=== PATIENT | male | born 1940 | race Caucasian/White ===

== ENCOUNTER 2019-12-29 13:05 | Outpatient (REF) | payer MEDICARE, SELFPAY ==
[2019-12-29 14:02] LABS: MANUAL DIFF FLAG NO
[2019-12-29 14:09] LABS: Basophils Percent Auto 0.3 % (0-2); Eosinophils Absolute Auto 0.1 X10*3/uL (0.0-0.4); Eosinophils Percent Auto 1.2 % (0-4); Hemoglobin 14.5 g/dl (14.0-18.0); Imm Gran Abs Auto 0.02 X10*3/uL (0.00-0.03); Imm Gran Pct Auto 0.3 % (0.0-0.4); Lymphocytes Absolute Auto 1.7 X10*3/uL (1.2-4.9); Lymphocytes Percent Auto 29.5 % (20-40); Mean Corpuscular HGB Conc 34.5 g/dl (31.0-36.0); Mean Corpuscular Hemoglobin 32.7 pg (27.0-33.0); Mean Corpuscular Volume 94.6 fL (80-98); Mean Platelet Volume 9.5 fL (9.4-12.4); Monocytes Absolute Auto 0.4 X10*3/uL (0.1-1.2); Monocytes Percent Auto 7.2 % (2-11); Neutrophils Absolute Auto 3.6 X10*3/uL (2.0-8.3); Neutrophils Percent Auto 61.5 % (45-73); Platelet Count 202 X10*3/uL (160-400); Red Blood Count 4.44 X10*6/uL (4.60-5.80); Red Cell Distribution Width 11.8 % (11.0-16.0); White Blood Count 5.9 X10*3/uL (4.8-10.8)
[2019-12-29 14:52] LABS: Alanine Aminotransferase 14 U/L (0-40); Albumin Level 4.4 g/dL (3.5-5.0); Alkaline Phosphatase 115 U/L (39-117); Anion Gap 12 (12-20); Aspartate Amino Transferase 16 U/L (5-37); Bilirubin Total 0.6 mg/dL (0.0-1.0); Blood Urea Nitrogen 15 mg/dL (9-16); Calcium 9.3 mg/dL (8.4-10.2); Carbon Dioxide 27 mmol/L (22-29); Chloride 107 mmol/L (96-108); Cholesterol 149 mg/dL; Estimated Glomerular Filt Rate > 60; Glucose Fasting 108 mg/dL (60-99); HDL Cholesterol 41 mg/dL; LDL Cholesterol Calculated 80 mg/dl; Potassium 4.5 mmol/l (3.3-5.1); Sodium 141 mmol/L (135-145); Total Protein 6.6 g/dL (6.5-8.0); Triglycerides 142 mg/dL
[2019-12-29 15:12] LABS: Estimated Average Glucose 97 mg/dL
== END 2019-12-29 13:06 | disposition home or self-care (01) ==
LOC: HO.LABR 13:05
PROVIDERS: PCP Internal Medicine Medical Oncology; Visit Provider Internal Medicine Medical Oncology
DX: E11.40 Type 2 diabetes mellitus with diabetic neuropathy, unspecified (principal); E78.00 Pure hypercholesterolemia, unspecified
CPT/HCPCS: 36415; 80053; 80061; 83036; 85025

== ENCOUNTER 2020-05-03 10:02 | Outpatient (REF) | payer MEDICARE, SELFPAY ==
[2020-05-03 10:39] LABS: MANUAL DIFF FLAG NO
[2020-05-03 10:43] LABS: Basophils Percent Auto 0.2 % (0-2); Eosinophils Absolute Auto 0.1 X10*3/uL (0.0-0.4); Eosinophils Percent Auto 1.7 % (0-4); Hematocrit 40.7 % (42-52); Hemoglobin 13.8 g/dl (14.0-18.0); Imm Gran Abs Auto 0.02 X10*3/uL (0.00-0.03); Imm Gran Pct Auto 0.4 % (0.0-0.4); Lymphocytes Absolute Auto 1.5 X10*3/uL (1.2-4.9); Lymphocytes Percent Auto 31.8 % (20-40); Mean Corpuscular HGB Conc 33.9 g/dl (31.0-36.0); Mean Corpuscular Hemoglobin 31.7 pg (27.0-33.0); Mean Corpuscular Volume 93.6 fL (80-98); Mean Platelet Volume 9.4 fL (9.4-12.4); Monocytes Absolute Auto 0.4 X10*3/uL (0.1-1.2); Monocytes Percent Auto 7.7 % (2-11); Neutrophils Absolute Auto 2.8 X10*3/uL (2.0-8.3); Neutrophils Percent Auto 58.2 % (45-73); Platelet Count 187 X10*3/uL (160-400); Red Blood Count 4.35 X10*6/uL (4.60-5.80); Red Cell Distribution Width 12.5 % (11.0-16.0); White Blood Count 4.8 X10*3/uL (4.8-10.8)
[2020-05-03 11:04] LABS: Estimated Average Glucose 103 mg/dL; Hemoglobin A1C 121.0957 umol/L; Hemoglobin A1c % 5.2 %
[2020-05-03 11:29] LABS: Alanine Aminotransferase 14 U/L (0-40); Albumin Level 4.3 g/dL (3.5-5.0); Alkaline Phosphatase 100 U/L (39-117); Anion Gap 12 (12-20); Aspartate Amino Transferase 14 U/L (5-37); Bilirubin Total 0.5 mg/dL (0.0-1.0); Blood Urea Nitrogen 19 mg/dL (9-16); Calcium 9.1 mg/dL (8.4-10.2); Carbon Dioxide 27 mmol/L (22-29); Chloride 107 mmol/L (96-108); Cholesterol 135 mg/dL; Estimated Glomerular Filt Rate > 60; Glucose Fasting 104 mg/dL (60-99); HDL Cholesterol 37 mg/dL; LDL Cholesterol Calculated 71 mg/dl; Potassium 4.5 mmol/L (3.3-5.1); Sodium 141 mmol/L (135-145); Total Protein 6.5 g/dL (6.5-8.0); Triglycerides 135 mg/dL
[2020-05-03 12:01] LABS: Prostate Specific Antigen 0.97 ng/mL (<0.05-4.0)
== END 2020-05-03 10:03 | disposition home or self-care (01) ==
LOC: HO.LAB 10:02
PROVIDERS: PCP Internal Medicine Medical Oncology; Visit Provider Internal Medicine Medical Oncology
DX: E11.9 Type 2 diabetes mellitus without complications (principal); E78.00 Pure hypercholesterolemia, unspecified; Z12.5 Encounter for screening for malignant neoplasm of prostate
CPT/HCPCS: 36415; 80053; 80061; 83036; 84153; 85025

== ENCOUNTER 2020-08-30 12:35 | Outpatient (REF) | payer MEDICARE, SELFPAY ==
[2020-08-30 13:37] LABS: MANUAL DIFF FLAG NO
[2020-08-30 13:43] LABS: Basophils Percent Auto 0.5 % (0-2); Eosinophils Absolute Auto 0.1 X10*3/uL (0.0-0.4); Hematocrit 39.8 % (42-52); Hemoglobin 13.6 g/dl (14.0-18.0); Imm Gran Abs Auto 0.02 X10*3/uL (0.00-0.03); Imm Gran Pct Auto 0.3 % (0.0-0.4); Lymphocytes Absolute Auto 1.8 X10*3/uL (1.2-4.9); Lymphocytes Percent Auto 30.8 % (20-40); Mean Corpuscular HGB Conc 34.2 g/dl (31.0-36.0); Mean Corpuscular Hemoglobin 31.8 pg (27.0-33.0); Mean Platelet Volume 9.5 fL (9.4-12.4); Monocytes Absolute Auto 0.4 X10*3/uL (0.1-1.2); Monocytes Percent Auto 6.8 % (2-11); Neutrophils Absolute Auto 3.5 X10*3/uL (2.0-8.3); Neutrophils Percent Auto 60.6 % (45-73); Platelet Count 203 X10*3/uL (160-400); Red Blood Count 4.28 X10*6/uL (4.60-5.80); Red Cell Distribution Width 12.2 % (11.0-16.0); White Blood Count 5.8 X10*3/uL (4.8-10.8)
[2020-08-30 13:50] LABS: Estimated Average Glucose 108 mg/dL; Hemoglobin A1C 125.4158 umol/L; Hemoglobin A1c % 5.4 %
[2020-08-30 13:57] LABS: Alanine Aminotransferase 18 U/L (0-40); Albumin Level 4.4 g/dL (3.5-5.0); Alkaline Phosphatase 95 U/L (39-117); Anion Gap 10 (12-20); Aspartate Amino Transferase 16 U/L (5-37); Bilirubin Total 0.8 mg/dL (0.0-1.0); Blood Urea Nitrogen 21 mg/dL (9-16); Calcium 9.7 mg/dL (8.4-10.2); Carbon Dioxide 26 mmol/L (22-29); Chloride 109 mmol/L (96-108); Cholesterol 147 mg/dL; Estimated Glomerular Filt Rate > 60; Glucose Fasting 96 mg/dL (60-99); HDL Cholesterol 43 mg/dL; LDL Cholesterol Calculated 79 mg/dl; Potassium 4.7 mmol/L (3.3-5.1); Sodium 140 mmol/L (135-145); Total Protein 6.5 g/dL (6.5-8.0); Triglycerides 128 mg/dL
[2020-08-30 14:11] LABS: Creatinine Urine 99.09 mg/dL
== END 2020-08-30 12:36 | disposition home or self-care (01) ==
LOC: HO.LAB 12:35
PROVIDERS: PCP Internal Medicine Medical Oncology; Visit Provider Internal Medicine Medical Oncology
DX: E78.5 Hyperlipidemia, unspecified (principal); E66.3 Overweight; E11.9 Type 2 diabetes mellitus without complications
CPT/HCPCS: 36415; 80053; 80061; 82043; 83036; 85025

== ENCOUNTER → 2020-10-08 13:03 | Outpatient (BNVA) | payer MEDICARE, SELFPAY | PROVIDERS: PCP Internal Medicine Medical Oncology; Visit Provider Urology | CPT/HCPCS: Q3014 ==

== ENCOUNTER 2020-12-06 10:32 | Outpatient (REF) | payer MEDICARE, SELFPAY ==
[2020-12-06 11:51] LABS: MANUAL DIFF FLAG NO
[2020-12-06 12:02] LABS: Basophils Percent Auto 0.5 % (0-2); Eosinophils Absolute Auto 0.1 X10*3/uL (0.0-0.4); Eosinophils Percent Auto 1.4 % (0-4); Hematocrit 40.5 % (42-52); Hemoglobin 13.9 g/dl (14.0-18.0); Imm Gran Abs Auto 0.04 X10*3/uL (0.00-0.03); Imm Gran Pct Auto 0.6 % (0.0-0.4); Lymphocytes Percent Auto 30.2 % (20-40); Mean Corpuscular HGB Conc 34.3 g/dl (31.0-36.0); Mean Corpuscular Hemoglobin 31.7 pg (27.0-33.0); Mean Corpuscular Volume 92.3 fL (80-98); Mean Platelet Volume 9.7 fL (9.4-12.4); Monocytes Absolute Auto 0.6 X10*3/uL (0.1-1.2); Monocytes Percent Auto 8.5 % (2-11); Neutrophils Absolute Auto 3.8 X10*3/uL (2.0-8.3); Neutrophils Percent Auto 58.8 % (45-73); Platelet Count 191 X10*3/uL (160-400); Red Blood Count 4.39 X10*6/uL (4.60-5.80); Red Cell Distribution Width 12.1 % (11.0-16.0); White Blood Count 6.5 X10*3/uL (4.8-10.8)
[2020-12-06 12:23] LABS: Alanine Aminotransferase 11 U/L (0-40); Albumin Level 4.3 g/dL (3.5-5.0); Alkaline Phosphatase 132 U/L (39-117); Anion Gap 11 (12-20); Aspartate Amino Transferase 14 U/L (5-37); Bilirubin Total 0.5 mg/dL (0.0-1.0); Blood Urea Nitrogen 14 mg/dL (9-16); Calcium 9.2 mg/dL (8.4-10.2); Carbon Dioxide 25 mmol/L (22-29); Chloride 109 mmol/L (96-108); Cholesterol 146 mg/dL; Estimated Glomerular Filt Rate > 60; Glucose Fasting 101 mg/dL (60-99); HDL Cholesterol 41 mg/dL; LDL Cholesterol Calculated 77 mg/dl; Potassium 4.3 mmol/L (3.3-5.1); Sodium 141 mmol/L (135-145); Total Protein 6.3 g/dL (6.5-8.0); Triglycerides 144 mg/dL
[2020-12-06 12:29] LABS: Estimated Average Glucose 103 mg/dL; Hemoglobin A1c % 5.2 %
[2020-12-06 12:31] LABS: Prostate Specific Antigen 0.88 ng/mL (<0.05-4.0)
[2020-12-06 13:59] LABS: Creatinine Urine 100.49 mg/dL; Microalbum/Creatinine Ratio Ur 8.9 ug/mg cr
== END 2020-12-06 10:33 | disposition home or self-care (01) ==
LOC: HO.LAB 10:32
PROVIDERS: PCP Internal Medicine Medical Oncology; Visit Provider Internal Medicine Medical Oncology
DX: F32.9 Major depressive disorder, single episode, unspecified (principal); E11.9 Type 2 diabetes mellitus without complications; N40.0 Benign prostatic hyperplasia without lower urinary tract symptoms; E78.00 Pure hypercholesterolemia, unspecified
CPT/HCPCS: 36415; 80053; 80061; 82043; 83036; 84153; 85025

== ENCOUNTER 2021-04-04 10:35 | Outpatient (REF) | payer MEDICARE, SELFPAY ==
[2021-04-04 11:01] LABS: MANUAL DIFF FLAG NO
[2021-04-04 11:24] LABS: Basophils Percent Auto 0.4 % (0-2); Eosinophils Absolute Auto 0.1 X10*3/uL (0.0-0.4); Eosinophils Percent Auto 1.4 % (0-4); Hematocrit 42.8 % (42.0-52.0); Hemoglobin 14.5 g/dl (14.0-18.0); Imm Gran Abs Auto 0.04 X10*3/uL (0.00-0.03); Imm Gran Pct Auto 0.6 % (0.0-0.4); Lymphocytes Percent Auto 28.1 % (20-40); Mean Corpuscular HGB Conc 33.9 g/dl (31.0-36.0); Mean Corpuscular Hemoglobin 31.9 pg (27.0-33.0); Mean Corpuscular Volume 94.3 fL (80.0-98.0); Mean Platelet Volume 9.3 fL (9.4-12.4); Monocytes Absolute Auto 0.5 X10*3/uL (0.1-1.2); Neutrophils Absolute Auto 4.5 x10*3/uL (2.0-8.3); Neutrophils Percent Auto 62.5 % (45-73); Platelet Count 213 X10*3/uL (160-400); Red Blood Count 4.54 X10*6/uL (4.60-5.80); Red Cell Distribution Width 12.3 % (11.0-16.0); White Blood Count 7.3 X10*3/uL (4.8-10.8)
[2021-04-04 11:36] LABS: Estimated Average Glucose 105 mg/dL; Hemoglobin A1c % 5.3 %
[2021-04-04 12:00] LABS: Alanine Aminotransferase 32 U/L (0-40); Albumin Level 4.2 g/dL (3.5-5.0); Alkaline Phosphatase 148 U/L (39-117); Anion Gap 12 (12-20); Aspartate Amino Transferase 21 U/L (5-37); Bilirubin Total 0.5 mg/dL (0.0-1.0); Blood Urea Nitrogen 18 mg/dL (9-16); Calcium 9.6 mg/dL (8.4-10.2); Carbon Dioxide 27 mmol/L (22-29); Chloride 107 mmol/L (96-108); Cholesterol 148 mg/dL; Estimated Glomerular Filt Rate > 60; Glucose Fasting 121 mg/dL (60-99); HDL Cholesterol 37 mg/dL; LDL Cholesterol Calculated 89 mg/dl; Potassium 4.5 mmol/L (3.3-5.1); Sodium 141 mmol/L (135-145); Total Protein 6.8 g/dL (6.5-8.0); Triglycerides 111 mg/dL
== END 2021-04-04 10:36 | disposition home or self-care (01) ==
LOC: HO.LAB 10:35
PROVIDERS: Visit Provider Internal Medicine Medical Oncology
DX: E66.3 Overweight (principal); E11.9 Type 2 diabetes mellitus without complications
CPT/HCPCS: 36415; 80053; 80061; 83036; 85025

== ENCOUNTER 2021-08-01 09:42 | Outpatient (REF) | payer MEDICARE, SELFPAY ==
[2021-08-01 09:58] LABS: MANUAL DIFF FLAG NO
[2021-08-01 10:20] LABS: Basophils Percent Auto 0.4 % (0-2); Eosinophils Absolute Auto 0.1 X10*3/uL (0.0-0.4); Eosinophils Percent Auto 1.9 % (0-4); Hematocrit 40.8 % (42.0-52.0); Imm Gran Abs Auto 0.01 X10*3/uL (0.00-0.03); Imm Gran Pct Auto 0.2 % (0.0-0.4); Lymphocytes Absolute Auto 2.2 X10*3/uL (1.2-4.9); Lymphocytes Percent Auto 41.3 % (20-40); Mean Corpuscular HGB Conc 34.3 g/dl (31.0-36.0); Mean Corpuscular Hemoglobin 31.7 pg (27.0-33.0); Mean Corpuscular Volume 92.3 fL (80.0-98.0); Mean Platelet Volume 9.3 fL (9.4-12.4); Monocytes Absolute Auto 0.4 X10*3/uL (0.1-1.2); Neutrophils Absolute Auto 2.6 x10*3/uL (2.0-8.3); Neutrophils Percent Auto 48.2 % (45-73); Platelet Count 179 X10*3/uL (160-400); Red Blood Count 4.42 X10*6/uL (4.60-5.80); Red Cell Distribution Width 12.8 % (11.0-16.0); White Blood Count 5.3 X10*3/uL (4.8-10.8)
[2021-08-01 10:45] LABS: Estimated Average Glucose 108 mg/dL; Hemoglobin A1c % 5.4 %
[2021-08-01 10:49] LABS: Alanine Aminotransferase 14 U/L (0-40); Albumin Level 4.1 g/dL (3.5-5.0); Alkaline Phosphatase 123 U/L (39-117); Anion Gap 11 (12-20); Aspartate Amino Transferase 15 U/L (5-37); Bilirubin Total 0.3 mg/dL (0.0-1.0); Blood Urea Nitrogen 16 mg/dL (9-16); Calcium 9.3 mg/dL (8.4-10.2); Carbon Dioxide 27 mmol/L (22-29); Chloride 106 mmol/L (96-108); Cholesterol 148 mg/dL; Estimated Glomerular Filt Rate > 60; Glucose Fasting 106 mg/dL (60-99); HDL Cholesterol 39 mg/dL; LDL Cholesterol Calculated 80 mg/dl; Sodium 140 mmol/L (135-145); Total Protein 6.4 g/dL (6.5-8.0); Triglycerides 147 mg/dL
[2021-08-01 11:02] LABS: Prostate Specific Antigen 1.16 ng/mL (<0.05-4.0)
[2021-08-01 11:49] LABS: Creatinine Urine 97.91 mg/dL; Microalbum/Creatinine Ratio Ur 7.1 ug/mg cr
== END 2021-08-01 09:43 | disposition home or self-care (01) ==
LOC: HO.LAB 09:42
PROVIDERS: PCP Internal Medicine Medical Oncology; Visit Provider Internal Medicine Medical Oncology
DX: Z12.5 Encounter for screening for malignant neoplasm of prostate (principal); E11.9 Type 2 diabetes mellitus without complications; E78.01 Familial hypercholesterolemia; N40.0 Benign prostatic hyperplasia without lower urinary tract symptoms
CPT/HCPCS: 36415; 80053; 80061; 82043; 83036; 84153; 85025

== ENCOUNTER 2021-11-09 14:43 | Outpatient (REF) | payer MEDICARE, SELFPAY ==
[2021-11-09 15:52] LABS: Prostate Specific Antigen 1.15 ng/mL (<0.05-4.0)
== END 2021-11-09 14:44 | disposition home or self-care (01) ==
LOC: HO.LAB 14:43
PROVIDERS: PCP Internal Medicine Medical Oncology; Visit Provider Urology
DX: Z12.5 Encounter for screening for malignant neoplasm of prostate (principal); N13.8 Other obstructive and reflux uropathy; N40.1 Benign prostatic hyperplasia with lower urinary tract symptoms
CPT/HCPCS: 36415; 84153

== ENCOUNTER 2021-11-21 10:17 | Outpatient (REF) | payer MEDICARE, SELFPAY ==
[2021-11-21 10:36] LABS: MANUAL DIFF FLAG NO
[2021-11-21 10:44] LABS: Basophils Percent Auto 0.3 % (0-2); Eosinophils Absolute Auto 0.1 X10*3/uL (0.0-0.4); Eosinophils Percent Auto 1.3 % (0-4); Hemoglobin 14.5 g/dl (14.0-18.0); Imm Gran Abs Auto 0.01 X10*3/uL (0.00-0.03); Imm Gran Pct Auto 0.1 % (0.0-0.4); Lymphocytes Absolute Auto 1.8 X10*3/uL (1.2-4.9); Mean Corpuscular HGB Conc 33.7 g/dl (31.0-36.0); Mean Corpuscular Hemoglobin 31.5 pg (27.0-33.0); Mean Corpuscular Volume 93.3 fL (80.0-98.0); Mean Platelet Volume 9.2 fL (9.4-12.4); Monocytes Absolute Auto 0.5 X10*3/uL (0.1-1.2); Monocytes Percent Auto 7.6 % (2-11); Neutrophils Absolute Auto 4.3 x10*3/uL (2.0-8.3); Neutrophils Percent Auto 63.7 % (45-73); Platelet Count 171 X10*3/uL (160-400); Red Blood Count 4.61 X10*6/uL (4.60-5.80); Red Cell Distribution Width 12.1 % (11.0-16.0); White Blood Count 6.8 X10*3/uL (4.8-10.8)
[2021-11-21 11:36] LABS: Alanine Aminotransferase 17 U/L (0-40); Albumin Level 4.3 g/dL (3.5-5.0); Alkaline Phosphatase 122 U/L (39-117); Anion Gap 13 (12-20); Aspartate Amino Transferase 17 U/L (5-37); Bilirubin Total 0.5 mg/dL (0.0-1.0); Blood Urea Nitrogen 16 mg/dL (9-16); Calcium 9.3 mg/dL (8.4-10.2); Carbon Dioxide 26 mmol/L (22-29); Chloride 107 mmol/L (96-108); Cholesterol 163 mg/dL; Estimated Glomerular Filt Rate > 60; Glucose Fasting 121 mg/dL (60-99); HDL Cholesterol 41 mg/dL; LDL Cholesterol Calculated 91 mg/dl; Potassium 4.3 mmol/L (3.3-5.1); Sodium 142 mmol/L (135-145); Total Protein 6.6 g/dL (6.5-8.0); Triglycerides 158 mg/dL
[2021-11-21 11:38] LABS: Prostate Specific Antigen 0.94 ng/mL (<0.05-4.0)
[2021-11-21 11:41] LABS: Estimated Average Glucose 105 mg/dL; Hemoglobin A1c % 5.3 %
== END 2021-11-21 10:18 | disposition home or self-care (01) ==
LOC: HO.LAB 10:17
PROVIDERS: PCP Internal Medicine Medical Oncology; Visit Provider Internal Medicine Medical Oncology
DX: Z12.5 Encounter for screening for malignant neoplasm of prostate (principal); E66.3 Overweight; E11.9 Type 2 diabetes mellitus without complications; N40.0 Benign prostatic hyperplasia without lower urinary tract symptoms
CPT/HCPCS: 36415; 80053; 80061; 83036; 84153; 85025

== ENCOUNTER → 2021-11-25 13:08 | Outpatient (BNVA) | payer MEDICARE, SELFPAY | PROVIDERS: Visit Provider Urology | DX: N40.1 Benign prostatic hyperplasia with lower urinary tract symptoms (principal); N13.8 Other obstructive and reflux uropathy; Z12.5 Encounter for screening for malignant neoplasm of prostate | CPT/HCPCS: 51798; 99212 ==

== ENCOUNTER 2022-04-10 09:50 | Outpatient (REF) | payer MEDICARE, SELFPAY ==
[2022-04-10 10:05] LABS: MANUAL DIFF FLAG NO
[2022-04-10 10:44] LABS: Basophils Percent Auto 0.5 % (0-2); Eosinophils Absolute Auto 0.1 X10*3/uL (0.0-0.4); Eosinophils Percent Auto 1.9 % (0-4); Hematocrit 41.6 % (42.0-52.0); Hemoglobin 13.8 g/dl (14.0-18.0); Imm Gran Abs Auto 0.03 X10*3/uL (0.00-0.03); Imm Gran Pct Auto 0.5 % (0.0-0.4); Lymphocytes Absolute Auto 2.4 X10*3/uL (1.2-4.9); Lymphocytes Percent Auto 41.8 % (20-40); Mean Corpuscular HGB Conc 33.2 g/dl (31.0-36.0); Mean Corpuscular Hemoglobin 31.2 pg (27.0-33.0); Mean Corpuscular Volume 94.1 fL (80.0-98.0); Mean Platelet Volume 9.4 fL (9.4-12.4); Monocytes Absolute Auto 0.5 X10*3/uL (0.1-1.2); Monocytes Percent Auto 8.8 % (2-11); Neutrophils Absolute Auto 2.7 x10*3/uL (2.0-8.3); Neutrophils Percent Auto 46.5 % (45-73); Platelet Count 165 X10*3/uL (160-400); Red Blood Count 4.42 X10*6/uL (4.60-5.80); Red Cell Distribution Width 12.3 % (11.0-16.0); White Blood Count 5.8 X10*3/uL (4.8-10.8)
[2022-04-10 10:50] LABS: Estimated Average Glucose 108 mg/dL; Hemoglobin A1c % 5.4 %
[2022-04-10 11:16] LABS: Alanine Aminotransferase 14 U/L (0-40); Albumin Level 4.1 g/dL (3.5-5.0); Alkaline Phosphatase 125 U/L (39-117); Anion Gap 12 (12-20); Aspartate Amino Transferase 18 U/L (5-37); Bilirubin Total 0.4 mg/dL (0.0-1.0); Blood Urea Nitrogen 17 mg/dL (9-16); Calcium 8.7 mg/dL (8.4-10.2); Carbon Dioxide 26 mmol/L (22-29); Chloride 107 mmol/L (96-108); Cholesterol 151 mg/dL; Estimated Glomerular Filt Rate > 60; Glucose Fasting 108 mg/dL (60-99); HDL Cholesterol 43 mg/dL; LDL Cholesterol Calculated 80 mg/dl; Potassium 3.7 mmol/L (3.3-5.1); Sodium 141 mmol/L (135-145); Total Protein 6.3 g/dL (6.5-8.0); Triglycerides 144 mg/dL
[2022-04-10 11:33] LABS: Prostate Specific Antigen 1.29 ng/mL (<0.05-4.0)
[2022-04-10 11:50] LABS: Creatinine Urine 143.58 mg/dL; Microalbum/Creatinine Ratio Ur 4.1 ug/mg cr
== END 2022-04-10 09:51 | disposition home or self-care (01) ==
LOC: HO.LAB 09:50
PROVIDERS: PCP Internal Medicine Medical Oncology; Visit Provider Internal Medicine Medical Oncology
DX: Z12.5 Encounter for screening for malignant neoplasm of prostate (principal); N40.0 Benign prostatic hyperplasia without lower urinary tract symptoms; E11.9 Type 2 diabetes mellitus without complications; E66.3 Overweight
CPT/HCPCS: 36415; 80053; 80061; 82043; 83036; 84153; 85025

== ENCOUNTER 2022-07-31 10:25 | Outpatient (REF) | payer MEDICARE, SELFPAY ==
[2022-07-31 10:41] LABS: MANUAL DIFF FLAG NO
[2022-07-31 12:45] LABS: Basophils Percent Auto 0.3 % (0-2); Eosinophils Absolute Auto 0.1 X10*3/uL (0.0-0.4); Eosinophils Percent Auto 1.6 % (0-4); Hematocrit 42.3 % (42.0-52.0); Hemoglobin 14.2 g/dl (14.0-18.0); Imm Gran Abs Auto 0.03 X10*3/uL (0.00-0.03); Imm Gran Pct Auto 0.5 % (0.0-0.4); Lymphocytes Absolute Auto 2.3 X10*3/uL (1.2-4.9); Lymphocytes Percent Auto 39.1 % (20-40); Mean Corpuscular HGB Conc 33.6 g/dl (31.0-36.0); Mean Corpuscular Hemoglobin 31.5 pg (27.0-33.0); Mean Corpuscular Volume 93.8 fL (80.0-98.0); Mean Platelet Volume 9.4 fL (9.4-12.4); Monocytes Absolute Auto 0.4 X10*3/uL (0.1-1.2); Monocytes Percent Auto 7.2 % (2-11); Neutrophils Percent Auto 51.3 % (45-73); Platelet Count 197 X10*3/uL (160-400); Red Blood Count 4.51 X10*6/uL (4.60-5.80); Red Cell Distribution Width 12.4 % (11.0-16.0); White Blood Count 5.8 X10*3/uL (4.8-10.8)
[2022-07-31 13:12] LABS: Creatinine Urine 88.63 mg/dL; Microalbum/Creatinine Ratio Ur 7.8 ug/mg cr
[2022-07-31 13:18] LABS: Alanine Aminotransferase 19 U/L (0-40); Albumin Level 4.2 g/dL (3.5-5.0); Alkaline Phosphatase 132 U/L (39-117); Anion Gap 12 (12-20); Aspartate Amino Transferase 15 U/L (5-37); Bilirubin Total 0.5 mg/dL (0.0-1.0); Blood Urea Nitrogen 15 mg/dL (9-16); Calcium 9.4 mg/dL (8.4-10.2); Carbon Dioxide 24 mmol/L (22-29); Chloride 108 mmol/L (96-108); Cholesterol 152 mg/dL; Estimated Glomerular Filt Rate > 60; Glucose Random 106 mg/dL (60-115); HDL Cholesterol 37 mg/dL; LDL Cholesterol Calculated 76 mg/dl; Potassium 4.2 mmol/L (3.3-5.1); Sodium 140 mmol/L (135-145); Total Protein 6.3 g/dL (6.5-8.0); Triglycerides 199 mg/dL
[2022-07-31 13:34] LABS: Estimated Average Glucose 111 mg/dL; Hemoglobin A1c % 5.5 %
== END 2022-07-31 10:26 | disposition home or self-care (01) ==
LOC: HO.LAB 10:25
PROVIDERS: PCP Internal Medicine Medical Oncology; Visit Provider Internal Medicine Medical Oncology
DX: E11.9 Type 2 diabetes mellitus without complications (principal); E78.01 Familial hypercholesterolemia
CPT/HCPCS: 36415; 80053; 80061; 82043; 83036; 85025

== ENCOUNTER 2022-08-10 17:32 | Inpatient (IN) | payer MEDICARE, SELFPAY ==
--- NOTE | ~2022-08-10 | CT_ITS ---
EXAMINATION: CT brain and CT cervical spine without contrast. CLINICAL INDICATION: Status post fall TECHNIQUE: 5 mm thin axial and reformatted 2 mm thin sagittal coronal images of brain were obtained without contrast. Subsequently axial 3 mm thin and reformatted 2 mm thin sagittal coronal images of cervical spine were obtained. DLP [id number]. This CT examination was performed using dose optimization technique as appropriate, variously including the following: Automated exposure control Adjustment of MA and/or KV according to patient size(this includes techniques or standardized protocols for targeted exams where dose is matched to indication/reason for exam; extremities or head. Use of iterative reconstruction techniques. FINDINGS: Brain: There is no acute intra-axial, extra-axial bleed, masses or midline shift. There is no acute infarction in evolution. There is no edema. The mcbride to white matter differentiation is maintained normal. The lateral ventricles are symmetrical in size and configuration but enlarged. Bone windows reveal no calvarial abnormality. There is no scalp soft tissue abnormality. Bilateral paranasal sinuses and mastoid air cells are well-aerated. Cervical spine: On sagittal reconstructed images there is maintained cervical lordosis. There is loss of C3-C4 disc height. Rest of the disc heights are maintained normal. There is ventral spondylosis C4-C5, C5-C6 and C6-C7 disc levels. No aggressive lytic or sclerotic process seen. The craniovertebral junction and the C1-C2 alignment is normal. The prevertebral and paravertebral soft tissues are normal. There is minimal atelectatic changes or scarring in both lung apices. CT/CT head/brain wo IV con IMPRESSION: No acute intracranial process seen. No acute fracture or dislocation cervical spine. 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
--- NOTE | ~2022-08-10 | CT_ITS ---
EXAMINATION: CT brain and CT cervical spine without contrast. CLINICAL INDICATION: Status post fall TECHNIQUE: 5 mm thin axial and reformatted 2 mm thin sagittal coronal images of brain were obtained without contrast. Subsequently axial 3 mm thin and reformatted 2 mm thin sagittal coronal images of cervical spine were obtained. DLP 1240. This CT examination was performed using dose optimization technique as appropriate, variously including the following: Automated exposure control Adjustment of MA and/or KV according to patient size(this includes techniques or standardized protocols for targeted exams where dose is matched to indication/reason for exam; extremities or head. Use of iterative reconstruction techniques. FINDINGS: Brain: There is no acute intra-axial, extra-axial bleed, masses or midline shift. There is no acute infarction in evolution. There is no edema. The mcbirde to white matter differentiation is maintained normal. The lateral ventricles are symmetrical in size and configuration but enlarged. Bone windows reveal no calvarial abnormality. There is no scalp soft tissue abnormality. Bilateral paranasal sinuses and mastoid air cells are well-aerated. Cervical spine: On sagittal reconstructed images there is maintained cervical lordosis. There is loss of C3-C4 disc height. Rest of the disc heights are maintained normal. There is ventral spondylosis C4-C5, C5-C6 and C6-C7 disc levels. No aggressive lytic or sclerotic process seen. The craniovertebral junction and the C1-C2 alignment is normal. The prevertebral and paravertebral soft tissues are normal. There is minimal atelectatic changes or scarring in both lung apices. CT/CT cervical spine wo IV con IMPRESSION: No acute intracranial process seen. No acute fracture or dislocation cervical spine. 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
--- NOTE | ~2022-08-10 | XR_ITS ---
EXAMINATION: XR CHEST CLINICAL INFORMATION: Pain status post fall COMPARISON: None available. TECHNIQUE: Frontal view of the chest was obtained. FINDINGS: No significant abnormality is noted involving the heart, lungs, mediastinum, bony thorax or soft tissues. XR/XR chest 1V IMPRESSION: Unremarkable examination.
--- NOTE | ~2022-08-10 | XR_ITS ---
EXAMINATION: XR PELVIS CLINICAL INFORMATION: Fall. COMPARISON: CT abdomen/pelvis dated 11/13/2013. TECHNIQUE: AP view of the pelvis. FINDINGS: No acute fracture or dislocation. Mild bilateral hip joint space narrowing with small marginal osteophytes. No osseous erosion. No abnormal soft tissue calcification. XR/XR pelvis 1-2V IMPRESSION: 1. No acute fracture or dislocation. 2. Mild bilateral hip osteoarthritis.
--- NOTE | 2022-08-10 17:52 | ECG_ITS ---
Test Reason : FALL Blood Pressure : / mmHG Vent. Rate : 079 BPM Atrial Rate : 079 BPM P-R Int : 172 ms QRS Dur : 100 ms QT Int : 414 ms P-R-T Axes : 014 002 -14 degrees QTc Int : 474 ms Normal sinus rhythm Nonspecific ST abnormality Abnormal ECG When compared with ECG of 21-JUN-2011 19:41, No significant change was found Referred By: Generic ED Physician Electronically Signed By:Jose Zhu
[2022-08-10 17:53] VITALS: BP 132/62; BP 144/78; PULSE 80; PULSE 86; RESP 34; TEMP 37.4; O2SAT 96; O2SAT 99; BMI 27.5
--- NOTE | 2022-08-10 18:03 | ED_ITS ---
HPI - Fall General Chief Complaint: Fall Stated Complaint: slip and fall Time Seen by Provider: 08/10/22 18:01 Source: patient and family Mode of arrival: ambulatory Limitations: no limitations History of Present Illness HPI Narrative: Patient history of hypertension anxiety depression otherwise very healthy takes care of himself slightly unsteady on his feet apparently got up at 02:00 to go to bathroom and tripped on the rug next to his bed and could not get up after that. Patient's girlfriend came at 15:00 today as he did not answer the phone and found him on the floor. Patient complaining of bilateral hip pain no chest pain or palpitation no shortness of breath no dizziness no headache no nausea no vomiting. No fever or chills patient wasin usual health yesterday Related Data Home Medications Medication Instructions Recorded Confirmed blood sugar diagnostic #10 ea 10/08/20 08/10/22 clonazepam 2 mg tablet 4 mg PO BEDTIME PRN Anxiety 10/08/20 08/10/22 fluoxetine 20 mg capsule 20 mg PO DAILY 10/08/20 08/10/22 fluoxetine 40 mg capsule 40 mg PO DAILY 10/08/20 08/10/22 lancets #100 ea 10/08/20 08/10/22 lisinopril 5 mg tablet 5 mg PO DAILY 10/08/20 08/10/22 mirtazapine 45 mg tablet 45 mg PO BEDTIME 10/08/20 08/10/22 risperidone 0.5 mg tablet 1 mg PO BEDTIME 10/08/20 08/10/22 simvastatin 10 mg tablet 10 mg PO BEDTIME 10/08/20 08/10/22 valacyclovir 500 mg tablet 500 mg PO DAILY 10/08/20 08/10/22 ergocalciferol (vitamin D2) 1,250 1,250 mcg PO DURAN@1000 08/10/22 08/10/22 mcg (50,000 unit) capsule jtkzvimz-hsb-xngwi acid 300 1 tab PO DAILY 08/10/22 08/10/22 mcg-lycopene 600 mcg-lutein 300 mcg tablet (Centrum Silver Men) Allergies Allergy/AdvReac Type Severity Reaction Status Date / Time No Known Allergies Allergy Verified 11/25/21 08:21 Review of Systems Review of Systems: Yes all other systems are reviewed and are negative PMFSH Past Medical History Medical History Anxiety and depression Hyperlipidemia Hypertension Surgical History Hx of cholecystectomy Social History Social History Household Members: None [facility] Do you presently have visiting nurse or other home services: No Alcohol intake: never Patient Tobacco Use Status: Never used Tobacco Use of substances other than those prescribed or required for medical reasons: No Have you been hit, kicked, punched, or otherwise hurt by someone within the past year? If so, by whom?: No Do you feel safe in your current relationship?: Yes Is there a partner from a previous relationship who is making you feel unsafe now?: No Are you made to feel afraid or neglected: No Advance Directives: Yes Advance Directives Information Provided: No Advance Directives on File: No Advance Directives Date on File: 08/11/22 Do you have thoughts of harming others: None Do you have a plan to hurt others: No Plan Recently lost weight without trying: No Nutrition Risks: No Nutritional Risk Poor oral hygiene: No Physical Exam Vital Signs: Vital Signs: Last Vital Signs Temp 97.4 F 08/11/22 00:38 Pulse 75 08/11/22 00:38 Resp 18 08/11/22 00:38 BP 128/59 L 08/11/22 00:38 Pulse Ox 97 08/11/22 00:38 O2 Del Method Room Air 08/11/22 00:38 BMI result Body Mass Index 27.5 Appearance: Alert. Oriented X3. No acute distress. Eyes: PERRLA, No Nystagmus HEENT: Pharynx normal. Oral Mucosa dry Neck: Normal inspection. Neck supple. Cervical collar in place no midline tenderness no signs of head injury CVS: Normal heart rate and rhythm. Pulses normal. Respiratory: No respiratory distress. Equal air entry bilateral, no wheezing/rales/rhonchi Abdomen: Soft and nontender. Bowel sounds are present, no mass palpable, no CVA tenderness Skin: Skin warm and dry. Normal skin color. Normal skin turgor. Extremities: No lower extremity edema. No calf tenderness bruising over bilateral knee pelvis stable hips stable Neuro: Oriented X 3. No motor deficit. No sensory deficit.No cerebellar signs , cranial nerves II-XII intact Medications Administered Generic Name Dose Route Start Last Admin Trade Name Dieudonne PRN Reason Stop Dose Admin Enoxaparin Sodium 40 mg 08/10/22 23:00 08/10/22 23:00 Enoxaparin Sodium 40 Mg/0.4 Ml Syringe SUBCUT 40 mg Q24H LUCI Administration Lactated Ringer's 1,000 mls @ 100 mls/hr 08/10/22 22:30 08/10/22 23:07 Lr IVCONT 100 mls/hr .Q10H LUCI Administration Ceftriaxone Sodium 1 gm/ 50 mls @ 100 mls/hr 08/10/22 23:00 08/11/22 00:53 Sodium Chloride IV Infused Q24H LUCI Infusion Mirtazapine 45 mg 08/10/22 22:30 08/10/22 23:00 Mirtazapine 15 Mg Tablet PO 45 mg BEDTIME LUCI Administration Risperidone 1 mg 08/10/22 22:30 08/10/22 23:00 Risperidone 0.5 Mg Tablet PO 1 mg BEDTIME LUCI Administration Sodium Chloride 3 ml 08/11/22 00:00 08/10/22 23:14 0.9 % Sodium Chloride Flush 3 Ml Syringe IVFLUSH Not Given QSHIFT LUCI Discontinued Medications Generic Name Dose Route Start Last Admin Trade Name Dieudonne PRN Reason Stop Dose Admin Sodium Chloride 1,000 mls @ 999 mls/hr 08/10/22 18:09 08/10/22 19:24 Ns IV 08/10/22 19:09 Infused .Q1H1M ONE Infusion Sodium Chloride 1,000 mls @ 999 mls/hr 08/10/22 19:04 08/10/22 20:17 Ns IV 08/10/22 20:04 Infused .Q1H1M ONE Infusion Morphine Sulfate 4 mg 08/10/22 19:04 08/10/22 19:11 Morphine Sulfate 4 Mg/Ml Cartridge IVPUSH 08/10/22 19:05 4 mg ONCE ONE Administration Protocol Ondansetron HCl 4 mg 08/10/22 19:04 08/10/22 19:11 Ondansetron Hcl 4 Mg/2 Ml Vial IVPUSH 08/10/22 19:05 4 mg ONCE ONE Administration Medical Decision Making Medical Decision Making MDM Narrative: Patient status post mechanical fall on floor for more than 12 hours lab workup showed an elevated CPK in acute rhabdomyolysis elevated lactic acid level but not from infection is from dehydration also had slightly elevated LFTs secondary to rhabdomyolysis IV fluids were given in the ER patient improved will admit patient for rhabdomyolysis Consult Healthcare Provider Management of the patient was discussed with: Hospitalist Lab Data MDM Lab Attestation statement: I reviewed the patient's lab results. 08/10/22 18:05 08/10/22 18:05 Labs: Lab Results 08/10/22 08/10/22 08/10/22 Range/Units 18:05 18:05 18:05 WBC 14.3 H (4.8-10.8) X10*3/uL RBC 5.00 (4.60-5.80) X10*6/uL Hgb 15.8 (14.0-18.0) g/dl Hct 44.1 (42.0-52.0) % MCV 88.2 (80.0-98.0) fL MCH 31.6 (27.0-33.0) pg MCHC 35.8 (31.0-36.0) g/dl RDW 12.3 (11.0-16.0) % Plt Count 221 (160-400) X10*3/uL MPV 8.9 L (9.4-12.4) fL Immature Gran % (Auto) 0.4 (0.0-0.4) % Neut % (Auto) 87.5 H (45-73) % Lymph % (Auto) 5.7 L (20-40) % [place] % (Auto) 6.2 (2-11) % Eos % (Auto) 0.1 (0-4) % Baso % (Auto) 0.1 (0-2) % Lymph # (Auto) 0.8 L (1.2-4.9) X10*3/uL [place] # (Auto) 0.9 (0.1-1.2) X10*3/uL Eos # (Auto) 0.0 (0.0-0.4) X10*3/uL Baso # (Auto) 0.0 (0.0-0.2) X10*3/uL Abs Immat Gran (auto) 0.05 H (0.00-0.03) X10*3/uL Absolute Neuts (auto) 12.5 H (2.0-8.3) x10*3/uL Absolute Nucleated RBC 0.000 (0.0-0.012) X10*3/uL Nucleated RBC % (auto) 0.0 (0.0-0.2) /100WBC Sodium 141 (135-145) mmol/L Potassium 4.1 (3.3-5.1) mmol/L Chloride 108 (96-108) mmol/L Carbon Dioxide 19 L (22-29) mmol/L Anion Gap 18 (12-20) BUN 21 H (9-16) mg/dL Creatinine 1.12 (0.5-1.4) mg/dL Estim Creat Clear Calc 57.7 Estimated GFR > 60 Random Glucose 137 H (60-115) mg/dL Lactic Acid 2.9 H* (0.5-2.0) mmol/L Lactic Acid F/U @ 2Hr (0.5-2.0) mmol/L Calcium 9.7 (8.4-10.2) mg/dL Magnesium 2.0 (1.6-2.6) mg/dL Total Bilirubin 1.4 H (0.0-1.0) mg/dL Direct Bilirubin 0.3 (0.0-0.5) mg/dL AST 274 H (5-37) U/L ALT 66 H (0-40) U/L Alkaline Phosphatase 130 H (39-117) U/L Total Creatine Kinase 26622 H (38-174) U/L Troponin I High Sens (<3.5-35.0) ng/L Total Protein 6.8 (6.5-8.0) g/dL Albumin 4.4 (3.5-5.0) g/dL Urine Color Urine Appearance Urine pH (5.0-9.0) Ur Specific [place] (1.005-1.025) Urine Protein (Neg-Trace) mg/dL Urine Glucose (UA) (Negative) mg/dL Urine Ketones (Negative) mg/dL Urine Blood (Negative) Urine Nitrite (Negative) Ur Leukocyte Esterase (Negative) Urine RBC (0-2) /HPF Urine WBC (0-5) /HPF Ur Squamous Epith Cells (0-2) /HPF Urine Bacteria (None Seen) Hyaline Casts (0-2) /LPF 08/10/22 08/10/2223 Range/Units 18:05 19:19 20:40 WBC (4.8-10.8) X10*3/uL RBC (4.60-5.80) X10*6/uL Hgb (14.0-18.0) g/dl Hct (42.0-52.0) % MCV (80.0-98.0) fL MCH (27.0-33.0) pg MCHC (31.0-36.0) g/dl RDW (11.0-16.0) % Plt Count (160-400) X10*3/uL MPV (9.4-12.4) fL Immature Gran % (Auto) (0.0-0.4) % Neut % (Auto) (45-73) % Lymph % (Auto) (20-40) % [place] % (Auto) (2-11) % Eos % (Auto) (0-4) % Baso % (Auto) (0-2) % Lymph # (Auto) (1.2-4.9) X10*3/uL [place] # (Auto) (0.1-1.2) X10*3/uL Eos # (Auto) (0.0-0.4) X10*3/uL Baso # (Auto) (0.0-0.2) X10*3/uL Abs Immat Gran (auto) (0.00-0.03) X10*3/uL Absolute Neuts (auto) (2.0-8.3) x10*3/uL Absolute Nucleated RBC (0.0-0.012) X10*3/uL Nucleated RBC % (auto) (0.0-0.2) /100WBC Sodium (135-145) mmol/L Potassium (3.3-5.1) mmol/L Chloride (96-108) mmol/L Carbon Dioxide (22-29) mmol/L Anion Gap (12-20) BUN (9-16) mg/dL Creatinine (0.5-1.4) mg/dL Estim Creat Clear Calc Estimated GFR Random Glucose (60-115) mg/dL Lactic Acid (0.5-2.0) mmol/L Lactic Acid F/U @ 2Hr 2.1 H* (0.5-2.0) mmol/L Calcium (8.4-10.2) mg/dL Magnesium (1.6-2.6) mg/dL Total Bilirubin (0.0-1.0) mg/dL Direct Bilirubin (0.0-0.5) mg/dL AST (5-37) U/L ALT (0-40) U/L Alkaline Phosphatase (39-117) U/L Total Creatine Kinase (38-174) U/L Troponin I High Sens 35.4 H (<3.5-35.0) ng/L Total Protein (6.5-8.0) g/dL Albumin (3.5-5.0) g/dL Urine Color Yellow Urine Appearance Clear Urine pH 6.5 (5.0-9.0) Ur Specific [place] 1.020 (1.005-1.025) Urine Protein 30 (1+) H (Neg-Trace) mg/dL Urine Glucose (UA) Negative (Negative) mg/dL Urine Ketones 40 (Negative) mg/dL Urine Blood Large (3+) H (Negative) Urine Nitrite Negative (Negative) Ur Leukocyte Esterase Trace H (Negative) Urine RBC 6-10 H (0-2) /HPF Urine WBC 0-5 (0-5) /HPF Ur Squamous Epith Cells 0-2 (0-2) /HPF Urine Bacteria None Seen (None Seen) Hyaline Casts 0-2 (0-2) /LPF Discharge Plan Discharge Clinical Impression: Fall, Rhabdomyolysis Patient Disposition: Admitted As Inpatient Interventions: Admission Worksheet (ED) Last Done: 08/10/22 23:36 Discharge Date/Time: 08/11/22 00:08
[2022-08-10 18:10] LABS: MANUAL DIFF FLAG NO
[2022-08-10 18:11] LABS: Basophils Percent Auto 0.1 % (0-2); Eosinophils Percent Auto 0.1 % (0-4); Hematocrit 44.1 % (42.0-52.0); Hemoglobin 15.8 g/dl (14.0-18.0); Imm Gran Abs Auto 0.05 X10*3/uL (0.00-0.03); Imm Gran Pct Auto 0.4 % (0.0-0.4); Lymphocytes Absolute Auto 0.8 X10*3/uL (1.2-4.9); Lymphocytes Percent Auto 5.7 % (20-40); Mean Corpuscular HGB Conc 35.8 g/dl (31.0-36.0); Mean Corpuscular Hemoglobin 31.6 pg (27.0-33.0); Mean Corpuscular Volume 88.2 fL (80.0-98.0); Mean Platelet Volume 8.9 fL (9.4-12.4); Monocytes Absolute Auto 0.9 X10*3/uL (0.1-1.2); Monocytes Percent Auto 6.2 % (2-11); Neutrophils Absolute Auto 12.5 x10*3/uL (2.0-8.3); Neutrophils Percent Auto 87.5 % (45-73); Platelet Count 221 X10*3/uL (160-400); Red Cell Distribution Width 12.3 % (11.0-16.0); White Blood Count 14.3 X10*3/uL (4.8-10.8)
[2022-08-10] MEDS: 0.9 % Sodium Chloride 1,000 ML 999 ML IV ×2 (18:11→19:11)
--- NOTE | 2022-08-10 18:17 | PC.NURSE ---
Trip and fall getting out of bed approx 2am. Girlfriend found down this afternoon, pt denies any pain states he's just sore from trying to get up . Abrasions noted to bilateral knees, redness noted to upper abdomen. Pt states he was trying to get up and couldn't. No LOC, no blood thinners, pt alert and oriented x4. Incontinent of urine, clothing cut and pt agreed for them to be thrown away. IV established, lab work obtained. Fluids infusing at this time. Girlfriend at bedside.
[2022-08-10 18:26] LABS: Lactic Acid 2.9 mmol/L (0.5-2.0)
[2022-08-10 18:30] LABS: Anion Gap 18 (12-20); Blood Urea Nitrogen 21 mg/dL (9-16); Calcium 9.7 mg/dL (8.4-10.2); Carbon Dioxide 19 mmol/L (22-29); Chloride 108 mmol/L (96-108); Creatinine Clr Calc Pharmacy 57.7; Estimated Glomerular Filt Rate > 60; Glucose Random 137 mg/dL (60-115); Potassium 4.1 mmol/L (3.3-5.1); Sodium 141 mmol/L (135-145)
[2022-08-10 18:33] LABS: Troponin-I High Sensitivity 35.4 ng/L (<3.5-35.0)
[2022-08-10] MEDS: Morphine Sulfate 4 MG/ML CARTRIDGE IVPUSH (19:11)
[2022-08-10] MEDS: ondansetron HCL 4 MG/2 ML VIAL IVPUSH (19:11)
[2022-08-10 19:15] VITALS: BP 147/66; PULSE 83; RESP 22; O2SAT 100
--- NOTE | 2022-08-10 19:24 | PC.NURSE ---
I assumed care of the pt at 1900. Pt is resting quietly in bed with his partner at the bedside. Pt is A&Ox4, GCS 17. Pt is complaining of 8/10 pain in his hips bilaterally. MD aware, pt will get morphine and an xray of his pelvis. MD removed c-collar at bedside. Pt partner is concerned about discharging the pt because pt has been having trouble walking at home. MD stated pt will be admitted. Pt and partner are aware. Pt medicated per MAY and fluids were hung. Pt has a patent 20g IV in the right AC.
[2022-08-10 19:26] LABS: Appearance Urine Clear; Color Urine Yellow; Glucose Urine UA Negative (Negative); Leukocyte Esterase Urine Trace (Negative); Nitrite Urine Negative (Negative); PH 6.5 (5.0-9.0); UMIC TRIGGER UACC YES; Urine Blood Large (3+) (Negative); Urine Ketones 40 mg/dL (Negative); Urine Protein 30 (1+) mg/dL (Neg-Trace)
[2022-08-10 19:31] LABS: Bacteria Urine None Seen (None Seen); Hyaline Casts Urine 0-2 /LPF (0-2); Squamous Epithelial Cell Urine 0-2 /HPF (0-2); WBC Urine 0-5 /HPF (0-5)
[2022-08-10 20:08] LABS: Reflex Lactate? Lactic Acid Added
[2022-08-10 21:03] LABS: ~Lactic Acid-LAB USE ONLY 2.1 mmol/L (0.5-2.0)
[2022-08-10 21:55] LABS: Alanine Aminotransferase 66 U/L (0-40); Albumin Level 4.4 g/dL (3.5-5.0); Alkaline Phosphatase 130 U/L (39-117); Aspartate Amino Transferase 274 U/L (5-37); Bilirubin Direct 0.3 mg/dL (0.0-0.5); Bilirubin Total 1.4 mg/dL (0.0-1.0); Total Protein 6.8 g/dL (6.5-8.0)
[2022-08-10 22:23] VITALS: BP 129/52; PULSE 77; RESP 20; TEMP 36.8; O2SAT 98
--- NOTE | 2022-08-10 22:28 | P.HPHOSP_ITS ---
History of Present Illness Date of Service: 08/10/22 Chief Complaint: fall 82-year-old male with a history of hypertension, anxiety depression presents to the hospital after a fall. Patient reports that he woke up at 2 in the morning to use the bathroom, he slipped on his throw rug in the bathroom and had diffic ulty getting up. He was on the floor until 15:00 the next day when his girlfriend found him. Patient denies loss of consciousness, no head injury, no palpitations, chest pain, no shortness of breath, no dizziness, no headache. Patient denies any abdominal pain nausea or vomiting, no diarrhea constipation, no urinary symptoms and no lower extremity edema On arrival to the ED patient hemodynamically stable with a respiratory rate of 34 that improved after IV fluids Labs are significant for WBC count of 14.3, lactic acid of 2.9, improved after IV hydration, AST of 274, ALT of 66, CPK of 20,838, UA is positive for leukocyte Estrace, WBC, patient started on IV fluids and will be admitted for further management Review of Systems Review of Systems: Yes all other systems are reviewed and are negative [facility] Medical History Anxiety and depression Hyperlipidemia Hypertension Surgical History (Updated 08/11/22 @ 00:05 by Danette Linton MD) Hx of cholecystectomy Social History (Updated 08/11/22 @ 00:05 by Danette Linton MD) Alcohol intake: never Patient Tobacco Use Status: Never used Tobacco Meds Allergies Allergy/AdvReac Type Severity Reaction Status Date / Time No Known Allergies Allergy Verified 11/25/21 08:21 Active Medications: Current Medications Acetaminophen (Acetaminophen 325 Mg Tablet) 650 mg PO Q6H PRN PRN Reason: Pain, Mild (Pain Scale 1-3) Docusate Sodium (Docusate Sodium 100 Mg Capsule) 100 mg PO DAILY PRN PRN Reason: Constipation Enoxaparin Sodium (Enoxaparin Sodium 40 Mg/0.4 Ml Syringe) 40 mg SUBCUT Q24H LUCI Lactated Ringer's (Lr) 1,000 mls @ 100 mls/hr IVCONT .Q10H LUCI Ceftriaxone Sodium 1 gm/ (Sodium Chloride) 50 mls @ 100 mls/hr IV Q24H LUCI Ondansetron HCl (Ondansetron Hcl 4 Mg/2 Ml Vial) 4 mg IVPUSH Q8H PRN PRN Reason: Nausea and Vomiting Sodium Chloride (0.9 % Sodium Chloride Flush 3 Ml Syringe) 3 ml IVFLUSH [facility] Home Medications Medication Instructions Recorded Confirmed Last Taken Type blood sugar diagnostic #10 ea 10/08/20 08/10/22 Unknown History clonazepam 2 mg tablet 4 mg PO BEDTIME PRN Anxiety 10/08/20 08/10/22 Unknown History fluoxetine 20 mg capsule 20 mg PO DAILY 10/08/20 08/10/22 Unknown History fluoxetine 40 mg capsule 40 mg PO DAILY 10/08/20 08/10/22 Unknown History lancets #100 ea 10/08/20 08/10/22 Unknown History lisinopril 5 mg tablet 5 mg PO DAILY 10/08/20 08/10/22 Unknown History mirtazapine 45 mg tablet 45 mg PO BEDTIME 10/08/20 08/10/22 Unknown History risperidone 0.5 mg tablet 1 mg PO BEDTIME 10/08/20 08/10/22 Unknown History simvastatin 10 mg tablet 10 mg PO BEDTIME 10/08/20 08/10/22 Unknown History valacyclovir 500 mg tablet 500 mg PO DAILY 10/08/20 08/10/22 Unknown History ergocalciferol (vitamin D2) 1,250 1,250 mcg PO DURAN@1000 08/10/22 08/10/22 Unknown History mcg (50,000 unit) capsule hxzuroeg-ovu-zlgol acid 300 1 tab PO DAILY 08/10/22 08/10/22 Unknown History mcg-lycopene 600 mcg-lutein 300 mcg tablet (Centrum Silver Men) Physical Exam Vital Signs and Narrative: Vital Signs: Last Vital Signs Temp 98.3 F 08/10/22 22:23 Pulse 77 08/10/22 22:23 Resp 20 08/10/22 22:23 BP 129/52 L 08/10/22 22:23 Pulse Ox 98 08/10/22 22:23 O2 Del Method Room Air 08/10/22 22:23 BMI result Body Mass Index 27.5 Const: General: cooperative and no acute distress Orientation/consciousness: patient oriented x3 Eyes: General: appearance normal, both eyes and all related structures Pupils: Equal, round and reactive pupils present Resp: Effort & Inspection: normal respiratory effort Auscultation: clear to auscultation bilaterally Cardio: Rate: regular rate Rhythm: regular rhythm GI: Palpation (GI): Soft to palpation Auscultation: normal bowel sounds Skin: Other: appears dehydrated General skin exam: no rashes or lesions noted Neuro: General: patient oriented x3 Cranial nerves: Yes Equal, round and reactive pupils present Cognition (Neuro): normal cognition Extrem: General: Yes normal to inspection and Yes no pedal edema Results Labs 08/10/22 18:05 08/10/22 18:05 Labs: Laboratory Results - last 24 hr 08/10/22 08/10/22 08/10/22 18:05 18:05 18:05 MCV 88.2 MCH 31.6 MCHC 35.8 RDW 12.3 Plt Count 221 MPV 8.9 L Immature Gran % (Auto) 0.4 Neut % (Auto) 87.5 H Lymph % (Auto) 5.7 L [place] % (Auto) 6.2 Eos % (Auto) 0.1 Baso % (Auto) 0.1 Lymph # (Auto) 0.8 L [place] # (Auto) 0.9 Eos # (Auto) 0.0 Baso # (Auto) 0.0 Abs Immat Gran (auto) 0.05 H Absolute Neuts (auto) 12.5 H Absolute Nucleated RBC 0.000 Nucleated RBC % (auto) 0.0 Anion Gap 18 Estim Creat Clear Calc 57.7 Estimated GFR > 60 Random Glucose 137 H Lactic Acid 2.9 H* Lactic Acid F/U @ 2Hr Calcium 9.7 Magnesium 2.0 Total Bilirubin 1.4 H Direct Bilirubin 0.3 AST 274 H ALT 66 H Alkaline Phosphatase 130 H Total Creatine Kinase 85412 H Troponin I High Sens Total Protein 6.8 Albumin 4.4 Urine Color Urine Appearance Urine pH Ur Specific [place] Urine Protein Urine Glucose (UA) Urine Ketones Urine Blood Urine Nitrite Ur Leukocyte Esterase Urine RBC Urine WBC Ur Squamous Epith Cells Urine Bacteria Hyaline Casts 08/10/22 08/10/22 08/10/22 18:05 19:19 20:40 MCV MCH MCHC RDW Plt Count MPV Immature Gran % (Auto) Neut % (Auto) Lymph % (Auto) [place] % (Auto) Eos % (Auto) Baso % (Auto) Lymph # (Auto) [place] # (Auto) Eos # (Auto) Baso # (Auto) Abs Immat Gran (auto) Absolute Neuts (auto) Absolute Nucleated RBC Nucleated RBC % (auto) Anion Gap Estim Creat Clear Calc Estimated GFR Random Glucose Lactic Acid Lactic Acid F/U @ 2Hr 2.1 H* Calcium Magnesium Total Bilirubin Direct Bilirubin AST ALT Alkaline Phosphatase Total Creatine Kinase Troponin I High Sens 35.4 H Total Protein Albumin Urine Color Yellow Urine Appearance Clear Urine pH 6.5 Ur Specific [place] 1.020 Urine Protein 30 (1+) H Urine Glucose (UA) Negative Urine Ketones 40 Urine Blood Large (3+) H Urine Nitrite Negative Ur Leukocyte Esterase Trace H Urine RBC 6-10 H Urine WBC 0-5 Ur Squamous Epith Cells 0-2 Urine Bacteria None Seen Hyaline Casts 0-2 Imaging Radiologist's Impressions: Impressions Cervical Spine CT 08/10/22 18:54 IMPRESSION: No acute intracranial process seen. No acute fracture or dislocation cervical spine. 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 Head CT 08/10/22 18:54 IMPRESSION: No acute intracranial process seen. No acute fracture or dislocation cervical spine. 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 Pelvis X-Ray 08/10/22 19:25 IMPRESSION: 1. No acute fracture or dislocation. 2. Mild bilateral hip osteoarthritis. Chest X-Ray 08/10/22 19:27 IMPRESSION: Unremarkable examination. Assessment and Plan (1) Rhabdomyolysis: Status: Acute (2) Fall: Status: Acute (3) Transaminitis: Status: Acute Plan 82-year-old with past medical history of hypertension, hyperlipidemia, anxiety and depression presents to the hospital after a fall # acute rhabdomyolysis - no LORE - secondary to fall - will treat with IV fluids - follow CPK and BMP # elevated LFTs - secondary to rhabdo - follow lower function # fall - mechanical - imaging negative for any acute abnormality - PT OT consult # hypertension - stable - continue antihypertensive # hyperlipidemia - hold statin DVT prophylaxis: Eliquis given severe rhabdo requiring continuous IV fluid patient will require minimum 2 nights inpatient hospital stay for further management and monitoring Time Spent With Patient Time: Total time managing care of this patient today ____ minutes. Quality Stroke Does the patient have a stroke diagnosis?: No VTE Prior VTE?: No VTE Risk Level:: Medical - moderate - high VTE Device Contraindication: Treatment Not Indicated VTE Drug Contraindication: N/A - Med Ordered
--- NOTE | 2022-08-10 22:34 | PHA.MEDREC ---
MED REC COMPLETE, NO ISSUES Pharmacy Consult ? Medication Reconciliation Pharmacy has completed the medication reconciliation.
[2022-08-10 22:42] LABS: Reflex Lactate? 2 Y
[2022-08-10] MEDS: Enoxaparin Sodium 40 MG/0.4 ML SYRINGE SUBCUT (23:00)
[2022-08-10] MEDS: risperiDONE 0.5 MG TABLET 1 MG PO (23:00)
[2022-08-10] MEDS: Mirtazapine 15 MG TABLET 45 MG PO (23:00)
[2022-08-10] MEDS: cefTRIAXone sodium 1 GM in 0.9 % Sodium Chloride 50 ML IV (23:07)
[2022-08-10] MEDS: Lactated Ringers 1,000 ML 100 ML IVCONT (23:07)
[2022-08-10 23:18] LABS: ~Lactic Acid-LAB USE ONLY 1.9 mmol/L (0.5-2.0)
--- NOTE | 2022-08-10 23:18 | PC.NURSE ---
Attempted to call report a 21:18. US reported RN will call back.
[2022-08-11 00:38] VITALS: BP 128/59; PULSE 75; RESP 18; TEMP 36.3; O2SAT 97
[2022-08-11 00:51] LABS: Troponin-I High Sensitivity 27.9 ng/L (<3.5-35.0)
[2022-08-11 00:59] VITALS: BMI 27.3
[2022-08-11 03:35] VITALS: BP 133/61; PULSE 73; RESP 18; TEMP 36.9; O2SAT 96
[2022-08-11 06:47] LABS: MANUAL DIFF FLAG NO
[2022-08-11 06:54] LABS: Basophils Percent Auto 0.2 % (0-2); Eosinophils Percent Auto 0.1 % (0-4); Hematocrit 40.9 % (42.0-52.0); Hemoglobin 13.9 g/dl (14.0-18.0); Imm Gran Abs Auto 0.03 X10*3/uL (0.00-0.03); Imm Gran Pct Auto 0.3 % (0.0-0.4); Lymphocytes Absolute Auto 1.7 X10*3/uL (1.2-4.9); Mean Corpuscular Hemoglobin 31.7 pg (27.0-33.0); Mean Corpuscular Volume 93.4 fL (80.0-98.0); Mean Platelet Volume 9.4 fL (9.4-12.4); Monocytes Absolute Auto 1.1 X10*3/uL (0.1-1.2); Monocytes Percent Auto 11.9 % (2-11); Neutrophils Absolute Auto 6.6 x10*3/uL (2.0-8.3); Neutrophils Percent Auto 69.5 % (45-73); Platelet Count 157 X10*3/uL (160-400); Red Blood Count 4.38 X10*6/uL (4.60-5.80); Red Cell Distribution Width 12.8 % (11.0-16.0); White Blood Count 9.5 X10*3/uL (4.8-10.8)
[2022-08-11 07:19] LABS: Alanine Aminotransferase 74 U/L (0-40); Albumin Level 3.4 g/dL (3.5-5.0); Alkaline Phosphatase 101 U/L (39-117); Anion Gap 12 (12-20); Aspartate Amino Transferase 273 U/L (5-37); Bilirubin Direct 0.3 mg/dL (0.0-0.5); Blood Urea Nitrogen 19 mg/dL (9-16); Carbon Dioxide 22 mmol/L (22-29); Chloride 114 mmol/L (96-108); Estimated Glomerular Filt Rate > 60; Glucose Random 121 mg/dL (60-115); Potassium 4.2 mmol/L (3.3-5.1); Sodium 144 mmol/L (135-145); Total Protein 5.3 g/dL (6.5-8.0)
[2022-08-11 07:27] VITALS: BP 111/56; PULSE 78; RESP 16; TEMP 37; O2SAT 97
[2022-08-11 07:27] LABS: Calcium 8.6 mg/dL (8.4-10.2)
[2022-08-11] MEDS: valACYclovir HCL 500 MG TABLET PO (08:08)
[2022-08-11] MEDS: Acetaminophen 325 MG TABLET 650 MG PO (08:08)
[2022-08-11] MEDS: lisinopriL 5 MG TABLET PO (08:09)
[2022-08-11] MEDS: FLUoxetine HCl 20 MG CAPSULE 60 MG PO (08:09)
[2022-08-11] MEDS: traMADoL HCL 50 MG TABLET 25 MG PO (08:10)
[2022-08-11] MEDS: Lactated Ringers 1,000 ML 100 ML IVCONT ×2 (08:12→19:31)
[2022-08-11 08:47] VITALS: BP 111/56; PULSE 78; O2SAT 97
--- NOTE | 2022-08-11 10:35 | MHC.CM.PN ---
PATIENT LIVES ALONE. HE HAS A HCP AND A COPY IS REQUESTED. PATIENT IS AWARE THAT PHYSICAL THERAPY IS SUGGESTING SHORT TERM REHAB; HOWEVER, HE IS NOT READY TO MAKE A DECISION ABOUT THIS OR WHERE HE WANTS REFERRALS NO DME OR VNA IN THE HOME. INDEPENDENT WITH ADLS. CASE MANAGEMENT TO RETURN WHEN HE IS FEELING BETTER. IMM 08/11 IN CHART
--- NOTE | 2022-08-11 15:01 | HO.PM.IMPN ---
Subjective Subjective Date of Service: 08/11/22 Interval History: seen and examined this morning follow up for fall, amanuelo reports that he got up in the middle of night to go to the bathroom and slipped on the throw rug. He was unable to get up off the ground. He denies any dizziness prior to his fall and he denies loss of consciousness Review of Systems Review of Systems: Yes all other systems are reviewed and are negative Constitutional Constitutional: Denies chills, Reports fatigue and Denies fever(s) ENT Ears, Nose, Mouth, and Throat: Denies dizziness Cardiovascular Cardiovascular: Denies chest pain, Denies palpitations and Denies dyspnea Respiratory Respiratory: Denies cough and Denies dyspnea Gastrointestinal Gastrointestinal: Denies abdominal pain Neurologic Neurologic: Denies dizziness Endocrine Endocrine: Reports fatigue and Denies palpitations Physical Exam Vital Signs: Vital Signs: Last Vital Signs Temp 98.6 F 08/11/22 07:27 Pulse 78 08/11/22 08:47 Resp 16 08/11/22 07:27 BP 111/56 L 08/11/22 08:47 Pulse Ox 97 08/11/22 08:47 O2 Del Method Room Air 08/11/22 07:27 BMI result Body Mass Index 27.3 Const: General: cooperative, comfortable, no acute distress, alert and awake Nutritional Appearance: average body habitus Orientation/consciousness: patient oriented x3 Resp: Effort & Inspection: normal respiratory effort and able to speak in complete sentences Auscultation: clear to auscultation bilaterally Cardio: Rate: regular rate GI: Inspection: No distended Palpation (GI): Soft to palpation and nontender Neuro: General: patient oriented x3, moves all extremities and CN's II-XI intact bilaterally Extrem: General: Yes no pedal edema Objective Data Active Medications Acetaminophen (Acetaminophen 325 Mg Tablet) 650 mg PO Q6H PRN PRN Reason: Pain, Mild (Pain Scale 1-3) Last Admin: 08/11/22 08:08 Dose: 650 mg Documented By: SHIV Clonazepam (Clonazepam 1 Mg Tablet) 4 mg PO BEDTIME PRN PRN Reason: Anxiety Docusate Sodium (Docusate Sodium 100 Mg Capsule) 100 mg PO DAILY PRN PRN Reason: Constipation Enoxaparin Sodium (Enoxaparin Sodium 40 Mg/0.4 Ml Syringe) 40 mg SUBCUT Q24H [facility] Last Admin: 08/10/22 23:00 Dose: 40 mg Documented By: HANNAH Ergocalciferol (Ergocalciferol (Vitamin D2) 1,250 Mcg Capsule) 1,250 mcg PO Singh@0900 [facility] Fluoxetine HCl (Fluoxetine Hcl 20 Mg Capsule) 60 mg PO DAILY [facility] Last Admin: 08/11/22 08:09 Dose: 60 mg Documented By: SHIV Lactated Ringer's (Lr) 1,000 mls @ 100 mls/hr IVCONT .Q10H [facility] Last Admin: 08/11/22 08:12 Dose: 100 mls/hr Documented By: SHIV Ceftriaxone Sodium 1 gm/ (Sodium Chloride) 50 mls @ 100 mls/hr IV Q24H [facility] Last Infusion: 08/11/22 00:53 Dose: 0 mls/hr Documented By: BRANDO Lisinopril (Lisinopril 5 Mg Tablet) 5 mg PO DAILY [facility]; Protocol Last Admin: 08/11/22 08:09 Dose: 5 mg Documented By: SHIV Mirtazapine (Mirtazapine 15 Mg Tablet) 45 mg PO BEDTIME [facility] Last Admin: 08/10/22 23:00 Dose: 45 mg Documented By: HANNAH Ondansetron HCl (Ondansetron Hcl 4 Mg/2 Ml Vial) 4 mg IVPUSH Q8H PRN PRN Reason: Nausea and Vomiting Risperidone (Risperidone 0.5 Mg Tablet) 1 mg PO BEDTIME [facility] Last Admin: 08/10/22 23:00 Dose: 1 mg Documented By: HANNAH Sodium Chloride (0.9 % Sodium Chloride Flush 3 Ml Syringe) 3 ml IVFLUSH QSHIFT [facility] Last Admin: 08/11/22 08:11 Dose: Not Given Documented By: SHIV Non-Admin Reason: IV Running Tramadol HCl (Tramadol Hcl 50 Mg Tablet) 25 mg PO Q6H PRN PRN Reason: Pain, Moderate(Pain Scale 4-6) Last Admin: 08/11/22 08:10 Dose: 25 mg Documented By: SHIV Valacyclovir HCl (Valacyclovir Hcl 500 Mg Tablet) 500 mg PO DAILY [facility] Last Admin: 08/11/22 08:08 Dose: 500 mg Documented By: SHIV Labs 08/11/22 06:09 08/11/22 06:09 Labs: Laboratory Results - last 24 hr 08/10/22 08/10/22 08/10/22 18:05 18:05 18:05 MCV 88.2 MCH 31.6 MCHC 35.8 RDW 12.3 Plt Count 221 MPV 8.9 L Immature Gran % (Auto) 0.4 Neut % (Auto) 87.5 H Lymph % (Auto) 5.7 L [place] % (Auto) 6.2 Eos % (Auto) 0.1 Baso % (Auto) 0.1 Lymph # (Auto) 0.8 L [place] # (Auto) 0.9 Eos # (Auto) 0.0 Baso # (Auto) 0.0 Abs Immat Gran (auto) 0.05 H Absolute Neuts (auto) 12.5 H Absolute Nucleated RBC 0.000 Nucleated RBC % (auto) 0.0 Anion Gap 18 Estim Creat Clear Calc 57.7 Estimated GFR > 60 Random Glucose 137 H Lactic Acid 2.9 H* Lactic Acid F/U @ 2Hr Lactic Acid F/U @ 4Hr Calcium 9.7 Magnesium 2.0 Total Bilirubin 1.4 H Direct Bilirubin 0.3 AST 274 H ALT 66 H Alkaline Phosphatase 130 H Total Creatine Kinase 58259 H Troponin I High Sens Total Protein 6.8 Albumin 4.4 Urine Color Urine Appearance Urine pH Ur Specific [place] Urine Protein Urine Glucose (UA) Urine Ketones Urine Blood Urine Nitrite Ur Leukocyte Esterase Urine RBC Urine WBC Ur Squamous Epith Cells Urine Bacteria Hyaline Casts 08/10/22 08/10/22 08/10/22 18:05 19:19 20:40 MCV MCH MCHC RDW Plt Count MPV Immature Gran % (Auto) Neut % (Auto) Lymph % (Auto) [place] % (Auto) Eos % (Auto) Baso % (Auto) Lymph # (Auto) [place] # (Auto) Eos # (Auto) Baso # (Auto) Abs Immat Gran (auto) Absolute Neuts (auto) Absolute Nucleated RBC Nucleated RBC % (auto) Anion Gap Estim Creat Clear Calc Estimated GFR Random Glucose Lactic Acid Lactic Acid F/U @ 2Hr 2.1 H* Lactic Acid F/U @ 4Hr Calcium Magnesium Total Bilirubin Direct Bilirubin AST ALT Alkaline Phosphatase Total Creatine Kinase Troponin I High Sens 35.4 H Total Protein Albumin Urine Color Yellow Urine Appearance Clear Urine pH 6.5 Ur Specific [place] 1.020 Urine Protein 30 (1+) H Urine Glucose (UA) Negative Urine Ketones 40 Urine Blood Large (3+) H Urine Nitrite Negative Ur Leukocyte Esterase Trace H Urine RBC 6-10 H Urine WBC 0-5 Ur Squamous Epith Cells 0-2 Urine Bacteria None Seen Hyaline Casts 0-2 08/10/22 08/11/22 08/11/22 22:58 00:26 06:09 MCV 93.4 D MCH 31.7 MCHC 34.0 RDW 12.8 Plt Count 157 L D MPV 9.4 Immature Gran % (Auto) 0.3 Neut % (Auto) 69.5 Lymph % (Auto) 18.0 L [place] % (Auto) 11.9 H Eos % (Auto) 0.1 Baso % (Auto) 0.2 Lymph # (Auto) 1.7 [place] # (Auto) 1.1 Eos # (Auto) 0.0 Baso # (Auto) 0.0 Abs Immat Gran (auto) 0.03 Absolute Neuts (auto) 6.6 Absolute Nucleated RBC 0.000 Nucleated RBC % (auto) 0.0 Anion Gap Estim Creat Clear Calc Estimated GFR Random Glucose Lactic Acid Lactic Acid F/U @ 2Hr Lactic Acid F/U @ 4Hr 1.9 Calcium Magnesium Total Bilirubin Direct Bilirubin AST ALT Alkaline Phosphatase Total Creatine Kinase Troponin I High Sens 27.9 Total Protein Albumin Urine Color Urine Appearance Urine pH Ur Specific [place] Urine Protein Urine Glucose (UA) Urine Ketones Urine Blood Urine Nitrite Ur Leukocyte Esterase Urine RBC Urine WBC Ur Squamous Epith Cells Urine Bacteria Hyaline Casts 08/11/22 08/11/22 06:09 06:09 MCV MCH MCHC RDW Plt Count MPV Immature Gran % (Auto) Neut % (Auto) Lymph % (Auto) [place] % (Auto) Eos % (Auto) Baso % (Auto) Lymph # (Auto) [place] # (Auto) Eos # (Auto) Baso # (Auto) Abs Immat Gran (auto) Absolute Neuts (auto) Absolute Nucleated RBC Nucleated RBC % (auto) Anion Gap 12 Estim Creat Clear Calc 76.0 Estimated GFR > 60 Random Glucose 121 H Lactic Acid Lactic Acid F/U @ 2Hr Lactic Acid F/U @ 4Hr Calcium 8.6 D Magnesium Total Bilirubin 1.0 Direct Bilirubin 0.3 AST 273 H ALT 74 H Alkaline Phosphatase 101 Total Creatine Kinase 22112 H Troponin I High Sens Total Protein 5.3 L Albumin 3.4 L Urine Color Urine Appearance Urine pH Ur Specific [place] Urine Protein Urine Glucose (UA) Urine Ketones Urine Blood Urine Nitrite Ur Leukocyte Esterase Urine RBC Urine WBC Ur Squamous Epith Cells Urine Bacteria Hyaline Casts Assessment and Plan (1) Transaminitis: Status: Acute (2) Rhabdomyolysis: Status: Acute Plan 82-year-old with past medical history of hypertension, hyperlipidemia, anxiety and depression presents to the hospital after a fall # acute rhabdomyolysis secondary to fall - no LORE - will treat with IV fluids - follow CPK and BMP # elevated LFTs - secondary to rhabdo - follow lower function # fall mechanical imaging negative for any acute abnormality PT eval - rec STR # hypertension - stable - continue antihypertensive # hyperlipidemia - hold statin DVT prophylaxis: lovenox attending - dr. street requires ongoing inpatient hospitalization for IV fluids/ treatment of rhabdomyolysis, safe disposition Time Spent With Patient Time: Total time managing care of this patient today ____ minutes. Quality Stroke Does the patient have a stroke diagnosis?: No VTE Prior VTE?: No VTE Risk Level:: Medical - moderate - high VTE Device Contraindication: Treatment Not Indicated VTE Drug Contraindication: N/A - Med Ordered
[2022-08-11 16:00] VITALS: BP 109/53; PULSE 18; RESP 18; TEMP 37.3; O2SAT 96
[2022-08-11 19:45] VITALS: BP 111/53; PULSE 84; RESP 17; TEMP 36.9; O2SAT 96
[2022-08-11] MEDS: risperiDONE 0.5 MG TABLET 1 MG PO (21:11)
[2022-08-11] MEDS: Mirtazapine 15 MG TABLET 45 MG PO (21:12)
[2022-08-11] MEDS: Enoxaparin Sodium 40 MG/0.4 ML SYRINGE SUBCUT (21:12)
[2022-08-12 03:09] VITALS: BP 129/59; PULSE 79; RESP 16; TEMP 36.9; O2SAT 95
[2022-08-12] MEDS: Lactated Ringers 1,000 ML 100 ML IVCONT (03:52)
[2022-08-12 06:50] LABS: Hematocrit 39.1 % (42.0-52.0); Hemoglobin 13.4 g/dl (14.0-18.0); Mean Corpuscular HGB Conc 34.3 g/dl (31.0-36.0); Mean Corpuscular Hemoglobin 31.5 pg (27.0-33.0); Mean Corpuscular Volume 91.8 fL (80.0-98.0); Mean Platelet Volume 9.1 fL (9.4-12.4); Platelet Count 170 X10*3/uL (160-400); Red Blood Count 4.26 X10*6/uL (4.60-5.80); Red Cell Distribution Width 12.7 % (11.0-16.0)
[2022-08-12 07:09] LABS: Alanine Aminotransferase 69 U/L (0-40); Albumin Level 3.2 g/dL (3.5-5.0); Alkaline Phosphatase 99 U/L (39-117); Anion Gap 10 (12-20); Aspartate Amino Transferase 150 U/L (5-37); Bilirubin Direct 0.2 mg/dL (0.0-0.5); Bilirubin Total 0.7 mg/dL (0.0-1.0); Blood Urea Nitrogen 13 mg/dL (9-16); Calcium 8.3 mg/dL (8.4-10.2); Carbon Dioxide 24 mmol/L (22-29); Chloride 110 mmol/L (96-108); Creatinine Clr Calc Pharmacy 81.8; Estimated Glomerular Filt Rate > 60; Glucose Random 112 mg/dL (60-115); Potassium 4.1 mmol/L (3.3-5.1); Sodium 140 mmol/L (135-145)
[2022-08-12 07:35] VITALS: BP 135/64; PULSE 79; RESP 16; TEMP 36.8; O2SAT 91
[2022-08-12] MEDS: valACYclovir HCL 500 MG TABLET PO (08:23)
[2022-08-12] MEDS: FLUoxetine HCl 20 MG CAPSULE 60 MG PO (08:23)
[2022-08-12] MEDS: lisinopriL 5 MG TABLET PO (08:24)
[2022-08-12] MEDS: 0.9 % Sodium Chloride Flush 3 ML SYRINGE IVFLUSH ×3 (08:24→19:56)
--- NOTE | 2022-08-12 13:25 | HO.PM.IMPN ---
Subjective Subjective Date of Service: 08/12/22 Interval History: seen and examined this morning follow up for rhabdo, fall felling better today, less muscle pain still weak Review of Systems Review of Systems: Yes all other systems are reviewed and are negative Constitutional Constitutional: Denies chills and Denies fever(s) ENT Ears, Nose, Mouth, and Throat: Denies dizziness Cardiovascular Cardiovascular: Denies chest pain, Denies palpitations and Denies dyspnea Respiratory Respiratory: Denies cough and Denies dyspnea Gastrointestinal Gastrointestinal: Denies abdominal pain, Denies nausea and Denies vomiting Neurologic Neurologic: Denies dizziness Endocrine Endocrine: Denies palpitations Physical Exam Vital Signs: Vital Signs: Last Vital Signs Temp 98.3 F 08/12/22 07:35 Pulse 79 08/12/22 07:35 Resp 16 08/12/22 07:35 BP 135/64 08/12/22 07:35 Pulse Ox 91 L 08/12/22 07:35 O2 Del Method Room Air 08/12/22 07:35 BMI result Body Mass Index 27.3 Const: General: cooperative, comfortable, no acute distress, alert and awake Nutritional Appearance: average body habitus Orientation/consciousness: patient oriented x3 Resp: Effort & Inspection: normal respiratory effort and able to speak in complete sentences Auscultation: clear to auscultation bilaterally Cardio: Rate: regular rate GI: Inspection: No distended Palpation (GI): Soft to palpation and nontender Skin: Other: abrasions b/l knees L>R Neuro: General: patient oriented x3, moves all extremities and CN's II-XI intact bilaterally Extrem: General: Yes no pedal edema Objective Data Active Medications Acetaminophen (Acetaminophen 325 Mg Tablet) 650 mg PO Q6H PRN PRN Reason: Pain, Mild (Pain Scale 1-3) Last Admin: 08/11/22 08:08 Dose: 650 mg Documented By: SHIV Clonazepam (Clonazepam 1 Mg Tablet) 4 mg PO BEDTIME PRN PRN Reason: Anxiety Docusate Sodium (Docusate Sodium 100 Mg Capsule) 100 mg PO DAILY PRN PRN Reason: Constipation Enoxaparin Sodium (Enoxaparin Sodium 40 Mg/0.4 Ml Syringe) 40 mg SUBCUT Q24H [facility] Last Admin: 08/11/22 21:12 Dose: 40 mg Documented By: ERIN Ergocalciferol (Ergocalciferol (Vitamin D2) 1,250 Mcg Capsule) 1,250 mcg PO Singh@0900 [facility] Fluoxetine HCl (Fluoxetine Hcl 20 Mg Capsule) 60 mg PO DAILY [facility] Last Admin: 08/12/22 08:23 Dose: 60 mg Documented By: SHIV Lisinopril (Lisinopril 5 Mg Tablet) 5 mg PO DAILY [facility]; Protocol Last Admin: 08/12/22 08:24 Dose: 5 mg Documented By: SHIV Mirtazapine (Mirtazapine 15 Mg Tablet) 45 mg PO BEDTIME [facility] Last Admin: 08/11/22 21:12 Dose: 45 mg Documented By: ERIN Ondansetron HCl (Ondansetron Hcl 4 Mg/2 Ml Vial) 4 mg IVPUSH Q8H PRN PRN Reason: Nausea and Vomiting Risperidone (Risperidone 0.5 Mg Tablet) 1 mg PO BEDTIME [facility] Last Admin: 08/11/22 21:11 Dose: 1 mg Documented By: ERIN Sodium Chloride (0.9 % Sodium Chloride Flush 3 Ml Syringe) 3 ml IVFLUSH QSHIFT [facility] Last Admin: 08/12/22 08:24 Dose: 3 ml Documented By: SHIV Tramadol HCl (Tramadol Hcl 50 Mg Tablet) 25 mg PO Q6H PRN PRN Reason: Pain, Moderate(Pain Scale 4-6) Last Admin: 08/11/22 08:10 Dose: 25 mg Documented By: SHIV Valacyclovir HCl (Valacyclovir Hcl 500 Mg Tablet) 500 mg PO DAILY [facility] Last Admin: 08/12/22 08:23 Dose: 500 mg Documented By: SHIV Labs 08/12/22 05:49 08/12/22 05:49 Labs: Laboratory Results - last 24 hr 08/12/22 08/12/22 08/12/22 05:49 05:49 05:49 MCV 91.8 MCH 31.5 MCHC 34.3 RDW 12.7 Plt Count 170 MPV 9.1 L Absolute Nucleated RBC 0.000 Nucleated RBC % (auto) 0.0 Anion Gap 10 L Estim Creat Clear Calc 81.8 Estimated GFR > 60 Random Glucose 112 Calcium 8.3 L Total Bilirubin 0.7 Direct Bilirubin 0.2 AST 150 H ALT 69 H Alkaline Phosphatase 99 Total Creatine Kinase 4787 H Total Protein 5.0 L Albumin 3.2 L Microbiology Microbiology Results: Microbiology 08/11/22 Unknown Urine Culture - Final Urine clean catch - Clean Catch Midstream No growth. 08/10/22 22:58 Blood Culture - Preliminary Blood - Venous No growth after 24 hours. 08/10/22 22:58 Blood Culture - Preliminary Blood - Venous No growth after 24 hours. Assessment and Plan (1) Rhabdomyolysis: Status: Acute (2) Transaminitis: Status: Acute (3) Fall: Status: Acute Plan 82-year-old with past medical history of hypertension, hyperlipidemia, anxiety and depression presents to the hospital after a fall acute rhabdomyolysis secondary to fall cpk down from 20,838 to 4,787 with IVF no LORE elevated LFTs secondary to rhabdo LFTs trending down fall mechanical imaging negative for any acute abnormality PT eval - rec STR acute lactic acidosis no evidence of sepsis related to dehydration. improved with IVF hypertension continue lisinopril hyperlipidemia - hold statin Mood continue remeron, risperdal, prozac DVT prophylaxis: deena attending - dr. smith dispo - patient does not want to go to rehab. still unable to ambulate on own requires ongoing inpatient hospitalization for IV fluids/ treatment of rhabdomyolysis, safe disposition Time Spent With Patient Time: Total time managing care of this patient today ____ minutes. Quality Stroke Does the patient have a stroke diagnosis?: No VTE Prior VTE?: No VTE Risk Level:: Medical - moderate - high VTE Device Contraindication: Treatment Not Indicated VTE Drug Contraindication: N/A - Med Ordered
[2022-08-12] MEDS: Acetaminophen 325 MG TABLET 650 MG PO (14:03)
[2022-08-12 15:43] VITALS: BP 115/58; PULSE 84; RESP 18; TEMP 36.9; O2SAT 98
[2022-08-12] MEDS: traMADoL HCL 50 MG TABLET 25 MG PO (15:43)
--- NOTE | 2022-08-12 17:59 | PC.NURSE ---
Pt encouraged to move in chair from side to side to prevent pressure injury, pt refuses to get back to bed at this time but verbalizes understanding of pressure related injury and prevention strategies , pillow positioned under left side of buttocks.
[2022-08-12 19:38] VITALS: BP 121/60; PULSE 76; RESP 18; TEMP 36.9; O2SAT 97
[2022-08-12] MEDS: Mirtazapine 15 MG TABLET 45 MG PO (19:55)
[2022-08-12] MEDS: risperiDONE 0.5 MG TABLET 1 MG PO (19:55)
[2022-08-12] MEDS: clonazePAM 1 MG TABLET 4 MG PO (19:56)
[2022-08-12] MEDS: Enoxaparin Sodium 40 MG/0.4 ML SYRINGE SUBCUT (22:24)
[2022-08-13 04:00] VITALS: BP 149/60; PULSE 85; RESP 16; TEMP 37.3; O2SAT 92
[2022-08-13] MEDS: Ergocalciferol (Vitamin D2) 1,250 MCG CAPSULE 1250 MCG PO (07:19)
[2022-08-13] MEDS: FLUoxetine HCl 20 MG CAPSULE 60 MG PO (07:19)
[2022-08-13] MEDS: valACYclovir HCL 500 MG TABLET PO (07:19)
[2022-08-13] MEDS: lisinopriL 5 MG TABLET PO (07:19)
[2022-08-13] MEDS: 0.9 % Sodium Chloride Flush 3 ML SYRINGE IVFLUSH ×3 (07:20→19:52)
[2022-08-13 07:21] VITALS: BP 130/60; PULSE 66; RESP 18; TEMP 36.5; O2SAT 96
[2022-08-13 08:38] LABS: Alanine Aminotransferase 69 U/L (0-40); Albumin Level 3.4 g/dL (3.5-5.0); Alkaline Phosphatase 114 U/L (39-117); Aspartate Amino Transferase 93 U/L (5-37); Bilirubin Direct 0.2 mg/dL (0.0-0.5); Bilirubin Total 0.6 mg/dL (0.0-1.0); Total Protein 5.4 g/dL (6.5-8.0)
--- NOTE | 2022-08-13 11:21 | HO.PM.IMPN ---
Subjective Subjective Date of Service: 08/13/22 Interval History: seen and examined this morning follow up for fall/rhabdo no overnight events feeling well, no specific complaints Review of Systems Review of Systems: Yes all other systems are reviewed and are negative Constitutional Constitutional: Denies chills and Denies fever(s) ENT Ears, Nose, Mouth, and Throat: Denies dizziness Cardiovascular Cardiovascular: Denies chest pain, Denies palpitations and Denies dyspnea Respiratory Respiratory: Denies cough and Denies dyspnea Gastrointestinal Gastrointestinal: Denies abdominal pain, Denies nausea and Denies vomiting Neurologic Neurologic: Denies dizziness Endocrine Endocrine: Denies palpitations Physical Exam Vital Signs: Vital Signs: Last Vital Signs Temp 97.7 F 08/13/22 07:21 Pulse 66 08/13/22 07:21 Resp 18 08/13/22 07:21 BP 130/60 08/13/22 07:21 Pulse Ox 96 08/13/22 07:21 O2 Del Method Room Air 08/13/22 07:21 BMI result Body Mass Index 27.3 Const: General: cooperative, comfortable, no acute distress, alert and awake Nutritional Appearance: average body habitus Orientation/consciousness: patient oriented x3 Resp: Effort & Inspection: normal respiratory effort and able to speak in complete sentences Auscultation: clear to auscultation bilaterally Cardio: Rate: regular rate GI: Inspection: No distended Palpation (GI): Soft to palpation and nontender Skin: Other: abrasions b/l knees L>R Neuro: General: patient oriented x3, moves all extremities and CN's II-XI intact bilaterally Extrem: General: Yes no pedal edema Objective Data Active Medications Acetaminophen (Acetaminophen 325 Mg Tablet) 650 mg PO Q6H PRN PRN Reason: Pain, Mild (Pain Scale 1-3) Last Admin: 08/12/22 14:03 Dose: 650 mg Documented By: SHIV Clonazepam (Clonazepam 1 Mg Tablet) 4 mg PO BEDTIME PRN PRN Reason: Anxiety Last Admin: 08/12/22 19:56 Dose: 4 mg Documented By: MARCELOILJaron Docusate Sodium (Docusate Sodium 100 Mg Capsule) 100 mg PO DAILY PRN PRN Reason: Constipation Enoxaparin Sodium (Enoxaparin Sodium 40 Mg/0.4 Ml Syringe) 40 mg SUBCUT Q24H [facility] Last Admin: 08/12/22 22:24 Dose: 40 mg Documented By: ZULEMA Ergocalciferol (Ergocalciferol (Vitamin D2) 1,250 Mcg Capsule) 1,250 mcg PO Singh@0900 [facility] Last Admin: 08/13/22 07:19 Dose: 1,250 mcg Documented By: EDDIE Fluoxetine HCl (Fluoxetine Hcl 20 Mg Capsule) 60 mg PO DAILY [facility] Last Admin: 08/13/22 07:19 Dose: 60 mg Documented By: EDDIE Lisinopril (Lisinopril 5 Mg Tablet) 5 mg PO DAILY [facility]; Protocol Last Admin: 08/13/22 07:19 Dose: 5 mg Documented By: EDDIE Mirtazapine (Mirtazapine 15 Mg Tablet) 45 mg PO BEDTIME [facility] Last Admin: 08/12/22 19:55 Dose: 45 mg Documented By: ZULEMA Ondansetron HCl (Ondansetron Hcl 4 Mg/2 Ml Vial) 4 mg IVPUSH Q8H PRN PRN Reason: Nausea and Vomiting Risperidone (Risperidone 0.5 Mg Tablet) 1 mg PO BEDTIME [facility] Last Admin: 08/12/22 19:55 Dose: 1 mg Documented By: ZULEMA Sodium Chloride (0.9 % Sodium Chloride Flush 3 Ml Syringe) [facility] Last Admin: 08/13/22 07:20 Dose: 3 ml Documented By: EDDIE Tramadol HCl (Tramadol Hcl 50 Mg Tablet) 25 mg PO Q6H PRN PRN Reason: Pain, Moderate(Pain Scale 4-6) Last Admin: 08/12/22 15:43 Dose: 25 mg Documented By: EDDIE Valacyclovir HCl (Valacyclovir Hcl 500 Mg Tablet) 500 mg PO DAILY [facility] Last Admin: 08/13/22 07:19 Dose: 500 mg Documented By: EDDIE Labs 08/12/22 05:49 08/12/22 05:49 Labs: Laboratory Results - last 24 hr 08/13/22 08/13/22 08:06 08:06 Total Bilirubin 0.6 Direct Bilirubin 0.2 AST 93 H ALT 69 H Alkaline Phosphatase 114 Total Creatine Kinase 1912 H Total Protein 5.4 L Albumin 3.4 L Microbiology Microbiology Results: Microbiology 08/10/22 22:58 Blood Culture - Preliminary Blood - Venous No growth after 48 hours. 08/10/22 22:58 Blood Culture - Preliminary Blood - Venous No growth after 48 hours. 08/11/22 Unknown Urine Culture - Final Urine clean catch - Clean Catch Midstream No growth. Assessment and Plan (1) Rhabdomyolysis: Status: Acute (2) Transaminitis: Status: Acute Plan 82-year-old with past medical history of hypertension, hyperlipidemia, anxiety and depression presents to the hospital after a fall acute rhabdomyolysis secondary to fall cpk trending down after IVF no LORE elevated LFTs secondary to rhabdo LFTs trending down fall mechanical imaging negative for any acute abnormality PT eval - rec STR; re-eval sunday acute lactic acidosis no evidence of sepsis related to dehydration. improved with IVF hypertension continue lisinopril hyperlipidemia hold statin Mood continue remeron, risperdal, prozac DVT prophylaxis: deena attending - dr. carrion dispo - pt rec str. patient does not want to go to rehab requires ongoing inpatient hospitalization for safe disposition Time Spent With Patient Time: Total time managing care of this patient today ____ minutes. Quality Stroke Does the patient have a stroke diagnosis?: No VTE Prior VTE?: No VTE Risk Level:: Medical - moderate - high VTE Device Contraindication: Treatment Not Indicated VTE Drug Contraindication: N/A - Med Ordered
--- NOTE | 2022-08-13 12:46 | MHC.CM.PN ---
Addendum entered by Esperanza Walsh 08/13/22 12:50: [facility] OFFER[facility] A BED Original Note: PT CONTINUES TO STATE HE DOES NOT WANT TO GO TO STR HOWEVER IT IS UNLIKELY HE WILL BE ABLE TO MANAGE AT HOME WHERE HE LIVES ALONE REFERRALS MADE TO BOTH STR AND [facility]. PT WILL BE REASSESSED BY PT TOMORROW
[2022-08-13 15:27] VITALS: BP 131/62; PULSE 82; RESP 18; TEMP 36.7; O2SAT 100
[2022-08-13 19:42] VITALS: BP 158/65; PULSE 74; RESP 18; TEMP 36.3; O2SAT 98
[2022-08-13] MEDS: risperiDONE 0.5 MG TABLET 1 MG PO (19:51)
[2022-08-13] MEDS: Mirtazapine 15 MG TABLET 45 MG PO (19:51)
[2022-08-13] MEDS: traMADoL HCL 50 MG TABLET 25 MG PO (19:51)
[2022-08-13] MEDS: Acetaminophen 325 MG TABLET 650 MG PO (21:15)
[2022-08-13] MEDS: clonazePAM 1 MG TABLET 4 MG PO (21:16)
[2022-08-13] MEDS: Enoxaparin Sodium 40 MG/0.4 ML SYRINGE SUBCUT (22:55)
[2022-08-14 04:00] VITALS: BP 141/66; PULSE 71; RESP 17; TEMP 36.2; O2SAT 96
[2022-08-14 07:26] VITALS: BP 160/75; PULSE 70; RESP 16; TEMP 36.1; O2SAT 97
[2022-08-14] MEDS: valACYclovir HCL 500 MG TABLET PO (07:32)
[2022-08-14] MEDS: lisinopriL 5 MG TABLET PO (07:32)
[2022-08-14] MEDS: FLUoxetine HCl 20 MG CAPSULE 60 MG PO (07:33)
[2022-08-14] MEDS: 0.9 % Sodium Chloride Flush 3 ML SYRINGE IVFLUSH (07:34)
--- NOTE | 2022-08-14 11:19 | MHC.CM.PN ---
Addendum entered by Tatianna Lowe RN 08/14/22 15:20: 1630 dc to [facility], Eileen [phone] aware RN aware Original Note: PATIENT PREFERS [facility] FOR HIS STR NEEDS. FACILITY MADE AWARE IN [facility]. PLAN IS DC LATER TODAY
--- NOTE | 2022-08-14 11:45 | HO.PM.IMPN ---
Subjective Subjective Date of Service: 08/14/22 Interval History: seen and examined this morning follow up for fall/rhabdo no overnight events feeling well, no specific complaints Review of Systems Review of Systems: Yes all other systems are reviewed and are negative Constitutional Constitutional: Denies chills and Denies fever(s) ENT Ears, Nose, Mouth, and Throat: Denies dizziness Cardiovascular Cardiovascular: Denies chest pain, Denies palpitations and Denies dyspnea Respiratory Respiratory: Denies cough and Denies dyspnea Gastrointestinal Gastrointestinal: Denies abdominal pain, Denies nausea and Denies vomiting Neurologic Neurologic: Denies dizziness Endocrine Endocrine: Denies palpitations Physical Exam Vital Signs: Vital Signs: Last Vital Signs Temp 96.9 F 08/14/22 07:26 Pulse 70 08/14/22 07:26 Resp 16 08/14/22 07:26 BP 160/75 H 08/14/22 07:26 Pulse Ox 97 08/14/22 07:26 O2 Del Method Room Air 08/14/22 07:26 BMI result Body Mass Index 27.3 Appearing in no acute distress lung sounds are clear to auscultation heart regular rate rhythm, clear S1, S2 positive bowel sounds, abdomen is soft, nontender neuro patient is alert x3, no focal deficits Objective Data Active Medications Acetaminophen (Acetaminophen 325 Mg Tablet) 650 mg PO Q6H PRN PRN Reason: Pain, Mild (Pain Scale 1-3) Last Admin: 08/13/22 21:15 Dose: 650 mg Documented By: ZULEMA Clonazepam (Clonazepam 1 Mg Tablet) 4 mg PO BEDTIME PRN PRN Reason: Anxiety Last Admin: 08/13/22 21:16 Dose: 4 mg Documented By: ZULEMA Docusate Sodium (Docusate Sodium 100 Mg Capsule) 100 mg PO DAILY PRN PRN Reason: Constipation Enoxaparin Sodium (Enoxaparin Sodium 40 Mg/0.4 Ml Syringe) 40 mg SUBCUT Q24H [facility] Last Admin: 08/13/22 22:55 Dose: 40 mg Documented By: ZULEMA Ergocalciferol (Ergocalciferol (Vitamin D2) 1,250 Mcg Capsule) 1,250 mcg PO Singh@0900 [facility] Last Admin: 08/13/22 07:19 Dose: 1,250 mcg Documented By: EDDIE Fluoxetine HCl (Fluoxetine Hcl 20 Mg Capsule) 60 mg PO DAILY [facility] Last Admin: 08/14/22 07:33 Dose: 60 mg Documented By: EBONY Lisinopril (Lisinopril 5 Mg Tablet) 5 mg PO DAILY [facility]; Protocol Last Admin: 08/14/22 07:32 Dose: 5 mg Documented By: EBONY Mirtazapine (Mirtazapine 15 Mg Tablet) 45 mg PO BEDTIME [facility] Last Admin: 08/13/22 19:51 Dose: 45 mg Documented By: ZULEMA Ondansetron HCl (Ondansetron Hcl 4 Mg/2 Ml Vial) 4 mg IVPUSH Q8H PRN PRN Reason: Nausea and Vomiting Risperidone (Risperidone 0.5 Mg Tablet) 1 mg PO BEDTIME [facility] Last Admin: 08/13/22 19:51 Dose: 1 mg Documented By: ZULEMA Sodium Chloride (0.9 % Sodium Chloride Flush 3 Ml Syringe) 3 ml IVFLUSH QSHIFT [facility] Last Admin: 08/14/22 07:34 Dose: 3 ml Documented By: EBONY Tramadol HCl (Tramadol Hcl 50 Mg Tablet) 25 mg PO Q6H PRN PRN Reason: Pain, Moderate(Pain Scale 4-6) Last Admin: 08/13/22 19:51 Dose: 25 mg Documented By: ZULEMA Valacyclovir HCl (Valacyclovir Hcl 500 Mg Tablet) 500 mg PO DAILY [facility] Last Admin: 08/14/22 07:32 Dose: 500 mg Documented By: EBONY Labs 08/12/22 05:49 08/12/22 05:49 Assessment and Plan (1) Rhabdomyolysis: Status: Acute (2) Transaminitis: Status: Acute Plan 82-year-old with past medical history of hypertension, hyperlipidemia, anxiety and depression presents to the hospital after a fall Acute rhabdomyolysis secondary to fall cpk trending down after IVF no LORE elevated LFTs secondary to rhabdo LFTs trending down fall mechanical imaging negative for any acute abnormality PT eval - rec STR acute lactic acidosis no evidence of sepsis related to dehydration. improved with IVF hypertension continue lisinopril hyperlipidemia hold statin Mood continue remeron, risperdal, prozac DVT prophylaxis: deena attending - dr. Martin dispo - pt rec str. requires ongoing inpatient hospitalization for safe disposition Time Spent With Patient Time: Total time managing care of this patient today ____ minutes. Quality Stroke Does the patient have a stroke diagnosis?: No VTE Prior VTE?: No VTE Risk Level:: Medical - moderate - high VTE Device Contraindication: Treatment Not Indicated VTE Drug Contraindication: N/A - Med Ordered
--- NOTE | 2022-08-14 13:52 | PM.DS ---
DS: Providers Provider Date of Service: 08/14/22 Date of admission: 08/10/22 22:20 Primary care physician: Hector Padron MD DS: Diagnosis Discharge Diagnosis (1) Rhabdomyolysis: Status: Acute (2) Transaminitis: Status: Acute DS: Summary Hospital Course Hospital Course: HP as per admitting provider 82-year-old male with a history of hypertension, anxiety depression presents to the hospital after a fall.? Patient reports that he woke up at 2 in the morning to use the bathroom, he slipped on his throw rug in the bathroom and had difficulty getting up.? He was on the floor until 15:00 the next day when his girlfriend found him.? Patient denies loss of consciousness, no head injury, no palpitations, chest pain, no shortness of breath, no dizziness, no headache.? Patient denies any abdominal pain nausea or vomiting, no diarrhea constipation, no urinary symptoms and no lower extremity edema. On arrival to the ED patient hemodynamically stable with a respiratory rate of 34 that improved after IV fluids Labs are significant for WBC count of 14.3, lactic acid of 2.9, improved after IV hydration, AST of 274, ALT of 66, CPK of 20,838, UA is positive for leukocyte Estrace, WBC, patient started on IV fluids and will be admitted for further management . Acute rhabdomyolysis secondary to fall cpk trended down after IVF no LORE elevated LFTs secondary to rhabdo LFTs trended down fall mechanical imaging negative for any acute abnormality acute lactic acidosis no evidence of sepsis related to dehydration. improved with IVF hypertension continue lisinopril hyperlipidemia statin Mood continue remeron, risperdal, prozac Time Spent with Patient Time attestation: Total time managing care of this patient today ____ minutes. Discharge coordination time: Greater than 30 minutes Quality: Safe Use of Opioids Does Pt have an Active Cancer Diagnosis on the Problem List?: No Quality: Stroke Does the patient have a stroke diagnosis?: No Physical Exam Vital Signs: Vital Signs: Last Vital Signs Temp 96.9 F 08/14/22 07:26 Pulse 70 08/14/22 07:26 Resp 16 08/14/22 07:26 BP 160/75 H 08/14/22 07:26 Pulse Ox 97 08/14/22 07:26 O2 Del Method Room Air 08/14/22 07:26 BMI result Body Mass Index 27.3 Appearing in no acute distress head is normocephalic atraumatic eyes pupils are PERRLA sclera is anicteric mouth throat mucous membranes are intact and moist neck is supple no lymphadenopathy, no JVD noted lung sounds are clear to auscultation heart regular rate rhythm, clear S1, S2 positive bowel sounds, abdomen is soft, nontender neuro patient is alert x3, no focal deficits DS: Data Data Completed and Pending Labs on day of discharge: Preliminary micro results at discharge 08/10/22 22:58 Blood Culture - Preliminary Blood - Venous No growth after 48 hours. 08/10/22 22:58 Blood Culture - Preliminary Blood - Venous No growth after 48 hours. Discharge Plan Discharge Anticipated Discharge Date/Time: 08/14/22 13:46 Patient Disposition: Xfer Inpatient Rehab Fac Discharge Diagnosis: Fall Rhabdomyolysis Referrals: [facility] [place] [Outside] - 1 Week Hector Padron MD [Primary Care Provider] - 1 Week Discharge Medications: Continued ergocalciferol (vitamin D2) 1,250 mcg (50,000 unit) capsule 1,250 mcg PO DURAN@1000 Centrum Silver Men 300-600-300 mcg Tablet 1 tab PO DAILY fluoxetine 20 mg capsule 20 mg PO DAILY clonazepam 2 mg tablet 4 mg PO BEDTIME PRN (Reason: Anxiety) (DME) blood sugar diagnostic Strip See Rx Instructions Not Applicable DAILY Qty: 10 Rx Instructions: As directed fluoxetine 40 mg capsule 40 mg PO DAILY lisinopril 5 mg tablet 5 mg PO DAILY valacyclovir 500 mg tablet 500 mg PO DAILY simvastatin 10 mg tablet 10 mg PO BEDTIME (DME) lancets Misc See Rx Instructions Not Applicable DAILY Qty: 100 Rx Instructions: As directed mirtazapine 45 mg tablet 45 mg PO BEDTIME risperidone 0.5 mg tablet 1 mg PO BEDTIME Discharge Orders: Discharge Order (Routine); Ordered 08/14/22 Ordered By: Keyonna Iqbal Diet: Advance to usual diet Activity on Discharge: As tolerated Stand Alone Forms: Patient Portal Discharge page Care Plan Goals: Complete resolution of symptoms Health Concerns: Fall Rhabdomyolysis Plan of Treatment: Follow-up with primary care provider as needed Take all medications as prescribed Assessment: See discharge summary
[2022-08-14 15:51] VITALS: BP 129/60; PULSE 83; RESP 18; TEMP 36.3; O2SAT 96
== END 2022-08-14 17:52 | DRG 558 ==
LOC: HO.ED 19:35 → HO.EDOVER 22:30 → HO.S3 23:04
PROVIDERS: Physician Assistant Medical; Admitting Provider Internal Medicine; Emergency Provider Internal Medicine; PCP Internal Medicine Medical Oncology; Visit Provider Nurse Practitioner Acute Care
DX: M62.82 Rhabdomyolysis (principal); E87.21 Acute metabolic acidosis; E86.0 Dehydration; E78.5 Hyperlipidemia, unspecified; I10 Essential (primary) hypertension; F41.9 Anxiety disorder, unspecified; F32.A Depression, unspecified; Z79.899 Other long term (current) drug therapy
CPT/HCPCS: 36415; 70450; 71045; 72125; 72170; 80048; 80076; 81001; 82550; 83605; 83735; 84484; 85025; 85027; 87040; 87086; 93005; 97162; 99285; J0696; J1650; J2270; J2405

== ENCOUNTER 2022-11-29 08:07 | Outpatient (REF) | payer MEDICARE, SELFPAY ==
[2022-11-29 08:25] LABS: MANUAL DIFF FLAG NO
[2022-11-29 08:57] LABS: Basophils Percent Auto 0.3 % (0-2); Eosinophils Absolute Auto 0.1 X10*3/uL (0.0-0.4); Eosinophils Percent Auto 1.7 % (0-4); Hematocrit 40.5 % (42.0-52.0); Imm Gran Abs Auto 0.02 X10*3/uL (0.00-0.03); Imm Gran Pct Auto 0.3 % (0.0-0.4); Lymphocytes Absolute Auto 2.8 X10*3/uL (1.2-4.9); Lymphocytes Percent Auto 43.6 % (20-40); Mean Corpuscular HGB Conc 34.6 g/dl (31.0-36.0); Mean Corpuscular Volume 92.5 fL (80.0-98.0); Monocytes Absolute Auto 0.6 X10*3/uL (0.1-1.2); Monocytes Percent Auto 8.8 % (2-11); Neutrophils Absolute Auto 2.9 x10*3/uL (2.0-8.3); Neutrophils Percent Auto 45.3 % (45-73); Platelet Count 175 X10*3/uL (160-400); Red Blood Count 4.38 X10*6/uL (4.60-5.80); Red Cell Distribution Width 12.6 % (11.0-16.0); White Blood Count 6.4 X10*3/uL (4.8-10.8)
[2022-11-29 09:05] LABS: Estimated Average Glucose 100 mg/dL; Hemoglobin A1c % 5.1 % (<6.0)
[2022-11-29 09:42] LABS: Alanine Aminotransferase 14 U/L (0-40); Albumin Level 4.1 g/dL (3.5-5.0); Alkaline Phosphatase 120 U/L (39-117); Anion Gap 11 (12-20); Aspartate Amino Transferase 16 U/L (5-37); Bilirubin Total 0.5 mg/dL (0.0-1.0); Blood Urea Nitrogen 16 mg/dL (9-16); Calcium 9.3 mg/dL (8.4-10.2); Carbon Dioxide 27 mmol/L (22-29); Chloride 107 mmol/L (96-108); Cholesterol 154 mg/dL (<200); Estimated Glomerular Filt Rate > 60; Glucose Fasting 100 mg/dL (60-99); HDL Cholesterol 42 mg/dL (>40); LDL Cholesterol Calculated 87 mg/dL (<100); Sodium 141 mmol/L (135-145); Total Protein 6.6 g/dL (6.5-8.0); Triglycerides 127 mg/dL (<150)
[2022-11-29 10:05] LABS: Vitamin D 25-OH Total 60.1 ng/mL (>30)
[2022-11-29 11:13] LABS: Creatinine Urine 70.88 mg/dL; Microalbumin Urine < 5.0 mg/L
== END 2022-11-29 08:08 | disposition home or self-care (01) ==
LOC: HO.LAB 08:07
PROVIDERS: PCP Internal Medicine Medical Oncology; Visit Provider Internal Medicine Medical Oncology
DX: Z00.00 Encounter for general adult medical examination without abnormal findings (principal); E66.3 Overweight; E11.9 Type 2 diabetes mellitus without complications; N40.0 Benign prostatic hyperplasia without lower urinary tract symptoms; E78.01 Familial hypercholesterolemia; E55.9 Vitamin D deficiency, unspecified
CPT/HCPCS: 36415; 80053; 80061; 82043; 82306; 82570; 83036; 85025

== ENCOUNTER 2022-12-05 14:44 | Outpatient (AMB) | payer MEDICARE, SELFPAY ==
--- NOTE | 2022-12-05 14:50 | A.OFFVIS_ITS ---
Intake Intake Visit Reasons: 1 year follow up Intake Note: Patient is present for PVR Urology Med: None Antibiotic Allergy:None Blood Thinner: None Pharmacy: [facility] PVR: 130 Allergies No Known Allergies Allergy (Verified 12/05/22 14:51) HPI HPI Comments History of Present Illness Details Antoni is a pleasant male. He is a patient of Dr. Padron. He is seen for the following urologic issues - lower urinary tract symptoms PVR 130 cc Feels he is emptying completely 12 month follow-up PSA Lower urinary tract symptoms Stable with current medications Prior PSA velocity movements PSA history baseline 0.85 - 05/16 0.97, 11/14 0.9, 04/17 1.3 Continue to follow review in 1 year [facility] Medical History Anxiety and depression Hyperlipidemia Hypertension Surgical History Hx of cholecystectomy Social History Household Members: None Housing: Condominium Do you presently have visiting nurse or other home services: No Alcohol intake: never Patient Tobacco Use Status: Never used Tobacco Advance Directives Date on File: 08/11/22 service: No Current occupational status: retired Review of Systems Const Denies chills and Denies fever(s) Card Reports no additional complaints and Denies syncope Resp Denies cough GI Denies abdominal pain and Denies heartburn Reports as per HPI and Denies change in libido Neuro Denies syncope Psych Denies change in libido Endo Denies change in libido Physical Exam Const General: cooperative, healthy appearing, comfortable and no acute distress Orientation/consciousness: patient oriented x3 HEENT Face and sinus: Yes normal facial exam Mouth: moist mucous membranes Neck Neck: Yes normal visual inspection, Yes full ROM and Yes trachea midline Chest Chest palpation & inspection: normal inspection of the chest Resp Effort & Inspection: normal respiratory effort, able to speak in complete sentences and no respiratory distress GI Inspection: Yes normal to inspection Back/Spine/Pelvis Cervical Spine: normal cervical lordosis Thoracic/Lumbar Spine: thoracic and lumbar spine normal to inspection Skin General skin exam: no rashes or lesions noted Neuro General: patient oriented x3, gait normal, tone normal and moves all extremities Extrem General: Yes normal to inspection and Yes capillary refill normal Office Procedures Post Void Residual Post Residual Void Post Void Residual (PVR): 130 [id number] Void Residual by ultrasound Results AMB Urinalysis, Automated UA Leukoctes 0 Janes/uL Last Edit by Fabby Phillips, [facility] on 12/05/22 14:59 UA Nitrite Negative Last Edit by Fabby Phillips, [facility] on 12/05/22 14:59 UA Urobilinogen 0.2 mg/dL Last Edit by Fabby Phillips, [facility] on 12/05/22 14:5 9 UA Protein 0 mg/dL Last Edit by Fabby Phillips, A on 12/05/22 14:59 UA pH 6.0 Last Edit by Fabby Phillips, [facility] on 12/05/22 14:59 UA Blood 0 Paul/uL Last Edit by Fabby Phillips, [facility] on 12/05/22 14:59 UA Specific Howell 1.020 Last Edit by Fabby Phillips, [facility] on 12/05/22 14: 59 UA Ketone Negative Last Edit by Fabby Phillips, [facility] on 12/05/22 14:59 UA Bilirubin 0 mg/dL Last Edit by Fabby Phillips, [facility] on 12/05/22 14:59 UA Glucose 0 mg/dL Last Edit by Fabby Pihllips, [facility] on 12/05/22 14:59 Assessment & Plan Assessment & Plan (1) BPH w urinary obs/LUTS: Code(s): N40.1 - Benign prostatic hyperplasia with lower urinary tract symptoms; N13.8 - Other obstructive and reflux uropathy Plan 12 month follow-up PSA Orders: Orders AMB Post Void Residual by ultrasound Today N13.8 - Other obstructive and reflux uropathy, N40.1 - Benign prostatic hyperplasia with lower urinary tract symptoms Prostate Specific Antigen 364 Days N13.8 - Other obstructive and reflux uropathy, N40.1 - Benign prostatic hyperplasia with lower urinary tract symptoms AMB Urinalysis Automated Today Z13.9 - Encounter for screening, unspecified Patient Instructions: Imaging studies, laboratory and physical exam results were discussed and reviewed in detail. No major barriers to patient understanding were identified. An opportunity to ask questions regarding the treatment plan was provided. All q uestions were answered. The patient expressed understanding and agreement with the above treatment plan. The patient is aware they should contact our office by phone for worsening of their current condition or the appearance of new urologic symptoms. Compliance is encouraged with any medications and followup testing that is ordered. It is a privilege to participate in the urologic care of your patient. If you have any questions or concerns regarding treatment for the above conditions, or other urologic issues, please do not hesitate to contact me. The office telephone contact is [phone]. This note is constructed using voice recognition software. While every effort has been made to ensure accuracy manager assurance errors may have been included. Yours sincerely, Dr Kody Garcia MD, [facility] - Urology Providers of Expert, Compassionate Care for the Genitourinary System Coding Level of Care Code Est Pt Level 4 (47908) Diagnoses BPH w urinary obs/LUTS N40.1; N13.8 CPT Codes Post Residual Void - PVR CPT Code: 86475-Vbnv Void Residual by ultrasound ([id number])
== END 2022-12-05 15:06 | disposition home or self-care (01) ==
PROVIDERS: PCP Internal Medicine Medical Oncology; Visit Provider Urology
DX: N40.1 Benign prostatic hyperplasia with lower urinary tract symptoms (principal); N13.8 Other obstructive and reflux uropathy; Z13.9 Encounter for screening, unspecified
CPT/HCPCS: 99214

== ENCOUNTER → 2022-12-05 14:44 | Outpatient (BNVA) | payer MEDICARE, SELFPAY | PROVIDERS: Visit Provider Urology | DX: N40.1 Benign prostatic hyperplasia with lower urinary tract symptoms (principal); N13.8 Other obstructive and reflux uropathy | CPT/HCPCS: 51798; 81003; 99212 ==

== ENCOUNTER 2023-04-03 09:09 | Outpatient (REF) | payer MEDICARE, SELFPAY ==
[2023-04-03 09:29] LABS: MANUAL DIFF FLAG NO
[2023-04-03 10:56] LABS: Basophils Percent Auto 0.4 % (0-2); Eosinophils Absolute Auto 0.1 X10*3/uL (0.0-0.4); Eosinophils Percent Auto 1.7 % (0-4); Hematocrit 41.6 % (42.0-52.0); Hemoglobin 14.1 g/dl (14.0-18.0); Imm Gran Abs Auto 0.02 X10*3/uL (0.00-0.03); Imm Gran Pct Auto 0.4 % (0.0-0.4); Lymphocytes Absolute Auto 2.1 X10*3/uL (1.2-4.9); Lymphocytes Percent Auto 39.4 % (20-40); Mean Corpuscular HGB Conc 33.9 g/dl (31.0-36.0); Mean Corpuscular Hemoglobin 31.8 pg (27.0-33.0); Mean Corpuscular Volume 93.7 fL (80.0-98.0); Monocytes Absolute Auto 0.4 X10*3/uL (0.1-1.2); Monocytes Percent Auto 8.1 % (2-11); Neutrophils Absolute Auto 2.6 x10*3/uL (2.0-8.3); Platelet Count 180 X10*3/uL (160-400); Red Blood Count 4.44 X10*6/uL (4.60-5.80); Red Cell Distribution Width 12.1 % (11.0-16.0); White Blood Count 5.3 X10*3/uL (4.8-10.8)
[2023-04-03 11:27] LABS: Estimated Average Glucose 105 mg/dL; Hemoglobin A1c % 5.3 % (<6.0)
[2023-04-03 11:45] LABS: Alanine Aminotransferase 14 U/L (0-40); Albumin Level 4.2 g/dL (3.5-5.0); Alkaline Phosphatase 99 U/L (39-117); Anion Gap 12 (12-20); Aspartate Amino Transferase 17 U/L (5-37); Bilirubin Total 0.5 mg/dL (0.0-1.0); Blood Urea Nitrogen 17 mg/dL (9-16); Calcium 9.6 mg/dL (8.4-10.2); Carbon Dioxide 26 mmol/L (22-29); Chloride 107 mmol/L (96-108); Cholesterol 154 mg/dL (<200); Estimated Glomerular Filt Rate > 60; Glucose Fasting 111 mg/dL (60-99); HDL Cholesterol 42 mg/dL (>40); LDL Cholesterol Calculated 84 mg/dL (<100); Sodium 141 mmol/L (135-145); Total Protein 6.8 g/dL (6.5-8.0); Triglycerides 141 mg/dL (<150)
[2023-04-03 12:55] LABS: Prostate Specific Antigen 1.39 ng/mL (<0.05-4.0)
[2023-04-03 14:17] LABS: Creatinine Urine 126.42 mg/dL; Microalbum/Creatinine Ratio Ur 4.7 ug/mg cr (<30)
== END 2023-04-03 09:10 | disposition home or self-care (01) ==
LOC: HO.LAB 09:09
PROVIDERS: PCP Internal Medicine Medical Oncology; Visit Provider Internal Medicine Medical Oncology
DX: E11.9 Type 2 diabetes mellitus without complications (principal); F32.9 Major depressive disorder, single episode, unspecified; E66.3 Overweight; N40.0 Benign prostatic hyperplasia without lower urinary tract symptoms; Z12.5 Encounter for screening for malignant neoplasm of prostate
CPT/HCPCS: 36415; 80053; 80061; 82043; 82570; 83036; 84153; 85025

== ENCOUNTER 2023-07-30 08:20 | Outpatient (REF) | payer MEDICARE, SELFPAY ==
[2023-07-30 08:34] LABS: MANUAL DIFF FLAG NO
[2023-07-30 09:04] LABS: Basophils Percent Auto 0.4 % (0-2); Eosinophils Absolute Auto 0.2 X10*3/uL (0.0-0.4); Eosinophils Percent Auto 2.3 % (0-4); Hematocrit 39.9 % (42.0-52.0); Hemoglobin 13.7 g/dl (14.0-18.0); Imm Gran Abs Auto 0.04 X10*3/uL (0.00-0.03); Imm Gran Pct Auto 0.6 % (0.0-0.4); Lymphocytes Absolute Auto 3.2 X10*3/uL (1.2-4.9); Lymphocytes Percent Auto 45.3 % (20-40); Mean Corpuscular HGB Conc 34.3 g/dl (31.0-36.0); Mean Corpuscular Hemoglobin 32.2 pg (27.0-33.0); Mean Corpuscular Volume 93.7 fL (80.0-98.0); Mean Platelet Volume 8.9 fL (9.4-12.4); Monocytes Absolute Auto 0.6 X10*3/uL (0.1-1.2); Monocytes Percent Auto 8.3 % (2-11); Neutrophils Percent Auto 43.1 % (45-73); Platelet Count 173 X10*3/uL (160-400); Red Blood Count 4.26 X10*6/uL (4.60-5.80); Red Cell Distribution Width 12.4 % (11.0-16.0)
[2023-07-30 09:22] LABS: Estimated Average Glucose 108 mg/dL; Hemoglobin A1c % 5.4 % (<6.0)
[2023-07-30 09:55] LABS: Alanine Aminotransferase 15 U/L (0-40); Alkaline Phosphatase 110 U/L (39-117); Anion Gap 13 (12-20); Aspartate Amino Transferase 18 U/L (5-37); Bilirubin Total 0.3 mg/dL (0.0-1.0); Blood Urea Nitrogen 22 mg/dL (9-16); Calcium 9.9 mg/dL (8.4-10.2); Carbon Dioxide 26 mmol/L (22-29); Chloride 108 mmol/L (96-108); Cholesterol 145 mg/dL (<200); Estimated Glomerular Filt Rate > 60; Glucose Random 102 mg/dL (60-115); HDL Cholesterol 38 mg/dL (>40); LDL Cholesterol Calculated 73 mg/dL (<100); Sodium 143 mmol/L (135-145); Total Protein 6.4 g/dL (6.5-8.0); Triglycerides 174 mg/dL (<150)
[2023-07-30 10:11] LABS: Vitamin D 25-OH Total 52.3 ng/mL (>30)
== END 2023-07-30 08:21 | disposition home or self-care (01) ==
LOC: HO.LAB 08:20
PROVIDERS: PCP Internal Medicine Medical Oncology; Visit Provider Internal Medicine Medical Oncology
DX: F32.9 Major depressive disorder, single episode, unspecified (principal); E66.3 Overweight; K21.9 Gastro-esophageal reflux disease without esophagitis; E56.9 Vitamin deficiency, unspecified
CPT/HCPCS: 36415; 80053; 80061; 82306; 83036; 85025

== ENCOUNTER 2023-12-04 13:51 | Outpatient (AMB) | payer MEDICARE, SELFPAY ==
--- NOTE | 2023-12-04 14:00 | MHC.OFFVIS ---
Intake Visit Reasons: 1Y Follow Up-PSA/PVR(SET) Intake Note: Patient is Present for PVR/PSA Urology Med:None Antibiotic Allergy:None Blood Thinner:None Last PVR: 0 Todays PVR: 0 PSA-03/2023- 1.39 Recent A1C: 5.4 (07/2023) Tobacco Shaker Required: No Accompanied by: Self / Same As Patient Allergies No Known Allergies Allergy (Verified 12/04/23 14:06) HPI Comments Details: Antoni is a pleasant male. He is a patient of Dr. Padron. He is seen for the following urologic issues - lower urinary tract symptoms PVR 0 Feels he is emptying completely P.r.n. follow-up Lower urinary tract symptoms Stable with current medications Prior PSA velocity movements PSA history baseline 0.85 - 05/16 0.97, 11/14 0.9, 04/17 1.3, 04/18 1.4 May follow-up with PCP [facility] Medical History Anxiety and depression Hyperlipidemia Hypertension Surgical History Hx of cholecystectomy Social History Household Members: None Housing: Condominium Do you presently have visiting nurse or other home services: No Alcohol intake: never Patient Tobacco Use Status: Never used Tobacco Advance Directives Date on File: 08/11/22 service: No Current occupational status: retired Review of Systems Const Denies chills and Denies fever(s) Card Reports no additional complaints and Denies syncope Resp Denies cough GI Denies abdominal pain and Denies heartburn Reports as per HPI and Denies change in libido Neuro Denies syncope Psych Denies change in libido Endo Denies change in libido Physical Exam Const General: cooperative, healthy appearing, comfortable and no acute distress Orientation/consciousness: patient oriented x3 HEENT Face and sinus: Yes normal facial exam Mouth: moist mucous membranes Neck Neck: Yes normal visual inspection, Yes full ROM and Yes trachea midline Chest Chest palpation & inspection: normal inspection of the chest Resp Effort & Inspection: normal respiratory effort, able to speak in complete sentences and no respiratory distress GI Inspection: Yes normal to inspection Back/Spine/Pelvis Cervical Spine: normal cervical lordosis Thoracic/Lumbar Spine: thoracic and lumbar spine normal to inspection Skin General skin exam: no rashes or lesions noted Neuro General: patient oriented x3, gait normal, tone normal and moves all extremities Extrem General: Yes normal to inspection and Yes capillary refill normal Office Procedures Post Void Residual Post Residual Void Post Void Residual (PVR): 0 [id number]-[id number] Void Residual by ultrasound Assessment & Plan Assessment & Plan (1) BPH w urinary obs/LUTS: Code(s): N40.1 - Benign prostatic hyperplasia with lower urinary tract symptoms; N13.8 - Other obstructive and reflux uropathy Category: Medical Plan Follow-up p.r.n. with primary care Orders: Orders AMB Post Void Residual by ultrasound Today N13.8 - Other obstructive and reflux uropathy, N40.1 - Benign prostatic hyperplasia with lower urinary tract symptoms Patient Instructions: Imaging studies, laboratory and physical exam results were discussed and reviewed in detail. No major barriers to patient understanding were identified. An opportunity to ask questions regarding the treatment plan was provided. All questions were answered. The patient expressed understanding and agreement with the above treatment plan. The patient is aware they should contact our office by phone for worsening of their current condition or the appearance of new urologic symptoms. Compliance is encouraged with any medications and followup testing that is ordered. It is a privilege to participate in the urologic care of your patient. If you have any questions or concerns regarding treatment for the above conditions, or other urologic issues, please do not hesitate to contact me. The office telephone contact is [phone]. This note is constructed using voice recognition software. While every effort has been made to ensure accuracy plastic tile layer errors may have been included. Yours sincerely, Dr Kody aGrcia MD, [facility] - Urology Providers of Expert, Compassionate Care for the Genitourinary System Coding Level of Care Code Est Pt Level 4 (89702) Diagnoses BPH w urinary obs/LUTS N40.1; N13.8 CPT Codes Post Residual Void - PVR CPT Code: 80601-[place] Void Residual by ultrasound ([id number])
== END 2023-12-04 14:24 | disposition home or self-care (01) ==
PROVIDERS: PCP Internal Medicine Medical Oncology; Visit Provider Urology
DX: N40.1 Benign prostatic hyperplasia with lower urinary tract symptoms (principal); N13.8 Other obstructive and reflux uropathy
CPT/HCPCS: 99214

== ENCOUNTER → 2023-12-04 13:51 | Outpatient (BNVA) | payer MEDICARE, SELFPAY | PROVIDERS: PCP Internal Medicine Medical Oncology; Visit Provider Urology | DX: N40.1 Benign prostatic hyperplasia with lower urinary tract symptoms (principal); N13.8 Other obstructive and reflux uropathy | CPT/HCPCS: 51798; 99212 ==

== ENCOUNTER 2023-12-10 09:23 | Outpatient (REF) | payer MEDICARE, SELFPAY ==
[2023-12-10 09:47] LABS: MANUAL DIFF FLAG NO
[2023-12-10 11:06] LABS: Basophils Percent Auto 0.5 % (0-2); Eosinophils Absolute Auto 0.1 X10*3/uL (0.0-0.4); Eosinophils Percent Auto 1.6 % (0-4); Hematocrit 42.2 % (42.0-52.0); Hemoglobin 14.4 g/dl (14.0-18.0); Imm Gran Abs Auto 0.02 X10*3/uL (0.00-0.03); Imm Gran Pct Auto 0.3 % (0.0-0.4); Lymphocytes Absolute Auto 2.3 X10*3/uL (1.2-4.9); Lymphocytes Percent Auto 35.9 % (20-40); Mean Corpuscular HGB Conc 34.1 g/dl (31.0-36.0); Mean Corpuscular Hemoglobin 31.9 pg (27.0-33.0); Mean Corpuscular Volume 93.6 fL (80.0-98.0); Mean Platelet Volume 9.2 fL (9.4-12.4); Monocytes Absolute Auto 0.5 X10*3/uL (0.1-1.2); Monocytes Percent Auto 7.7 % (2-11); Neutrophils Absolute Auto 3.4 x10*3/uL (2.0-8.3); Platelet Count 183 X10*3/uL (160-400); Red Blood Count 4.51 X10*6/uL (4.60-5.80); Red Cell Distribution Width 12.7 % (11.0-16.0); White Blood Count 6.3 X10*3/uL (4.8-10.8)
[2023-12-10 11:22] LABS: Estimated Average Glucose 111 mg/dL; Hemoglobin A1c % 5.5 % (<6.0)
[2023-12-10 11:50] LABS: Microalbum/Creatinine Ratio Ur 6.4 ug/mg cr (<30)
[2023-12-10 12:16] LABS: Alanine Aminotransferase 17 U/L (0-40); Albumin Level 4.3 g/dL (3.5-5.0); Aspartate Amino Transferase 17 U/L (5-37); Bilirubin Total 0.5 mg/dL (0.0-1.0); Blood Urea Nitrogen 16 mg/dL (9-16); Estimated Glomerular Filt Rate > 60; HDL Cholesterol 43 mg/dL (>40)
[2023-12-10 20:11] LABS: Alkaline Phosphatase 113 U/L (39-117); Anion Gap 16 (12-20); Calcium 9.5 mg/dL (8.4-10.2); Carbon Dioxide 25 mmol/L (22-29); Chloride 105 mmol/L (96-108); Cholesterol 149 mg/dL (<200); Glucose Fasting 107 mg/dL (60-99); LDL Cholesterol Calculated 78 mg/dL (<100); Potassium 4.2 mmol/L (3.3-5.1); Sodium 142 mmol/L (135-145); Triglycerides 142 mg/dL (<150)
== END 2023-12-10 09:24 | disposition home or self-care (01) ==
LOC: HO.LAB 09:23
PROVIDERS: PCP Internal Medicine Medical Oncology; Visit Provider Internal Medicine Medical Oncology
DX: F32.9 Major depressive disorder, single episode, unspecified (principal); E66.3 Overweight; E11.9 Type 2 diabetes mellitus without complications; N40.0 Benign prostatic hyperplasia without lower urinary tract symptoms; E78.01 Familial hypercholesterolemia; Z12.5 Encounter for screening for malignant neoplasm of prostate
CPT/HCPCS: 36415; 80053; 80061; 82043; 82570; 83036; 84153; 85025

== ENCOUNTER 2024-03-12 08:16 | Outpatient (RCR) | payer MEDICARE, SELFPAY | END 2024-04-17 14:46 | disposition home or self-care (01) | LOC: HO.WCC 08:16 | PROVIDERS: PCP Internal Medicine Medical Oncology; Visit Provider Surgery | DX: Z09 Encounter for follow-up examination after completed treatment for conditions other than malignant neoplasm (principal); E11.9 Type 2 diabetes mellitus without complications; I10 Essential (primary) hypertension; Z79.84 Long term (current) use of oral hypoglycemic drugs; Z86.711 Personal history of pulmonary embolism; Z87.2 Personal history of diseases of the skin and subcutaneous tissue | CPT/HCPCS: 99212 ==

== ENCOUNTER 2024-04-14 09:25 | Outpatient (REF) | payer MEDICARE, SELFPAY ==
[2024-04-14 09:39] LABS: MANUAL DIFF FLAG NO
[2024-04-14 10:05] LABS: Basophils Percent Auto 0.4 % (0-2); Eosinophils Absolute Auto 0.1 X10*3/uL (0.0-0.4); Eosinophils Percent Auto 1.3 % (0-4); Hematocrit 37.3 % (42.0-52.0); Hemoglobin 12.6 g/dl (14.0-18.0); Imm Gran Abs Auto 0.03 X10*3/uL (0.00-0.03); Imm Gran Pct Auto 0.5 % (0.0-0.4); Lymphocytes Percent Auto 35.3 % (20-40); Mean Corpuscular HGB Conc 33.8 g/dl (31.0-36.0); Mean Corpuscular Hemoglobin 32.1 pg (27.0-33.0); Mean Corpuscular Volume 94.9 fL (80.0-98.0); Mean Platelet Volume 8.9 fL (9.4-12.4); Monocytes Absolute Auto 0.6 X10*3/uL (0.1-1.2); Monocytes Percent Auto 9.9 % (2-11); Neutrophils Absolute Auto 2.9 x10*3/uL (2.0-8.3); Neutrophils Percent Auto 52.6 % (45-73); Platelet Count 201 X10*3/uL (160-400); Red Blood Count 3.93 X10*6/uL (4.60-5.80); White Blood Count 5.6 X10*3/uL (4.8-10.8)
[2024-04-14 10:11] LABS: Estimated Average Glucose 108 mg/dL; Hemoglobin A1C 117.3228 umol/L; Hemoglobin A1c % 5.4 % (<6.0); Total Hemoglobin (HGBA1C) 3329.4065 umol/L
[2024-04-14 10:41] LABS: Alanine Aminotransferase 18 U/L (0-40); Albumin Level 3.9 g/dL (3.5-5.0); Alkaline Phosphatase 127 U/L (39-117); Anion Gap 8 (12-20); Aspartate Amino Transferase 19 U/L (5-37); Bilirubin Total 0.5 mg/dL (0.0-1.0); Blood Urea Nitrogen 15 mg/dL (9-16); Calcium 8.6 mg/dL (8.4-10.2); Carbon Dioxide 24 mmol/L (22-29); Chloride 110 mmol/L (96-108); Cholesterol 130 mg/dL (<200); Estimated Glomerular Filt Rate > 60; Glucose Fasting 113 mg/dL (60-99); HDL Cholesterol 44 mg/dL (>40); LDL Cholesterol Calculated 68 mg/dL (<100); Potassium 3.9 mmol/L (3.3-5.1); Sodium 138 mmol/L (135-145); Total Protein 6.6 g/dL (6.5-8.0); Triglycerides 92 mg/dL (<150)
[2024-04-14 10:55] LABS: Prostate Specific Antigen 2.12 ng/mL (<0.05-4.0)
[2024-04-14 12:06] LABS: Creatinine Urine 167.26 mg/dL; Microalbum/Creatinine Ratio Ur 5.9 ug/mg cr (<30)
== END 2024-04-14 09:26 | disposition home or self-care (01) ==
LOC: HO.LAB 09:25
PROVIDERS: PCP Internal Medicine Medical Oncology; Visit Provider Internal Medicine Medical Oncology
DX: Z00.00 Encounter for general adult medical examination without abnormal findings (principal); E11.9 Type 2 diabetes mellitus without complications; N40.0 Benign prostatic hyperplasia without lower urinary tract symptoms; Z12.5 Encounter for screening for malignant neoplasm of prostate
CPT/HCPCS: 36415; 80053; 80061; 82043; 82570; 83036; 84153; 85025

== ENCOUNTER 2024-08-06 10:02 | Outpatient (AMB) | payer MEDICARE, SELFPAY ==
--- NOTE | 2024-08-06 10:29 | MHC.OFFVIS ---
Intake Visit Reasons: urinary incontinence Intake Note: Patient is present for URINARY INCONTINENCE Urology Medication:NONE Antibiotic Allergy:NONE Blood Thinner:NONE PVR:25mL Ladderman Required: No Allergies No Known Allergies Allergy (Verified 08/06/24 10:30) HPI Comments Details: Atnoni is a pleasant male. He is a patient of Dr. Padron. He is seen for the following urologic issues - lower urinary tract symptoms Six-month follow-up Prior p.r.n. UA today normal PVR 25 cc Bladder instability Multiple accidents during the day Minimal nocturia or accidents at night Unsensed incontinence Over 75 so anticholinergics not recommended first-line - Trial Myrbetriq Lower urinary tract symptoms Stable with current medications Prior PSA velocity movements PSA history baseline 0.85 - 05/16 0.97, 11/14 0.9, 04/17 1.3, 04/18 1.4 May follow-up with PCP [facility] Medical History Anxiety and depression Hyperlipidemia Hypertension Surgical History Hx of cholecystectomy Social History Household Members: None Housing: Condominium Do you presently have visiting nurse or other home services: No Alcohol intake: never Patient Tobacco Use Status: Never used Tobacco Advance Directives Date on File: 08/11/22 service: No Current occupational status: retired Review of Systems Const Denies chills and Denies fever(s) Card Reports no additional complaints and Denies syncope Resp Denies cough GI Denies abdominal pain and Denies heartburn Reports as per HPI and Denies change in libido Neuro Denies syncope Psych Denies change in libido Endo Denies change in libido Physical Exam Const General: cooperative, healthy appearing, comfortable and no acute distress Orientation/consciousness: patient oriented x3 HEENT Face and sinus: Yes normal facial exam Mouth: moist mucous membranes Neck Neck: Yes normal visual inspection, Yes full ROM and Yes trachea midline Chest Chest palpation & inspection: normal inspection of the chest Resp Effort & Inspection: normal respiratory effort, able to speak in complete sentences and no respiratory distress GI Inspection: Yes normal to inspection Back/Spine/Pelvis Cervical Spine: normal cervical lordosis Thoracic/Lumbar Spine: thoracic and lumbar spine normal to inspection Skin General skin exam: no rashes or lesions noted Neuro General: patient oriented x3, gait normal, tone normal and moves all extremities Extrem General: Yes normal to inspection and Yes capillary refill normal Office Procedures Post Void Residual Post Residual Void Post Void Residual (PVR): 44916-Gaxh Void Residual by ultrasound Results AMB Urinalysis, Automated UA Leukoctes 15 Janes/uL Last Edit by Aretha Green CMA on 08/06/24 11:19 UA Nitrite Negative Last Edit by Aretha Green CMA on 08/06/24 11:19 UA Urobilinogen 0.2 mg/dL Last Edit by Aretha Green CMA on 08/06/24 11:19 UA Protein 0 mg/dL Last Edit by Aretha Green CMA on 08/06/24 11:19 UA pH 6.0 Last Edit by Aretha Green CMA on 08/06/24 11:19 UA Blood 0 Paul/uL Last Edit by Aretha Green CMA on 08/06/24 11:19 UA Specific Cerro 1.015 Last Edit by Aretha Green CMA on 08/06/24 11:19 UA Ketone Negative Last Edit by Aretha Green CMA on 08/06/24 11:19 UA Bilirubin 0 mg/dL Last Edit by Aretha Green CMA on 08/06/24 11:19 UA Glucose 0 mg/dL Last Edit by Aretha Green CMA on 08/06/24 11:19 Results Reviewed Results Reviewed: Laboratory Last Values Urine pH (Auto) 6.0 08/06/24 11:18 Specific [place] (Auto) 1.015 08/06/24 11:18 Urine Protein (Auto) 0 mg/dL 08/06/24 11:18 Glucose (UA)(Auto) 0 mg/dL 08/06/24 11:18 Urine Ketones (Auto) Negative 08/06/24 11:18 Urine Blood (Auto) 0 Paul/uL 08/06/24 11:18 Urine Nitrite (Auto) Negative 08/06/24 11:18 Urine Bilirubin (Auto) 0 mg/dL 08/06/24 11:18 Urine Urobilinogen (Auto) 0.2 mg/dL 08/06/24 11:18 Leukocyte Esterase (Auto) 15 Janes/uL 08/06/24 11:18 Assessment & Plan Assessment & Plan (1) Bladder instability: Code(s): N32.89 - Other specified disorders of bladder Category: Medical (2) BPH w urinary obs/LUTS: Code(s): N40.1 - Benign prostatic hyperplasia with lower urinary tract symptoms; N13.8 - Other obstructive and reflux uropathy Category: Medical Plan Trial Myrbetriq Three-month follow-up Orders: Orders AMB Urinalysis Automated Today N13.8 - Other obstructive and reflux uropathy, N40.1 - Benign prostatic hyperplasia with lower urinary tract symptoms AMB Post Void Residual by ultrasound Today N13.8 - Other obstructive and reflux uropathy, N40.1 - Benign prostatic hyperplasia with lower urinary tract symptoms Medications: New mirabegron ER (Myrbetriq) 25 mg PO DAILY 30 tabs 2RF 30 days N32.89 - Other specified disorders of bladder Patient Instructions: This note is constructed using voice recognition software. While every effort has been made to ensure accuracy ambulatory service representative errors may have been included. Imaging studies, laboratory and physical exam results were discussed and reviewed in detail. No major barriers to patient understanding were identified. An opportunity to ask questions regarding the treatment plan was provided. All questions were answered. The patient expressed understanding and agreement with the above treatment plan. The patient is aware they should contact our office by phone for worsening of their current condition or the appearance of new urologic symptoms. Compliance is encouraged with any medications and followup testing that is ordered. It is a privilege to participate in the urologic care of your patient. If you have any questions or concerns regarding treatment for the above conditions, or other urologic issues, please do not hesitate to contact me. The office telephone contact is [phone]. Sincerely, Dr Kody Garcia MD, [facility] - Urology Compassionate Specialist Care for the Genitourinary System Coding Level of Care Code Est Pt Level 4 (54232) Diagnoses Bladder instability N3. BPH w urinary obs/LUTS N40.1; N13.8 CPT Codes Post Residual Void - PVR CPT Code: 05345-Ylyh Void Residual by ultrasound ([id number])
--- OUTSIDE RECORDS SUMMARY | 2024-08-06 10:56 | XMS_ITS ---
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 1pair shoes/3sets inserts . . for 1 year Unknown FLUoxetine HCl 60 MG as directed Orally Once a day Active Ondansetron 4 MG as directed Orally Unknown risperiDONE 0.5 MG 1 tablet Orally Once a day for 30 day(s) Active Vitamin D2 Active Keflex 500 MG 1 capsule Orally alejandra ry 12 hrs for 5 days 10/20/2022 Not-Taking Jublia 10 % as directed External ly Daily for 30 days 10/20/2022 Not-Taking Promethazine HCl 25 MG 1 tablet at bedti me Orally Once a day for 30 day(s) Unknown Dicyclomine HCl 10 MG 1 capsule Orally F our times a day for 30 day(s) Unknown Metformin & Diet Manage Prod 500 MG as directed Orally Unknown Lisinopril 5 MG 0.5 tablet Orally On ce a day for 30 day(s) Active Simvastatin 10 MG 1 tablet every eveni ng Orally Once a day for 30 day(s) Active valACYclovir HCl 500 MG 1 tablet Orally every 12 hrs for 10 day(s) Active clonazePAM 2 MG 1 tablet at bedtime Orally Once a day Active Mirtazapine 45 MG 1 tablet before bedt tomas every evening Orally Once a day for 30 day(s) Active Social History Tobacco Use: Social History Observation Description Date Details (start date - stop date) Never Smoker NA - NA Tobacco Use/Smoking Question Answer Notes Are you a: nonsmoker Additional Findings: Tobacco Non-User Current no n-smoker Alcohol Screen Question Answer Notes Did you have a drink containing alcohol in the p ast year? No Points 0 Interpretation Negative Tobacco use other than smoking: Question Answer Notes Are you an other tobacco user? 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 ; Tinea unguium B35.1 ; Metatarsalgia, left foot M77.42 and Metatarsalgia, right foot M77.41 Assessments Encounter Date Diagnosis (ICD Code) Assessment Notes Treatment Notes Treatment Clinical Notes Section Notes 02/01/2024 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) 02/01/2024 Tinea unguium (ICD-10 - B35.1) 02/01/2024 Metatarsalgia, left foot (ICD-10 - M77.42) 02/01/2024 Metatarsalgia, right foot (ICD-10 - M77.41) Plan Of Treatment Next Appt Details Follow Up: 3 Months, Reason: Provider Name:Suzette saini, 10/10/2024 12:00:00 PM, [address] [place] [address], [phone], Procedure Notes * Category Sub-Category Detail Notes Debride Nail 6-10 Nail debridement Nail debridem ent performed extensively to reduce/remove overall nail length and girth, subungual debris, and necrotic tissue, by manual and electrical means with use of a nail nipper and/or dremel, to more viable healthy nail plate or bed tissue 6-10. Silver nitrate used for any petechial bleeding as necessary. Patient chooses, no pharmaceutical tx ([id number]) Keratoma Treatment Parring or Cutting o f Benign Hyperkeratotic Lesion(s) 48708 ( More than 4 Lesions ) - The Benign hyperkeratotic lesions, as described above were pared, and/or cut utilizing a sterile 15 blade, tissue nippers, and/or dremel Progress Notes * Antoni KENT MDOB:1940 (83 yo M)Acc No.[id number]:02/01/2024 Progress Note Patient:?Antoni KENT Provider:?Suzette Schmitz DPM :1940???Age:83 Y???Sex:Male Bhavesh e:02/01/2024 Address:[address] [place] [address] [place], [id number] Pcp:Hector Padron MD Subjective: * Chief Complaints: * ???At Risk Footcare * HPI: ???At Risk footcare:?Pt States Last PCP Visit:?Date?01/25/2024 ???Foot Pain:?Nature:?aching.?Location:?Ball of foot , B/L.? * ROS:?General/Constitutional:?Nausea?denies.?Vomiting?denies.?Hunger Thirst?denies.?Loss appetite?denies.?Chills?denies.?Fatigue?denies.?Fever?denies.?Night Sweats?denies.?Unexplained weight loss?denies.?Unexplained weight gain?denies.?HEENTM:?Dentures?denies.?Dizziness?denies.?Glasses/contacts?admits.?Retinopathy?den ies.?Blurred/double vision?denies.?TMJ?denies.?Discharge/drainage?denies.?Implants?denies.?Sore throat?denies.?Dental implants?denies.?Hard of hearing ?denies.?Difficulty chewing/swallowing/speaking?denies.?Nose bleeds?denies.?Sore mouth?denies.?Respiratory:?On O xygen?denies.?Pneumonia/pleurisy?denies.?Bronchitis?denies.?Emphysema?denies.?Co ughing?denies.?Cough blood?denies.?Shortness of breath?denies.?Wheezing?denies.?Cardiovascular:?Pacemaker?denies.?MVP?denies.?WPW?denies.?CHF?denies.?Heart attack?denies.?Septal defect?denies.?Rapid beat?denies.?Chest pain ?denies.?Atrial Fib.?denies.?Murmur/Palpitations?denies.?Gastrointestinal:?Hemorrhoids?denies.?Stomach/Abdominal pain?denies.?Dark blood stool?denies.?Irritable bowel ?denies.?Constipation?denies.?Diarrhea?denies.?Hematology:?Swelling?denies.?Clots?denies.?Varicose Veins?denies.?Bruising?denies.?Bleeding problem?denies.?Genitourinary:?Blood urine?denies.?Frequent/Painfu/urination/bladder control?denies.?Kidney stones?denies.?Infection (UTI)?denies.?Nephropathy?denies.?sex trans dis (STD)?denies.?Prostate?denies.?Musculoskeletal:?Hammertoes?denies.?Bunions?denies.?Back Pain?denies.?Muscle Cramps/ Resting?denies.?Muscle cramps / walking?denies.?Generalized aches and pains?denies.?Weakness?denies.?Integ.:?Motley?denies.?Scars?denies.?Corns/calluses?denies.?Ingrown nails?denies.?Painful nails?denies.?Open Sores?denies.?Rashes?denies.?Neurologic:?Difficulty sleeping?denies.?Brain disorder?denies.?Numbness?denies.?Balance t rouble?denies.?Confusion?denies.?Fainting/blackouts?denies.?Tingling?denies.?Ramon mors?denies.? * Medical History:? * Surgical History:?gall bladd er 07/08/2000appendectomy 5th lumbar 08/10/2000 * Hospitalization/Major Diagno stic Procedure:?Denies Past Hospitalization * Family History:?Mother: dece ased, colon cancer, diagnosed with Family history of arthritis, Other malignant neoplasm of unspecified site.?Father: .? Pt denies family history. * Social History:?Tobacco Use:?Tobacco Use/Smoking?Are you a:?nonsmoker ?Additional Findings: Tobacco Non-User?Current non-smoker ?Tobacco use other than smoking?Are you an other tobacco user??No ???Drugs/Alcohol:?Drugs?Have you used drugs other than those for medical reasons in the past 12 months??No ?Alcohol Screen?Did you have a drink containing alcohol in the past year??No ?Points?0 ?Interpretation?Negative ???Miscellaneous:?Caffeine: no. ?Children: yes, 1. ?Exercise: no. ?Marital status: . ?Occupation: Retired. * Medications:?TakingVitamin D 2 risperiDONE 0.5 MG Tablet 1 tablet Orally Once a day FLUoxetine HCl 60 MG Tablet as directed Orally Once a day Mirtazapine 45 MG Tablet 1 tablet before bedtime every evening Orally Once a day clonazePAM 2 MG Tablet 1 tablet at bedtime Orally Once a day valACYclovir HCl 500 MG Tablet 1 tablet Orally every 12 hrs Simvastatin 10 MG Tablet 1 tablet every evening Orally Once a day Lisinopril 5 MG Tablet 0.5 tablet Orally Once a day Taking Vitamin D2 Taking risperiDONE 0.5 MG Tablet 1 tablet Orally Once a day Taking FLUoxetine HCl 60 MG Tablet as directed Orally Once a day Taking Mirtazapine 45 MG Tablet 1 tablet before bedtime every evening Orally Once a day Taking clonazePAM 2 MG Tablet 1 tablet at bedtime Orally Once a day Taking valACYclovir HCl 500 MG Tablet 1 tablet Orally every 12 hrs Taking Simvastatin 10 MG Tablet 1 tablet every evening Orally Once a day Taking Lisinopril 5 MG Tablet 0.5 tablet Orally Once a day Not-Taking/PRNJublia 10 % Solution as directed Externally Daily Keflex 500 MG Capsule 1 capsule Orally every 12 hrs Not- Taking/PRN Jublia 10 % Solution as directed Externally Daily Not-Taking/PRN Keflex 500 MG Capsule 1 capsule Orally every 12 hrs UnknownMetformin & Diet Manage Prod 500 MG Miscellaneous as directed Orally Dicyclomine HCl 10 MG Capsule 1 capsule Orally Four times a day Promethazine HCl 25 MG Tablet 1 tablet at bedtime Orally Once a day Ondansetron 4 MG Tablet Dispersible as directed Orally Extra-Depth Diabetic Shoes with 3 Pair Custom heat-molded multi-density innersoles . . 1pair shoes/3sets inserts . . Medication List reviewed and reconciled with the patientUnknown Metformin & Diet Manage Prod 500 MG Miscellaneous as directed Orally Unknown Dicyclomine HCl 10 MG Capsule 1 capsule Orally Four times a day Unknown Promethazine HCl 25 MG Tablet 1 tablet at bedtime Orally Once a day Unknown Ondansetron 4 MG Tablet Dispersible as directed Orally Unknown Extra-Depth Diabetic Shoes with 3 Pair Custom heat- molded multi-density innersoles . . 1pair shoes/3sets inserts . . Medication List reviewed and reconciled with the patient * Allergies:?N.K.D.A.yes[Aller gies Verified] Objective: * Vitals:?Ht: 6 ft, Wt: 209, B CT: 28.34, Shoe size: 12, BS: 110, Wt-k.8 kg. * ???Past Orders: ???Lab:HEMOGLOBIN A1C (GLYCO HEMOGLOBIN) (Order Date - 07/25/2023) (Collection Date & Time - 07/25/2023 12:08 PM) ? Value Reference Range ?HEMOGLOBIN A1C (HH) 5.4 * Examination: ???Ophthalmology Referral: ?DIABETES EYE EXAM?Procedure Performed:?Yes ?Date of Exam Performed?01/25/2024 ?Findings of Diabetic Eye Exam:?no retinopathy?Neurological: ?SENSORY:? Neurological exam demonstrates, reduced light touch sensation, reduced sharp/dull pin prick discrimination , B/L, 5.07 monofilament test performed at plantar aspects of 5 varied sites per foot shows sensation, reduced , B/L.?Nails: ?NAILS are:?Elongated, overgrown, dystrophic, lytic, greater than 3mm thick, discolored and friable with crumbly malodorous subungual debris 1-5 B/L.?Dermatologic: ?SKIN FINDINGS:? Skin exam reveals Keratotic lesion(s) located at TA T5.?Orthopedic: ?MUSCLE STRENGTH:?5/5 all groups in a symmetrical fashion, B/L.?MPJ PATHOLOGY:?Atrophied anterior fat pad B/L.?General Examination: ?FOOT EXAM:?Lower Extremity Neurological Exam performed:?Yes ?Visual exam of foot performed:?Yes ?Date?02/01/2024 ?Footwear Evaluation?Footwear Evaluation performed:?Yes??? Assessment: * Assessment: 1.?Tinea unguium - B35.1???2 .?Type 2 diabetes mellitus with polyneuropathy - E11.42 (Primary)???3.?Metatarsalgia, left foot - M77.42???4.?Metatarsalgia, right foot - M77.41??? Plan: * Treatment: * Procedures:?Debride Nail 6-10:?Nail debridement?Nail debridement performed extensively to reduce/remove overall nail length and girth, subungual debris, and necrotic tissue, by manual and electrical means with use of a nail nipper and/or dremel, to more viable healthy nail plate or bed tissue 6-10. Silver nitrate used for any petechial bleeding as necessary. Patient chooses, no pharmaceutical tx (22494).?Keratoma Treatment:?Parring or Cutting of Benign Hyperkeratotic Lesion(s)?40784 ( More than 4 Lesions ) - The Benign hyperkeratotic lesions, as described above were pared, and/or cut utilizing a sterile 15 blade, tissue nippers, and/or dremel.? * Procedure Codes:?28636 DEBRI DE NAIL, 6 OR MORE, Modifiers: XS 58376 TRIM SKIN LESIONS, OVER 4, Modifiers: XS * Preventive Medicine:? ??Counseling:?Discussion:?-12: Office or other outpatient visit for the evaluation and management of an established patient, which required a medically appropriate history and/or examination and STRAIGHTFORWARD level of MEDICAL DECISION MAKING, 1 SELF-LIMITED OR MINOR PROBLEM, MINIMAL- NO AMOUNT/COMPLEXITY OF DATA TO BE REVIEWED/ANALYZED, AND MINIMAL RISK OF COMPLICATION/MORBIDITY. The visit on the day of the encounter encompassed interpreting the data and educating the patient as to the nature of their condition, treatment options available according to their individual PMH, meds, allergies, and overall health/living conditions, as well as any potential risks or complications that may occur from a failure to adhere to, and participate in, the recommended course of therapy. The discussion included a complete verbal, and/or written explanation of the examination results, any x-rays taken, the proposed diagnosis, and outline of the treatment plan. A schedule for future care needs was also explained. The patient verbalized an understanding of the instructions at this time and agreed to be an active participant in their treatment. If the patient should think of any questions or concerns after the visit, I have encouraged the patient to call the office.?Metatarsalgea:?I explained to the patient the possible etiologies of their Metatarsalgea Foot pain, including foot type/shoegear/activity level/exercise routine and the risks/benefits of all the different treatment options for pain including: No treatment at all, Rest, Ice, NSAIDs(only if well tolerated after meals), New/supportive Shoegear, Strappings and Tapings, Foot/Ankle AFO Bracing, Stretching exercises, Deep Tissue Massage, Arch support/shoe inserts, Custom orthoses, Topical analgesics including Aspercream/Voltaren gel, Physical Therapy, Cortisone injection therapy, EPAT/ESWT. Advantages and disadvantages of each option were discussed and the patients questions re: shoegear, custom vs prefabricated inserts, activity level, PO vs Topical medications (and their respective potential complications/drug interactions/side effects), and consistency in home treatment regimens for optimal success were answered to their verbally confirmed satisfaction.? ??Screening/Special Tests:?Fall Risk?Assessment:?Performed ?Screening:?No falls in the past year ?FALLS: Screening for Future Fall Risk?Have you had two or more falls in the past year??No ?Have you had any falls with injury in the past year??No * Follow Up:?3 Months * Images: * Sign off status: Completed true * Provider:?Suzette Schmitz DPM Date:?10/2023 Generated for Daylin helm/Meghana/Kentonitting on:?08/06/2024 10:56 AM EDT History and Physical Notes * HPI (History of Present Illness) Category Sub-Category Detail Notes Category Not es At Risk footcare Pt States Last PCP Visit: Date: 4 Foot Pain Nature: aching Location: Ball of foot , B/L Examination Category Sub-Category Detail Notes Category Not es Neurological SENSORY: Neurological exa m demonstrates, reduced light touch sensation, reduced sharp/dull pin prick discrimination , B/L, 5.07 monofilament test performed at plantar aspects of 5 varied sites per foot shows sensation, reduced , B/L Dermatologic SKIN FINDINGS: Skin exam reveal s Keratotic lesion(s) located at TA T5 Orthopedic MPJ PATHOLOGY: Atrophied anterior fat pad B/L MUSCLE STRENGTH: 5/5 all groups in a symmetrical fashion, B/L General Examination FOOT EXAM: Lower Extrem ity Neurological Exam performed:: Yes Visual exam of foot performed:: Yes Date: 02/01/2024 Footwear Evaluation Footwear Evaluation performe d:: Yes Ophthalmology Referral DIABETES EYE EXAM Procedure Perform ed:: Yes ?Date of Exam Performed: 01/25/2024 Findings of Diabetic Eye Exam:: no retin opathy Nails NAILS are: Elongated, overg rown, dystrophic, lytic, greater than 3mm thick, discolored and friable with crumbly malodorous subungual debris 1-5 B/L
--- OUTSIDE RECORDS SUMMARY | 2024-08-06 10:56 | XMS_ITS ---
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 Name Role Phone Hector Padron MD Primary Care Provider Unavailab Suzette Calvillo Unavailable [phone] Allergies No Known Allergies REASON FOR VISIT At Risk Footcare, Painful Toe(s) Medications Medication SIG (Take, Route, Frequency, Duration) Notes Start Date End Date Status risperiDONE 0.5 MG 1 tablet Orally Once a day for 30 day(s) Unknown Mirtazapine 45 MG 1 tablet before bedt tomas every evening Orally Once a day for 30 day(s) Unknown FLUoxetine HCl 60 MG as directed Orally Once a day Unknown valACYclovir HCl 500 MG 1 tablet Orally every 12 hrs for 10 day(s) Unknown clonazePAM 2 MG 1 tablet at bedtime Orally Once a day Unknown Vitamin D2 Active Ondansetron 4 MG as directed Orally Unknown Jublia 10 % as directed External ly Daily for 30 days 10/20/2022 Not-Taking Promethazine HCl 25 MG 1 tablet at bedti me Orally Once a day for 30 day(s) Unknown Extra-Depth Diabetic Shoes with 3 Pair Custom heat-molded multi-density innersoles . 1pair shoes/3sets inserts . . for 1 year Unknown Dicyclomine HCl 10 MG 1 capsule Orally F our times a day for 30 day(s) Unknown Lisinopril 5 MG 0.5 tablet Orally On ce a day for 30 day(s) Unknown Simvastatin 10 MG 1 tablet every eveni ng Orally Once a day for 30 day(s) Unknown Metformin & Diet Manage Prod 500 MG as directed Orally Unknown Keflex 500 MG 1 capsule Orally alejandra ry 12 hrs for 5 days 10/20/2022 Unknown Social History Tobacco Use: Social History Observation Description Date Details (start date - stop date) Never Smoker NA - NA Tobacco Use/Smoking Question Answer Notes Are you a: nonsmoker Additional Findings: Tobacco Non-User Current no n-smoker Tobacco use other than smoking: Question Answer Notes Are you an other tobacco user? 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 ; Contusion of right lesser toe(s) with damage to nail, initial encounter S90.221A ; Tinea unguium B35.1 ; Neuropathic ulcer of right foot with fat layer exposed L97.512 and Contusion of left lesser toe(s) without damage to nail, initial encounter S90.122A Assessments Encounter Date Diagnosis (ICD Code) Assessment Notes Treatment Notes Treatment Clinical Notes Section Notes 05/02/2024 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) 05/02/2024 Contusion of right lesser toe(s) with damage to nail, initial encounter (ICD-10 - S90.221A) 05/02/2024 Tinea unguium (ICD-10 - B35.1) 05/02/2024 Neuropathic ulcer of right foot with fat layer exposed (ICD-10 - L97.512) 05/02/2024 Contusion of left lesser toe(s) without damage to nail, initial encounter (ICD-10 - S90.122A) Plan Of Treatment Next Appt Details Follow Up: 3 Months, Reason: Provider Name:Suzette saini, 10/10/2024 12:00:00 PM, [address] [place], [address], Procedure Notes * Category Sub-Category Detail Notes Debride Nail 6-10 Nail debridement Due to the cl inical pathology outlined in the exam findings, performance of this nail treatment is medically necessary as its management by an unskilled/untrained nonprofessional would put this patients foot and overall health at risk. Therefore, debridement to affected nail(s), as described in exam ( TA, T1, T2, T3, T4, T5, T6, T7, T9, ), was performed exclusively by the physician of record to reduce/remove overall nail length, girth, thickness, subungual debris, and necrotic tissue, by manual and/or electrical means through the use of a nail nipper and/or dremel-type paint grinder stone mill, to a more viable healthy nail plate or bed tissue 6-10 nails in total. Silver nitrate was used for any petechial bleeding as necessary. Definitive antifungal treatment options, both pharmaceutical and surgical, have been reviewed and discussed with the patient. The patient solely prefers the use of intermittent/as needed professional debridement services for their nail condition and understands the need for additional periodic treatments to maintain effectiveness in symptomatic relief - 63313 Keratoma Treatment Parring or Cutting o f Benign Hyperkeratotic Lesion(s) (-57) More than 4 Lesions - Due to the at risk nature of the patients medical condition as documented in the exam findings, performance of this keratoderma treatment is medically necessary as its management by an unskilled/untrained nonprofessional would put this patients foot and overall health at risk. Therefore, the benign hyperkeratotic lesions, ( 5 ) in total, locations as stated and described in the exam ( TA, T1 T5 sub met 1 B/L), were pared, and/or cut utilizing a sterile 15 blade, tissue nippers, and/or power dremel instrumentation by the physician of record - 16710 Progress Notes * Antoni KENT MDOB:1940 (84 yo M)Acc No.[id number]:05/02/2024 Progress Note Patient:?Antoni KENT Provider:?Suzette Schmitz DPM :1940???Age:84 Y???Sex:Male Bhavesh e:05/02/2024 Address:[address] [id number] Pcp:Hector Padron MD Subjective: * Chief Complaints: * ???At Risk FootcarePainful T oe(s) * HPI: ???At Risk footcare:?Pt States Last PCP Visit:?Date?03/26/2024 ???Toe pain:?Nature:?open wound on nail bed.?Location:?Right foot, 4th toe.?Duration:?since DOI ( 04/29/24).?Onset/Cause:?states traumatic ( caught toenail on socks).?Course:?worse.?Aggravated by:?any pressure, standing/walking, shoes.?Treatments:?rest/alter normal daily activity, ice.? * ROS:?General/Constitutional:?Nausea?denies.?Vomiting?denies.?Hunger Thirst?denies.?Loss appetite?denies.?Chills?denies.?Fatigue?denies.?Fever?denies.?Night Sweats?denies.?Unexplained weight loss?denies.?Unexplained weight gain?denies.?HEENTM:?Dentures?denies.?Dizziness?denies.?Glasses/contacts?admits.?Retinopathy?de nies.?Blurred/double vision?denies.?TMJ?denies.?Discharge/drainage?denies.?Implants?denies.?Sore throat?denies.?Dental implants?denies.?Hard of hearing ?denies.?Difficulty chewing/swallowing/speaking?denies.?Nose bleeds?denies.?Sore mouth?denies.?Respiratory:?On Oxygen?denies.?Pneumonia/pleurisy?denies.?Bronchitis?denies.?Emphysema?denies.?C oughing?denies.?Cough blood?denies.?Shortness of breath?denies.?Wheezing?denies.?Cardiovascular:?Pacemaker?denies.?MVP?denies.?WPW?denies.?CHF?denies.?Heart attack?denies.?Septal defect?denies.?Rapid beat?denies.?Chest pain ?denies.?Atrial Fib.?denies.?Murmur/Palpitations?denies.?Gastrointestinal:?Hemorrhoids?denies.?Stomach/Abdominal pain?denies.?Dark blood stool?denies.?Irritable bowel ?denies.?Constipation?denies.?Diarrhea?denies.?Hematology:?Swelling?denies.?Clots?denies.?Varicose Veins?denies.?Bruising?denies.?Bleeding problem?denies.?Genitourinary:?Blood urine?denies.?Frequent/Painfu/urination/bladder control?denies.?Kidney stones?denies.?Infection (UTI)?denies.?Nephropathy?denies.?sex trans dis (STD)?denies.?Prostate?denies.?Musculoskeletal:?Hammertoes?denies.?Bunions?denies.?Back Pain?denies.?Muscle Cramps/ Resting?denies.?Muscle cramps / walking?denies.?Generalized aches and pains?denies.?Weakness?denies.?Integ.:?[place]?denies.?Scars?denies.?Corns/calluses?denies.?Ingrown nails?denies.?Painful nails?denies.?Open Sores?denies.?Rashes?denies.?Neurologic:?Difficulty sleeping?denies.?Brain disorder?denies.?Numbness?denies.?Balance trouble?denies.?Confusion?denies.?Fainting/blackouts?denies.?Tingling?denies.?Tr emors?denies.? * Medical History:? * Surgical History:?gall bladd er 07/08/2000appendectomy 5th lumbar 08/10/2000 * Hospitalization/Major Diagno stic Procedure:?Denies Past Hospitalization * Family History:?Mother: dece ased, colon cancer, diagnosed with Other malignant neoplasm of unspecified site, Family history of arthritis.?Father: .? Pt denies family history. * Social History:?Tobacco Use:?Tobacco Use/Smoking?Are you a:?nonsmoker ?Additional Findings: Tobacco Non-User?Current non-smoker ?Tobacco use other than smoking?Are you an other tobacco user??No ???Miscellaneous:?Caffeine: no. ?Children: yes, 1. ?Exercise: no. ?Marital status: . ?Occupation: Retired, [employer] * Medications:?TakingVitamin D 2 Taking Vitamin D2 Not-Taking/PRNJublia 10 % Solution as directed Externally Daily Not-Taking/PRN Jublia 10 % Solution as directed Externally Daily UnknownrisperiDONE 0.5 MG Tablet 1 tablet Orally Once [...] Tablet 0.5 tablet Orally Once a day Keflex 500 MG Capsule 1 capsule Orally every 12 hrs Metformin & Diet Manage Prod 500 MG [...] List reviewed and reconciled with the patientUnknown risperiDONE 0.5 MG Tablet 1 tablet Orally Once a day Unknown FLUoxetine HCl 60 MG Tablet as directed Orally Once a day Unknown Mirtazapine 45 MG Tablet 1 tablet before bedtime every evening Orally Once a day Unknown clonazePAM 2 MG Tablet 1 tablet at bedtime Orally Once a day Unknown valACYclovir HCl 500 MG Tablet 1 tablet Orally every 12 hrs Unknown Simvastatin 10 MG Tablet 1 tablet every evening Orally Once a day Unknown Lisinopril 5 MG Tablet 0.5 tablet Orally Once a day Unknown Keflex 500 MG Capsule 1 capsule Orally every 12 hrs Unknown Metformin & Diet Manage Prod 500 [...] Verified] Objective: * Vitals:?Ht: 6 ft, Wt: 206, B CO: 27.94, Shoe size: 12, BP: 140/82 mm Hg, BS: 105, Wt-k.44 kg. * ???Past Orders: ???Lab:HEMOGLOBIN A1C (GLYCO HEMOGLOBIN) (Order Date - 03/26/2024) (Collection Date & Time - 03/26/2024 12:13 PM) ? Value Reference Range ?HEMOGLOBIN A1C % (HH) 5.4 * Examination: ???Ophthalmology Referral: ?DIABETES EYE EXAM?Procedure Performed:?No ?Eye Exam not performed:?No reason specified?Neurological: ?SENSORY:?(DM/Neuro) Neurological exam demonstrates reduced sharp/dull pin prick discrimination reduced light touch sensation reduced vibration sensation reduced proprioception sensation in a stocking fashion 5.07 monofilament test performed at plantar aspects of 5 varied sites per foot shows sensation plantar aspects absent at Forefoot B/L.?Nails: ?NAILS are:?Elongated, overgrown, dystrophic, lytic, greater than 3mm thick, discolored and friable with crumbly malodorous subungual debris , TA, T1, T2, T3, T4, T5, T6, T7, T9, Absent nail plate T8.?Dermatologic: ?SKIN FINDINGS:? Skin exam reveals Keratotic lesion(s) located at TA, T1? T5 sub met 1 B/L, ; dried eschar to dorsal T1 and proximal nail fold T1.?ULCER:?LOCATION, dorsal T8 SIZE, 10mm X 10mm X 3mm, BASE, fibro-granular, RIM, hyperkeratotic, UNDERMINING, mild, TRACKING, Sub Q with Fat layer exposed, DRAINAGE, serosanguineous, moderate, NECROTIC TISSUE, loosely-adherent, yellow slough, MALODOR, absent, CALOR, absent, ERYTHEMA, absent.?Orthopedic: ?MUSCLE STRENGTH:?5/5 all groups in a symmetrical fashion, B/L.?FOOTWEAR:?good condition.?General Examination: ?GENERAL APPEARANCE:?Reveals a pleasant, alert, well nourished, well- developed, well hydrated individual, who demonstrates proper attention to hygiene/body habitus, and is in no acute distress, Pt serves as own historian for office visit today.?ORIENTED:?person, place, and time.?FOOT EXAM:?Lower Extremity Neurological Exam performed:?Yes ?Visual exam of foot performed:?Yes ?Date?05/02/2024 ?Footwear Evaluation?Footwear Evaluation performed:?Yes?X-Rays - IMAGING REPORT: ?Clinical Indication(s):? Evaluate for Fracture.?Views:?3 views of Foot, AP, LO, MO, RIGHT??Taken by trained?Podiatric Construction Rigger (?__ ).?Findings:? normal bone?density consistent for patients age and sex, increase in soft tissue contour and density at the symptomatic site.?Fracture:?Negative fractures identified.? 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 Plan: * Treatment: * Procedures:?Debride Nail 6-10:?Nail debridement?Due to the clinical pathology outlined in the exam findings, performance of this nail treatment is medically necessary as its management by an unskilled/untrained nonprofessional would put this patients foot and overall health at risk. Therefore, debridement to affected nail(s), as described in exam ( TA, T1, T2, T3, T4, T5, T6, T7,? T9, ), was performed exclusively by the physician of record to reduce/remove overall nail length, girth, thickness, subungual debris, and necrotic tissue, by manual and/or electrical means through the use of a nail nipper and/or dremel-type paint grinder stone mill, to a more viable healthy nail plate or bed tissue 6- 10 nails in total. Silver nitrate was used for any petechial bleeding as necessary. Definitive antifungal treatment options, both pharmaceutical and surgical, have been reviewed and discussed with the patient. The patient solely prefers the use of intermittent/as needed professional debridement services for their nail condition and understands the need for additional periodic treatments to maintain effectiveness in symptomatic relief - 67137.?Keratoma Treatment:?Parring or Cutting of Benign Hyperkeratotic Lesion(s)?(-57) More than 4 Lesions - Due to the at risk nature of the patients medical condition as documented in the exam findings, performance of this keratoderma treatment is medically necessary as its management by an unskilled/untrained nonprofessional would put this patients foot and overall health at risk. Therefore, the benign hyperkeratotic lesions, ( 5 ) in total, locations as stated and described in the exam (??TA, T1??T5 sub met 1 B/L), were pared, and/or cut utilizing a sterile 15 blade, tissue nippers, and/or power dremel instrumentation by the physician of record - [id number]??.? * Procedure Codes:?70447 DEBRI DE NAIL, 6 OR MORE, Modifiers: XS 25816 TRIM SKIN LESIONS, OVER 4, Modifiers: XS * Preventive Medicine:? ??Counseling:?Discussion:?-13: Office or other outpatient visit for the evaluation and management of an established patient, which required a medically appropriate history and/or examination and LOW level of DECISION MAKING for: 1 STABLE ACUTE UNCOMPLICATED PROBLEM, 2 OR MORE MINOR PROBLEMS, OR 1 STABLE CHRONIC PROBLEM, THAT POSE(S) A LOW RISK FOR MORBIDITY/MORTALITY. The visit on the day of the [...] have encouraged the patient to call the office.?Digital Treatment:?I explained to the patient the risks/benefits of all the different treatment options for their pain including: No treatment at all, Rest, Ice, New/supportive/wider/deeper Shoegear, Digital Padding/Strapping/Taping/Bracing/Gel protective sleeves, Foot/Ankle AFO Bracing, Stretching exercises, Deep Tissue Massage, Arch support/shoe inserts with splay metatarsal padding, and Custom orthoses. I insisted that any digital devices be removed daily and not worn overnight for safety. The patient is to carefully examine the toes daily for any skin irritation while using any splinting or padding device. The advantages and disadvantages of each option were discussed and the patients questions re: shoegear, padding, custom vs prefabricated inserts, activity level, and consistency in home treatment regimens for optimal success were answered to their verbally confirmed satisfaction.?P.R.I.C.E.:?The patient was counseled on the use of P.R.I.C.E. and NSAIDS (if well tolerated) to aid in the recovery from their painful condition, Recommended Topical analgesics including Aspercream/Biofreeze/Voltaren gel as directed.?Ulcer:?A detailed plan of care was reviewed with the patient. We emphasized the fact that the patient takes on an active participating role in the treatment process and emphasized to them that they are an included, valued, and important member of the wound healing team in order to reach an expedient successful outcome. The patient agreed to follow their medically recommended diet while increasing their protein intake if safely able to do so, maintain proper bodily hydaration, abide by weight-bearing restrictions at all times, quit all current smoking habits if any, and diligently follow any/all dressing change instructions. It was clearly made known to the patient that if they fail to do their part, they will likely extend their course of treatment as well as possibly increase their risk of adverse events including amputation. The patient was instructed on importance of proper wound care consisting of pressure reduction, and proper maintainance of a moist wound environment. The patient is to cleanse the wound with warm soapy water/peroxide/saline, or betadine BID based on product availability. The patient is to apply ( Neosporin, Polysporin, or Triple, ) Antibiotic to the wound and cover with a DSD as directed. The patient was instructed to change dressings according to orders, or PRN saturation, leaks. The patient was instructed to monitor and report any signs or symptoms of infection or any untoward reactions. Precautions Taken: Offloading/Pressure reduction via rest/ limited activity to essential to daily life only, cane/ crutches/ walker/ knee scooter/ wheel chair, shoe modification, accommodative padding, sharp debridement, and take/apply medication as directed. THE GOALS of wound debridement to remove devitilized tissue, decrease risk for infection, promote wound healing and prevent further complication were discussed/reviewed. Debridement frequency as indicated.? ??Screening/Special Tests:?Fall Risk?Assessment:?Performed ?Screening:?No falls in the past year ?FALLS: Screening for Future Fall Risk?Have you had two or more falls in the past year??No ?Have you had any falls with injury in the past year??No * Follow Up:?3 Months * Images: * Sign off status: Completed true * Provider:?Suzette Schmitz DPM Date:?09/2024 Generated for Printi volodymyr/Faxing/eTransmitting on:?08/06/2024 10:56 AM EDT History and Physical Notes * HPI (History of Present Illness) Category Sub-Category Detail Notes Category Not es Toe pain Nature: open wound on nail bed Location: Right foot, 4th toe Duration: since DOI ( 04/29/24) Onset/Cause: states traumatic ( c aught toenail on socks) Course: worse Aggravated by: any pressure, standi ng/walking, shoes Treatments: rest/alter normal da susana activity, ice At Risk footcare Pt States Last PCP Visit: Date: 5 Examination Category Sub-Category Detail Notes Category Not es Neurological SENSORY: (DM/Neuro) Neuro logical exam demonstrates reduced sharp/dull pin prick discrimination reduced light touch sensation reduced vibration sensation reduced proprioception sensation in a stocking fashion 5.07 monofilament test performed at plantar aspects of 5 varied sites per foot shows sensation plantar aspects absent at Forefoot B/L Dermatologic SKIN FINDINGS: Skin exam reveal s Keratotic lesion(s) located at TA, T1 T5 sub met 1 B/L, ; dried eschar to dorsal T1 and proximal nail fold T1 ULCER: LOCATION, dorsal T8 SIZE, 10mm X 10mm X 3mm, BASE, fibro-granular, RIM, hyperkeratotic, UNDERMINING, mild, TRACKING, Sub Q with Fat layer exposed, DRAINAGE, serosanguineous, moderate, NECROTIC TISSUE, loosely-adherent, yellow slough, MALODOR, absent, CALOR, absent, ERYTHEMA, absent Orthopedic FOOTWEAR EVALUATION: good condition MUSCLE STRENGTH: 5/5 all groups in a symmetrical fashion, B/L General Examination GENERAL APPEARANCE: Reveals a pleasant, alert, well nourished, well-developed, well hydrated individual, who demonstrates proper attention to hygiene/body habitus, and is in no acute distress, Pt serves as own historian for office visit today FOOT EXAM: Lower Extremity Neurological Exa m performed:: Yes Visual exam of foot performed:: Yes Date: 05/02/2024 ORIENTED: person, place, and t tomas Footwear Evaluation Footwear Evaluation performe d:: Yes Ophthalmology Referral DIABETES EYE EXAM Procedure Perform ed:: No Eye Exam not performed:: No reason speci fied Nails NAILS are: Elongated, overg rown, dystrophic, lytic, greater than 3mm thick, discolored and friable with crumbly malodorous subungual debris , TA, T1, T2, T3, T4, T5, T6, T7, T9, Absent nail plate T8 X-Rays - IMAGING REPORT Findings: normal b one density consistent for patients age and sex, increase in soft tissue contour and density at the symptomatic site Fracture: Negative fractures i dentified Views: 3 views of Foot, AP, LO, MO, RIGHT Taken by trained Podiatric Construction Rigger ( __ ) Clinical Indication(s): Evaluate for Fra cture
--- OUTSIDE RECORDS SUMMARY | 2024-08-06 10:56 | XMS_ITS | Patient Health Record ---
[facility] Address [address] [place] [address] Care Team Providers Care Deputy Sheriff Bailiff Name Role Phone Hector Padron MD Primary Care Provider Suzette Newton Unavailable [phone] Allergies No Known Allergies Results Component Value Reference Range Notes HEMOGLOBIN A1C (GLYCOHEMOGLO BIN) Reviewed date:05/02/2024 12:13:58 PM Interpretation: Performing Lab: Notes/Report: HEMOGLOBIN A1C % (HH) 5.4 Reason For Referral No Information Medications Medication SIG (Take, Route, Frequency, Duration) Notes Start Date End Date Status Vitamin D2 Active Mirtazapine 45 MG 1 tablet before bedt tomas every evening Orally Once a day for 30 day(s) Unknown FLUoxetine HCl 60 MG as directed Orally Once a day Unknown Extra-Depth Diabetic Shoes with 3 Pair Custom heat-molded multi-density innersoles . 1pair shoes/3sets inserts . . for 1 year Unknown valACYclovir HCl 500 MG 1 tablet Orally every 12 hrs for 10 day(s) Unknown clonazePAM 2 MG 1 tablet at bedtime Orally Once a day Unknown Lisinopril 5 MG 0.5 tablet Orally On ce a day for 30 day(s) Unknown Simvastatin 10 MG 1 tablet every eveni ng Orally Once a day for 30 day(s) Unknown Metformin & Diet Manage Prod 500 MG as directed Orally Unknown Keflex 500 MG 1 capsule Orally alejandra ry 12 hrs for 5 days 10/20/2022 Unknown Dicyclomine HCl 10 MG 1 capsule Orally F our times a day for 30 day(s) Unknown risperiDONE 0.5 MG 1 tablet Orally Once a day for 30 day(s) Unknown Ondansetron 4 MG as directed Orally Unknown Jublia 10 % as directed External ly Daily for 30 days 10/20/2022 Not-Taking Promethazine HCl 25 MG 1 tablet at bedti me Orally Once a day for 30 day(s) Unknown Immunizations Vaccine Route Administration Date Status Comme nts Influenza Unknown 11/24/2021 Administered Influenza Unknown 12/25/2022 Administered Social History Tobacco Use: Social History Observation [...] Problem Status W/U Status Risk Notes Problem Disorder of joint of ankle and/or foot (834877740) Arthritis - Degenerative (719.97) Active confirmed Problem Neuralgia - Neuritis (729.2) Active confirmed Problem Bursitis (85714516) Bursitis (727.3) Active con firmed Problem Metatarsalgia (77897798) Metatarsalgia (726.70) Active confirmed Problem Pain in limb (42126877) Pain in Limb (729.5) Active confirmed Problem Neurologic disorder associated with type II diabetes mellitus (582415365) Diabetic - NIDDM/Neuropathy (250.60) Active confirmed Problem 47342657 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 Problem 34254411355453099 Neuropathic ul cer of right foot with fat layer exposed (L97.512) Active confirmed Vital Signs Blood pressure diastolic 82 mm Hg 05/02/2024 Height 6 ft in 05/02/2024 Blood pressure systolic 140 mm Hg 05/02/2024 Weight 206 lbs 05/02/2024 BMI 27.94 kg/m2 05/02/2024 Encounters Encounter [facility] Date [facility] [address] 11/02/2023 Suzette Schmitz Type 2 diabetes mellitus with polyneuropathy E11.42 and Tinea unguium B35.1 [facility] [address] 02/01/2024 Suzette Schmitz Type 2 diabetes mellitus with polyneuropathy E11.42 ; Tinea unguium B35.1 ; Metatarsalgia, left foot M77.42 and Metatarsalgia, right foot M77.41 [facility] [address] [address] 05/02/2024 Suzette Schmitz Type 2 diabetes mellitus [...] Treatment Notes Treatment Clinical Notes Section Notes 11/02/2023 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) 02/01/2024 Tinea unguium (ICD-10 - B35.1) 02/01/2024 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) 05/02/2024 Contusion of right lesser toe(s) with damage to nail, initial encounter (ICD-10 - S90.221A) 05/02/2024 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) 05/02/2024 Tinea unguium (ICD-10 - B35.1) 02/01/2024 Metatarsalgia, left foot (ICD-10 - M77.42) 11/02/2023 Tinea unguium (ICD-10 - B35.1) 02/01/2024 Metatarsalgia, right foot (ICD-10 - M77.41) 05/02/2024 Neuropathic ulcer of right foot with fat layer exposed (ICD-10 - L97.512) 05/02/2024 Contusion of left lesser toe(s) without damage to nail, initial encounter (ICD-10 - S90.122A) Plan Of Treatment Pending Test Test Name Order Date X ray : Foot, left 2V 08/03/2011 X ray : Foot, right 2V 08/03/2011 [id number] SKIN LESIONS, 2 TO 4 08/03/19 12 Next Appt Details Provider Name:Suzette Lisa saini, 10/10/2024 12:00:00 PM, [address] [facility] [place], [place], [address], Insurance Providers Payer Name Payer Address Payer Phone Subscriber Number Group Number Insured Name Patient Relationship to Insured Coverage Start Date Coverage End Date Medicare National [employer] [address] [place] [address] [id number] Antoni Kent Self - patient is the insured [employer] [facility] [address] [place] [address] [id number] Antoni Kent Self - patient is the insured Medical (General) History Medical History History ICD Code anxiety back, hip, knee pain depression type I diabetes neuropathy reflux stomach ulcer chicken pox High blood pressure Surgical History Surgery Date(Month/Year) gall bladder 07/08/2000 appendectomy 5th lumbar 08/10/2000
--- OUTSIDE RECORDS SUMMARY | 2024-08-06 10:56 | XMS_ITS ---
Author Organization Hector Padron III, MD Address [address] [place] [address] [address]a [place] [address] Care Team Providers Care Division Road Supervisor Name Role Phone Hector Padron Primary Care Provider [phone] Allergies Allergen (clinical drug ingredient) Drug/Non Drug [...] diabetes Active Vitamin D (Ergocalciferol) 1.25 MG (92468 UT) TAKE 1 CAPSULE BY MOUTH ONE [...] Problem Status W/U Status Risk Notes Problem 04546726 Age-related cataract of both eyes, unspecified age-related [...] Date Provider Diagnosis Hector Padron III, MD [address] [place] [address] [place] [address] 07/08/2024 Hector Padron Depression F32.9 ; T [...] 2 diabetes Vitamin D (Ergocalciferol) 1.25 MG (47862 UT) TAKE 1 CAPSULE BY MOUTH ONE TIME PER WEEK Next Appt Details Follow Up: As Scheduled, Rhea son: OV Provider Name:Hector Jimenezrne, 08/20/2024 02:30:00 PM, [address] [place] [address] [address], [place], [address], Provider Name:Hector Nereida, 12/17/2024 02:00:00 PM, [address] [place] [address] [address], [place], [address], Progress Notes * Antoni KENT MDOB:1940 (84 yo M)Acc No.[id number]:07/08/2024 Patient:?LATRICIAFAHEEMBLAYNEAntoni Provider:?Hector Padron MD :1940???Age:84 Y???Sex:Male Bhavesh e:07/08/2024 Address:[address] [place] [address] [facility] [id number] Subjective: * Chief Complaints: * ???Pre-Op Clearance Cataract Surgery on 07/15/[address] BrownepliannaionDiabetesGERDHistory of pulmonary embolismBenign prostatic hypertrophyHyperlipidemia * HPI: ???COVID-19 Screening:?He returns to the office today for a medical clearance for cataract surgery..? ? A?new complaint is that he feels short of breathOn examination his lungs sounded normal without wheezing or rales or rhonchi. His oxygen saturation is 99%. He has had no fever.? He was able to lie flat without difficulty.? Testing will be done.? This may well be the onset of allergy season.? Also he complains of recent urinary incontinence.? He says he feels an urgent need to urinate and leaks urine before he can get to the bathroom.? He says this occurs every couple of hours.? He is scheduled for cataract surgery next Sunday.? I did not find a contraindication to surgery today.? He was given medical clearance.? Is going to see urology.? The respiratory status will be monitored caarefully. ?Questions?Have you had any new onset fever, chills, cough, congestion, sore throat, shortness of breath, muscle aches??No * ROS:?General/Constitutional:?pain?only normal aches and pains.?Chills?denies.?Fatigue?admits.?Fever?denies.?ENT:?Decreased hearing?denies.?Respiratory:?Cough?denies.?Cardiovascular:?Chest pain with exertion?denies.?Dyspnea on exertion?denies.?Shortness of breath?that is mild.?Gastrointestinal:?Constipation?occasional.?Decreased appetite?denies.?Diarrhea?denies.?Heartburn?denies.?Nausea?denies.?Rectal bleeding?denies.?Vomiting?denies.?Hematology:?bruising?denies.?petechiae?denies.?Swollen glands?none have been noted.?Genitourinary:?Frequent urination?denies.?Musculoskeletal:?Muscle aches?denies.?Painful joints?denies.?Sciatica?denies.?Weakness?denies.?Skin:?Itching?denies.?Rash?denies.?Skin lesion(s)?denies.?Neurologic:?Difficulty speaking?denies.?Dizziness?denies.?Headache?denies.?Low back pain?denies.?Psychiatric:?Depressed mood?denies.? * Medical History:? * Surgical History:?cholecyste ctomy No history * Hospitalization/Major Diagno stic Procedure:?[facility], rhabdomyolysis, fell at home 08/10/2022No history * Family History:?Father: dece ased, homicide.?Mother: , intestinal cancer, diagnosed with Cancer.?1 son(s) - healthy. .? An aunt had breast cancer and another had GI cancer. His son is healthy. He is not aware of any family history of mental illness or substance use disorder. * Social History:?Tobacco Use:?Tobacco Use/Smoking?Patient is a?nonsmoker ?Additional Findings: Tobacco Non-User?Aggressive non-smoker ???He was born in [place], [place] He has a son. He is retired from [employer]. He has a son, Lawrence Hardingjr. [facility] [place]. [facility]. * Medications:?TakingAccu-Chek FastClix Lancets - Miscellaneous USE TO TEST [...] EVERY DAY Vitamin D (Ergocalciferol) 1.25 MG (80917 UT) Capsule TAKE 1 CAPSULE BY MOUTH [...] DAY Taking Vitamin D (Ergocalciferol) 1.25 MG (22440 UT) Capsule TAKE 1 CAPSULE BY MOUTH ONE TIME PER WEEK Medication List reviewed and reconciled with the patient * Allergies:?No Known Drug All ergyno[Allergies Verified] Objective: * Vitals:?Ht: 72, Wt:206, BMI: 27.94, BP:112/52, HR:78, Temp:98.4, Oxygen sat %:99, Wt-k.44. * ???Past Orders: Lab:Hemoglobin A1c * Collection Date 04/14/2024 [...] (Ref Range: 4.8-10.8 X10*3/uL) Red Blood Count 3.93?L (Ref Range: 4.60-5.80 X10*6/uL) 4.51?L (Ref Range: 4.60-5.80 X10*6/uL) 4.26?L (Ref Range: 4.60-5.80 X10*6/uL) Hemoglobin 12.6?L (Ref Range: 14.0-18.0 g/dl) 14.4 (Ref Range: 14.0-18.0 g/dl) 13.7?L (Ref Range: 14.0-18.0 g/dl) Hematocrit 37.3?L (Ref Range: 42.0-52.0 %) 42.2 (Ref Range: 42.0-52.0 %) 39.9?L (Ref Range: 42.0-52.0 %) Mean Corpuscular Volume [...] (Ref Range: 160-400 X10*3/uL) Mean Platelet Volume 8.9?L (Ref Range: 9.4-12.4 fL) 9.2?L (Ref Range: 9.4-12.4 fL) 8.9?L (Ref Range: 9.4-12.4 fL) Neutrophils Percent Auto 52.6 (Ref Range: 45-73 %) 54.0 (Ref Range: 45-73 %) 43.1?L (Ref Range: 45-73 %) Imm Gran Pct Auto 0.5?H (Ref Range: 0.0-0.4 %) 0.3 (Ref Range: 0.0-0.4 %) 0.6?H (Ref Range: 0.0-0.4 %) Lymphocytes Percent Auto 35.3 (Ref Range: 20-40 %) 35.9 (Ref Range: 20-40 %) 45.3?H (Ref Range: 20-40 %) Monocytes Percent Auto [...] 0.00-0.03 X10*3/uL) 0.02 (Ref Range: 0.00-0.03 X10*3/uL) 0.04?H (Ref Range: 0.00-0.03 X10*3/uL) Lymphocytes Absolute Auto [...] 0.000 (Ref Range: 0.0-0.012 X10*3/uL) * Lab:Deirdre martinez Fast * Collection Date 04/14/2024 12/10/2023 04/03/2023 [...] 4.2 (Ref Range: 3.5-5.0 g/dL) Alkaline Phosphatase 127?H (Ref Range: 39-117 U/L) 113 (Ref Range: 39-117 U/L) 99 (Ref Range: 39-117 U/L) Potassium 3.9 (Ref Range: 3.3-5.1 mmol/L) 4.2 (Ref Range: 3.3-5.1 mmol/L) 4.0 (Ref Range: 3.3-5.1 mmol/L) Chloride 110?H (Ref Range: 96-108 mmol/L) 105 (Ref Range: 96-108 mmol/L) 107 (Ref Range: 96-108 mmol/L) Carbon Dioxide 24 (Ref Range: 22-29 mmol/L) 25 (Ref Range: 22-29 mmol/L) 26 (Ref Range: 22-29 mmol/L) Anion Gap 8?L (Ref Range: 12-20) 16 (Ref Range: 12-20) 12 (Ref Range: 12-20) Blood Urea Nitrogen 15 (Ref Range: 9-16 mg/dL) 16 (Ref Range: 9-16 mg/dL) 17?H (Ref Range: 9-16 mg/dL) Creatinine 0.85 (Ref Range: 0.5-1.4 mg/dL) 1.07 (Ref Range: 0.5-1.4 mg/dL) 1.02 (Ref Range: 0.5-1.4 mg/dL) Estimated Glomerular Filt Rate > 60 > 60 > 60 Glucose Fasting 113?H (Ref Range: 60-99 mg/dL) 107?H (Ref Range: 60-99 mg/dL) 111?H (Ref Range: 60-99 mg/dL) Calcium 8.6 (Ref Range: 8.4-10.2 mg/dL) 9.5 (Ref Range: 8.4-10.2 mg/dL) 9.6 (Ref Range: 8.4-10.2 mg/dL) * Lab:Lipid Panel * Collection Date 04/14/2024 12/10/2023 07/30/2023 Collection Time 09:38 AM 09:45 AM 08:34 AM Order Date 04/14/2024 12/10/2023 07/30/2023 Triglycerides 92 (Ref Range: <150 mg/dL) 142 (Ref Range: <150 mg/dL) 174?H (Ref Range: <150 mg/dL) Cholesterol 130 (Ref Range: <200 mg/dL) 149 (Ref Range: <200 mg/dL) 145 (Ref Range: <200 mg/dL) LDL Cholesterol Calculated 68 (Ref Range: <100 mg/dL) 78 (Ref Range: <100 mg/dL) 73 (Ref Range: <100 mg/dL) HDL Cholesterol 44 (Ref Range: >40 mg/dL) 43 (Ref Range: >40 mg/dL) 38?L (Ref Range: >40 mg/dL) * Lab:Prostate Specific [...] (Ref Range: <30 ug/mg cr) * Examination: ???General Examination: ?GENERAL APPEARANCE:?pleasant, well nourished, well developed, in no acute distress, calm and relaxed, overweight, man.?HEAD:?atraumatic, normocephalic.?EYES:?eomi, perrla, anicteric, conjugate.?EARS:?normal.?NOSE:?septum intact.?ORAL CAVITY:?normal, unremarkable.?NECK/THYROID:?no jugular venous distention, no carotid bruit, thyroid normal.?LYMPH NODES:?no enlarged lymph nodes,spleen normal.?SKIN:?no suspicious lesions, anicteric.?HEART:?no clicks, gallops, murmurs, or rubs, regular rhythm, S1, S2 normal, no s3, or vascular bruits.?LUNGS:?clear to auscultation, no wheezes, rales, rhonchi, good air movement, No difficulty breathing lying flat on his back during the examination, mucous membranes are pink, oxygen saturation 99% on room air, Respiratory rate 16 breaths per.?BREASTS:??no masses palpable bilaterally.?ABDOMEN:?bowel sounds normal, no ascites, no organomegaly, no mass, overweight.?RECTAL EXAM:?not examined.?MUSCULOSKELETAL:?extremities unremarkable, no clubbing, cyanosis or edema.?PERIPHERAL PULSES:?normal.?NEUROLOGIC:?alert and oriented, cranial nerves 2-12 grossly intact, deep tendon reflexes 2+ symmetrical, motor strength normal upper and lower extremities, sensory exam intact.?PSYCH:?alert, oriented, mood depressed, Anxiety not noted, seems calm and relaxed.? Assessment: * Assessment: 1.?Type 2 diabetes mellitus without complications - E11.9 (Primary)???Notes :His hemoglobin A1c is 5.4. No change in his regimen was necessary today.He is doing well. The recent available. Blood work shows good control of the diabetes.???2.?Depression - F32.9???Notes :He has mild chronic depression.? He is compliant with his psychiatric medications and up-to-date with his psychiatrist.? This problem is stable.???3.?Overweight - E66.3???Notes :He has lost 4 pounds and weighs 206. His body mass index is 28. His nutrition is stable.???4.?GERD (gastroesophageal reflux disease) - K21.9???Notes :His heartburn is well controlled with medications. He is sleeping through the night. No change in his regimen was needed.???5.?Chronic insomnia - F51.04???Notes :He is still sleeping poorly but appears to be well rested.???6.?BPH (benign prostatic hyperplasia) - N40.0???Notes :He rises from sleep once or twice a night to urinate. We discussed lifestyle modification as a way to reduce nocturia.???7.?Hyperlipidemia type II - E78.0???Notes :His fasting lipid profile shows his lipids to be in the normal range. No change in his regimen was necessary today.???8.?SOB (shortness of breath) - R06.02???Notes :The examination of his lungs is normal.? His respiratory rate is 16.? His oxygen saturation is 99% and his pulse is normal.? He was comfortable lying on his back during the examination.? He is going to notify me at once if this symptom worsens.? He seems stable at this time.? It is noted that he has a history of pulmonary embolism.? It was no sign of peripheral DVT today.???9.?Age-related cataract of both eyes, unspecified age-related cataract type - H25.9???Notes :He is scheduled for cataract surgery next week.? There is no contraindication.? The dyspnea seems minor today.? Is going to call me after the weekend to report on his breathing.? He is given medical clearance for cataract surgery.??? Plan: * Treatment: * Procedure Codes:?19760 MEASU RE BLOOD OXYGEN LEVEL * Preventive Medicine:? ??Counseling:?Care goal follow-up plan:?Counseling for abnormal BMI given?Yes ?Above Normal BMI Follow-up?Dietary management education, guidance, and counseling, Dietary needs education, Exercise promotion: strength training ??DM Care Plan:?Patient Lifestyle Goals?Patient wants to be able to manage diabetes without too much effort.?Treatment Goals?Blood Sugars less than < 115, HbA1C < 7.0.?Barriers?no barriers.?Self-Managment Goals?Work on weight loss, with a goal of losing 1 lb per week.? * Follow Up:?As Scheduled ([facility] son: OV) * Images: * Sign off status: Completed true * Provider:?Hector Padron MD Date:?06/24 Generated for Aprili volodymyr/Meghana/eTransmitting on:?08/06/2024 10:55 AM EDT History and Physical Notes * [...]
--- OUTSIDE RECORDS SUMMARY | 2024-08-06 10:56 | XMS_ITS ---
Author Organization Hector Padron III, MD Address [address] [place] [address] DR SAM Shreya DINESH [place]BL[place] [id number] Care Team Providers Care Carpet Binder Name Role Phone [facility] [...] day Active Vitamin D (Ergocalciferol) 1.25 MG (32557 UT) TAKE 1 CAPSULE BY MOUTH ONE [...] Date Provider Diagnosis Hector Padron III, MD [address] [place] [address] DR BINGH[place], DINESH [id number] 04/21/2024 Hector Padron Depression F32.9 ; T [...] a day Vitamin D (Ergocalciferol) 1.25 MG (86257 UT) TAKE 1 CAPSULE BY MOUTH ONE [...] 4 Months, Reason: ov Provider Name:Hector Padron, 08/20/2024 02:30:00 PM, [address] [place] [address] FLACO RANGEL, DINESH [place], [phone], Provider Name:Hector Padron, 12/17/2024 02:00:00 PM, [address] [place] [address] [place], [phone], Progress Notes * Antoni KENT:1940 (83 yo M)Acc No.[id number]:04/21/2024 Progress Notes Patient:?Antoni KENT Provider:?Hector Padron MD :1940???Age:83 Y???Sex:Male Bhavesh e:04/21/2024 Address:[address] [place] [address], [address], [place], [id number] Subjective: * Chief Complaints: * ???DiabetesDepressionGERDHis tory of pulmonary embolismBenign prostatic hypertrophyHyperlipidemia * HPI: ???COVID-19 Screening:?Questions?Have you had any new onset fever, chills, cough, congestion, sore throat, shortness of breath, muscle aches??No ???:? The patient, Giovani, is an 83-year-old male [...] months. Blood Sugar Level is 113. * ROS:?General/Constitutional:?Denies?pain,?only normal aches and pains.?Chills?denies.?Fatigue?admits.?Fever?denies.?ENT:?Decreased hearing?mild.?Respiratory:?Cough?denies.?Cardiovascular:?Chest pain with exertion?denies.?Dyspnea on exertion?denies.?Shortness of breath?denies.?Gastrointestinal:?Constipation?occasional.?Decreased appetite?denies.?Diarrhea?denies.?Heartburn?denies.?Nausea?denies.?Rectal bleeding?denies.?Vomiting?denies.?Hematology:?bruising?denies.?petechiae?denies.?Swollen glands?none have been noted.?Genitourinary:?Frequent urination?once a night.?Musculoskeletal:?Muscle aches?denies.?Painful joints?denies.?Sciatica?denies.?Weakness?denies.?Skin:?Itching?denies.?Rash?denies.?Skin lesion(s)?denies.?Neurologic:?Difficulty speaking?denies.?Dizziness?denies.?Headache?denies.?Low back pain?denies.?Psychiatric:?Depressed mood?which is moderate.? * Medical History:? * Surgical History:?cholecyste ctomy No history * Hospitalization/Major Diagno stic Procedure:?[facility], rhabdomyolysis, fell at home 08/10/2022No [...] Tobacco Non-User?Aggressive non-smoker ???He was born in [place], [place] He has a son. He is retired from [employer]. He has a son, Lawrence Hardingjr. [facility] in [place]. [facility]. * Medications:?TakingAccu-Chek FastClix Lancets - Miscellaneous USE TO TEST BLOOD SUGAR ONCE DAILY , Notes to Pharmacist: E11.9 Type 2 diabetesMirtazapine 45 MG Tablet TAKE 1 TABLET BY MOUTH EVERYDAY AT BEDTIME Accu-Chek Laura Plus - Strip as directed In Vitro test blood sugars once a day , Notes to Pharmacist: E11.9 DiabetesVitamin D (Ergocalciferol) 1.25 MG (24888 UT) Capsule TAKE 1 CAPSULE BY MOUTH [...] E11.9 DiabetesTaking Vitamin D (Ergocalciferol) 1.25 MG (83755 UT) Capsule TAKE 1 CAPSULE BY MOUTH [...] Objective: * Vitals:?Ht: 72, Wt:206, BMI: 27.94, BP:119/50, HR:71, Temp:98.3, Wt-k.44. * ???Past Orders: Lab:Hemoglobin A1c * [...] normal, no s3, or vascular bruits.?LUNGS:?clear to auscultation .?BREASTS:??no masses palpable bilaterally.?ABDOMEN:?bowel sounds normal, no ascites, no organomegaly, no mass, overweight.?RECTAL EXAM:?not examined.?MUSCULOSKELETAL:?extremities unremarkable, no clubbing, cyanosis or edema.?PERIPHERAL PULSES:?normal.?NEUROLOGIC:?alert and oriented, cranial nerves 2-12 grossly intact, deep tendon reflexes 2+ symmetrical, motor strength normal upper and lower extremities, sensory exam intact.?PSYCH:?alert, oriented, mood depressed.? Assessment: * Assessment: 1.?Type 2 diabetes mellitus without complications - E11.9 (Primary)???Notes :His hemoglobin A1c is 5.4. No change in his regimen was necessary today.He is doing well. The recent available. Blood work shows good control of the diabetes.???2.?Depression - F32.9???Notes :He says he is compliant with his medications. His depression appears worse. I will see if I can have the psychiatrist reevaluate him. He is going to telephone me every day until I see him again.???3.?Overweight - E66.3???Notes :He has lost 4 pounds [...] No change in his regimen was necessary today.???8.?Diabetic neuropathy - E11.40???Notes :Symptoms from this are very mild. He did not complain about them. He controlled his diabetes is excellent at this point.???9.?History of pulmonary embolism - Z86.711???Notes :There is no sign of venous thromboembolism on examination today.??? Plan: * Treatment: 2.?Depression? Continue Accu-Chek FastClix Lancets Miscellaneous, -, USE TO TEST BLOOD SUGAR ONCE DAILY, Notes to Pharmacist: E11.9 Type 2 diabetes;?Continue Mirtazapine Tablet, 45 MG, TAKE 1 TABLET BY MOUTH EVERYDAY AT BEDTIME;?Continue Accu-Chek Laura Plus Strip, -, as directed, In Vitro, test blood sugars once a day, Notes to Pharmacist: E11.9 Diabetes;?Continue Vitamin D (Ergocalciferol) Capsule, 1.25 MG (09079 UT), TAKE 1 CAPSULE BY MOUTH ONE TIME PER WEEK;?Continue FLUoxetine HCl Capsule, 40 MG, 1 capsule, Orally, Once a day;?Continue clonazePAM Tablet, 2 MG, 1 tablet, Orally, Tree times a day;?Continue risperiDONE Tablet Dispersible, 0.5 MG, 1 tablet on the tongue and allow to dissolve, Orally, Twice a day;?Continue Simvastatin Tablet, 10 MG, 1 tablet in the evening, Orally, Once a day;?Continue valACYclovir HCl Tablet, 500 MG, 1 tablet, Orally, Once a day;?Continue Lisinopril Tablet, 5 MG, TAKE 1 TABLET BY MOUTH EVERY DAY.?LAB: PROFILE, FASTING (COMPREHENSIVE METABOLIC) ?LAB: PSA, TOTAL ?LAB: CBC WITH AUTO DIFF ?LAB: Lipid Panel ?LAB: Microalbumin, Random ?LAB: Hemoglobin A1c 3.?Overweight?LAB: PROFILE, FASTING (COMPREHENSIVE METABOLIC) ?LAB: PSA, TOTAL ?LAB: CBC WITH AUTO DIFF ?LAB: Lipid Panel ?LAB: Microalbumin, Random ?LAB: Hemoglobin A1c 4.?BPH (benign prostatic hyp erplasia)?LAB: PROFILE, FASTING (COMPREHENSIVE METABOLIC) ?LAB: PSA, TOTAL ?LAB: CBC WITH AUTO DIFF ?LAB: Lipid Panel ?LAB: Microalbumin, Random ?LAB: Hemoglobin A1c * Procedure Codes:? * Preventive Medicine:? ??Counseling:?Care goal follow-up plan:?Counseling for abnormal BMI given?Yes ?Above Normal BMI Follow-up?Dietary management education, guidance, and counseling, Dietary needs education ??DM Care Plan:?Patient Lifestyle Goals?Patient wants to be able to manage diabetes without too much effort.?Treatment Goals?Blood Sugars less than < 115, HbA1C < 7.0.?Barriers?no barriers.?Self-Managment Goals?Work on weight loss, with a goal of losing 1 lb per week.? * Follow Up:?4 Months (Reason: ov) * Images: * Sign off status: Completed true * Provider:?Hector Padron MD Date:?03/27 Generated for Daylin helm/Meghana/Kentonitting on:?08/06/2024 10:56 AM [...]
--- OUTSIDE RECORDS SUMMARY | 2024-08-06 10:57 | XMS_ITS | Patient Health Record ---
Author Organization Hector Padron III, MD Address [address] [place] [address] [address] [address] Care Team Providers Care Refinisher Name Role Phone Hector Padron Primary Care Provider [phone] Allergies Allergen (clinical drug ingredient) Drug/Non Drug [...] 0.2 - 1.3 BLD Negative Negative - Complete Blood Count Auto Di ff Reviewed date:12/12/2023 07:00:26 AM Interpretation: Performing Lab:[facility], [address] [place] [address] Notes/Report: White Blood Count 6.3 4.8-10.8 X10*3/uL Red Blood Count 4.51 4.60-5.80 X10*6/uL Hemoglobin 14.4 14.0-18.0 g/dl Hematocrit 42.2 42.0-52.0 % Mean Corpuscular Volume 93.6 80.0-98.0 fL Mean Corpuscular Hemoglobin 31.9 27.0-33.0 pg Mean Corpuscular HGB Conc 34.1 31.0-36.0 g/dl Red Cell Distribution Width 12.7 11.0-16.0 % Platelet Count 183 160-400 X10*3/uL Mean Platelet Volume 9.2 9.4-12.4 fL Neutrophils Percent Auto 54.0 45-73 % Imm Gran Pct Auto 0.3 0.0-0.4 % Lymphocytes Percent Auto 35.9 20-40 % Monocytes Percent Auto 7.7 2-11 % Eosinophils Percent Auto 1.6 0-4 % Basophils Percent Auto 0.5 0-2 % NRBC Pct Auto 0.0 0.0-0.2 /100WBC Neutrophils Absolute Auto 3.4 2.0-8.3 x10*3/u L Imm Gran Abs Auto 0.02 0.00-0.03 X10*3/uL Lymphocytes Absolute Auto 2.3 1.2-4.9 X10*3/u L Monocytes Absolute Auto 0.5 0.1-1.2 X10*3/uL Eosinophils Absolute Auto 0.1 0.0-0.4 X10*3/u L Basophils Absolute Auto 0.0 0.0-0.2 X10*3/uL NRBC Abs Auto 0.000 0.0-0.012 X10*3/uL Comprehensive [place]. Panel Fa st Reviewed date:12/12/2023 07:00:26 AM Interpretation: Performing Lab:[facility], [address] [place] [id number] Notes/Report: Sodium 142 135-145 mmol/L Potassium 4.2 3.3-5.1 mmol/L Chloride 105 96-108 mmol/L Carbon Dioxide 25 22-29 mmol/L Anion Gap 16 12-20 Blood Urea Nitrogen 16 9-16 mg/dL Creatinine 1.07 0.5-1.4 mg/dL Estimated Glomerular Filt Rate > 60 NOTE: For -Japanese individuals, multiply the result by 1.210. Chronic Kidney Disease: Estimated GFR < 60 mL/min/1.73m2 Severe Kidney Disease: Estimated GFR < 15 mL/min/1.73m2 Glucose Fasting 107 60-99 mg/dL A fasting glucose from 100-125 mg/dl is considered impaired (pre-diabetes). Calcium 9.5 8.4-10.2 mg/dL Bilirubin Total 0.5 0.0-1.0 mg/dL Aspartate Amino Transferase 17 5-37 U/L Alanine Aminotransferase 17 0-40 U/L Total Protein 7.0 6.5-8.0 g/dL Albumin Level 4.3 3.5-5.0 g/dL Alkaline Phosphatase 113 39-117 U/L Lipid Panel Reviewed date:12/12/2023 07:00:26 AM Interpretation: Performing Lab:[address] [phone] Notes/Report: Triglycerides 142 <150 mg/dL Desirable Triglyceride: less than 150 mg/dL Borderline High Triglyceride 150-199 mg/dL High Triglyceride: 200-499 mg/dL Very High Triglyceride: greater than or equal to 5OO mg/dL Cholesterol 149 <200 mg/dL Desirable Cholesterol: less than 200 mg/dL Borderline High Cholesterol: 200-239 mg/dL High Cholesterol: greater than 239 mg/dL LDL Cholesterol Calculated 78 <100 mg/dL Desirable LDL: less than 100 mg/dL Near Optimal/Above Optimal LDL: 110-129 mg/dL Borderline High LDL: 130-159 mg/dL High LDL: 160-189 mg/dL Very High LDL: greater than or equal to 190 mg/dL HDL Cholesterol 43 >40 mg/dL Desirable HDL: greater than 40 mg/dL Note: This HDL assay may give artificially low results in patients with liver disease. Prostate Specific Antigen Reviewed date:12/12/2023 07:00:26 AM Interpretation: Performing Lab:[address] [phone] Notes/Report: Prostate Specific Antigen 1.70 <0.05-4.0 ng/mL PSA methodology: Patterson Alinity i Chemiluminescent Microparticle Immunoassay (CMIA) Microalbumin, Random Reviewed date:12/12/2023 07:00:26 AM Interpretation: Performing Lab:[address] [phone] Notes/Report: Creatinine Urine 78.10 Microalbumin Urine 5.0 Microalbum/Creatinine Ratio Ur 6.4 <30 ug/mg cr Albumin/Creatinine Ratio Reference Ranges: Normal: < 30 ug/mg creatinine Microalbuminuria: 30 - 300 ug/mg creatinine Clinical Albuminuria: > 300 ug/mg creatinine Hemoglobin A1c Reviewed date:12/12/2023 07:00:26 AM Interpretation: Performing Lab:[facility], [address] [place] [phone] Notes/Report: Hemoglobin A1c % 5.5 <6.0 % Hemoglobin A1C Reference Range Adults: 4.8 - 6.0 % Non diabetic: < 6.0 % Goal: < 7.0 % Additional Action Suggested: > 8.0 % Note: Hemoglobin A1c results are invalid for patients with abnormal amounts of HbF. Blood transfusions may impact the HbA1c concentration in the patient sample. Estimated Average Glucose 111 eAG = Estimated average glucose which is %A1C expressed as average glucose, using the formula of the L3S-Gusykcv Average Glucose study (ADAG), Diabetes Care, Vol.31,#8, Oct. 2007 Complete Blood Count Auto Di ff Reviewed date:04/21/2024 04:23:26 AM Interpretation: Performing Lab:[facility], [address] [place] [phone] Notes/Report: White Blood Count 5.6 4.8-10.8 X10*3/uL Red Blood Count 3.93 4.60-5.80 X10*6/uL Hemoglobin 12.6 14.0-18.0 g/dl Hematocrit 37.3 42.0-52.0 % Mean Corpuscular Volume 94.9 80.0-98.0 fL Mean Corpuscular Hemoglobin 32.1 27.0-33.0 pg Mean Corpuscular HGB Conc 33.8 31.0-36.0 g/dl Red Cell Distribution Width 12.0 11.0-16.0 % Platelet Count 201 160-400 X10*3/uL Mean Platelet Volume 8.9 9.4-12.4 fL Neutrophils Percent Auto 52.6 45-73 % Imm Gran Pct Auto 0.5 0.0-0.4 % Lymphocytes Percent Auto 35.3 20-40 % Monocytes Percent Auto 9.9 2-11 % Eosinophils Percent Auto 1.3 0-4 % Basophils Percent Auto 0.4 0-2 % NRBC Pct Auto 0.0 0.0-0.2 /100WBC Neutrophils Absolute Auto 2.9 2.0-8.3 x10*3/u L Imm Gran Abs Auto 0.03 0.00-0.03 X10*3/uL Lymphocytes Absolute Auto 2.0 1.2-4.9 X10*3/u L Monocytes Absolute Auto 0.6 0.1-1.2 X10*3/uL Eosinophils Absolute Auto 0.1 0.0-0.4 X10*3/u L Basophils Absolute Auto 0.0 0.0-0.2 X10*3/uL NRBC Abs Auto 0.000 0.0-0.012 X10*3/uL Comprehensive [place]. Panel Fa st Reviewed date:04/21/2024 04:23:26 AM Interpretation: Performing Lab:[facility], [address] [place] [phone] Notes/Report: Sodium 138 135-145 mmol/L Potassium 3.9 3.3-5.1 mmol/L Chloride 110 96-108 mmol/L Carbon Dioxide 24 22-29 mmol/L Anion Gap 8 12-20 Blood Urea Nitrogen 15 9-16 mg/dL Creatinine 0.85 0.5-1.4 mg/dL Estimated Glomerular Filt Rate > 60 Chronic Kidney Disease: Estimated GFR < 60 mL/min/1.73m2 Severe Kidney Disease: Estimated GFR < 15 mL/min/1.73m2 Glucose Fasting 113 60-99 mg/dL A fasting glucose from 100-125 mg/dl is considered impaired (pre-diabetes). Calcium 8.6 8.4-10.2 mg/dL Bilirubin Total 0.5 0.0-1.0 mg/dL Aspartate Amino Transferase 19 5-37 U/L Alanine Aminotransferase 18 0-40 U/L Total Protein 6.6 6.5-8.0 g/dL Albumin Level 3.9 3.5-5.0 g/dL Alkaline Phosphatase 127 39-117 U/L Lipid Panel Reviewed date:04/21/2024 04:23:26 AM Interpretation: Performing Lab:[facility], [address] [place] [phone] Notes/Report: Triglycerides 92 <150 mg/dL Desirable Triglyceride: less than 150 mg/dL Borderline High Triglyceride 150-199 mg/dL High Triglyceride: 200-499 mg/dL Very High Triglyceride: greater than or equal to 5OO mg/dL Cholesterol 130 <200 mg/dL Desirable Cholesterol: less than 200 mg/dL Borderline High Cholesterol: 200-239 mg/dL High Cholesterol: greater than 239 mg/dL LDL Cholesterol Calculated 68 <100 mg/dL Desirable LDL: less than 100 mg/dL Near Optimal/Above Optimal LDL: 110-129 mg/dL Borderline High LDL: 130-159 mg/dL High LDL: 160-189 mg/dL Very High LDL: greater than or equal to 190 mg/dL HDL Cholesterol 44 >40 mg/dL Desirable HDL: greater than 40 mg/dL Note: This HDL assay may give artificially low results in patients with liver disease. Prostate Specific Antigen Reviewed date:04/21/2024 04:23:26 AM Interpretation: Performing Lab:[facility], [address] [place] [phone] Notes/Report: Prostate Specific Antigen 2.12 <0.05-4.0 ng/mL PSA methodology: Patterson Alinity i Chemiluminescent Microparticle Immunoassay (CMIA) Microalbumin, Random Reviewed date:04/21/2024 04:23:26 AM Interpretation: Performing Lab:[facility], [address] [place] [phone] Notes/Report: Creatinine Urine 167.26 Microalbumin Urine 10.0 Microalbum/Creatinine Ratio Ur 5.9 <30 ug/mg cr Albumin/Creatinine Ratio Reference Ranges: Normal: < 30 ug/mg creatinine Microalbuminuria: 30 - 300 ug/mg creatinine Clinical Albuminuria: > 300 ug/mg creatinine Hemoglobin A1c Reviewed date:04/21/2024 04:23:26 AM Interpretation: Performing Lab:[facility], [address] [place] [phone] Notes/Report: Hemoglobin A1c % 5.4 <6.0 % Hemoglobin A1C Reference Range Adults: 4.8 - 6.0 % Non diabetic: < 6.0 % Goal: < 7.0 % Additional Action Suggested: > 8.0 % Note: Hemoglobin A1c results are invalid for patients with abnormal amounts of HbF. Blood transfusions may impact the HbA1c concentration in the patient sample. Estimated Average Glucose 108 eAG = Estimated average glucose which is %A1C expressed as average glucose, using the formula of the A0T-Agwldtx Average Glucose study (ADAG), Diabetes Care, Vol.31,#8, 2007 Diabetic Eye Exam Reviewed date:06/12/2024 09:19:55 AM Interpretation:undefined Performing Lab: Notes/Report: undefined Reason For Referral Reason Two 2cm decubitus [...] First Name Hector Referring Provider Last Name Padron Referring Provider Speciality Internal edicine Referred Provider [facility], care center Referred Provider Specialty Unknown General Notes Jocelyn Valle [facility] 02/26 03:57:46 PM >Ref/progress note faxed to wound care center at , Jocelyn Valle [facility] 03/03/2024 11:34:17 AM > Called patient he stated the wound center called him but he refused to make appt. I spoke to patient and he stated if I made appt he would go to this appt . for wound center to call me back so I can set up this appt, Jocelyn Valle [facility] 03/03/2024 02:02:58 PM > called wound care center spoke to Nini asked them to set patient up appt he was given 03/12/2024 at 8:30am Nini stated she will call patient with this appt information Referral Priority Routine Referral Appointment Date 03/12/2024 Reason two 2 cm decubitus u lcers on buttock Diagnosis 1 Pressure injury of s kin of buttock, unspecified injury stage, unspecified laterality (L89.309) Referral Organization Hector Padron III, MD Referring Provider First Name Hector Referring Provider Last Name Padron Referring Provider Speciality Internal edicine Referred Provider ALLEGRA Fraga Referred Provider Specialty Carlos valle General Notes Jocelyn Valle [facility] 02/26 04:16:49 PM > ref/demographic and progress note faxed to [facility], Jocelyn Valle [facility] 03/03/2024 10:43:12 AM I called patient to see if he has been seen by the [facility] patient stated they called to set up appt and he refused to let them come out to see him . I discussed this with the patient and convinced him to let the nurse come out to check him . When I called the [facility] I was told a new referral has to be sent to them for them to try again this original referral has been closed . Referral Priority Urgent Reason Two 2 cm decubitus u lcers on buttock Diagnosis 1 Pressure injury of s kin of buttock, unspecified injury stage, unspecified laterality (L89.309) Referral Organization Hector Padron III, MD Referring Provider First Name Hector Referring Provider Last Name Nereida Referring Provider Speciality Internal M edicine Referred Provider ALLEGRA Fraga Referred Provider Specialty Unknown General Notes SJocelyn HEMATOLOGY TECHNOLOGIST 03/03 10:47:30 AM >The original referral that was sent last week has been closed because patient denied visit but now after speaking to Dr Padron patient stated he will say yes to the [facility] coming out to check him . New referral/demo/progress note faxed to [facility] today Referral Priority Routine Medications Medication SIG (Take, Route, Frequency, Duration) [...] diabetes Active Vitamin D (Ergocalciferol) 1.25 MG (19233 UT) TAKE 1 CAPSULE BY MOUTH ONE TIME PER WEEK Active Simvastatin 10 MG 1 tablet in the evening Orally Once a day Active risperiDONE 0.5 MG 1 tablet on the tongue and allow to dissolve Orally Twice a day Active clonazePAM 2 MG 1 tablet Orally Tree times a day Active FLUoxetine HCl 40 MG 1 capsule Orally Once a day Active Immunizations Vaccine Route Administration Date Status Comme nts Influenza Unknown 12/14/2012 Administered Influenza Unknown 12/31/2013 Administered Pneumococcal Unknown 12/31/2013 Administered Influenza Unknown 12/13/2014 Administered Influenza Unknown 11/22/2015 Administered COVID- 19 Vaccine Unknown 05/11/2020 Administered COVID PFIZER Unknown 07/07/2021 Administered FLuzone HD PF Unknown 12/26/2021 Administered PCV20 Unknown 01/29/2023 Administered Rabies, intramuscular Unknown 04/01/2017 Administered RSV Adjuvant Unknown 01/15/2023 Administered COVID PFIZER Unknown 12/18/2020 Administered Influenza High Dose Quadrivalent Unknown 11/02/2016 Adm inistered Rabies, intramuscular Unknown 04/15/2017 Administered COVID PFIZER Unknown 04/29/2020 Administered FLuzone HD PF Unknown 12/29/2022 Administered Rabies, intramuscular Unknown 04/08/2017 Administered COVID Pfizer Bivalent Unknown 01/09/2022 Administered COVID-19 Moderna SPIKEVAX Unknown 10/19/2023 Administer ed COVID PFIZER Unknown 05/20/2020 Administered Td (adult) Unknown 04/01/2017 Administered Influenza High Dose Quadrivalent Unknown 11/20/2017 Adm inistered COVID-19 Moderna SPIKEVAX Unknown 12/29/2022 Administer ed Fluzone High-Dose (HD-IIV3) Unknown 11/02/2016 Administ ered COVID-19 Moderna SPIKEVAX Unknown 10/19/2023 Administer ed Fluzone High-Dose (HD-IIV3) Unknown 11/22/2015 Administ ered Fluzone High-Dose (HD-IIV3) Unknown 11/20/2017 Administ ered COVID-19 Moderna SPIKEVAX Unknown 12/29/2022 Administer ed Fluzone High-Dose (HD-IIV3) Unknown 01/28/2024 Administ ered COVID-19 Moderna SPIKEVAX Unknown 04/29/2024 Administer ed Tdap Unknown 06/16/2024 Administered SHINGRIX Unknown 06/16/2024 Administered Social History Tobacco Use: Social History [...] ast year? No Points 0 Interpretation Negative Problems Problem Type SNOMED Code ICD Code Onset Dates Problem Status W/U Status Risk Notes Problem 658272322 Overweight (E66.3) Active confirmed He has lost 4 pounds and weighs 206. His body mass index is 28. His nutrition is stable. Problem 86019190 Depression (F32.9) Active confirmed He has mild chronic depression. He is compliant with his psychiatric medications and up-to-date with his psychiatrist. This problem is stable. Problem 164387810 GERD (gastroesophage al reflux disease) (K21.9) Active confirmed His heartburn i s well controlled with medications. He is sleeping through the night. No change in his regimen was needed. Problem 98882456 Type 2 diabetes mellitus without complications (E11.9) Active confirmed His hemoglobin A1c is 5.4. No change in his regimen was necessary today.He is doing well. The recent available. Blood work shows good control of the diabetes. Problem 55438378 Irritable bowel syndrome (K58.9) Active confirmed Visit irritable bowel syndrome is minor and well controlled. Problem 177265018 BPH (benign prostatic hyperplasia) (N40.0) Active confirmed He rises from sleep once or twice a night to urinate. We discussed lifestyle modification as a way to reduce nocturia. Problem 817082606 Hyperlipidemia type II (E78.0) Active confirmed His fasting lipid profile shows his lipids to be in the normal range. No change in his regimen was necessary today. Problem 133977889 Cholelithiasis (K80.20) Active confirmed Problem 468963990 Chronic insomnia (F51.04) Active confirmed He is still sleeping poorly but appears to be well rested. Problem [id number] History of herpes zoster (Z86.19) Active confirmed Problem 642509392 History of pulmonary embolism (Z86.711) Active confirmed There is no sig n of venous thromboembolism on examination today. Problem 51821168 Age-related cataract of both eyes, unspecified age-related cataract type (H25.9) Active confirmed He is scheduled for cataract surgery next week. There is no contraindication . The dyspnea seems minor today. Is going to call me after the weekend to report on his breathing. He is given medical clearance for cataract surgery. Vital Signs Heart Rate 78 /min 07/08/2024 Temperature 98.4 degrees Fahrenheit 07/08/2024 Oximetry 99 % 07/08/2024 Blood pressure diastolic 52 mm Hg 07/08/2024 Height 72 in 07/08/2024 Blood pressure systolic 112 mm Hg 07/08/2024 Weight 206 lbs 07/08/2024 BMI 27.94 kg/m2 07/08/2024 Encounters Encounter Location Date Provider Diagnosis Hector Padron III, MD [address] [place] [address] [place] [id number] 08/08/2023 Hector Padron Depression F32.9 ; Overweight E66.3 ; Type 2 diabetes mellitus without complications E11.9 ; BPH (benign prostatic hyperplasia) N40.0 and Hyperlipidemia type II E78.01 Hector Padron III, MD [address] [place] [address] [place] [address] 12/17/2023 Hector Padron Depression F32.9 ; T ype 2 diabetes mellitus without complications E11.9 ; BPH (benign prostatic hyperplasia) N40.0 ; History of pulmonary embolism Z86.711 ; Overweight E66.3 ; GERD (gastroesophageal reflux disease) K21.9 and Hyperlipidemia type II E78.01 Hector Padron III, MD [address] [place] [address] [place] [address] 02/27/2024 Hector Padron Depression F32.9 ; T ype 2 diabetes mellitus without complications E11.9 ; Overweight E66.3 ; BPH (benign prostatic hyperplasia) N40.0 ; History of pulmonary embolism Z86.711 ; Hyperlipidemia type II E78.0 ; GERD (gastroesophageal reflux disease) K21.9 ; Diabetic neuropathy E11.40 and Pressure injury of buttock, stage 3, 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 Hector Padron III, MD [address] [place] [address] [place] [address] 04/21/2024 Hector Padron Depression F32.9 ; T ype 2 diabetes mellitus without complications E11.9 ; Overweight E66.3 ; GERD (gastroesophageal reflux disease) K21.9 ; Chronic insomnia F51.04 ; BPH (benign prostatic hyperplasia) N40.0 ; Hyperlipidemia type II E78.0 ; Diabetic neuropathy E11.40 and History of pulmonary embolism Z86.711 Hector Padron III, MD [address] [place] [address] [place] [address] 07/08/2024 Hector Padron Depression F32.9 ; T [...] Treat ment Notes Treatment Clinical Notes 08/08/2023 Overweight (ICD-10 - E66.3) He remains overweight. We discussed his diabetic weight reduction diet at length. We reviewed his diet and nutrition. We made a plan to lose weight at a rate of one half a pound per week 08/08/2023 Depression (ICD-10 - F32.9) His depression is stable and he is compliant with all of his medications. He will see the psychiatrist next month. 12/17/2023 Depression (ICD-10 - F32.9) His depression is stable and he is compliant with all of his medications. He will see the psychiatrist next month. 12/17/2023 Type 2 diabetes mellitus without complications (ICD-10 - E11.9) His hemoglobin A1c is 5.4. No change in his regimen was necessary today.He is doing well 02/27/2024 Depression (ICD-10 - F32.9) He says [...] shows good control of the diabetes. 04/21/2024 Depression (ICD-10 - F32.9) He says [...] shows good control of the diabetes. 07/08/2024 Depression (ICD-10 - F32.9) He has mild chronic depression. He is compliant with his psychiatric medications and up-to-date with his psychiatrist. This problem is stable. 07/08/2024 Type 2 diabetes mellitus without complications (ICD-10 - E11.9) His hemoglobin A1c is 5.4. No change in his regimen was necessary today.He is doing well. The recent available. Blood work shows good control of the diabetes. 08/08/2023 Type 2 diabetes mellitus without complications (ICD-10 - E11.9) His hemoglobin A1c is 5.4. No change in his regimen was necessary today. 12/17/2023 BPH (benign prostatic hyperplasia) (ICD-10 - N40.0) He rises from sleep once or twice a night to urinate. We discussed lifestyle modification as a way to reduce nocturia. 02/27/2024 Overweight (ICD-10 - E66.3) He has gained 4 pounds and weighs 210. His body mass index is 28. His nutrition is stable. 04/21/2024 Overweight (ICD-10 - E66.3) He has lost 4 pounds and weighs 206. His body mass index is 28. His nutrition is stable. 07/08/2024 Overweight (ICD-10 - E66.3) He has lost 4 pounds and weighs 206. His body mass index is 28. His nutrition is stable. 08/08/2023 BPH (benign prostatic hyperplasia) (ICD-10 - N40.0) He rises from sleep once or twice a night to urinate. We discussed lifestyle modification as a way to reduce nocturia. 12/17/2023 History of pulmonary embolism (ICD-10 - Z86.711) There is no sign of venous thromboembolism on examination today. 02/27/2024 BPH (benign prostatic hyperplasia) (ICD-10 - N40.0) He rises from sleep once or twice a night to urinate. We discussed lifestyle modification as a way to reduce nocturia. 04/21/2024 GERD (gastroesophageal reflux disease) (ICD-10 - K21.9) His heartburn is well controlled with medications. He is sleeping through the night. No change in his regimen was needed. 07/08/2024 GERD (gastroesophageal reflux disease) (ICD-10 - K21.9) His heartburn is well controlled with medications. He is sleeping through the night. No change in his regimen was needed. 08/08/2023 Hyperlipidemia type II (ICD-10 - E78.01) His triglycerides are slightly elevated but his cholesterol values are within their target ranges. I recommended weight loss and a healthy diet. 12/17/2023 Overweight (ICD-10 - E66.3) He remains overweight. We discussed his diabetic weight reduction diet at length. We reviewed his diet and nutrition. We made a plan to lose weight at a rate of one half a pound per week 02/27/2024 History of pulmonary embolism (ICD-10 - Z86.711) There is no sign of venous thromboembolism on examination today. 04/21/2024 Chronic insomnia (ICD-10 - F51.04) He is still sleeping poorly but appears to be well rested. 07/08/2024 Chronic insomnia (ICD-10 - F51.04) He is still sleeping poorly but appears to be well rested. 12/17/2023 GERD (gastroesophageal reflux disease) (ICD-10 - K21.9) His heartburn is well controlled with medications. He is sleeping through the night. No change in his regimen was needed. 02/27/2024 Hyperlipidemia type II (ICD-10 - E78.0) His fasting lipid profile shows his lipids to be in the normal range. No change in his regimen was necessary today. 04/21/2024 BPH (benign prostatic hyperplasia) (ICD-10 - N40.0) He rises from sleep once or twice a night to urinate. We discussed lifestyle modification as a way to reduce nocturia. 07/08/2024 BPH (benign prostatic hyperplasia) (ICD-10 - N40.0) He rises from sleep once or twice a night to urinate. We discussed lifestyle modification as a way to reduce nocturia. 12/17/2023 Hyperlipidemia type II (ICD-10 - E78.01) His triglycerides are slightly elevated but his cholesterol values are within their target ranges. I recommended weight loss and a healthy diet. 02/27/2024 GERD (gastroesophageal reflux disease) (ICD-10 - K21.9) His heartburn is well controlled with medications. He is sleeping through the night. No change in his regimen was needed. 04/21/2024 Hyperlipidemia type II (ICD-10 - E78.0) His fasting lipid profile shows his lipids to be in the normal range. No change in his regimen was necessary today. 07/08/2024 Hyperlipidemia type II (ICD-10 - E78.0) His fasting lipid profile shows his lipids to be in the normal range. No change in his regimen was necessary today. 02/27/2024 Diabetic neuropathy (ICD-10 - E11.40) Symptoms from this are very mild. He did not complain about them. He controlled his diabetes is excellent at this point. 04/21/2024 Diabetic neuropathy (ICD-10 - E11.40) Symptoms from this are very mild. He did not complain about them. He controlled his diabetes is excellent at this point. 07/08/2024 SOB (shortness of breath) (ICD-10 - [...] was no sign of peripheral DVT today. 02/27/2024 Pressure injury of buttock, stage 3, [...] If necessary. Elder services will be involved. 04/21/2024 History of pulmonary embolism (ICD-10 - Z86.711) There is no sign of venous thromboembolism on examination today. 07/08/2024 Age-related cataract of both eyes, unspecified age-related cataract type (ICD-10 - H25.9) He is scheduled for cataract surgery next week. There is no contraindication. The dyspnea seems minor today. Is going to call me after the weekend to report on his breathing. He is given medical clearance for cataract surgery. Plan Of Treatment Pending Test Test Name Order Date PROFILE, FASTING (COMPREHENSIVE METABOLI C) 04/28/2019 PROFILE, FASTING (COMPREHENSIVE METABOLI C) 04/21/2024 PROFILE, FASTING (COMPREHENSIVE METABOLI C) 04/19/2018 PROFILE, FASTING (COMPREHENSIVE METABOLI C) 12/18/2017 PROFILE, FASTING (COMPREHENSIVE METABOLI C) 12/25/2018 PROFILE, FASTING (COMPREHENSIVE METABOLI C) 08/20/2018 PROFILE, FASTING (COMPREHENSIVE METABOLI C) 04/13/2021 PROFILE, FASTING (COMPREHENSIVE METABOLI C) 09/19/2017 PROFILE, FASTING (COMPREHENSIVE METABOLI C) 12/12/2021 PROFILE, FASTING (COMPREHENSIVE METABOLI C) 09/08/2020 PROFILE, FASTING (COMPREHENSIVE METABOLI C) 05/23/2017 PROFILE, FASTING (COMPREHENSIVE METABOLI C) 08/08/2021 PROFILE, FASTING (COMPREHENSIVE METABOLI C) 05/11/2020 PROFILE, FASTING (COMPREHENSIVE METABOLI C) 04/17/2022 PROFILE, FASTING (COMPREHENSIVE METABOLI C) 01/06/2020 PROFILE, FASTING (COMPREHENSIVE METABOLI C) 12/13/2020 PROFILE, FASTING (COMPREHENSIVE METABOLI C) 09/08/2022 PROFILE, FASTING (COMPREHENSIVE METABOLI C) 12/08/2022 PROFILE, FASTING (COMPREHENSIVE METABOLI C) 08/27/2019 PROFILE, FASTING (COMPREHENSIVE METABOLI C) 08/08/2023 PROFILE, FASTING (COMPREHENSIVE METABOLI C) 12/17/2023 PROFILE, RANDOM (COMPREHENSIVE METABOLIC ) 04/11/2023 HEMOGLOBIN A1C (GLYCOHEMOGLOBIN) 020 HEMOGLOBIN A1C (GLYCOHEMOGLOBIN) 020 HEMOGLOBIN A1C (GLYCOHEMOGLOBIN) 019 HEMOGLOBIN A1C (GLYCOHEMOGLOBIN) 018 HEMOGLOBIN A1C (GLYCOHEMOGLOBIN) 019 HEMOGLOBIN A1C (GLYCOHEMOGLOBIN) 019 HEMOGLOBIN A1C (GLYCOHEMOGLOBIN) 022 HEMOGLOBIN A1C (GLYCOHEMOGLOBIN) 018 HEMOGLOBIN A1C (GLYCOHEMOGLOBIN) 021 HEMOGLOBIN A1C (GLYCOHEMOGLOBIN) 018 HEMOGLOBIN A1C (GLYCOHEMOGLOBIN) 022 HEMOGLOBIN A1C (GLYCOHEMOGLOBIN) 021 HEMOGLOBIN A1C (GLYCOHEMOGLOBIN) 020 HEMOGLOBIN A1C (GLYCOHEMOGLOBIN) 021 HEMOGLOBIN A1C (GLYCOHEMOGLOBIN) 023 HEMOGLOBIN A1C (GLYCOHEMOGLOBIN) 023 LIPID PANEL 09/08/2022 LIPID PANEL 04/11/2023 LIPID PANEL 12/08/2022 LIPID PANEL 08/27/2019 LIPID PANEL 04/28/2019 LIPID PANEL 04/19/2018 LIPID PANEL 12/18/2017 LIPID PANEL 12/25/2018 LIPID PANEL 08/20/2018 LIPID PANEL 04/13/2021 LIPID PANEL 09/19/2017 LIPID PANEL 09/08/2020 LIPID PANEL 05/23/2017 LIPID PANEL 05/11/2020 LIPID PANEL 01/06/2020 LIPID PANEL 12/13/2020 PSA, TOTAL 09/08/2020 PSA, TOTAL 05/23/2017 PSA, TOTAL 08/08/2023 PSA, TOTAL 12/17/2023 PSA, TOTAL 01/06/2020 PSA, TOTAL 04/21/2024 PSA, TOTAL 12/08/2022 PSA, TOTAL 12/12/2021 PSA, TOTAL 04/19/2018 PSA, TOTAL 08/20/2018 PSA, TOTAL 08/08/2021 PSA, TOTAL 04/13/2021 MICROALBUMIN, RANDOM 05/11/2020 MICROALBUMIN, RANDOM 04/13/2021 MICROALBUMIN, RANDOM 09/08/2020 MICROALBUMIN, RANDOM 09/08/2022 MICROALBUMIN, RANDOM 12/08/2022 MICROALBUMIN, RANDOM 12/18/2017 MICROALBUMIN, RANDOM 12/25/2018 MICROALBUMIN, RANDOM 04/19/2018 CBC w DIFF 08/08/2021 CBC w DIFF 04/19/2018 CBC w DIFF 12/13/2020 CBC w DIFF 05/23/2017 CBC w DIFF 05/11/2020 CBC w DIFF 04/13/2021 CBC w DIFF 04/11/2023 CBC w DIFF 01/06/2020 CBC w DIFF 08/27/2019 CBC w DIFF 09/08/2020 CBC w DIFF 09/08/2022 CBC w DIFF 04/28/2019 CBC w DIFF 12/08/2022 CBC w DIFF 04/17/2022 CBC w DIFF 12/12/2021 CBC w DIFF 12/18/2017 CBC w DIFF 12/25/2018 CBC w DIFF 09/19/2017 CBC w DIFF 08/20/2018 VITAMIN D 25-OH TOTAL 09/08/2022 CBC WITH AUTO DIFF 08/08/2023 CBC WITH AUTO DIFF 12/17/2023 CBC WITH AUTO DIFF 04/21/2024 Lipid Panel 08/08/2021 Lipid Panel 08/08/2023 Lipid Panel 12/17/2023 Lipid Panel 04/21/2024 Lipid Panel 04/17/2022 Lipid Panel 12/12/2021 Vitamin D 25-OH Total 04/11/2023 Microalbumin, Random 12/12/2021 Microalbumin, Random 04/17/2022 Microalbumin, Random 08/08/2023 Microalbumin, Random 12/17/2023 Microalbumin, Random 04/21/2024 Hemoglobin A1c 04/21/2024 Hemoglobin A1c 12/12/2021 Hemoglobin A1c 04/17/2022 Hemoglobin A1c 04/11/2023 Hemoglobin A1c 08/08/2023 Hemoglobin A1c 12/17/2023 Next Appt Details Provider Name:Hector Padron, 08/20/2024 02:30:00 PM, [address] [place] [address] [address], [place], [address], Provider Name:Hector Padron, 12/17/2024 02:00:00 PM, [address] [place] [address] [address], [place], [address], Insurance Providers Payer Name Payer Address Payer Phone Subscriber Number Group Number Insured Name Patient Relationship to Insured Coverage Start Date Coverage End Date MEDICARE NGS [address] [place] [address] [id number] Antoni Kent Self - patient is the insured [facility] [address] [place], [place] [phone] [id number] Antoni Kent Self - patient is the insured Medical (General) History Medical History History ICD Code depression insomnia cholelithiasis hemorrhoids GERD acne BPH irritable bowel syndrome shingles left shouder chronic diarrhea diabetes mellitus hyperlipidemia pulmonary embolism neuropathy Surgical History Surgery Date(Month/Year) No history cholecystectomy Hospitalization History Reason Date(Month/Year) No history [facility], rhabdomyolysis, fell at home 08/10/2022
--- OUTSIDE RECORDS SUMMARY | 2024-08-06 10:57 | XMS_ITS ---
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 1pair shoes/3sets inserts . . for 1 year Unknown Metformin & Diet Manage Prod 500 MG as directed Orally Unknown Dicyclomine HCl 10 MG 1 capsule Orally F our times a day for 30 day(s) Unknown valACYclovir HCl 500 MG 1 tablet Orally every 12 hrs for 10 day(s) Active Jublia 10 % as directed External ly Daily for 30 days 10/20/2022 Not-Taking Keflex 500 MG 1 capsule Orally alejandra ry 12 hrs for 5 days 10/20/2022 Not-Taking Simvastatin 10 MG 1 tablet every eveni ng Orally Once a day for 30 day(s) Active Lisinopril 5 MG 0.5 tablet Orally On ce a day for 30 day(s) Active risperiDONE 0.5 MG 1 tablet Orally Once a day for 30 day(s) Active FLUoxetine HCl 60 MG as directed Orally Once a day Active Mirtazapine 45 MG 1 tablet before bedt tomas every evening Orally Once a day for 30 day(s) Active clonazePAM 2 MG 1 tablet at bedtime Orally Once a day Active Vitamin D2 Active Social History Tobacco Use: Social History Observation Description Date Details (start date - stop date) Never Smoker NA - NA Tobacco Use/Smoking Question Answer Notes Are you a: nonsmoker Additional Findings: Tobacco Non-User Current no n-smoker Tobacco use other than smoking: Question Answer Notes Are you an other tobacco user? 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 Patient chooses, no pharmaceutical tx (36796) Keratoma Treatment Parring or Cutting o f Benign Hyperkeratotic Lesion(s) 46771 ( More than 4 Lesions ) - The Benign hyperkeratotic lesions, as described above were pared, and/or cut utilizing a sterile 15 blade, tissue nippers, and/or dremel Progress Notes * Antoni EKNT MDOB:1940 (83 yo M)Acc No.[id number]:11/02/2023 Progress Note Patient:?Antoni Kent Provider:?Suzette Schmitz DPM :1940???Age:83 Y???Sex:Male Bhavesh e:11/02/2023 Address:[address] [place] [address] [place] [phone] Pcp:Hector Padron MD Subjective: * Chief Complaints: * ???At Risk Footcare * HPI: ???At Risk footcare:?Pt States Last PCP Visit:?Date?07/25/2023 * ROS:?General/Constitutional:?Nausea?denies, denies.?Vomiting?denies, denies.?Hunger Thirst?denies, denies.?Loss appetite?denies, denies.?Chills?denies, denies.?Fatigue?denies, denies.?Fever?denies, denies.?Night Sweats denies, denies.?Unexplained weight loss?denies, denies.?Unexplained weight gain?denies, denies.?HEENTM:?Dentures?denies, denies.?Dizziness?denies, denies.?Glasses/contacts?admits, admits.?Retinopathy?denies, denies.?Blurred/double vision?denies, denies.?TMJ?denies, denies.?Discharge/drainage?denies, denies.?Implants?denies, denies.?Sore throat?denies, denies.?Dental implants?denies, denies.?Hard of hearing ?denies, denies.?Difficulty chewing/swallowing/speaking?denies, denies.?Nose bleeds?denies, denies.?Sore mouth?denies, denies.?Respiratory:?On Oxygen?denies, denies.?Pneumonia/pleurisy?denies, denies.?Bronchitis?denies, denies.?Emphysema?denies, denies.?Coughing?denies, denies.?Cough blood?denies, denies.?Shortness of breath?denies, denies.?Wheezing?denies, denies.?Cardiovascular:?Pacemaker?denies, denies.?MVP?denies, denies.?WPW?denies, denies.?CHF?denies, denies.?Heart attack?denies, denies.?Septal defect?denies, denies.?Rapid beat?denies, denies.?Chest pain ?denies, denies.?Atrial Fib.?denies, denies.?Murmur/Palpitations?denies, denies.?Gastrointestinal:?Hemorrhoids?denies, denies.?Stomach/Abdominal pain?denies, denies.?Dark blood stool?denies, denies.?Irritable bowel ?denies, denies.?Constipation?denies, denies.?Diarrhea?denies, denies.?Hematology:?Swelling?denies, denies.?Clots?denies, denies.?Varicose Veins?denies, denies.?Bruising?denies, denies.?Bleeding problem?denies, denies.?Genitourinary:?Blood urine?denies, denies.?Frequent/Painfu/urination/bladder control?denies, denies.?Kidney stones?denies, denies.?Infection (UTI)?denies, denies.?Nephropathy?denies, denies.?sex trans dis (STD)?denies, denies.?Prostate?denies, denies.?Musculoskeletal:?Hammertoes?denies, denies.?Bunions?denies, denies.?Back Pain?denies, denies.?Muscle Cramps/ Resting?denies, denies.?Muscle cramps / walking?denies, denies.?Generalized aches and pains?denies, denies.?Weakness?denies, denies.?Integ.:?Motley?denies, denies.?Scars?denies, denies.?Corns/calluses?denies, denies.?Ingrown nails?denies, denies.?Painful nails?denies, denies.?Open Sores?denies, denies.?Rashes?denies, denies.?Neurologic:?Difficulty sleeping?denies, denies.?Brain disorder?denies, denies.?Numbness?denies, denies.?Balance trouble?denies, denies.?Confusion?denies, denies.?Fainting/blackouts?denies, denies.?Tingling?denies, denies.?Tremors?denies, denies.? * Medical History:? * Surgical History:?gall bladd [...] than smoking?Are you an other tobacco user??No ???Miscellaneous:?no Caffeine, decaff. ?Children: yes, 1. ?no Exercise. ?Marital status: . ?Occupation: Retired. * Medications:?TakingVitamin D 2 risperiDONE 0.5 MG Tablet 1 tablet Orally Once a dayFLUoxetine HCl 60 MG Tablet as directed Orally Once a dayMirtazapine 45 MG Tablet 1 tablet before bedtime every evening Orally Once a dayclonazePAM 2 MG Tablet 1 tablet at bedtime Orally Once a dayvalACYclovir HCl 500 MG Tablet 1 tablet Orally every 12 hrsSimvastatin 10 MG Tablet 1 tablet every evening Orally Once a dayLisinopril 5 MG Tablet 0.5 tablet Orally Once a dayTaking Vitamin D2 Taking risperiDONE 0.5 MG Tablet 1 tablet Orally Once a dayTaking FLUoxetine HCl 60 MG Tablet as directed Orally Once a dayTaking Mirtazapine 45 MG Tablet 1 tablet before bedtime every evening Orally Once a dayTaking clonazePAM 2 MG Tablet 1 tablet at bedtime Orally Once a dayTaking valACYclovir HCl 500 MG Tablet 1 tablet Orally every 12 hrsTaking Simvastatin 10 MG Tablet 1 tablet every evening Orally Once a dayTaking Lisinopril 5 MG Tablet 0.5 tablet Orally Once a dayNot-Taking/PRNJublia 10 % Solution as directed Externally DailyKeflex 500 MG Capsule 1 capsule Orally every 12 hrsNot-Taking/PRN Jublia 10 % Solution as directed Externally DailyNot- Taking/PRN Keflex 500 MG Capsule 1 capsule Orally every 12 hrsUnknownMetformin & Diet Manage Prod 500 MG Miscellaneous as directed Orally Dicyclomine HCl 10 MG Capsule 1 capsule Orally Four times a dayPromethazine HCl 25 MG Tablet 1 tablet at bedtime Orally Once a dayOndansetron 4 MG Tablet Dispersible as directed Orally Extra-Depth Diabetic Shoes with 3 Pair Custom heat-molded multi-density innersoles . . 1pair shoes/3sets inserts . .Medication List reviewed and reconciled with the patientUnknown Metformin & Diet Manage Prod 500 MG Miscellaneous as directed Orally Unknown Dicyclomine HCl 10 MG Capsule 1 capsule Orally Four times a dayUnknown Promethazine HCl 25 MG Tablet 1 tablet at bedtime Orally Once a dayUnknown Ondansetron 4 MG Tablet Dispersible as directed Orally Unknown Extra-Depth Diabetic Shoes with 3 Pair Custom heat- molded multi-density innersoles . . 1pair shoes/3sets inserts . .Medication List reviewed and reconciled with the patient * Allergies:?N.K.D.A.yes[Aller gies Verified] Objective: * Vitals:?Ht: 6 ft, Wt: 209, B DE: 28.34, Shoe size: 12, BS: 105, Wt-k.8 kg. * ???Past Orders: ???Lab:HEMOGLOBIN A1C (GLYCO HEMOGLOBIN) (Order Date - 07/25/2023) (Collection Date - 07/25/2023) ? Value Reference Range ?HEMOGLOBIN A1C (HH) 5.4 * Examination: ???Ophthalmology Referral: ?DIABETES EYE EXAM?Diabetic Retinopathy Screening:?Yes ?Findings of Diabetic Eye Exam:?no retinopathy?Neurological: ?SENSORY:? [...] exam reveals Keratotic lesion(s) located at TA T5 SUB MTH (s) 1 5 B/L.? 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 Plan: * Treatment: * Procedures:?Debride Nail 6-10:?Nail debridement?Nail debridement performed extensively to reduce/remove overall nail length and girth, subungual debris, and necrotic tissue, by manual and electrical means with use of a nail nipper and/or dremel, to more viable healthy nail plate or bed tissue 6-10. Silver nitrate used for any petechial bleeding as necessary. Patient chooses, no pharmaceutical tx (16291).?Keratoma Treatment:?Parring or Cutting of Benign Hyperkeratotic Lesion(s)?27857 ( More than 4 Lesions ) - The Benign hyperkeratotic lesions, as described above were pared, and/or cut utilizing a sterile 15 blade, tissue nippers, and/or dremel.? * Procedure Codes:?64645 DEBRI DE NAIL, 6 OR MORE, Modifiers: XS 59053 TRIM SKIN LESIONS, OVER 4, Modifiers: XS * Follow Up:?3 Months * Images: * Sign off status: Completed true * Provider:Ninfa Schmitz, DPM Date:?11/2023 Generated for Aprili volodymyr/Meghana/eTransmitting on:?08/06/2024 10:57 AM EDT History and Physical Notes * HPI (History of Present Illness) Category Sub-Category Detail Notes Category Not es At Risk footcare Pt States Last PCP Visit: Date: 4 Examination Category Sub-Category Detail Notes Category Not es Neurological SENSORY: Neurological exa m demonstrates, reduced light touch sensation, reduced sharp/dull pin prick discrimination , B/L, 5.07 monofilament test performed at plantar aspects of 5 varied sites per foot shows sensation, reduced , B/L Dermatologic SKIN FINDINGS: Skin exam reveal s Keratotic lesion(s) located at TA T5 SUB MTH (s) 1 5 B/L Ophthalmology Referral DIABETES EYE EXAM Diabeti c Retinopathy Screening:: Yes Findings of Diabetic Eye Exam:: no retin opathy Nails NAILS are: Elongated, overg rown, dystrophic, lytic, greater than 3mm thick, discolored and friable with crumbly malodorous subungual debris 1-5 B/L
--- OUTSIDE RECORDS SUMMARY | 2024-08-06 10:57 | XMS_ITS ---
Author Organization Hector Padron III, MD Address [address] [place] [address] DR SAM Shreya [place] [address] Care Team Providers Care Site Supervisor Name Role Phone Hector Padron Primary [...] Diabetes Active Vitamin D (Ergocalciferol) 1.25 MG (50567 UT) TAKE 1 CAPSULE BY MOUTH ONE [...] Date Provider Diagnosis Hector Padron III, MD [address] [place] [address] [place] [address] 02/27/2024 Hector Padron Depression F32.9 ; T [...] E11.9 Diabetes Vitamin D (Ergocalciferol) 1.25 MG (30883 UT) TAKE 1 CAPSULE BY MOUTH ONE TIME PER WEEK FLUoxetine HCl 40 MG 1 capsule Orally Once a day Accu-Chek FastClix Lancets - USE TO TEST BLOOD SUGAR ONCE DAILY E11.9 Type 2 diabetes Referrals Referral Date Details 02/27/2024 02/27/2024, Two 2cm decubitus ulcers on buttock diabetic with decubitus ulcers on buttock left is thru all layers of skin, [facility] Next Appt Details Follow Up: as scheduled Haris eckert, Reason: OV Provider Name:Hector Padron, 08/20/2024 02:30:00 PM, [address] [place] [address] [address], [place], [address], Provider Name:Hector Padron, 12/17/2024 02:00:00 PM, [address] [place] [address] [address], [place], [address], Progress Notes * Antoni KENT MDOB:1940 (83 yo M)Acc No.[id number]:02/27/2024 Progress Notes Patient:?AYESHA Antoni Salmeron Provider:?Hector Padron MD :1940???Age:83 Y???Sex:Male Bhavesh e:02/27/2024 Address:[address] [place] [address], [address] [id number] Subjective: * Chief Complaints: * ???Resuming generally weak a ndBilateral decubiti wound both buttocksDiabetes mellitusBenign prostatic hypertrophy * HPI: ???COVID-19 Screening:?Questions?Have you experienced fever, chills, cough, sore throat, shortness of breath, difficulty breathing, muscle aches, loss of taste or smell??No ?Have you been exposed to the virus within the last 10 days??No ?Have you travelled internationally in the last 10 days??No ?Have you been exposed to COVID-19 in the past??No ???:?The patient, an 83-year-old male, presented with two [...] he had diffuse muscular weakness which was new.? He walks with difficulty and uses a walker which is new.? On examination of his buttocks he had a full-thickness 2 cm decubitus on the left side which was noninfected in the right side.? A larger area of excoriated skin with impending breakdown in a 1-1/2 cm area close to the gluteal fold.? This was surrounded by erythema.? Her wounds were clean and bandaged.? He was referred to the wound clinic for definitive treatment.? I have asked for the visiting nurses to go to the home to do a safety check and evaluate his continence in his ability to care for himself at home.? He reports that he? hasn't gotten rid of an old reclining chair that he has had for many years and purchased a new 1.? He says the new chair is causing the decubiti. * ROS:?General/Constitutional:?pain?The bilateral decubiti on the buttocks are painful.?Chills?denies.?Fatigue?admits.?Fever?denies.?ENT:?Decreased hearing?denies.?Respiratory:?Cough?denies.?Cardiovascular:?Chest pain with exertion?denies.?Dyspnea on exertion?denies.?Shortness of breath?with exertion.?Gastrointestinal:?Constipation?occasional.?Decreased appetite?denies.?Diarrhea?denies.?Admits?Heartburn,?denies.?Nausea?denies.?Recta l bleeding?denies.?Vomiting?denies.?Hematology:?bruising?denies.?petechiae?denies.?Swollen glands?none have been noted.?Genitourinary:?Frequent urination?twice a night.?Musculoskeletal:?Muscle aches?denies.?Painful joints?denies.?Sciatica?denies.?Weakness?that is generalized.?Skin:?Itching?denies.?Rash?denies.?Skin lesion(s)?denies.?Neurologic:?Difficulty speaking?denies.?Dizziness?denies.?Headache?denies.?Low back pain?denies.?Psychiatric:?Depressed mood?which is moderate.? * Medical History:? * Surgical History:?cholecyste ctomy No history * Hospitalization/Major Diagno stic Procedure:?[facility], rhabdomyolysis, fell at home 08/10/2022No history * Medications:?TakingAccu-Chek FastClix Lancets - Miscellaneous USE TO TEST BLOOD SUGAR ONCE DAILY , Notes to Pharmacist: E11.9 Type 2 diabetesMirtazapine 45 MG Tablet TAKE 1 TABLET BY MOUTH EVERYDAY AT BEDTIME Accu-Chek Laura Plus - Strip as directed In Vitro test blood sugars once a day , Notes to Pharmacist: E11.9 DiabetesVitamin D (Ergocalciferol) 1.25 MG (86410 UT) Capsule TAKE 1 CAPSULE BY MOUTH [...] E11.9 DiabetesTaking Vitamin D (Ergocalciferol) 1.25 MG (86618 UT) Capsule TAKE 1 CAPSULE BY MOUTH [...] TABLET BY MOUTH EVERY DAY Objective: * Vitals:?Ht: 72, Wt:210, BMI: 28.48, BP:125/56, HR:76, Temp:97.1, Wt-k.25. * ???Past Orders: Lab:URINE DIP STICK * Collection Date [...] Negative -) Menstrating NR N/A * Lab:[facility]prehensive [place]. Pane l Fast * Collection Date 12/10/2023 [...] 39-117 U/L) 99 (Ref Range: 39-117 U/L) 120?H (Ref Range: 39-117 U/L) Potassium 4.2 (Ref Range: 3.3-5.1 mmol/L) 4.0 (Ref Range: 3.3-5.1 mmol/L) 4.0 (Ref Range: 3.3-5.1 mmol/L) Chloride 105 (Ref Range: 96-108 mmol/L) 107 (Ref Range: 96-108 mmol/L) 107 (Ref Range: 96-108 mmol/L) Carbon Dioxide 25 (Ref Range: 22-29 mmol/L) 26 (Ref Range: 22-29 mmol/L) 27 (Ref Range: 22-29 mmol/L) Anion Gap 16 (Ref Range: 12-20) 12 (Ref Range: 12-20) 11?L (Ref Range: 12-20) Blood Urea Nitrogen 16 (Ref Range: 9-16 mg/dL) 17?H (Ref Range: 9-16 mg/dL) 16 (Ref Range: 9-16 mg/dL) Creatinine 1.07 (Ref Range: 0.5-1.4 mg/dL) 1.02 (Ref Range: 0.5-1.4 mg/dL) 0.93 (Ref Range: 0.5-1.4 mg/dL) Estimated Glomerular Filt Rate > 60 > 60 > 60 Glucose Fasting 107?H (Ref Range: 60-99 mg/dL) 111?H (Ref Range: 60-99 mg/dL) 100?H (Ref Range: 60-99 mg/dL) Calcium 9.5 (Ref Range: 8.4-10.2 mg/dL) 9.6 (Ref Range: 8.4-10.2 mg/dL) 9.3 (Ref Range: 8.4-10.2 mg/dL) * Lab:Lipid Panel * Collection Date 12/10/2023 07/30/2023 04/03/2023 Collection Time 09:45 AM 08:34 AM 09:28 AM Order Date 12/10/2023 07/30/2023 04/03/2023 Triglycerides 142 (Ref Range: <150 mg/dL) 174?H (Ref Range: <150 mg/dL) 141 (Ref Range: <150 mg/dL) Cholesterol 149 (Ref Range: <200 mg/dL) 145 (Ref Range: <200 mg/dL) 154 (Ref Range: <200 mg/dL) LDL Cholesterol Calculated 78 (Ref Range: <100 mg/dL) 73 (Ref Range: <100 mg/dL) 84 (Ref Range: <100 mg/dL) HDL Cholesterol 43 (Ref Range: >40 mg/dL) 38?L (Ref Range: >40 mg/dL) 42 (Ref Range: [...] (Ref Range: 4.8-10.8 X10*3/uL) Red Blood Count 4.51?L (Ref Range: 4.60-5.80 X10*6/uL) 4.26?L (Ref Range: 4.60-5.80 X10*6/uL) 4.44?L (Ref Range: 4.60-5.80 X10*6/uL) Hemoglobin 14.4 (Ref Range: 14.0-18.0 g/dl) 13.7?L (Ref Range: 14.0-18.0 g/dl) 14.1 (Ref Range: 14.0-18.0 g/dl) Hematocrit 42.2 (Ref Range: 42.0-52.0 %) 39.9?L (Ref Range: 42.0-52.0 %) 41.6?L (Ref Range: 42.0-52.0 %) Mean Corpuscular Volume [...] (Ref Range: 160-400 X10*3/uL) Mean Platelet Volume 9.2?L (Ref Range: 9.4-12.4 fL) 8.9?L (Ref Range: 9.4-12.4 fL) 9.0?L (Ref Range: 9.4-12.4 fL) Neutrophils Percent Auto 54.0 (Ref Range: 45-73 %) 43.1?L (Ref Range: 45-73 %) 50.0 (Ref Range: 45-73 %) Imm Gran Pct Auto 0.3 (Ref Range: 0.0-0.4 %) 0.6?H (Ref Range: 0.0-0.4 %) 0.4 (Ref Range: 0.0-0.4 %) Lymphocytes Percent Auto 35.9 (Ref Range: 20-40 %) 45.3?H (Ref Range: 20-40 %) 39.4 (Ref Range: [...] Abs Auto 0.02 (Ref Range: 0.00-0.03 X10*3/uL) 0.04?H (Ref Range: 0.00-0.03 X10*3/uL) 0.02 (Ref Range: [...] 0.000 (Ref Range: 0.0-0.012 X10*3/uL) * Examination: ???General Examination: ?GENERAL APPEARANCE:?pleasant, well nourished, well developed, in no acute distress, calm and relaxed, overweight, man.?HEAD:?atraumatic, normocephalic.?EYES:?eomi, perrla, anicteric, conjugate.?EARS:?normal.?NOSE:?septum intact.?ORAL CAVITY:?normal, unremarkable.?NECK/THYROID:?no jugular venous distention, no carotid bruit, thyroid normal.?LYMPH NODES:?no enlarged lymph nodes,spleen normal.?SKIN:?On the left mid-buttock near the gluteal fold Is a 2 cm open area without infection.? On the right buttock just opposite near the gluteal fold is a 4 cm area of excoriated skin with multiple areas of impending breakdown one of which is a centimeter in diameter with open areas and bleeding.? ?That area is erythematous..?HEART:?no clicks, gallops, murmurs, or rubs, regular rhythm, [...] extremities, sensory exam intact.?PSYCH:?alert, oriented, mood depressed, speech diminished output, volume.? : ???Heart and Lungs:Regular rhythm and no heart murmurs, Breathing: Nice and clear, Skin: Looks OK, Sores: One is slightly open, the other is beginning to open. ??? Assessment: * Assessment: 1.?Depression - F32.9 (Prima ry)???Notes :He says he is compliant with his medications.? His depression appears worse.? I will see if I can have the psychiatrist reevaluate him.? He is going to telephone me every day until I see him again.???2.?Type 2 diabetes mellitus without complications - E11.9???Notes :His hemoglobin A1c is 5.5. No change in his regimen was necessary today.He is doing well. The recent available.? Blood work shows good control of the diabetes.???3.?Overweight - E66.3???Notes :He has gained 4 pounds and weighs 210.? His body mass? index is 28.? His nutrition is stable.???4.?BPH (benign prostatic hyperplasia) - N40.0???Notes :He rises from sleep once or twice a night to urinate. We discussed lifestyle modification as a way to reduce nocturia.???5.?History of pulmonary embolism - Z86.711???Notes :There is no sign of venous thromboembolism on examination today.???6.?Hyperlipidemia type II - E78.0???Notes :His fasting lipid profile shows his lipids to be in the normal range. No change in his regimen was necessary today.???7.?GERD (gastroesophageal reflux disease) - K21.9???Notes :His heartburn is well controlled with medications. He is sleeping through the night. No change in his regimen was needed.???8.?Diabetic neuropathy - E11.40???Notes :Symptoms from this are very mild. He did not complain about them. He controlled his diabetes is excellent at this point.???9.?Pressure injury of buttock, stage 3, unspecified laterality - L89.303???Notes :He has bilateral kissing decubitus ulcers along the intergluteal fold apparently from prolonged sitting.? He looks much weaker than usual, although he has gained weight and his vital signs are stable.? I have referred him for the wound clinic and asked visiting nurses to assess the home situation.? If necessary.? Elder services will be involved.??? Plan: * Treatment: 2.?Type 2 diabetes mellitus without complications? Referral To:[facility]??Unknown ?Reason:Two 2cm decubitus ulcers on buttock diabetic with decubitus ulcers on buttock left is thru all layers of skin 3.?Others? Referral To:[facility]??Unknown ?Reason:Two 2cm decubitus ulcers on buttock diabetic with decubitus ulcers on buttock left is thru all layers of skin * Procedure Codes:? * Preventive Medicine:? ??DM Care Plan:?Patient Lifestyle Goals?Patient wants to be able to manage diabetes without too much effort.?Treatment Goals?HbA1C < 7.0, Blood Sugars less than < 115.?Barriers?no barriers.?Self-Managment Goals?Work on weight loss, with a goal of losing 1 lb per week.? * Follow Up:?as scheduled Haris eckert (Reason: OV) * Images: * Sign off status: Completed true * Provider:?Hector Padron MD Date:?06/2023 Generated for Printi ng/Faxing/eTransmitting on:?08/06/2024 10:56 AM EDT History and Physical Notes * HPI (History of Present Illness) Category Sub-Category Detail Notes COVID-19 Screening Questions Have you had any new onset fever, chills, cough, congestion, sore throat, shortness of breath, muscle aches?: No Have you been exposed to the virus withi n the last 10 days?: No Have you travelled internationally in [facility] last 10 days?: No Have you been [...] Referred Provider Not temitope 02/27/2024 Hector Padron [facility], care center Two 2cm decubitus ulcers on buttock diabetic with decubitus ulcers on buttock left is thru all layers of skin
== END 2024-08-06 11:38 | disposition home or self-care (01) ==
PROVIDERS: PCP Internal Medicine Medical Oncology; Visit Provider Urology
DX: N32.89 Other specified disorders of bladder (principal); N40.1 Benign prostatic hyperplasia with lower urinary tract symptoms; N13.8 Other obstructive and reflux uropathy
CPT/HCPCS: 99214

== ENCOUNTER → 2024-08-06 10:02 | Outpatient (BNVA) | payer MEDICARE, SELFPAY | PROVIDERS: PCP Internal Medicine Medical Oncology; Visit Provider Urology | DX: N40.1 Benign prostatic hyperplasia with lower urinary tract symptoms (principal); N32.89 Other specified disorders of bladder; N13.8 Other obstructive and reflux uropathy | CPT/HCPCS: 51798; 81003; 99212 ==

== ENCOUNTER 2024-08-12 07:05 | Outpatient (REF) | payer MEDICARE, SELFPAY ==
--- OUTSIDE RECORDS SUMMARY | 2024-08-12 07:10 | XMS_ITS ---
Author Organization Hector Padron III, MD Address [address] [place] [address] DR SAM Shreya [place] [address] Care Team Providers Care Wafer Cleaner Name Role Phone Hector Padron Primary Care Provider [phone] Allergies Allergen (clinical drug ingredient) Drug/Non Drug [...] diabetes Active Vitamin D (Ergocalciferol) 1.25 MG (80221 UT) TAKE 1 CAPSULE BY MOUTH ONE [...] Problem Status W/U Status Risk Notes Problem [id number] Age-related cataract of both eyes, unspecified age-related [...] Date Provider Diagnosis Hector Padron III, MD [address] [place] [address] [place] [address] 07/08/2024 Hector Padron Depression F32.9 ; T [...] 2 diabetes Vitamin D (Ergocalciferol) 1.25 MG (89109 UT) TAKE 1 CAPSULE BY MOUTH ONE TIME PER WEEK Next Appt Details Follow Up: As Scheduled, Rhea son: OV Provider Name:Hector Jimenezrne, 08/20/2024 02:30:00 PM, [address] [place] [address] [address], [place], [address], Provider Name:Hector Nereida, 12/17/2024 02:00:00 PM, [address] [place] [address] [address], [place], [address], Progress Notes * Antoni KENT MDOB:1940 (84 yo M)Acc No.[id number]:07/08/2024 Patient:?LATRICIAFAHEEMBLAYNEAntoni Provider:?Hector Padron MD :1940???Age:84 Y???Sex:Male Bhavesh e:07/08/2024 Address:[address] [place] [address] [facility] [facility] [id number] Subjective: * Chief Complaints: * ???Pre-Op Clearance [...] ctomy No history * Hospitalization/Major Diagno stic Procedure:?[facility], rhabdomyolysis, fell at home 08/10/2022No history [...] Tobacco Non-User?Aggressive non-smoker ???He was born in [place], [place] He has a son. He is retired from [employer]. He has a son, Lawrence Hardingjr. [facility] [place]. [facility]. * Medications:?TakingAccu-Chek FastClix Lancets - Miscellaneous [...] EVERY DAY Vitamin D (Ergocalciferol) 1.25 MG (88905 UT) Capsule TAKE 1 CAPSULE BY MOUTH [...] DAY Taking Vitamin D (Ergocalciferol) 1.25 MG (42222 UT) Capsule TAKE 1 CAPSULE BY MOUTH [...] cataract surgery.??? Plan: * Treatment: * Procedure Codes:?40996 MEASU RE BLOOD OXYGEN LEVEL * Preventive [...] lb per week.? * Follow Up:?As Scheduled (Darrow son: OV) * Images: * Sign off status: Completed true * Provider:?Hector Padron MD Date:?06/24 Generated for Aprili volodymyr/Meghana/eTransmitting on:?08/12/2024 07:09 AM EDT History and Physical Notes * [...]
--- OUTSIDE RECORDS SUMMARY | 2024-08-12 07:10 | XMS_ITS ---
Author Organization [facility] Address [address] [place] [address] Care Team Providers Care Electric Power Superintendent Name Role Phone Hector Padron MD Primary Care Provider Unavailab Suzette Calvillo Unavailable [phone] Allergies No Known Allergies REASON FOR VISIT [...] Problem Status W/U Status Risk Notes Problem [id number] Neuropathic ulcer of right foot with fat layer exposed (L97.512) Active confirmed Vital Signs Height 6 ft in 05/02/2024 Weight 206 lbs 05/02/2024 BMI 27.94 kg/m2 05/02/2024 Blood pressure systolic 140 mm Hg 05/02/19 25 Blood pressure diastolic 82 mm Hg 025 Encounters Encounter Location Date Provider Diagnosis [facility] [place] [address] [place] [address] 05/02/2024 Suzette Schmitz Type 2 diabetes mellitus [...] Provider Name:Suzette saini, 10/10/2024 12:00:00 PM, [address] [place], [address], Procedure Notes * Category Sub-Category Detail Notes [...] use of a nail nipper and/or dremel-type hull grinder, to a more viable healthy nail plate [...] to maintain effectiveness in symptomatic relief - 75911 Keratoma Treatment Parring or Cutting o f [...] instrumentation by the physician of record - 56763 Progress Notes * Antoni KENT MDOB:1940 (84 yo M)Acc No.[id number]:05/02/2024 Progress Note Patient:?Antoni KENT Provider:?Suzette Schmitz DPM [...] * Vitals:?Ht: 6 ft, Wt: 206, B MA: 27.94, Shoe size: 12, BP: 140/82 mm [...] Foot, AP, LO, MO, RIGHT??Taken by trained?Podiatric Commercial Real Estate Associate (?__ ).?Findings:? normal bone?density consistent for patients [...] use of a nail nipper and/or dremel-type hull grinder, to a more viable healthy nail plate [...] to maintain effectiveness in symptomatic relief - 65279.?Keratoma Treatment:?Parring or Cutting of Benign Hyperkeratotic Lesion(s)?(-57) [...] instrumentation by the physician of record - 18023??.? * Procedure Codes:?80550 DEBRI DE NAIL, 6 OR MORE, Modifiers: XS 61614 TRIM SKIN LESIONS, OVER 4, Modifiers: XS [...] Provider:?Suzette Schmitz DPM Date:?09/2024 Generated for Printi ng/Faxing/eTransmitting on:?08/12/2024 07:10 AM EDT History and Physical Notes * [...] LO, MO, RIGHT Taken by trained Podiatric Commercial Real Estate Associate ( __ ) Clinical Indication(s): Evaluate for Fra cture
--- OUTSIDE RECORDS SUMMARY | 2024-08-12 07:10 | XMS_ITS | Patient Health Record ---
[facility] Address [address] [place] [address] Care Team Providers Care Top Executive Name Role Phone Hector Padron MD Primary Care Provider Suzette Newton Unavailable [phone] Allergies No Known Allergies Results Component Value [...] Disorder of joint of ankle and/or foot (939231258) Arthritis - Degenerative (719.97) Active confirmed Problem Neuralgia - Neuritis (729.2) Active confirmed Problem Bursitis (12357039) Bursitis (727.3) Active con firmed Problem Metatarsalgia (45932453) Metatarsalgia (726.70) Active confirmed Problem Pain in limb (37158908) Pain in Limb (729.5) Active confirmed Problem Neurologic disorder associated with type II diabetes mellitus (973349949) Diabetic - NIDDM/Neuropathy (250.60) Active confirmed Problem 28463176 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 Problem 83933930781072798 Neuropathic ul cer of right foot with fat layer exposed (L97.512) Active confirmed Vital Signs Blood pressure diastolic 82 mm Hg 05/02/2024 Height 6 ft in 05/02/2024 Blood pressure systolic 140 mm Hg 05/02/2024 Weight 206 lbs 05/02/2024 BMI 27.94 kg/m2 05/02/2024 Encounters Encounter Location Date [facility] [address] 11/02/2023 Suzette Schmitz Type 2 diabetes mellitus with polyneuropathy E11.42 and Tinea unguium B35.1 [facility] [address] 02/01/2024 Suzette Schmitz Type 2 diabetes mellitus with polyneuropathy E11.42 ; Tinea unguium B35.1 ; Metatarsalgia, left foot M77.42 and Metatarsalgia, right foot M77.41 [facility] [address] [address] 05/02/2024 Suzette Schmitz Type 2 diabetes mellitus [...] X ray : Foot, right 2V 08/03/2011 [id number] SKIN LESIONS, 2 TO 4 08/03/19 12 Next Appt Details Provider Name:Suzette Lisa saini, 10/10/2024 12:00:00 PM, [address] [facility], [place], [address], Insurance Providers Payer Name Payer Address Payer Phone Subscriber Number Group Number Insured Name Patient Relationship to Insured Coverage Start Date Coverage End Date Medicare National [employer] [address] [place] [address] [id number] Antoni Kent Self - patient is the insured MedGrupanya Blue [facility] [address] [place] [address] [phone] [id number] Antoni Kent Self - patient is the insured Medical (General) History Medical History History ICD Code anxiety back, hip, knee pain depression type I diabetes neuropathy reflux stomach ulcer chicken pox High blood pressure Surgical History Surgery Date(Month/Year) gall bladder 07/08/2000 appendectomy 5th lumbar 08/10/2000
--- OUTSIDE RECORDS SUMMARY | 2024-08-12 07:10 | XMS_ITS ---
Author Organization Hector Padron III, MD Address [address] [place] [address] [address] SAM [address]reya [place] [address] Care Team Providers Care Billing And Accounting Staff Assistant Name Role Phone Hector Padron Primary Care Provider [phone] Allergies Allergen (clinical drug ingredient) Drug/Non Drug [...] day Active Vitamin D (Ergocalciferol) 1.25 MG (21661 UT) TAKE 1 CAPSULE BY MOUTH ONE [...] Date Provider Diagnosis Hector Padron III, MD [address] [place] [address] [address] [place], [place] [address] 04/21/2024 Hector Padron Depression F32.9 ; T [...] a day Vitamin D (Ergocalciferol) 1.25 MG (87397 UT) TAKE 1 CAPSULE BY MOUTH ONE [...] ov Provider Name:Hector Padron, 08/20/2024 02:30:00 PM, [address] [place] [address] [address], [place], [address], Provider Name:Hector Padron, 12/17/2024 02:00:00 PM, [address] [place] [address] [place], [address], Progress Notes * Antoni KENT:1940 (83 yo M)Acc No.[id number]:04/21/2024 Progress Notes Patient:?Antoni KENT Provider:?Hector Padron MD :1940???Age:83 Y???Sex:Male Bhavesh e:04/21/2024 Address:[address] [place] [address], [address], [place], [id number] Subjective: * Chief Complaints: * ???DiabetesDepressionGERDHis tory [...] ctomy No history * Hospitalization/Major Diagno stic Procedure:?[facility], rhabdomyolysis, fell at home 08/10/2022No history * [...] Tobacco Non-User?Aggressive non-smoker ???He was born in [place] He has a son. He is retired from [employer]. He has a son, Lawrence Hardingjr. [facility] in [place]. [facility]. * Medications:?TakingAccu-Chek FastClix Lancets - Miscellaneous USE TO TEST BLOOD SUGAR ONCE DAILY , Notes to Pharmacist: E11.9 Type 2 diabetesMirtazapine 45 MG Tablet TAKE 1 TABLET BY MOUTH EVERYDAY AT BEDTIME Accu-Chek Laura Plus - Strip as directed In Vitro test blood sugars once a day , Notes to Pharmacist: E11.9 DiabetesVitamin D (Ergocalciferol) 1.25 MG (12084 UT) Capsule TAKE 1 CAPSULE BY MOUTH [...] E11.9 DiabetesTaking Vitamin D (Ergocalciferol) 1.25 MG (54714 UT) Capsule TAKE 1 CAPSULE BY MOUTH [...] Diabetes;?Continue Vitamin D (Ergocalciferol) Capsule, 1.25 MG (59836 UT), TAKE 1 CAPSULE BY MOUTH ONE [...] Padron MD Date:?03/27 Generated for Daylin helm/Meghana/Kentonitting on:?08/12/2024 07:10 AM EDT History and Physical [...]
--- OUTSIDE RECORDS SUMMARY | 2024-08-12 07:11 | XMS_ITS | Patient Health Record ---
Author Organization Hector Padron III, MD Address [address] [place] [address] [address] [place] [address] Care Team Providers Care Bearing Ring Assembler Name Role Phone Hector Padron Primary Care [...] ff Reviewed date:12/12/2023 07:00:26 AM Interpretation: Performing Lab:[facility], [address] [place] [address] Notes/Report: White Blood Count 6.3 4.8-10.8 X10*3/uL [...] NRBC Abs Auto 0.000 0.0-0.012 X10*3/uL Comprehensive [place]. Panel Fa st Reviewed date:12/12/2023 07:00:26 AM Interpretation: Performing Lab:[facility], [address] [place] [address] Notes/Report: Sodium 142 135-145 mmol/L Potassium 4.2 3.3-5.1 mmol/L Chloride 105 96-108 mmol/L Carbon Dioxide 25 22-29 mmol/L Anion Gap 16 12-20 Blood Urea Nitrogen 16 9-16 mg/dL Creatinine 1.07 0.5-1.4 mg/dL Estimated Glomerular Filt Rate > 60 NOTE: For -British individuals, multiply the result by 1.210. Chronic [...] Panel Reviewed date:12/12/2023 07:00:26 AM Interpretation: Performing Lab:[address] [address] Notes/Report: Triglycerides 142 <150 mg/dL Desirable Triglyceride: [...] Antigen Reviewed date:12/12/2023 07:00:26 AM Interpretation: Performing Lab:[address] [address] Notes/Report: Prostate Specific Antigen 1.70 <0.05-4.0 ng/mL PSA methodology: Patterson Alinity i Chemiluminescent Microparticle Immunoassay (CMIA) Microalbumin, Random Reviewed date:12/12/2023 07:00:26 AM Interpretation: Performing Lab:[address] [address] Notes/Report: Creatinine Urine 78.10 Microalbumin Urine 5.0 Microalbum/Creatinine Ratio Ur 6.4 <30 ug/mg cr Albumin/Creatinine Ratio Reference Ranges: Normal: < 30 ug/mg creatinine Microalbuminuria: 30 - 300 ug/mg creatinine Clinical Albuminuria: > 300 ug/mg creatinine Hemoglobin A1c Reviewed date:12/12/2023 07:00:26 AM Interpretation: Performing Lab:[facility], [address] [place] [address] Notes/Report: Hemoglobin A1c % 5.5 <6.0 % [...] average glucose, using the formula of the O8X-Npbcpta Average Glucose study (ADAG), Diabetes Care, Vol.31,#8, Oct. 2007 Complete Blood Count Auto Di ff Reviewed date:04/21/2024 04:23:26 AM Interpretation: Performing Lab:[facility], [address] [place] [address] Notes/Report: White Blood Count 5.6 4.8-10.8 X10*3/uL [...] NRBC Abs Auto 0.000 0.0-0.012 X10*3/uL Comprehensive [place]. Panel Fa st Reviewed date:04/21/2024 04:23:26 AM Interpretation: Performing Lab:[facility], [address] [place] [address] Notes/Report: Sodium 138 135-145 mmol/L Potassium 3.9 [...] Panel Reviewed date:04/21/2024 04:23:26 AM Interpretation: Performing Lab:[facility], [address] [place] [address] Notes/Report: Triglycerides 92 <150 mg/dL Desirable Triglyceride: [...] Antigen Reviewed date:04/21/2024 04:23:26 AM Interpretation: Performing Lab:[facility], [address] [place] [phone] Notes/Report: Prostate Specific Antigen 2.12 <0.05-4.0 ng/mL PSA methodology: Patterson Alinity i Chemiluminescent Microparticle Immunoassay (CMIA) Microalbumin, Random Reviewed date:04/21/2024 04:23:26 AM Interpretation: Performing Lab:[facility], [address] [place] [address] Notes/Report: Creatinine Urine 167.26 Microalbumin Urine 10.0 Microalbum/Creatinine Ratio Ur 5.9 <30 ug/mg cr Albumin/Creatinine Ratio Reference Ranges: Normal: < 30 ug/mg creatinine Microalbuminuria: 30 - 300 ug/mg creatinine Clinical Albuminuria: > 300 ug/mg creatinine Hemoglobin A1c Reviewed date:04/21/2024 04:23:26 AM Interpretation: Performing Lab:[facility], [address] [place] [phone] Notes/Report: Hemoglobin A1c % 5.4 <6.0 % [...] average glucose, using the formula of the I0L-Eilqdhw Average Glucose study (ADAG), Diabetes Care, Vol.31,#8, [...] Provider Specialty Unknown General Notes Jocelyn Valle [facility] 02/26 03:57:46 PM >Ref/progress note faxed to wound care center at , Jocelyn Valle [facility] 03/03/2024 11:34:17 AM > Called patient he stated the wound center called him but he refused to make appt. I spoke to patient and he stated if I made appt he would go to this appt . for wound center to call me back so I can set up this appt, Jocelyn Valle [facility] 03/03/2024 02:02:58 PM > called wound care [...] Specialty Carlos valle General Notes Jocelyn Valle [facility] 02/26 04:16:49 PM > ref/demographic and progress note faxed to Deana DINH, Jocelyn Valle [facility] 03/03/2024 10:43:12 AM I called patient to [...] Referred Provider Specialty Unknown General Notes SJocelyn [facility] 03/03 10:47:30 AM >The original referral that [...] diabetes Active Vitamin D (Ergocalciferol) 1.25 MG (45532 UT) TAKE 1 CAPSULE BY MOUTH ONE [...] Problem Status W/U Status Risk Notes Problem 546769940 Overweight (E66.3) Active confirmed He has lost 4 pounds and weighs 206. His body mass index is 28. His nutrition is stable. Problem 75982751 Depression (F32.9) Active confirmed He has mild chronic depression. He is compliant with his psychiatric medications and up-to-date with his psychiatrist. This problem is stable. Problem 184647340 GERD (gastroesophage al reflux disease) (K21.9) Active confirmed His heartburn i s well controlled with medications. He is sleeping through the night. No change in his regimen was needed. Problem 44713899 Type 2 diabetes mellitus without complications (E11.9) Active confirmed His hemoglobin A1c is 5.4. No change in his regimen was necessary today.He is doing well. The recent available. Blood work shows good control of the diabetes. Problem 67741635 Irritable bowel syndrome (K58.9) Active confirmed Visit irritable bowel syndrome is minor and well controlled. Problem 770081664 BPH (benign prostatic hyperplasia) (N40.0) Active confirmed He rises from sleep once or twice a night to urinate. We discussed lifestyle modification as a way to reduce nocturia. Problem 785559224 Hyperlipidemia type II (E78.0) Active confirmed His fasting lipid profile shows his lipids to be in the normal range. No change in his regimen was necessary today. Problem 847193750 Cholelithiasis (K80.20) Active confirmed Problem 411759711 Chronic insomnia (F51.04) Active confirmed He is still sleeping poorly but appears to be well rested. Problem 447562537429139 History of herpes zoster (Z86.19) Active confirmed Problem 804125358 History of pulmonary embolism (Z86.711) Active confirmed There is no sig n of venous thromboembolism on examination today. Problem 98641162 Age-related cataract of both eyes, unspecified age-related [...] Date Provider Diagnosis Hector Padron III, MD [address] [place] [address] [place] [address] 12/17/2023 Hector Padron Depression F32.9 ; T ype 2 diabetes mellitus without complications E11.9 ; BPH (benign prostatic hyperplasia) N40.0 ; History of pulmonary embolism Z86.711 ; Overweight E66.3 ; GERD (gastroesophageal reflux disease) K21.9 and Hyperlipidemia type II E78.01 Hector Padron III, MD [address] [place] [address] [place] [address] 02/27/2024 Hector Padron Depression F32.9 ; T ype 2 diabetes mellitus without complications E11.9 ; Overweight E66.3 ; BPH (benign prostatic hyperplasia) N40.0 ; History of pulmonary embolism Z86.711 ; Hyperlipidemia type II E78.0 ; GERD (gastroesophageal reflux disease) K21.9 ; Diabetic neuropathy E11.40 and Pressure injury of buttock, stage 3, 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 12/17/2023 BPH (benign prostatic hyperplasia) (ICD-10 - [...] index is 28. His nutrition is stable. 12/17/2023 History of pulmonary embolism (ICD-10 - [...] change in his regimen was needed. 12/17/2023 Overweight (ICD-10 - E66.3) He remains [...] Order Date PROFILE, FASTING (COMPREHENSIVE METABOLI C) 08/27/2019 PROFILE, FASTING (COMPREHENSIVE METABOLI C) 12/17/2023 PROFILE, FASTING (COMPREHENSIVE METABOLI C) 04/21/2024 PROFILE, FASTING (COMPREHENSIVE METABOLI C) 04/28/2019 PROFILE, FASTING (COMPREHENSIVE METABOLI C) 04/19/2018 PROFILE, [...] C) 04/17/2022 PROFILE, FASTING (COMPREHENSIVE METABOLI C) 09/08/2022 PROFILE, FASTING (COMPREHENSIVE METABOLI C) 01/06/2020 PROFILE, FASTING (COMPREHENSIVE METABOLI C) 12/13/2020 PROFILE, FASTING (COMPREHENSIVE METABOLI C) 12/08/2022 PROFILE, FASTING (COMPREHENSIVE METABOLI C) 08/08/2023 PROFILE, RANDOM (COMPREHENSIVE METABOLIC ) 04/11/2023 HEMOGLOBIN A1C (GLYCOHEMOGLOBIN) 020 HEMOGLOBIN A1C (GLYCOHEMOGLOBIN) 021 HEMOGLOBIN A1C (GLYCOHEMOGLOBIN) 023 HEMOGLOBIN A1C (GLYCOHEMOGLOBIN) 020 HEMOGLOBIN A1C (GLYCOHEMOGLOBIN) 020 HEMOGLOBIN A1C (GLYCOHEMOGLOBIN) 019 HEMOGLOBIN A1C (GLYCOHEMOGLOBIN) 018 HEMOGLOBIN A1C (GLYCOHEMOGLOBIN) 019 HEMOGLOBIN A1C (GLYCOHEMOGLOBIN) 019 HEMOGLOBIN A1C (GLYCOHEMOGLOBIN) 022 HEMOGLOBIN A1C (GLYCOHEMOGLOBIN) 018 HEMOGLOBIN A1C (GLYCOHEMOGLOBIN) 021 HEMOGLOBIN A1C (GLYCOHEMOGLOBIN) 018 HEMOGLOBIN A1C (GLYCOHEMOGLOBIN) 022 HEMOGLOBIN A1C (GLYCOHEMOGLOBIN) 021 HEMOGLOBIN A1C (GLYCOHEMOGLOBIN) 023 LIPID PANEL 09/19/2017 LIPID PANEL 09/08/2020 LIPID PANEL 05/23/2017 LIPID PANEL 05/11/2020 LIPID PANEL 09/08/2022 LIPID PANEL 04/11/2023 LIPID PANEL 01/06/2020 LIPID PANEL 12/13/2020 LIPID PANEL 12/08/2022 LIPID PANEL 08/27/2019 LIPID PANEL 04/28/2019 LIPID PANEL 04/19/2018 LIPID PANEL 12/18/2017 LIPID PANEL 12/25/2018 LIPID PANEL 08/20/2018 LIPID PANEL 04/13/2021 PSA, TOTAL 08/20/2018 PSA, TOTAL 08/08/2021 PSA, TOTAL 08/08/2023 PSA, TOTAL 04/13/2021 PSA, TOTAL 12/17/2023 PSA, TOTAL 09/08/2020 PSA, TOTAL 05/23/2017 PSA, TOTAL 01/06/2020 PSA, TOTAL 04/21/2024 PSA, TOTAL 12/08/2022 PSA, TOTAL 12/12/2021 PSA, TOTAL 04/19/2018 MICROALBUMIN, RANDOM 04/19/2018 MICROALBUMIN, RANDOM 05/11/2020 MICROALBUMIN, RANDOM 04/13/2021 MICROALBUMIN, RANDOM 09/08/2022 MICROALBUMIN, RANDOM 09/08/2020 MICROALBUMIN, RANDOM 12/08/2022 MICROALBUMIN, RANDOM 12/18/2017 MICROALBUMIN, RANDOM 12/25/2018 CBC w DIFF 12/12/2021 CBC w DIFF 12/18/2017 CBC w DIFF 12/25/2018 CBC w DIFF 09/19/2017 CBC w DIFF 08/20/2018 CBC w DIFF 08/08/2021 CBC w DIFF 04/19/2018 CBC w DIFF 04/11/2023 CBC w DIFF 12/13/2020 CBC w DIFF 05/23/2017 CBC w DIFF 09/08/2022 CBC w DIFF 05/11/2020 CBC w DIFF 04/13/2021 CBC w DIFF 01/06/2020 CBC w DIFF 08/27/2019 CBC w DIFF 09/08/2020 CBC w DIFF 12/08/2022 CBC w DIFF 04/28/2019 CBC w DIFF 04/17/2022 VITAMIN D 25-OH TOTAL 09/08/2022 CBC WITH AUTO DIFF 08/08/2023 CBC WITH AUTO DIFF 12/17/2023 CBC WITH AUTO DIFF 04/21/2024 Lipid Panel 04/17/2022 Lipid Panel 12/12/2021 Lipid Panel 08/08/2021 Lipid Panel 08/08/2023 Lipid Panel 12/17/2023 Lipid Panel 04/21/2024 Vitamin D 25-OH Total 04/11/2023 Microalbumin, Random 12/12/2021 Microalbumin, Random 04/17/2022 Microalbumin, Random 08/08/2023 Microalbumin, Random 12/17/2023 Microalbumin, Random 04/21/2024 Hemoglobin A1c 12/17/2023 Hemoglobin A1c 04/21/2024 Hemoglobin A1c 12/12/2021 Hemoglobin A1c 04/17/2022 Hemoglobin A1c 04/11/2023 Hemoglobin A1c 08/08/2023 Next Appt Details Provider Name:Hector Padron, 08/20/2024 02:30:00 PM, [address] [place] [address] [address], [place], [address], Provider Name:Hector Padron, 12/17/2024 02:00:00 PM, [address] [place] [address] [address], [place], [address], Insurance Providers Payer Name Payer Address Payer Phone Subscriber Number Group Number Insured Name Patient Relationship to Insured Coverage Start Date Coverage End Date MEDICARE NGS [address] [place] [address] [id number] Antoni Kent Self - patient is the insured [employer]UE [employer] [facility] [address] [place], [place] [id number] Antoni Kent Self - patient is the insured Medical (General) History Medical History History ICD Code depression insomnia cholelithiasis hemorrhoids GERD acne BPH irritable bowel syndrome shingles left shouder chronic diarrhea diabetes mellitus hyperlipidemia pulmonary embolism neuropathy Surgical History Surgery Date(Month/Year) No history cholecystectomy Hospitalization History Reason Date(Month/Year) No history [facility], rhabdomyolysis, fell at home 08/10/2022
--- OUTSIDE RECORDS SUMMARY | 2024-08-12 07:11 | XMS_ITS ---
Author Organization Hecotr Padron III, MD Address [address] [place] [address] DR SAM Shreya [place] [address] Care Team Providers Care Drama Director Name Role Phone Hector Padron Primary Care [...] Diabetes Active Vitamin D (Ergocalciferol) 1.25 MG (26483 UT) TAKE 1 CAPSULE BY MOUTH ONE [...] Date Provider Diagnosis Hector Padron III, MD [address] [place] [address] [place] [address] 02/27/2024 Hector Padron Depression F32.9 ; T [...] E11.9 Diabetes Vitamin D (Ergocalciferol) 1.25 MG (17717 UT) TAKE 1 CAPSULE BY MOUTH ONE TIME PER WEEK FLUoxetine HCl 40 MG 1 capsule Orally Once a day Accu-Chek FastClix Lancets - USE TO TEST BLOOD SUGAR ONCE DAILY E11.9 Type 2 diabetes Referrals Referral Date Details 02/27/2024 02/27/2024, Two 2cm decubitus ulcers on buttock diabetic with decubitus ulcers on buttock left is thru all layers of skin, care [facility] [place] [facility] Next Appt Details Follow Up: as scheduled Haris eckert, Reason: OV Provider Name:Hector Padron, 08/20/2024 02:30:00 PM, [address] [place] [address] [address], [place], [address], Provider Name:Hector Padron, 12/17/2024 02:00:00 PM, [address] [place] [address] [address], [place], [address], Progress Notes * Antoni KENT MDOB:1940 (83 yo M)Acc No.[id number]:02/27/2024 Progress Notes Patient:?AYESHA Antoni Salmeron Provider:?Hector Padron MD :1940???Age:83 Y???Sex:Male Bhavesh e:02/27/2024 Address:[address] [place] [address], [address] [id number] Subjective: * Chief [...] ctomy No history * Hospitalization/Major Diagno stic Procedure:?[facility], rhabdomyolysis, fell at home [...] Pharmacist: E11.9 DiabetesVitamin D (Ergocalciferol) 1.25 MG (74777 UT) Capsule TAKE 1 CAPSULE BY MOUTH [...] E11.9 DiabetesTaking Vitamin D (Ergocalciferol) 1.25 MG (29391 UT) Capsule TAKE 1 CAPSULE BY MOUTH [...] Negative -) Menstrating NR N/A * Lab:[facility] [place] Pane l Fast * Collection Date 12/10/2023 [...] diabetes mellitus without complications? Referral To:care center [place] [facility]??Unknown ?Reason:Two 2cm decubitus ulcers on buttock diabetic with decubitus ulcers on buttock left is thru all layers of skin 3.?Others? Referral To:[facility] [place] [facility]??Unknown ?Reason:Two 2cm decubitus ulcers on buttock [...] Padron MD Date:?06/2023 Generated for Printi ng/Faxing/eTransmitting on:?08/12/2024 07:10 AM EDT History and Physical Notes * HPI (History of Present Illness) Category Sub-Category Detail Notes COVID-19 Screening Questions Have you had any new onset fever, chills, cough, congestion, sore throat, shortness of breath, muscle aches?: No Have you been exposed to the virus withi n the last 10 days?: No Have you travelled internationally in [facility] last 10 days?: No Have you [...] Referred Provider Not temitope 02/27/2024 Hector Padron [facility], care center Two 2cm decubitus ulcers on buttock diabetic with decubitus ulcers on buttock left is thru all layers of skin
--- OUTSIDE RECORDS SUMMARY | 2024-08-12 07:11 | XMS_ITS ---
Author Organization [facility] Address [address] [place] [address] Care Team Providers Care Caster Operator Name Role Phone Nereida CORNELIUS, Hector Primary Care Provider Unavailab Suzette Calvillo [phone] Hewitt Encounters Encounter Location Date Provider Diagnosis [facility] [address] [place] [address] 08/08/2024 Suzette Schmitz Plan Of Treatment Next Appt Details Provider Name:Suzette saini, 10/10/2024 12:00:00 PM, [address] [place], [address], Progress Notes * Antoni KENT MDOB:1940 (84 yo M)Acc No.[id number]:08/08/2024 Progress Note Patient:?Antoni KENT Provider:?Suzette Schmitz DPM :1940???Age:84 Y???Sex:Male Bhavesh e:08/08/2024 Address: [address] [id number] Pcp:Hector Padron MD Subjective: * Chief Complaints: * ???1. Dr Hewitt. * Medical History:? Objective: * Vitals:? Assessment: Plan: * Treatment: * Images: * The named appointment provid er may or may not be the originator of this progress note, and it is not deemed complete until electronically signed by the appointment provider. Sign off status: Pending * Provider:?Suzette Schmitz DPM Date:? Generated for Daylin helm/Meghana/Vanessa on:?08/12/2024 07:11 AM EDT
--- OUTSIDE RECORDS SUMMARY | 2024-08-12 07:11 | XMS_ITS ---
Author Organization [facility] Address [address] [place] [address] Care Team Providers Care Crane Mechanic Name Role Phone Hector Padron MD Primary Care Provider Unavailab Suzette Calvillo Unavailable [phone] Allergies No Known Allergies REASON FOR VISIT [...] 02/01/2024 Encounters Encounter Location Date Provider Diagnosis [facility] [address] [address] 02/01/2024 Suzette Schmitz Type 2 diabetes mellitus [...] Reason: Provider Name:Suzette saini, 10/10/2024 12:00:00 PM, [address] [place] [address], [phone], Procedure Notes * Category Sub-Category Detail Notes [...] as necessary. Patient chooses, no pharmaceutical tx (07064) Keratoma Treatment Parring or Cutting o f Benign Hyperkeratotic Lesion(s) 15445 ( More than 4 Lesions ) - The Benign hyperkeratotic lesions, as described above were pared, and/or cut utilizing a sterile 15 blade, tissue nippers, and/or dremel Progress Notes * Antoni KENT MDOB:1940 (83 yo M)Acc No.[id number]:02/01/2024 Progress Note Patient:?Antoni KENT Provider:?Suzette Schmitz DPM :1940???Age:83 Y???Sex:Male Bhavesh e:02/01/2024 Address:[address] [place] [address] [place], [id number] Pcp:Hector Padron MD Subjective: * Chief Complaints: [...] * Vitals:?Ht: 6 ft, Wt: 209, B IA: 28.34, Shoe size: 12, BS: 110, Wt-k.8 [...] as necessary. Patient chooses, no pharmaceutical tx (76575).?Keratoma Treatment:?Parring or Cutting of Benign Hyperkeratotic Lesion(s)?99784 ( More than 4 Lesions ) - The Benign hyperkeratotic lesions, as described above were pared, and/or cut utilizing a sterile 15 blade, tissue nippers, and/or dremel.? * Procedure Codes:?63002 DEBRI DE NAIL, 6 OR MORE, Modifiers: XS 75084 TRIM SKIN LESIONS, OVER 4, Modifiers: XS [...] Schmitz DPM Date:?10/2023 Generated for Daylin helm/Meghana/Kentonitting on:?08/12/2024 07:10 AM [...]
[2024-08-12 07:47] LABS: Basophils Percent Auto 0.3 % (0-2); Eosinophils Absolute Auto 0.1 X10*3/uL (0.0-0.4); Eosinophils Percent Auto 1.4 % (0-4); Hematocrit 38.7 % (42.0-52.0); Hemoglobin 13.5 g/dl (14.0-18.0); Imm Gran Abs Auto 0.03 X10*3/uL (0.00-0.03); Imm Gran Pct Auto 0.5 % (0.0-0.4); Lymphocytes Absolute Auto 2.9 X10*3/uL (1.2-4.9); Lymphocytes Percent Auto 46.5 % (20-40); MANUAL DIFF FLAG NO; Mean Corpuscular HGB Conc 34.9 g/dl (31.0-36.0); Mean Corpuscular Hemoglobin 31.8 pg (27.0-33.0); Mean Corpuscular Volume 91.3 fL (80.0-98.0); Mean Platelet Volume 9.1 fL (9.4-12.4); Monocytes Absolute Auto 0.6 X10*3/uL (0.1-1.2); Monocytes Percent Auto 9.7 % (2-11); Neutrophils Absolute Auto 2.6 x10*3/uL (2.0-8.3); Neutrophils Percent Auto 41.6 % (45-73); Platelet Count 163 X10*3/uL (160-400); Red Blood Count 4.24 X10*6/uL (4.60-5.80); Red Cell Distribution Width 12.8 % (11.0-16.0); White Blood Count 6.3 X10*3/uL (4.8-10.8)
[2024-08-12 08:20] LABS: Alanine Aminotransferase 18 U/L (0-40); Albumin Level 4.2 g/dL (3.5-5.0); Alkaline Phosphatase 127 U/L (39-117); Anion Gap 12 (12-20); Aspartate Amino Transferase 21 U/L (5-37); Bilirubin Total 0.4 mg/dL (0.0-1.0); Blood Urea Nitrogen 17 mg/dL (9-16); Calcium 9.1 mg/dL (8.4-10.2); Carbon Dioxide 24 mmol/L (22-29); Chloride 110 mmol/L (96-108); Cholesterol 124 mg/dL (<200); Estimated Glomerular Filt Rate > 60; Glucose Fasting 86 mg/dL (60-99); HDL Cholesterol 43 mg/dL (>40); LDL Cholesterol Calculated 64 mg/dL (<100); Potassium 3.9 mmol/L (3.3-5.1); Sodium 142 mmol/L (135-145); Total Protein 6.5 g/dL (6.5-8.0); Triglycerides 85 mg/dL (<150)
[2024-08-12 08:27] LABS: Creatinine Urine 76.27 mg/dL; Microalbumin Urine < 5.0 mg/L
[2024-08-12 08:40] LABS: Prostate Specific Antigen 1.75 ng/mL (<0.05-4.0)
[2024-08-12 09:36] LABS: Estimated Average Glucose 114 mg/dL; Hemoglobin A1C 133.0918 umol/L; Hemoglobin A1c % 5.6 % (<6.0); Total Hemoglobin (HGBA1C) 3547.9256 umol/L
== END 2024-08-12 07:06 | disposition home or self-care (01) ==
LOC: HO.LAB 07:05
PROVIDERS: PCP Internal Medicine Medical Oncology; Visit Provider Internal Medicine Medical Oncology
DX: F32.9 Major depressive disorder, single episode, unspecified (principal); E66.9 Obesity, unspecified; N40.0 Benign prostatic hyperplasia without lower urinary tract symptoms; E11.9 Type 2 diabetes mellitus without complications; Z12.5 Encounter for screening for malignant neoplasm of prostate
CPT/HCPCS: 36415; 80053; 80061; 82043; 82570; 83036; 84153; 85025

== ENCOUNTER 2024-10-08 18:23 | Emergency (ER) | payer MEDICARE, SELFPAY ==
--- NOTE | 2024-10-08 | ECG_ITS ---
Test Reason : FALL Blood Pressure : */* mmHG Vent. Rate : 77 BPM Atrial Rate : 77 BPM P-R Int : 176 ms QRS Dur : 96 ms QT Int : 428 ms P-R-T Axes : 79 185 192 degrees QTcB Int : 484 ms Normal sinus rhythm Right superior axis deviation ST & T wave abnormality, consider inferior ischemia Abnormal ECG When compared with ECG of 10-Aug-2022 17:56, QRS axis Shifted left T wave inversion now evident in Lateral leads - could be lead reversal Referred By: Generic ED Physician Electronically Signed By: JW RODRÍGUEZ
--- NOTE | ~2024-10-08 | CT_ITS ---
CLINICAL HISTORY: fall CT cervical spine without contrast. COMPARISON: CT cervical spine dated 08/10/22 at 18:31 EDT FINDINGS: Normal vertebral body alignment. Vertebral body heights are maintained. Skull base and intracranial structures appear normal. Calcified plaque present at the carotid bulbs bilaterally. C2-C3: Uncovertebral joint hypertrophy. No significant neural foraminal narrowing. C3-C4: Anterior marginal osteophytes. Loss of disc space height. Uncovertebral joint hypertrophy. Urwivmrp-vt-qhizmb bilateral neural foraminal narrowing. C4-C5: Anterior marginal osteophytes. C5-C6: Anterior marginal osteophytes. Uncovertebral joint hypertrophy. Mild right neural foraminal narrowing. C6-C7: Anterior marginal osteophytes. IMPRESSION: 1. No evidence of acute injury to the cervical spine. This document has been electronically signed by: Sandor Street MD on 10/08/2024 20:56:12
--- NOTE | ~2024-10-08 | XR_ITS ---
CLINICAL HISTORY: fall 1 view chest x-ray. Comparison: CR/SR - XR CHEST 2 VIEWS - 08/10/22 19:25 EDT Findings: No consolidation, pneumothorax, or effusion. Heart size normal. No acute fracture visualized. Impression: 1. No acute cardiopulmonary process. No focal pulmonary consolidation. This document has been electronically signed by: Viet Sales MD on 10/09/2024 02:53:44
--- NOTE | ~2024-10-08 | CT_ITS ---
CLINICAL HISTORY: fall CT head without contrast. COMPARISON: CT head dated 08/10/22 at 18:31 EDT FINDINGS: The visualized paranasal sinuses are clear. The mastoid air cells are clear. No calvarial fracture. Atherosclerotic intracranial vasculature. No evidence for mass or mass effect. No intracranial hemorrhage or abnormal extra-axial fluid collection. The ventricles are proportional with the degree of moderate global cerebral volume loss without evidence of hydrocephalus. Basilar cisterns are patent. Posterior fossa appears unremarkable. IMPRESSION: 1. No acute intracranial findings. This document has been electronically signed by: Sandor Street MD on 10/08/2024 20:55:57
[2024-10-08 18:41] VITALS: BP 126/49; BP 136/60; PULSE 77; PULSE 90; RESP 16; TEMP 36.7; O2SAT 98; O2SAT 99; BMI 27.7
[2024-10-08 18:58] VITALS: BP 126/49; PULSE 77; RESP 16; TEMP 36.7; O2SAT 99
--- NOTE | 2024-10-08 19:05 | PC.NURSE ---
this rn assumed care of pt, pt resting in stretcher, c collar in place, no complaints at this time vss awaiting labs and scans
[2024-10-08 19:12] VITALS: BP 133/48; PULSE 78; RESP 18; TEMP 36.4; O2SAT 99
[2024-10-08 19:17] LABS: MANUAL DIFF FLAG NO
[2024-10-08 19:20] LABS: Hematocrit 36.8 % (42.0-52.0); Hemoglobin 13.5 g/dl (14.0-18.0); Imm Gran Abs Auto 0.06 X10*3/uL (0.00-0.03); Imm Gran Pct Auto 0.5 % (0.0-0.4); Lymphocytes Absolute Auto 0.9 X10*3/uL (1.2-4.9); Mean Corpuscular HGB Conc 36.7 g/dl (31.0-36.0); Mean Corpuscular Hemoglobin 32.3 pg (27.0-33.0); Mean Corpuscular Volume 88.0 fL (80.0-98.0); NRBC Abs Auto 0.000 X10*3/uL (0.0-0.012); NRBC Pct Auto 0.0 /100WBC (0.0-0.2); Platelet Count 177 X10*3/uL (160-400); Red Blood Count 4.18 X10*6/uL (4.60-5.80); White Blood Count 12.3 X10*3/uL (4.8-10.8)
[2024-10-08 19:33] LABS: Alanine Aminotransferase 15 U/L (0-40); Albumin Level 4.3 g/dL (3.5-5.0); Alkaline Phosphatase 108 U/L (39-117); Anion Gap 15 (12-20); Aspartate Amino Transferase 31 U/L (5-37); Blood Urea Nitrogen 20 mg/dL (9-16); Calcium 9.4 mg/dL (8.4-10.2); Carbon Dioxide 20 mmol/L (22-29); Chloride 111 mmol/L (96-108); Creatinine Clr Calc Pharmacy 52.5; Estimated Glomerular Filt Rate 59; Potassium 3.9 mmol/L (3.3-5.1); Sodium 142 mmol/L (135-145); Total Protein 6.3 g/dL (6.5-8.0)
[2024-10-08 19:39] LABS: Troponin-I High Sensitivity 6.7 ng/L (<3.5-35.0)
[2024-10-08 20:44] LABS: Appearance Urine Clear; Glucose Urine UA Negative (Negative); PH >= 9.0 (5.0-9.0); Specific Gravity - Urine 1.010 (1.005-1.025); UMIC TRIGGER UACC YES
--- NOTE | 2024-10-08 21:15 | PC.NURSE ---
at bedside removing c collar off pt, pt assisted in incontinence bed change
--- OUTSIDE RECORDS SUMMARY | 2024-10-08 21:17 | XMS_ITS | Patient Health Record ---
[facility] Organization [facility] Address [address] [place] [address] Care Team Providers Care Cop Winder Name Role Phone Hector Padron MD Primary Care Provider Suzette Newton Unavailable [phone] Allergies No Known Allergies Results Component Value Reference Range Notes HEMOGLOBIN A1C (GLYCOHEMOGLO BIN) Reviewed date:05/02/2024 12:13:58 PM Interpretation: Performing Lab: Notes/Report: HEMOGLOBIN A1C % (HH) 5.4 Reason For Referral No Information Medications Medication SIG (Take, Route, Frequency, Duration) Notes Start Date End Date Status Vitamin D2 Active Mirtazapine 45 MG 1 tablet before bedt tomas every evening Orally Once a day; Duration: 30 day(s) Unknown FLUoxetine HCl 60 MG as directed Orally Once a day Unknown Extra-Depth Diabetic Shoes with 3 Pair Custom heat-molded multi-density innersoles . 1pair shoes/3sets inserts . .; Duration: 1 year Unknown valACYclovir HCl 500 MG 1 tablet Orally every 12 hrs; Duration: 10 day(s) Unknown clonazePAM 2 MG 1 tablet at bedtime Orally Once a day Unknown Lisinopril 5 MG 0.5 tablet Orally On ce a day; Duration: 30 day(s) Unknown Simvastatin 10 MG 1 tablet every eveni ng Orally Once a day; Duration: 30 day(s) Unknown Metformin & Diet Manage Prod 500 MG as directed Orally Unknown Keflex 500 MG 1 capsule Orally alejandra ry 12 hrs; Duration: 5 days 10/20/2022 Unknown Dicyclomine HCl 10 MG 1 capsule Orally F our times a day; Duration: 30 day(s) Unknown risperiDONE 0.5 MG 1 tablet Orally Once a day; Duration: 30 day(s) Unknown Ondansetron 4 MG as directed Orally Unknown Jublia 10 % as directed External ly Daily; Duration: 30 days 10/20/2022 Not-Taking Promethazine HCl 25 MG 1 tablet at bedti me Orally Once a day; Duration: 30 day(s) Unknown Immunizations Vaccine Route Administration [...] Disorder of joint of ankle and/or foot (817235130) Arthritis - Degenerative (719.97) Active confirmed Problem Neuralgia - Neuritis (729.2) Active confirmed Problem Bursitis (40382658) Bursitis (727.3) Active confirmed Problem Metatarsalgia (32881731) Metatarsalgia (726.70) Active confirmed Problem Pain in limb (94245338) Pain in Limb (729.5) Active confirmed Problem Neurologic disorder associated with type II diabetes mellitus (456629426) Diabetic - NIDDM/Neuropathy (250.60) Active confirmed Problem 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) 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 Problem 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) Active confirmed Vital Signs Blood pressure diastolic 82 mm Hg 05/02/2024 Height 6 ft in 05/02/2024 Blood pressure systolic 140 mm Hg 05/02/2024 Weight 206 lbs 05/02/2024 BMI 27.94 kg/m2 05/02/2024 Encounters Encounter Location Date Provider Diagnosis [facility] [place] [address] [place] [address] 11/02/2023 Suzette Schmitz Type 2 diabetes mellitus with polyneuropathy E11.42 and Tinea unguium B35.[address] [facility] [address] 02/01/2024 Suzette Schmitz Type 2 diabetes mellitus with polyneuropathy E11.42 ; Tinea unguium B35.1 ; Metatarsalgia, left foot M77.42 and Metatarsalgia, right foot M77.[address] [address] 05/02/2024 Suzette Schmitz Type 2 diabetes mellitus [...] X ray : Foot, right 2V 08/03/2011 [id number] SKIN LESIONS, 2 TO 4 08/03/19 12 Next Appt Details Provider Name:Suzette Lisa saini, 10/10/2024 12:00:00 PM, [address] [place], [address], Insurance Providers Payer Name Payer Address Payer Phone Subscriber Number Group Number Insured Name Patient Relationship to Insured Coverage Start Date Coverage End Date Medicare National Govt Sv[employer] [address] [facility] [address] [id number] Antoni Kent Self - patient is the insured [employer] [address] [place] [address] [id number] Antoni Kent Self - patient is the insured Medical (General) History Medical History History ICD Code anxiety back, hip, knee pain depression type I diabetes neuropathy reflux stomach ulcer chicken pox High blood pressure Surgical History Surgery Date(Month/Year) gall bladder 07/08/2000 appendectomy 5th lumbar 08/10/2000
--- OUTSIDE RECORDS SUMMARY | 2024-10-08 21:17 | XMS_ITS | Patient Health Record ---
Author Organization [facility] Address [address] [place] [address] Care Team Providers Care Supervisor Tellers Name Role Phone Hector Padron MD Primary Care Provider Unavailab Hector Wisdom Unavailable [phone] Reason For Referral No Information Medications Medication SIG (Take, Route, Fr equency, Duration) Notes Start Date End Date Status Vitamin D2 1.25 1 tablet Orally Once a week Active risperiDONE 0.5 MG 1 tablet Orally Once a day Active valACYclovir HCl 500 MG 2 tablets Orally QD Active FLUoxetine HCl 60 MG 1 tablet Orally Once a day Active clonazePAM 1mg 1 tablet Orally once a day Active Mirtazapine 45 MG 1 tablet at bedtime Orally Once a day Active Simvastatin 10mg 1 tablet in the even ing Orally Once a day Active Lisinopril 5 MG 1 tablet Orally Once a day Active Immunizations Vaccine Route Administration Date Status Comme nts Flu vaccine no Preserv 3 and > Unknown 12/28/2015 Admin istered Problems Problem Type SNOMED Code ICD Code Onset Dates Problem Status W/U Status Risk Notes Problem 906118526 Encounter for screening for malignant neoplasm of colon (Z12.11) Active confirmed Problem 265628016 History of adenomatous polyp of colon (Z86.010) Active confirmed Problem Screening for malignant neoplasm of rectum (101248790) Encounter for screening for malignant neoplasm of rectum (Z12.12) Active confirmed Problem 068829158 Family history o f colon cancer (Z80.0) Active confirmed Problem 27581863 Irritable bowel syndrome with both constipation and diarrhea (K58.2) Active confirmed Plan Of Treatment Future Test Test Name Order Date COLONOSCOPY 02/10/2011 COLONOSCOPY 06/28/2016 Insurance Providers Payer Name Payer Address Payer Phone Subscriber Number Group Number Insured Name Patient Relationship to Insured Coverage Start Date Coverage End Date MEDICARE OF [place] [address] [place] [address] [id number] NAIMAANANTH CISNEROSEL Self - patient is the insured [employer] CLAIMS [address] [place] [address] [phone] [id number] ERI HODGE Self - patient is the insured Medical (General) History Medical History History ICD Code Colonoscopy 03/29/2011--small tubular josette nomas removed EGD 01/20/2010--biopsies wer e negative for celiac disease and H. pylori--no esophagitis nor Mckeon's esophagus IBS GERD--EGD as above PUD He has been treated for Helicobacter in the past Depression/anxiety--he sees Dr. Micah samuel at [facility] [place] Pulmonary embolus and pneumonia in 2010 Denies [place], stroke, asthma, nor kidney di sease NIDDM Surgical History Surgery Date(Month/Year) back surgery cholecystectomy
[2024-10-08 22:00] VITALS: BP 137/52; PULSE 71; RESP 26; TEMP 36.3; O2SAT 100
[2024-10-08 22:13] LABS: Glucose, Whole Blood 123 mg/dL (60-115)
--- NOTE | 2024-10-08 23:12 | PC.NURSE ---
pt rectal temp 100 degrees, provider Maddie Vinson aware.
--- NOTE | 2024-10-08 23:18 | MHC.EDTECH ---
patient incontinent of a stool and urine full bed change
[2024-10-08 23:40] VITALS: TEMP 37.8
[2024-10-09] VITALS (8 sets, daily range): BP systolic 114–140; BP diastolic 48–57; PULSE 67–78; RESP 16–24; TEMP 36.1–38.1; O2SAT 95–100
--- NOTE | 2024-10-09 01:31 | PC.NURSE ---
aware of pt temp of 100.6. no new orders at this time
--- NOTE | 2024-10-09 02:23 | ED.FALL ---
HPI - Fall General Chief Complaint: Fall Stated Complaint: fall, headstrike 3hours on floor, any Time Seen by Provider: 10/09/24 02:08 Source: patient Mode of arrival: ambulatory Limitations: no limitations History of Present Illness ED Provider: Dr. Maddie Vinson HPI Narrative: Patient comes to the emergency room complaining a fall. Patient states that earlier today he was at home sitting in the kitchen table, patient states that he has to the up and collapsed to the floor. Patient did not pass out, patient states that his legs were too weak. Patient states that he tried getting up but he was too weak. Patient has a life Alert but states that earlier today when he was taking a shower, he took it off and left than in the bathroom. Later in the day, he was found on the floor by a friend. Patient denies hitting his head or losing consciousness. Patient states that he landed on his buttocks. Patient denies any lower back pain. Patient denies any recent URI or UTI symptoms. Related Data Home Medications ?Medication ?Instructions ?Recorded ?Confirmed blood sugar diagnostic #10 ea 10/08/20 08/10/22 clonazepam 2 mg tablet 4 mg PO BEDTIME PRN Anxiety 10/08/20 10/09/24 fluoxetine 20 mg capsule 20 mg PO DAILY 10/08/20 10/09/24 fluoxetine 40 mg capsule 40 mg PO DAILY 10/08/20 10/09/24 lancets #100 ea 10/08/20 08/10/22 lisinopril 5 mg tablet 5 mg PO DAILY 10/08/20 10/09/24 mirtazapine 45 mg tablet 45 mg PO BEDTIME 10/08/20 10/09/24 risperidone 0.5 mg tablet 1 mg PO BEDTIME 10/08/20 10/09/24 simvastatin 10 mg tablet 10 mg PO BEDTIME 10/08/20 10/09/24 valacyclovir 500 mg tablet 500 mg PO DAILY 10/08/20 10/09/24 ergocalciferol (vitamin D2) 1,250 1,250 mcg PO DURAN@1000 08/10/22 10/09/24 mcg (50,000 unit) capsule [id number] 300 mcg-K 60 1 tab PO DAILY 08/10/22 10/09/24 mcg-lycop 600 mcg-lutein 300 mcg tablet (Centrum Silver Men) Previous Rx's ?Medication ?Instructions ?Recorded mirabegron 25 mg tablet,extended 25 mg PO DAILY 30 days #30 tabs 08/06/24 release 24 hr (Myrbetriq) Allergies Allergy/AdvReac Type Severity Reaction Status Date / Time No Known Allergies Allergy Verified 10/08/24 18:44 Review of Systems Review of Systems: Constitutional : No Weight loss, No Fever, No Chills, No Night Sweats, No Fatigue, No Malaise, complaining of generalized weakness ENT/Mouth : No Hearing loss, No Ear Pain, No Nasal Congestion, No Sinus Pain, No Hoarseness, No sore throat, No Rhinorrhea, No Swallowing Difficulty Eyes: No Eye Pain, No Swelling, No Redness, No Foreign Body, No Discharge, No Vision Changes Cardiovascular : No Chest Pain, No SOB, No Dyspnea on Exertion, No Orthopnea, No Edema, No Palpitations Respiratory : No Cough, No Sputum, No Wheezing, No Smoke Exposure, No Dyspnea Gastrointestinal : No Nausea, No Vomiting, No Diarrhea, No Constipation, No abdominal Pain, No Hematochezia, No Melena Genitourinary : no irregular bleeding, No Dysuria, No Urinary Frequency, No Hematuria, No Urinary Incontinence, No Urgency, No Flank Pain, No Urinary Flow Changes, No Hesitancy Musculoskeletal : No joint pain, No Myalgias, No Joint Swelling Skin : No Skin Lesions, No rash Neuro : No Weakness, No Numbness, No Paresthesias, No Loss of Consciousness, No Dizziness, No Headache Psych : No Anxiety/Panic, No Depression, No SI/HI/AH/VH, No Social Issues, Heme/Lymph: No Bruising, No Bleeding,No Lymphadenopathy Endocrine : No Polyuria, No Polydipsia, No Temperature Intolerance [facility] Past Medical History Medical History Anxiety and depression Hyperlipidemia Hypertension Surgical History Hx of cholecystectomy Social History Social History Household Members: None Housing: Condominium Do you presently have visiting nurse or other home services: No Alcohol intake: never Patient Tobacco Use Status: Never used Tobacco Smoked in Last 30 Days: No Use of substances other than those prescribed or required for medical reasons: No Advance Directives: Yes Advance Directives on File: Yes Advance Directives Date on File: 08/11/22 Do you have a plan to hurt others: No Plan service: No Current occupational status: retired Physical Exam Vital Signs: Vital Signs: Last Vital Signs Temp 97.1 F 10/10/24 14:00 Pulse 71 10/10/24 14:00 Resp 18 10/10/24 14:00 BP 137/58 L 10/10/24 14:00 Pulse Ox 99 10/10/24 14:00 O2 Del Method Room Air 10/10/24 14:00 BMI result Body Mass Index 27.7 Const: Other: Appearance: Alert. Oriented X3. No acute distress. Eyes: Pupils equal, round and reactive to light. ENT: Pharynx normal. Neck: Normal inspection. Neck supple. No lymph nodes noted. No crepitus CVS: Normal heart rate and rhythm. Pulses normal. Normal S1 and S2 Respiratory: No respiratory distress. Breath sounds normal. No Wheezing. No rales Abdomen: Soft and nontender. No rigidity. No distention. Skin: Skin warm and dry. Normal skin color. Normal skin turgor. Extremities: No lower extremity edema. No Lacerations. No Rash. Patient has a really hard time trying to get up, even sitting up his difficult for him Neuro: Oriented X 3. No motor deficit. No sensory deficit. Moving all extremities. No slurred speech. CN 2 through 12 grossly intact Psych: calm, cooperative, normal affect Course Course Course Narrative: Patient lives with his significant other. Patient states that he has a very hard time getting up and walking. Labs and imaging pending. 10/09/2024 Kelley Padilla PA-C ---> Patient remains in observation. Patient's total CK elevated at 911. 2 liters of fluid ordered, will repeat. Case management continues to follow. Reevaluation(s) Reevaluation #1: 7:56 PM 10/09/2024 (Prerna MARIN): RN approach this provider regarding patient's appropriateness for placement in overflow holding, per chart review the patient was placed in case management observation status for fall and weakness, was found to have an elevated CK at 900 upon arrival, today at noon the CK was repeated and was 1396, the patient received 2 L of fluid with plan to repeat CK [facility], at 1445 CK had downtrended to 1241. This provider took over care of the patient at approximately 18:00 hours, prior to clearing for overflow holding a repeat chemistry was obtained which shows no evidence of renal impairment. Given the patient's downtrending CK and no evidence of worsening renal function there is no indication for additional intervention and the patient is medically cleared cleared for transfer to the overflow holding area. Reevaluation #2: Time: 08:27 Date: 10/10/24 Provider: Pretty Sandoval CNP Patient in physician observation for case management needs. No acute events reported overnight.? CPK yesterday was downtrending without evidence of LORE, was medically cleared as mentioned above, out of caution will repeat BMP and CPK this morning. VS stable. Will continue to monitor. -- no LORE, CBC a continuously downtrending. Physical therapy has not been involved in care, patient does not feel as though he requires any services at this time would like to be discharged home which I feel is reasonable. In physician observation time 16:32 on 10/10/2024 Medications Administered Generic Name Dose Route Start Last Admin Trade Name Freq PRN Reason Stop Dose Admin Atorvastatin Calcium 10 mg 10/09/24 03:48 10/09/24 21:12 Atorvastatin Calcium 10 Mg Tablet PO 10 mg BEDTIME LUCI Administration Clonazepam 4 mg 10/09/24 03:38 10/09/24 04:03 Clonazepam 1 Mg Tablet PO 4 mg BEDTIME PRN Administration Anxiety Fluoxetine HCl 60 mg 10/09/24 09:00 10/10/24 09:24 Fluoxetine Hcl 20 Mg Capsule PO 60 mg DAILY LUCI Administration Lisinopril 5 mg 10/09/24 09:00 10/10/24 09:25 Lisinopril 5 Mg Tablet PO 5 mg DAILY LUCI Administration Protocol Mirabegron 25 mg 10/09/24 09:00 10/10/24 09:23 Mirabegron 25 Mg Tab.Er.24h PO 25 mg DAILY LUCI Administration Mirtazapine 45 mg 10/09/24 03:45 10/09/24 21:12 Mirtazapine 15 Mg Tablet PO 45 mg BEDTIME LUCI Administration Risperidone 1 mg 10/09/24 03:45 10/09/24 21:12 Risperidone 1 Mg Tablet PO 1 mg BEDTIME LUCI Administration Valacyclovir HCl 500 mg 10/09/24 09:00 10/10/24 09:25 Valacyclovir Hcl 500 Mg Tablet PO 500 mg DAILY LUCI Administration Discontinued Medications Generic Name Dose Route Start Last Admin Trade Name Dieudonne PRN Reason Stop Dose Admin Acetaminophen 975 mg 10/09/24 04:47 10/09/24 04:55 Acetaminophen 325 Mg Tablet PO 10/09/24 04:48 975 mg ONCE ONE Administration Sodium Chloride 1,000 mls @ 999 mls/hr 10/09/24 08:45 10/09/24 12:08 Ns IV 10/09/24 10:45 Infused .Q1H1M LUCI Infusion Medical Decision Making Medical Decision Making [facility] Narrative: My interpretation of labs: Patient's hematology shows a white blood cell count of 12.3, likely reactive leukocytosis, chemistry within normal limits, LFTs normal, CPK elevated 911 without any renal dysfunction. Urinalysis negative CT scan of the head and neck did not show any acute abnormality. From earlier today the patient had a fever of 100.6. Unclear source. Patient denies URI or UTI symptoms. We will obtain a chest x-ray to rule out pneumonia and serology test to rule out COVID/influenza/RSV Patient was complaining of thirst. I gave the patient a cup of water, it is noted that patient has significant intention tremor. Patient had a very hard time trying to drink water, he needed assistance guiding his hand on the cup towards his mouth. Chest x-ray pending Differential Diagnosis Differential Diagnoses: The differential diagnosis associated with the presentation includes (UTI, deconditioning) Admission/Observation Consideration of admission/observation: Escalation of care including admission/observation considered (Patient is under physician observation waiting to be seen by the care team) Lab Data [facility] Lab Attestation statement: I reviewed the patient's lab results. 10/08/24 19:11 10/10/24 11:59 Labs: Lab Results 10/08/24 10/08/24 10/08/24 Range/Units 19:11 20:30 22:10 WBC 12.3 H (4.8-10.8) X10*3/uL RBC 4.18 L (4.60-5.80) X10*6/uL Hgb 13.5 L (14.0-18.0) g/dl Hct 36.8 L (42.0-52.0) % MCV 88.0 (80.0-98.0) fL MCH 32.3 (27.0-33.0) pg MCHC 36.7 H (31.0-36.0) g/dl RDW 12.3 (11.0-16.0) % Plt Count 177 (160-400) X10*3/uL MPV 8.7 L (9.4-12.4) fL Immature Gran % (Auto) 0.5 H (0.0-0.4) % Neut % (Auto) 84.2 H (45-73) % Lymph % (Auto) 7.6 L (20-40) % [place] % (Auto) 7.5 (2-11) % Eos % (Auto) 0.0 (0-4) % Baso % (Auto) 0.2 (0-2) % Lymph # (Auto) 0.9 L (1.2-4.9) X10*3/uL [place] # (Auto) 0.9 (0.1-1.2) X10*3/uL Eos # (Auto) 0.0 (0.0-0.4) X10*3/uL Baso # (Auto) 0.0 (0.0-0.2) X10*3/uL Abs Immat Gran (auto) 0.06 H (0.00-0.03) X10*3/uL Absolute Neuts (auto) 10.3 H (2.0-8.3) x10*3/uL Absolute Nucleated RBC 0.000 (0.0-0.012) X10*3/uL Nucleated RBC % (auto) 0.0 (0.0-0.2) /100WBC Sodium 142 (135-145) mmol/L Potassium 3.9 (3.3-5.1) mmol/L Chloride 111 H (96-108) mmol/L Carbon Dioxide 20 L (22-29) mmol/L Anion Gap 15 (12-20) BUN 20 H (9-16) mg/dL Creatinine 1.19 (0.5-1.4) mg/dL Estim Creat Clear Calc 52.5 Estimated GFR 59 POC Glucose 123 H (60-115) mg/dL Random Glucose 112 (60-115) mg/dL Calcium 9.4 (8.4-10.2) mg/dL Total Bilirubin 0.9 (0.0-1.0) mg/dL AST 31 (5-37) U/L ALT 15 (0-40) U/L Alkaline Phosphatase 108 (39-117) U/L Total Creatine Kinase 911 H (38-174) U/L Troponin I High Sens 6.7 D (<3.5-35.0) ng/L Total Protein 6.3 L (6.5-8.0) g/dL Albumin 4.3 (3.5-5.0) g/dL Urine Color Yellow Urine Appearance Clear Urine pH >= 9.0 (5.0-9.0) Ur Specific [place] 1.010 (1.005-1.025) Urine Protein Negative (Neg-Trace) mg/dL Urine Glucose (UA) Negative (Negative) mg/dL Urine Ketones 40 (Negative) mg/dL Urine Blood Large (3+) H (Negative) Urine Nitrite Negative (Negative) Ur Leukocyte Esterase Negative (Negative) Urine RBC >20 H (0-2) /HPF Urine WBC 0-5 (0-5) /HPF Ur Squamous Epith Cells 0-2 (0-2) /HPF Urine Bacteria None Seen (None Seen) Hyaline Casts 0-2 (0-2) /LPF Influenza Type A (PCR) (Negative) Influenza Type B (PCR) (Negative) RSV RNA Qual (PCR) (Negative) SARS-CoV-2 RNA (RT-PCR) (Negative) 10/09/24 10/09/24 10/09/24 Range/Units 02:20 08:20 12:05 WBC (4.8-10.8) X10*3/uL RBC (4.60-5.80) X10*6/uL Hgb (14.0-18.0) g/dl Hct (42.0-52.0) % MCV (80.0-98.0) fL MCH (27.0-33.0) pg MCHC (31.0-36.0) g/dl RDW (11.0-16.0) % Plt Count (160-400) X10*3/uL MPV (9.4-12.4) fL Immature Gran % (Auto) (0.0-0.4) % Neut % (Auto) (45-73) % Lymph % (Auto) (20-40) % [place] % (Auto) (2-11) % Eos % (Auto) (0-4) % Baso % (Auto) (0-2) % Lymph # (Auto) (1.2-4.9) X10*3/uL [place] # (Auto) (0.1-1.2) X10*3/uL Eos # (Auto) (0.0-0.4) X10*3/uL Baso # (Auto) (0.0-0.2) X10*3/uL Abs Immat Gran (auto) (0.00-0.03) X10*3/uL Absolute Neuts (auto) (2.0-8.3) x10*3/uL Absolute Nucleated RBC (0.0-0.012) X10*3/uL Nucleated RBC % (auto) (0.0-0.2) /100WBC Sodium (135-145) mmol/L Potassium (3.3-5.1) mmol/L Chloride (96-108) mmol/L Carbon Dioxide (22-29) mmol/L Anion Gap (12-20) BUN (9-16) mg/dL Creatinine (0.5-1.4) mg/dL Estim Creat Clear Calc Estimated GFR POC Glucose 100 (60-115) mg/dL Random Glucose (60-115) mg/dL Calcium (8.4-10.2) mg/dL Total Bilirubin (0.0-1.0) mg/dL AST (5-37) U/L ALT (0-40) U/L Alkaline Phosphatase (39-117) U/L Total Creatine Kinase 1396 H (38-174) U/L Troponin I High Sens (<3.5-35.0) ng/L Total Protein (6.5-8.0) g/dL Albumin (3.5-5.0) g/dL Urine Color Urine Appearance Urine pH (5.0-9.0) Ur Specific [place] (1.005-1.025) Urine Protein (Neg-Trace) mg/dL Urine Glucose (UA) (Negative) mg/dL Urine Ketones (Negative) mg/dL Urine Blood (Negative) Urine Nitrite (Negative) Ur Leukocyte Esterase (Negative) Urine RBC (0-2) /HPF Urine WBC (0-5) /HPF Ur Squamous Epith Cells (0-2) /HPF Urine Bacteria (None Seen) Hyaline Casts (0-2) /LPF Influenza Type A (PCR) NEGATIVE (Negative) Influenza Type B (PCR) NEGATIVE (Negative) RSV RNA Qual (PCR) NEGATIVE (Negative) SARS-CoV-2 RNA (RT-PCR) NEGATIVE (Negative) 10/09/24 10/09/24 10/10/24 Range/Units 14:45 18:28 08:10 WBC (4.8-10.8) X10*3/uL RBC (4.60-5.80) X10*6/uL Hgb (14.0-18.0) g/dl Hct (42.0-52.0) % MCV (80.0-98.0) fL MCH (27.0-33.0) pg MCHC (31.0-36.0) g/dl RDW (11.0-16.0) % Plt Count (160-400) X10*3/uL MPV (9.4-12.4) fL Immature Gran % (Auto) (0.0-0.4) % Neut % (Auto) (45-73) % Lymph % (Auto) (20-40) % [place] % (Auto) (2-11) % Eos % (Auto) (0-4) % Baso % (Auto) (0-2) % Lymph # (Auto) (1.2-4.9) X10*3/uL [place] # (Auto) (0.1-1.2) X10*3/uL Eos # (Auto) (0.0-0.4) X10*3/uL Baso # (Auto) (0.0-0.2) X10*3/uL Abs Immat Gran (auto) (0.00-0.03) X10*3/uL Absolute Neuts (auto) (2.0-8.3) x10*3/uL Absolute Nucleated RBC (0.0-0.012) X10*3/uL Nucleated RBC % (auto) (0.0-0.2) /100WBC Sodium 142 (135-145) mmol/L Potassium 3.9 (3.3-5.1) mmol/L Chloride 115 H (96-108) mmol/L Carbon Dioxide 21 L (22-29) mmol/L Anion Gap 10 L (12-20) BUN 22 H (9-16) mg/dL Creatinine 0.97 (0.5-1.4) mg/dL Estim Creat Clear Calc 64.4 Estimated GFR > 60 POC Glucose 84 (60-115) mg/dL Random Glucose 102 (60-115) mg/dL Calcium 8.2 L D (8.4-10.2) mg/dL Total Bilirubin (0.0-1.0) mg/dL AST (5-37) U/L ALT (0-40) U/L Alkaline Phosphatase (39-117) U/L Total Creatine Kinase 1241 H (38-174) U/L Troponin I High Sens (<3.5-35.0) ng/L Total Protein (6.5-8.0) g/dL Albumin (3.5-5.0) g/dL Urine Color Urine Appearance Urine pH (5.0-9.0) Ur Specific [place] (1.005-1.025) Urine Protein (Neg-Trace) mg/dL Urine Glucose (UA) (Negative) mg/dL Urine Ketones (Negative) mg/dL Urine Blood (Negative) Urine Nitrite (Negative) Ur Leukocyte Esterase (Negative) Urine RBC (0-2) /HPF Urine WBC (0-5) /HPF Ur Squamous Epith Cells (0-2) /HPF Urine Bacteria (None Seen) Hyaline Casts (0-2) /LPF Influenza Type A (PCR) (Negative) Influenza Type B (PCR) (Negative) RSV RNA Qual (PCR) (Negative) SARS-CoV-2 RNA (RT-PCR) (Negative) 10/10/24 Range/Units 11:59 WBC (4.8-10.8) X10*3/uL RBC (4.60-5.80) X10*6/uL Hgb (14.0-18.0) g/dl Hct (42.0-52.0) % MCV (80.0-98.0) fL MCH (27.0-33.0) pg MCHC (31.0-36.0) g/dl RDW (11.0-16.0) % Plt Count (160-400) X10*3/uL MPV (9.4-12.4) fL Immature Gran % (Auto) (0.0-0.4) % Neut % (Auto) (45-73) % Lymph % (Auto) (20-40) % [place] % (Auto) (2-11) % Eos % (Auto) (0-4) % Baso % (Auto) (0-2) % Lymph # (Auto) (1.2-4.9) X10*3/uL [place] # (Auto) (0.1-1.2) X10*3/uL Eos # (Auto) (0.0-0.4) X10*3/uL Baso # (Auto) (0.0-0.2) X10*3/uL Abs Immat Gran (auto) (0.00-0.03) X10*3/uL Absolute Neuts (auto) (2.0-8.3) x10*3/uL Absolute Nucleated RBC (0.0-0.012) X10*3/uL Nucleated RBC % (auto) (0.0-0.2) /100WBC Sodium 141 (135-145) mmol/L Potassium 3.8 (3.3-5.1) mmol/L Chloride 113 H (96-108) mmol/L Carbon Dioxide 22 (22-29) mmol/L Anion Gap 10 L (12-20) BUN 19 H (9-16) mg/dL Creatinine 0.97 (0.5-1.4) mg/dL Estim Creat Clear Calc 64.4 Estimated GFR > 60 POC Glucose (60-115) mg/dL Random Glucose 109 (60-115) mg/dL Calcium 8.5 (8.4-10.2) mg/dL Total Bilirubin (0.0-1.0) mg/dL AST (5-37) U/L ALT (0-40) U/L Alkaline Phosphatase (39-117) U/L Total Creatine Kinase 566 H (38-174) U/L Troponin I High Sens (<3.5-35.0) ng/L Total Protein (6.5-8.0) g/dL Albumin (3.5-5.0) g/dL Urine Color Urine Appearance Urine pH (5.0-9.0) Ur Specific [place] (1.005-1.025) Urine Protein (Neg-Trace) mg/dL Urine Glucose (UA) (Negative) mg/dL Urine Ketones (Negative) mg/dL Urine Blood (Negative) Urine Nitrite (Negative) Ur Leukocyte Esterase (Negative) Urine RBC (0-2) /HPF Urine WBC (0-5) /HPF Ur Squamous Epith Cells (0-2) /HPF Urine Bacteria (None Seen) Hyaline Casts (0-2) /LPF Influenza Type A (PCR) (Negative) Influenza Type B (PCR) (Negative) RSV RNA Qual (PCR) (Negative) SARS-CoV-2 RNA (RT-PCR) (Negative) Independent Interpretation I performed an independent interpretation of an: CT Scan Radiology Impression Discussion of test interpretation with radiology: I have reviewed the radiologist's reading. Radiologist Impression: No evidence for mass or mass effect. No intracranial hemorrhage or abnormal extra-axial fluid collection. The ventricles are proportional with the degree of moderate global cerebral volume loss without evidence of hydrocephalus. Basilar cisterns are patent. Posterior fossa appears unremarkable. No evidence of acute injury to the cervical spine. Critical Care Time Critical Care Time Critical Care Time: Yes Total Critical Care Time: 35 Attestation: I have personally provided critical care time. Time includes review of lab data, radiology results, discussion with consultants, and monitoring for potential decompensation. Intervention performed as documented. Discharge Plan Discharge Clinical Impression: Fall, Generalized weakness Patient Disposition: Home, Self-Care Prescriptions: No Action ergocalciferol (vitamin D2) 1,250 mcg (50,000 unit) capsule 1,250 mcg PO DURAN@1000 Centrum Silver Men 300-600-300 mcg Tablet 1 tab PO DAILY fluoxetine 20 mg capsule 20 mg PO DAILY clonazepam 2 mg tablet 4 mg PO BEDTIME PRN (Reason: Anxiety) (DME) blood sugar diagnostic Strip See Rx Instructions Not Applicable DAILY Qty: 10 Rx Instructions: As directed fluoxetine 40 mg capsule 40 mg PO DAILY lisinopril 5 mg tablet 5 mg PO DAILY valacyclovir 500 mg tablet 500 mg PO DAILY simvastatin 10 mg tablet 10 mg PO BEDTIME (DME) lancets Misc See Rx Instructions Not Applicable DAILY Qty: 100 Rx Instructions: As directed mirtazapine 45 mg tablet 45 mg PO BEDTIME risperidone 0.5 mg tablet 1 mg PO BEDTIME mirabegron [Myrbetriq] 25 mg tablet extended release 24 hr 25 mg PO DAILY 30 Days Qty: 30 2RF Referrals: Hector Padron MD [Primary Care Provider, Internal Medicine] Print Language: Kyrgyz
--- NOTE | 2024-10-09 02:41 | PC.NURSE ---
this rn at bedside, med rec completed with pt at this time, all medications and doses verified. aware
[2024-10-09 03:01] LABS: Resp Syncy Virus RNA Qual PCR NEGATIVE (Negative); SARS COV2 PCR INHOUSE NEGATIVE (Negative)
--- NOTE | 2024-10-09 04:08 | PC.NURSE ---
pt medicated per, tolerated whole well with water
--- NOTE | 2024-10-09 04:46 | PC.NURSE ---
pt placed onto hospital bed for comfort at this time.
--- NOTE | 2024-10-09 04:49 | PC.NURSE ---
provider aware of pt rectal temp, verbal order for po tylenol placed at this time.
[2024-10-09 08:24] LABS: Glucose, Whole Blood 100 mg/dL (60-115)
--- NOTE | 2024-10-09 08:24 | PC.NURSE ---
contacted pharmacy via tiger text for missing medication
--- NOTE | 2024-10-09 09:54 | PC.NURSE ---
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
--- NOTE | 2024-10-09 10:26 | PC.NURSE ---
HCP/Girlfriend number Florin- [phone] please call with PT/CM updates as to services or rehab.
--- NOTE | 2024-10-09 12:28 | MHC.CM.ED ---
Addendum entered by Kerry Lui 10/09/24 15:33: Patient's girlfriend, Saima, updated via telephone at [phone]. Original Note: Received case management consult overnight. Patient came to the ER after a fall. Physical therapy eval completed. Rehab is recommended. Patient has not been inpatient in any facility in the past 30 days. Referral made to all 3 acute rehab facilities. [facility] are unable to offer a bed. [facility] still reviewing but requesting physical therapy re-see patient because he was not able to participate much. Met with patient in regards to discharge planning. Patient lives alone, ambulates independently and had no services prior to coming to the hospital. PCP verified. HCP verified to be on file. Patient reports being at [facility] in the past and not wanting to return there. Patient made aware Medicare would not cover SNF placement at this time due to no qualifying hospital stay. Also explained physical therapy would see patient again tomorrow and encouraged him to participate. Patient verbalized understanding. Continue to monitor for d/c needs.
--- NOTE | 2024-10-09 18:40 | PC.NURSE ---
repeat labwork obtained
[2024-10-09 18:49] LABS: Anion Gap 10 (12-20); Blood Urea Nitrogen 22 mg/dL (9-16); Calcium 8.2 mg/dL (8.4-10.2); Carbon Dioxide 21 mmol/L (22-29); Chloride 115 mmol/L (96-108); Creatinine Clr Calc Pharmacy 64.4; Estimated Glomerular Filt Rate > 60; Potassium 3.9 mmol/L (3.3-5.1); Sodium 142 mmol/L (135-145)
--- NOTE | 2024-10-09 20:01 | PC.NURSE ---
Nurse to nurse report called to ED overflow, spoke to SUZIE Westbrook. Patient to be transferred to OF bed 6 by fire technology instructor.
--- NOTE | 2024-10-09 20:22 | PC.NURSE ---
assumed care for pt at this time. pt awake and alert in stretcher in no notable distress. 22G IV in LFA patent and flushed with 10ml NS. updated pt on place of care, call delgado within reach. plan of care ongoing.
--- NOTE | 2024-10-09 21:13 | PHA.MEDREC ---
Addendum entered by Vish Orellana RPh 10/09/24 21:16: Reviewed by [facility] Original Note: Pharmacy Consult ? Medication Reconciliation Pharmacy has reviewed the medication reconciliation done by nursing. Spoke to patient and he confirmed he is on both Fluoxetine 40 and Fluoxetine 20 mg for a total dose = 60 mg daily.
--- NOTE | 2024-10-10 04:49 | PC.NURSE ---
assumed care at 2300 pt resting comfortably in bed no pain reported safety check done.
[2024-10-10 06:00] VITALS: BP 144/68; PULSE 68; RESP 14; TEMP 35.7; O2SAT 99
--- NOTE | 2024-10-10 07:13 | PC.NURSE ---
Addendum entered by Camryn Urias RN 10/10/24 09:05: Patient comes to the emergency room complaining a fall. Patient states that earlier today he was at home sitting in the kitchen table, patient states that he has to the up and collapsed to the floor. Patient did not pass out, patient states that his legs were too weak. Patient states that he tried getting up but he was too weak. Patient has a life Alert but states that earlier today when he was taking a shower, he took it off and left than in the bathroom. Later in the day, he was found on the floor by a friend. Patient alert and cooperative. Flat affect noted. Lungs clear bilat. Respirations even and non-labored. Abdomen soft, non-tender with positive bowel sounds. Positive pedal pulses with no edema. Original Note: Medical History Anxiety and depression Hyperlipidemia Hypertension
[2024-10-10 08:16] LABS: Glucose, Whole Blood 84 mg/dL (60-115)
--- NOTE | 2024-10-10 09:07 | PC.NURSE ---
PT at the bedside.
--- NOTE | 2024-10-10 09:39 | PC.NURSE ---
PT at the bedside. Patient able to ambulate in the fall utilizing a walker. Incontinent of urine. Incontinence care and bed change provided.
--- NOTE | 2024-10-10 12:17 | MHC.CM.PN ---
Addendum entered by Esperanza Walsh 10/10/24 16:42: PT AWARE THERE WERE NO BED OFFERS FROM [facility] HE REPORTS HE HAS BEEN UP WALKING TODAY AND DOES NOT FEEL HE NEEDS HOME SERVICES PROVIDER AWARE PT TO DC HOME TODAY WITH NO SERVICES VIA PRIVATE TRANSPORT Original Note: [facility] HAS DECLINED REFERRAL STATING PT DOES NOT MEET LOC THEY ARE WILLING TO REASSESS IF PT HAS A NEURO CONSULT PROVIDER MADE AWARE
[2024-10-10 12:22] LABS: Anion Gap 10 (12-20); Blood Urea Nitrogen 19 mg/dL (9-16); Calcium 8.5 mg/dL (8.4-10.2); Carbon Dioxide 22 mmol/L (22-29); Chloride 113 mmol/L (96-108); Creatinine Clr Calc Pharmacy 64.4; Estimated Glomerular Filt Rate > 60; Potassium 3.8 mmol/L (3.3-5.1); Sodium 141 mmol/L (135-145)
[2024-10-10 14:00] VITALS: BP 137/58; PULSE 71; RESP 18; TEMP 36.2; O2SAT 99
[2024-10-10 18:51] VITALS: BP 113/46; PULSE 76; RESP 16; TEMP 36.5; O2SAT 97
[2024-10-10 19:27] VITALS: BP 142/67; PULSE 75; RESP 20; TEMP 36.6; O2SAT 99
[2024-10-10 19:58] VITALS: BP 114/43; PULSE 75; RESP 20; TEMP 36.1; O2SAT 96
--- NOTE | 2024-10-10 20:19 | PC.NURSE ---
Assumed care of this patient at 19:00. Patient seen in ED overflow. A&Ox4. Pt denies pain or other acute issues or complaints for this com writer. Breathing is even and unlabored without distress on room air. VSS. Pt ambulating in the núñez with a walker to the bathroom, observed and steady without issue. Wheelchair obtained per pt's family request to transport to care. Patient transported by pc network technician via wheelchair alongside family in stable condition with all belongings.
== END 2024-10-10 19:58 | disposition home or self-care (01) ==
PROVIDERS: Nurse Practitioner Family; Physician Assistant; Physician Assistant Medical; Emergency Provider Emergency Medicine; PCP Internal Medicine Medical Oncology
DX: S09.90XA Unspecified injury of head, initial encounter (principal); R51.9 Headache, unspecified; M54.2 Cervicalgia; R26.2 Difficulty in walking, not elsewhere classified; R53.1 Weakness; W18.30XA Fall on same level, unspecified, initial encounter; Z91.81 History of falling; Y93.9 Activity, unspecified; Y92.9 Unspecified place or not applicable; Y99.8 Other external cause status; Z79.899 Other long term (current) drug therapy; Z03.818 Encounter for observation for suspected exposure to other biological agents ruled out
CPT/HCPCS: 36415; 70450; 71045; 72125; 80048; 80053; 81001; 82550; 82947; 84484; 85025; 87637; 93005; 96360; 96361; 97116; 97162; 97530; 99285

== ENCOUNTER → 2024-10-08 18:51 | Outpatient (BNV) | payer MEDICARE, SELFPAY | PROVIDERS: Visit Provider Radiology Diagnostic Radiology | DX: M54.2 Cervicalgia (principal); R55 Syncope and collapse | CPT/HCPCS: 70450; 72125 ==

== ENCOUNTER → 2024-10-08 18:57 | Outpatient (BNV) | payer MEDICARE, SELFPAY | PROVIDERS: Emergency Provider Emergency Medicine; Visit Provider Internal Medicine | DX: R94.31 Abnormal electrocardiogram [ECG] [EKG] (principal); W19.XXXA Unspecified fall, initial encounter | CPT/HCPCS: 93010 ==

== ENCOUNTER → 2024-10-09 00:52 | Outpatient (BNV) | payer MEDICARE, SELFPAY | PROVIDERS: Emergency Provider Emergency Medicine; Visit Provider Radiology Diagnostic Radiology | DX: S09.90XA Unspecified injury of head, initial encounter (principal); W19.XXXA Unspecified fall, initial encounter | CPT/HCPCS: 71045 ==

== ENCOUNTER 2024-11-07 13:46 | Outpatient (AMB) | payer MEDICARE, SELFPAY ==
--- OUTSIDE RECORDS SUMMARY | 2024-11-07 13:49 | XMS_ITS | Patient Health Record ---
Author Organization [facility] Address [address] [place] [address] Care Team Providers Care Crusher Plant Operator Name Role Phone Hector Padron MD Primary Care Provider Suzette Newton Unavailable [phone] Allergies No Known Allergies Results Component Value Reference Range Notes HEMOGLOBIN A1C (GLYCOHEMOGLO BIN) Reviewed date:05/02/2024 12:13:58 PM Interpretation: Performing Lab: Notes/Report: HEMOGLOBIN A1C % (HH) 5.4 Reason For Referral No Information Medications Medication SIG (Take, Route, Frequency, Duration) Notes Start Date End Date Status Metformin & Diet Manage Prod 500 MG as directed Orally Not-Takin g Vitamin D2 Active Dicyclomine HCl 10 MG 1 capsule Orally F our times a day; Duration: 30 day(s) Not-Taking Jublia 10 % as directed External ly Daily; Duration: 30 days 10/20/2022 Not-Taking Promethazine HCl 25 MG 1 tablet at bedti me Orally Once a day; Duration: 30 day(s) Not-Taking risperiDONE 0.5 MG 1 tablet Orally Once a day; Duration: 30 day(s) Not-Taking valACYclovir HCl 500 MG 1 tablet Orally every 12 hrs; Duration: 10 day(s) Not-Taking Simvastatin 10 MG 1 tablet every eveni ng Orally Once a day; Duration: 30 day(s) Not-Taking Lisinopril 5 MG 0.5 tablet Orally On ce a day; Duration: 30 day(s) Not-Taking Keflex 500 MG 1 capsule Orally alejandra ry 12 hrs; Duration: 5 days 10/20/2022 Not-Taking Ondansetron 4 MG as directed Orally Not-Taking FLUoxetine HCl 60 MG as directed Orally Once a day Not-Taking Extra-Depth Diabetic Shoes with 3 Pair Custom heat-molded multi-density innersoles . 1pair shoes/3sets inserts . .; Duration: 1 year Not-Taking Mirtazapine 45 MG 1 tablet before bedt tomas every evening Orally Once a day; Duration: 30 day(s) Not-Taking clonazePAM 2 MG 1 tablet at bedtime Orally Once a day Not-Taking Immunizations Vaccine Route Administration Date Status Comme [...] Disorder of joint of ankle and/or foot (897339964) Arthritis - Degenerative (719.97) Active confirmed Problem Neuralgia - Neuritis (729.2) Active confirmed Problem Bursitis (29186543) Bursitis (727.3) Active confirmed Problem Metatarsalgia (38100927) Metatarsalgia (726.70) Active confirmed Problem Pain in limb (34591645) Pain in Limb (729.5) Active confirmed Problem Neurologic disorder associated with type II diabetes mellitus (445250762) Diabetic - NIDDM/Neuropathy (250.60) Active confirmed Problem 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 Problem 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) Active confirmed Vital Signs Blood pressure diastolic 82 mm Hg 05/02/2024 Height 6 ft in 05/02/2024 Blood pressure systolic 140 mm Hg 05/02/2024 Weight 206 lbs 05/02/2024 BMI 27.94 kg/m2 05/02/2024 Encounters Encounter Location Date Provider Diagnosis [facility] [place] [address] [place] [address] 02/01/2024 Suzette Schmitz Type 2 diabetes mellitus with polyneuropathy E11.42 ; Tinea unguium B35.1 ; Metatarsalgia, left foot M77.42 and Metatarsalgia, right foot M77.41 [facility] [place] [address] [place] [address] 05/02/2024 Suzette Schmitz Type 2 diabetes mellitus with polyneuropathy E11.42 ; Contusion of right lesser toe(s) with damage to nail, initial encounter S90.221A ; Tinea unguium B35.1 ; Neuropathic ulcer of right foot with fat layer exposed L97.512 and Contusion of left lesser toe(s) without damage to nail, initial encounter S90.122A [facility] [address] [address] 10/10/2024 Suzette Schmitz Assessments Encounter Date Diagnosis (ICD Code) Assessment Notes Treatment Notes Treatment Clinical Notes Section Notes 02/01/2024 Tinea unguium (ICD-10 - B35.1) 02/01/2024 [...] X ray : Foot, right 2V 08/03/2011 93186-ZUCM SKIN LESIONS, 2 TO 4 08/03/19 12 Next Appt Details Provider Name:Suzette saini, 12/30/2024 01:30:00 PM, [address] [facility], [place], [address], Insurance Providers Payer Name Payer Address Payer Phone Subscriber Number Group Number Insured Name Patient Relationship to Insured Coverage Start Date Coverage End Date Medicare National [employer]t [employer] [address] [place] [address] [id number] Antoni Kent Self - patient is the insured [employer] [facility] [address] [place] [address] [id number] Antoni Kent Self - patient is the insured Medical (General) History Medical History History ICD Code anxiety back, hip, knee pain depression type I diabetes neuropathy reflux stomach ulcer chicken pox High blood pressure Surgical History Surgery Date(Month/Year) gall bladder 07/08/2000 appendectomy 5th lumbar 08/10/2000
--- OUTSIDE RECORDS SUMMARY | 2024-11-07 13:49 | XMS_ITS | Patient Health Record ---
Author Organization [facility] Address [address] [place] [address] Care Team Providers Care Doctor Of Naturopathic Medicine Name Role Phone Hector Padron MD Primary Care Provider Unavailab Hector Wisdom Unavailable [phone] Reason For Referral No Information Medications Medication [...] Problem Status W/U Status Risk Notes Problem 962027955 Encounter for screening for malignant neoplasm of colon (Z12.11) Active confirmed Problem 331193952 History of adenomatous polyp of colon (Z86.010) Active confirmed Problem Screening for malignant neoplasm of rectum (800142849) Encounter for screening for malignant neoplasm of rectum (Z12.12) Active confirmed Problem 208655844 Family history o f colon cancer (Z80.0) Active confirmed Problem 79315388 Irritable bowel syndrome with both constipation and diarrhea (K58.2) Active confirmed Plan Of Treatment Future Test Test Name Order Date COLONOSCOPY 02/10/2011 COLONOSCOPY 06/28/2016 Insurance Providers Payer Name Payer Address Payer Phone Subscriber Number Group Number Insured Name Patient Relationship to Insured Coverage Start Date Coverage End Date MEDICARE OF [place] [address] [place] [address] [id number] NAIMAANANTH CISNEROSEL Self - patient is the insured [employer] CLAIMS [address] [place] [address] [id number] ERI HODGE Self - patient is the insured Medical (General) History Medical History History ICD Code Colonoscopy 03/29/2011--small tubular josette nomas removed EGD 01/20/2010--biopsies wer e negative for celiac disease and H. pylori--no esophagitis nor Mckeon's esophagus IBS GERD--EGD as above PUD He has been treated for Helicobacter in the past Depression/anxiety--he sees Dr. Micah samuel at [facility] Pulmonary embolus and pneumonia in 2010 Denies VT, stroke, asthma, nor kidney di sease NIDDM Surgical History Surgery Date(Month/Year) back surgery cholecystectomy
--- NOTE | 2024-11-07 13:51 | A.OFFVIS_ITS ---
Intake Visit Reasons: 3m/PVR/UA Intake Note: Patient is present for 3 mo follow up Urology Medication:Merbetriq Antibiotic Allergy:NONE Blood Thinner:NONE PVR:76 mls Social Security Assessor Required: No Accompanied by: Self / Same As Patient Allergies No Known Allergies Allergy (Verified 11/07/24 13:52) HPI Comments Details: Antoni is a pleasant male. He is a patient of Dr. Padron. He is seen for the following urologic issues - lower urinary tract symptoms Three-month follow-up trial beta agonist Myrbetriq Over 75 so anticholinergics not recommended first-line per Beers criteria - Trial Myrbetriq Failed to respond to Myrbetriq Decreased fluid intake to 48 oz a day Timed voiding Cysto three-month Lower urinary tract symptoms Stable with current medications Prior PSA velocity movements PSA history baseline 0.85 - 05/16 0.97, 11/14 0.9, 04/17 1.3, 04/18 1.4 May follow-[facility] with [facility] Medical History Anxiety and depression Hyperlipidemia Hypertension Surgical History Hx of cholecystectomy Social History Household Members: None Housing: Condominium Do you presently have visiting nurse or other home services: No Alcohol intake: never Patient Tobacco Use Status: Never used Tobacco Advance Directives Date on File: 08/11/22 service: No Current occupational status: retired Review of Systems Const Denies chills and Denies fever(s) Card Reports no additional complaints and Denies syncope Resp Denies cough GI Denies abdominal pain and Denies heartburn Reports as per HPI and Denies change in libido Neuro Denies syncope Psych Denies change in libido Endo Denies change in libido Physical Exam Const General: cooperative, healthy appearing, comfortable and no acute distress Orientation/consciousness: patient oriented x3 HEENT Face and sinus: Yes normal facial exam Mouth: moist mucous membranes Neck Neck: Yes normal visual inspection, Yes full ROM and Yes trachea midline Chest Chest palpation & inspection: normal inspection of the chest Resp Effort & Inspection: normal respiratory effort, able to speak in complete sentences and no respiratory distress GI Inspection: Yes normal to inspection Back/Spine/Pelvis Cervical Spine: normal cervical lordosis Thoracic/Lumbar Spine: thoracic and lumbar spine normal to inspection Skin General skin exam: no rashes or lesions noted Neuro General: patient oriented x3, gait normal, tone normal and moves all extremities Extrem General: Yes normal to inspection and Yes capillary refill normal Assessment & Plan Assessment & Plan (1) Bladder instability: Code(s): N32.89 - Other specified disorders of bladder Category: Medical (2) Urge incontinence of urine: Code(s): N39.41 - Urge incontinence Category: Medical Plan Time voiding Fluid restriction Three-month follow-up cysto Medications: Discontinued mirabegron ER (Myrbetriq) Discontinued Reason: Doctor's Order 25 mg PO DAILY 30 days 30 tabs 2RF N32.89 - Other specified disorders of bladder Patient Instructions: This note is constructed using voice recognition software. While every effort has been made to ensure accuracy assisted living executive director errors may have been included. Imaging studies, laboratory and physical exam results were discussed and reviewed in detail. No major barriers to patient understanding were identified. An opportunity to ask questions regarding the treatment plan was provided. All questions were answered. The patient expressed understanding and agreement with the above treatment plan. The patient is aware they should contact our office by phone for worsening of their current condition or the appearance of new urologic symptoms. Compliance is encouraged with any medications and followup testing that is ordered. It is a privilege to participate in the urologic care of your patient. If you have any questions or concerns regarding treatment for the above conditions, or other urologic issues, please do not hesitate to contact me. The office telephone contact is [phone]. Sincerely, Dr Kody Garcia MD, [facility] - Urology Compassionate Specialist Care for the Genitourinary System Coding Level of Care Code Est Pt Level 3 (24116) Complex EM visit Add On G2211 Diagnoses Bladder instability N32.89 Urge incontinence of urine N39.41
== END 2024-11-07 14:20 | disposition home or self-care (01) ==
LOC: HO.HUSH 13:47
PROVIDERS: PCP Internal Medicine Medical Oncology; Visit Provider Urology
DX: N32.89 Other specified disorders of bladder (principal); N39.41 Urge incontinence; Z13.9 Encounter for screening, unspecified
CPT/HCPCS: 99213; G2211

== ENCOUNTER → 2024-11-07 13:46 | Outpatient (BNVA) | payer MEDICARE, SELFPAY | PROVIDERS: PCP Internal Medicine Medical Oncology; Visit Provider Urology | DX: N32.89 Other specified disorders of bladder (principal); N39.41 Urge incontinence | CPT/HCPCS: 51798; 81003; 99212 ==

== ENCOUNTER 2024-11-17 15:15 | Outpatient (AMB) | payer MEDICARE, SELFPAY ==
--- OUTSIDE RECORDS SUMMARY | 2024-04-21 10:30 | XMS_ITS ---
Author Organization Hector Padron III, MD Address [address] [place] [address] DR SAM Shreya DIN[place] [address] Care Team Providers Care Relay Shop Supervisor Name Role Phone Hector Padron Primary Care Provider [phone] Allergies Allergen (clinical drug ingredient) Drug/Non Drug [...] day Active Vitamin D (Ergocalciferol) 1.25 MG (85860 UT) TAKE 1 CAPSULE BY MOUTH ONE [...] Date Provider Diagnosis Hector Padron III, MD [address] [place] [address] DR [place], DINESH [phone] 04/21/2024 Hector Padron Depression F32.9 ; T [...] a day Vitamin D (Ergocalciferol) 1.25 MG (38690 UT) TAKE 1 CAPSULE BY MOUTH ONE [...] Up: 4 Months, Reason: ov Provider Name:Hector Padron, 12/17/2024 02:00:00 PM, [address] [place] [address] FLACO RANGEL, DINESH [place], [phone], Progress Notes * Antoni KENT MDOB:1940 (83 yo M)Acc No.[id number]:04/21/2024 Progress Notes Patient: Antoni GROSS Provider: Liv Padron MD :1940 A ge:83 Y S ex:Male Date:04/21/2024 Address:[address] [place] [address] [address] [phone] Subjective: * Chief Complaints: * D [...] No history * Hospitalization/Major Diagno stic Procedure: [facility], rhabdomyolysis, fell at home 08/10/2022No history [...] ggressive non-smoker Nevaeh angeles was born in [place], [place]. He has a son. He is retired from [employer]. He has a son, Lawrence Hardingjr. [facility] in [place]. One [facility]. * Medications: T akingAccu-Chek FastClix Lancets - Miscellaneous USE TO TEST BLOOD SUGAR ONCE DAILY , Notes to Pharmacist: E11.9 Type 2 diabetesMirtazapine 45 MG Tablet TAKE 1 TABLET BY MOUTH EVERYDAY AT BEDTIME Accu-Chek Laura Plus - Strip as directed In Vitro test blood sugars once a day , Notes to Pharmacist: E11.9 DiabetesVitamin D (Ergocalciferol) 1.25 MG (51677 UT) Capsule TAKE 1 CAPSULE BY MOUTH [...] E11.9 DiabetesTaking Vitamin D (Ergocalciferol) 1.25 MG (82843 UT) Capsule TAKE 1 CAPSULE BY MOUTH [...] 09:45 AM 08:34 AM Order Date 04/14/2024 12/10/202307/2907/30/2023 White Blood Count 5.6 (Ref Range: 4.8-10.8 [...] 0.000 (Ref Range: 0.0-0.012 X10*3/uL) * Lab:Deirdre Beard. Silas l Fast * Collection Date 04/14/2024 12/10/2023 [...] ontinue Vitamin D (Ergocalciferol) Capsule, 1.25 MG (24691 UT), TAKE 1 CAPSULE BY MOUTH ONE [...] MD Date: 0 04/21/2024 Generated for Daylin helm/Meghana/Kentonitting on: 0 11/17/2024 04:51 PM EDT History and Physical Notes * HPI [...]
--- OUTSIDE RECORDS SUMMARY | 2024-07-08 11:00 | XMS_ITS ---
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 Name Role Phone Hector Padron Primary Care [...] diabetes Active Vitamin D (Ergocalciferol) 1.25 MG (76231 UT) TAKE 1 CAPSULE BY MOUTH ONE [...] Problem Status W/U Status Risk Notes Problem [id number] Age-related cataract of both eyes, unspecified age-related [...] Date Provider Diagnosis Hector Padron III, MD [address] [place] [address] [place] [address] 07/08/2024 Hector Padron Depression F32.9 ; T [...] 2 diabetes Vitamin D (Ergocalciferol) 1.25 MG (11796 UT) TAKE 1 CAPSULE BY MOUTH ONE TIME PER WEEK Next Appt Details Follow Up: As Scheduled, Rhea son: OV Provider Name:Hector Padron, 12/17/2024 02:00:00 PM, [address] [place] [address] [address], [place], [address], Progress Notes * Antoni KENT MDOB:1940 (84 yo M)Acc No.[id number]:07/08/2024 Patient: Leslie SANDRA Antoni Salmeron Provider: Liv Padron MD :1940 A ge:84 Y S ex:Male Date:07/08/2024 Address:[address] [place] [address], [address] [place] [place] [phone] Subjective: * Chief Complaints: * P re-Op [...] No history * Hospitalization/Major Diagno stic Procedure: [facility], rhabdomyolysis, fell at home 08/10/2022No [...] ggressive non-smoker Nevaeh angeles was born in [place], [place]. He has a son. He is retired from [employer]. He has a son, Lawrence Harding jr. [employer] in [place]. One [facility]. * Medications: T akingAccu-Chek FastClix [...] EVERY DAY Vitamin D (Ergocalciferol) 1.25 MG (74576 UT) Capsule TAKE 1 CAPSULE BY MOUTH [...] DAY Taking Vitamin D (Ergocalciferol) 1.25 MG (99076 UT) Capsule TAKE 1 CAPSULE BY MOUTH [...] 07/08/2024 Generated for Daylin helm/Meghana/Kentonitting on: 0 11/17/2024 [...]
--- OUTSIDE RECORDS SUMMARY | 2024-08-08 08:00 | XMS_ITS ---
Author Organization [facility] Address [address] [place] [address] Care Team Providers Care Teacher Dramatics Name Role Phone Nereida CORNELIUS, Hector Primary Care Provider Unavailab Suzette Calvillo Unavailable [phone] Hewitt Encounters Encounter Location Date Provider Diagnosis [facility] [address] [place] [address] 08/08/2024 Suzette Schmitz Plan Of Treatment Next Appt Details Provider Name:Suzette saini, 12/30/2024 01:30:00 PM, [address] [place], [address], Progress Notes * Antoni KENT MDOB:1940 (84 yo M)Acc No.[id number]:08/08/2024 Progress Note Patient: Antoni GROSS Provider: Gayla Schmitz DPM :1940 A ge:84 Y S ex:Male Date:08/08/2024 Address: [address] [id number] Pcp:Hector Padron MD Subjective: * Chief Complaints: [...] 08/08/2024 Generated for Daylin helm/Meghana/Vanessa on: 0 11/17/2024 04:52 PM EDT
--- OUTSIDE RECORDS SUMMARY | 2024-08-20 10:30 | XMS_ITS ---
Author Organization Hector Padron III, MD Address [address] [place] [address] DR SAM Shreya [place] [address] Care Team Providers Care Policy Advisor Name Role Phone Hector Padron Primary Care Provider [phone] Allergies Allergen (clinical drug ingredient) Drug/Non Drug [...] day Active Vitamin D (Ergocalciferol) 1.25 MG (18338 UT) TAKE 1 CAPSULE BY MOUTH ONE [...] Provider Diagnosis Hector Padron III, MD [address] [place] [address] DR BINGHAM, DINESH [address] 08/20/2024 Hector Padron Depression F32.9 ; T [...] a day Vitamin D (Ergocalciferol) 1.25 MG (30958 UT) TAKE 1 CAPSULE BY MOUTH ONE [...] Provider Name:Hector Padron, 12/17/2024 02:00:00 PM, [address] [place] [address] DR, [place] [address], [place], [address], Progress Notes * Antoni KENT MDOB:1940 (84 yo M)Acc No.[id number]:08/20/2024 Progress Notes Patient: Leslie ROSALIORishi ALVARADOchristy Salmeron Provider: Liv Padron MD :1940 A ge:84 Y S ex:Male Date:08/20/2024 Address:[address] [place] [address] [address], [place], [id number] Subjective: * Chief Complaints: * D epressionDiabetesPulmonary [...] history * Hospitalization/Major Diagno stic Procedure: H [facility], rhabdomyolysis, fell at home 08/10/2022No history [...] ggressive non-smoker Nevaeh angeles was born in [place], [place]. He has a son. He is retired from [employer]. He has a son, Lawrence Hardingjr. [facility] in [place]. [facility]. * Medications: T akingVitamin D (Ergocalciferol) 1.25 MG (34163 UT) Capsule TAKE 1 CAPSULE BY MOUTH [...] the patientTaking Vitamin D (Ergocalciferol) 1.25 MG (93322 UT) Capsule TAKE 1 CAPSULE BY MOUTH [...] 43 (Ref Range: >40 mg/dL) * Lab:[facility] [place]. Pane l Fast * Collection Date 08/12/2024 [...] Examination: G eneral Examination: GENERAL APPEARANCE: p kristin, well nourished, well developed, in no acute [...] Continue Vitamin D (Ergocalciferol) Capsule, 1.25 MG (72266 UT), TAKE 1 CAPSULE BY MOUTH ONE [...] 0 08/20/2024 Generated for Daylin helm/Meghana/Kentonitting on: 0 11/17/2024 [...]
--- OUTSIDE RECORDS SUMMARY | 2024-10-10 08:00 | XMS_ITS ---
Author Organization [facility] Address [address] [place] [address] Care Team Providers Care Computer Networking Instructor Adjunct Name Role Phone Hector Padron MD Primary Care Provider Unavailab Suzette Calvillo Unavailable [phone] Medications Medication SIG (Take, Route, Frequency, Duration) [...] Mirtazapine 45 MG 1 tablet before bedt toams every evening Orally Once a day; Duration: 30 day(s) Not-Taking Encounters Encounter Location Date Provider Diagnosis [facility] [address] [address] 10/10/2024 Suzette Schmitz Plan Of Treatment Next Appt Details Provider Name:Suzette saini, 12/30/2024 01:30:00 PM, [address] [place] [address], [phone], Progress Notes * Antoni KENT MDOB:1940 (84 yo M)Acc No.[id number]:10/10/2024 Progress Note Patient: Antoni GROSS Provider: Gayla Schmitz DPM :1940 A ge:84 Y S ex:Male Date:10/10/2024 Address:[address] [place] [address] [id number] Pcp:Hcetor Padron MD Subjective: * Chief Complaints: * [...] 0 10/10/2024 Generated for Daylin helm/Meghana/Vanessa on: 0 11/17/2024 04:51 PM EDT History and Physical Notes * HPI (History of Present Illness) Category Sub-Category Detail Notes Category Not es At Risk footcare Pt States Last PCP Visit: Date:
--- OUTSIDE RECORDS SUMMARY | 2024-11-17 16:52 | XMS_ITS | Patient Health Record ---
Author Organization [facility] Address [address] [place] [address] Care Team Providers Care Dog Handler Name Role Phone Hector Padron MD Primary Care Provider Unavailab Hector Wisdom Unavailable [phone] Reason For Referral No Information Medications Medication [...] Problem Status W/U Status Risk Notes Problem 270361341 Encounter for screening for malignant neoplasm of colon (Z12.11) Active confirmed Problem 628428856 History of adenomatous polyp of colon (Z86.010) Active confirmed Problem Screening for malignant neoplasm of rectum (062158012) Encounter for screening for malignant neoplasm of rectum (Z12.12) Active confirmed Problem 355829439 Family history o f colon cancer (Z80.0) Active confirmed Problem 67933041 Irritable bowel syndrome with both constipation and diarrhea (K58.2) Active confirmed Plan Of Treatment Future Test Test Name Order Date COLONOSCOPY 02/10/2011 COLONOSCOPY 06/28/2016 Insurance Providers Payer Name Payer Address Payer Phone Subscriber Number Group Number Insured Name Patient Relationship to Insured Coverage Start Date Coverage End Date MEDICARE [place] [address] [place] [address] [id number] NAIMAANANTH CISNEROSEL Self - patient is the insured [employer] CLAIM[employer] [address] [place] [address] [id number] ERI HODGE Self - patient is the insured Medical (General) History Medical History History ICD Code Colonoscopy 03/29/2011--small tubular josette nomas removed EGD 01/20/2010--biopsies wer e negative for celiac disease and H. pylori--no esophagitis nor Mckeon's esophagus IBS GERD--EGD as above PUD He has been treated for Helicobacter in the past Depression/anxiety--he sees Dr. Micah samuel at [facility] [place] Pulmonary embolus and pneumonia in 2010 Denies IA, stroke, asthma, nor kidney di sease NIDDM Surgical History Surgery Date(Month/Year) back surgery cholecystectomy
--- OUTSIDE RECORDS SUMMARY | 2024-11-17 16:52 | XMS_ITS | Patient Health Record ---
[facility] Address [address] [place] [address] Care Team Providers Care Silver Miner Name Role Phone Hector Padron MD Primary Care Provider Suzette Newton Unavailable [phone] Allergies No Known Allergies Results Component Value [...] Disorder of joint of ankle and/or foot (440930698) Arthritis - Degenerative (719.97) Active confirmed Problem Neuralgia - Neuritis (729.2) Active confirmed Problem Bursitis (25340015) Bursitis (727.3) Active confirmed Problem Metatarsalgia (05471235) Metatarsalgia (726.70) Active confirmed Problem Pain in limb (16145826) Pain in Limb (729.5) Active confirmed Problem Neurologic disorder associated with type II diabetes mellitus (920492646) Diabetic - NIDDM/Neuropathy (250.60) Active confirmed Problem Polyneuropathy due to type 2 diabetes mellitus (141819693) 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 Problem 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) Active confirmed Vital Signs Blood pressure diastolic 82 mm Hg 05/02/2024 Height 6 ft in 05/02/2024 Blood pressure systolic 140 mm Hg 05/02/2024 Weight 206 lbs 05/02/2024 BMI 27.94 kg/m2 05/02/2024 Encounters Encounter Location Date Provider Diagnosis [facility] [place] [address] [place] [address] 02/01/2024 Suzette Schmitz Type 2 diabetes mellitus with polyneuropathy E11.42 ; Tinea unguium B35.1 ; Metatarsalgia, left foot M77.42 and Metatarsalgia, right foot M77.41 [facility] [place] [address] [place] [address] 05/02/2024 Suzette Schmitz Type 2 diabetes mellitus with polyneuropathy E11.42 ; Contusion of right lesser toe(s) with damage to nail, initial encounter S90.221A ; Tinea unguium B35.1 ; Neuropathic ulcer of right foot with fat layer exposed L97.512 and Contusion of left lesser toe(s) without damage to nail, initial encounter S90.122A [facility] [address] [address] 10/10/2024 Suzette Schmitz Assessments Encounter Date Diagnosis [...] X ray : Foot, right 2V 08/03/2011 [id number] SKIN LESIONS, 2 TO 4 08/03/19 12 Next Appt Details Provider Name:Suzette saini, 12/30/2024 01:30:00 PM, [address] [facility], [place], [address], Insurance Providers Payer Name Payer Address Payer Phone Subscriber Number Group Number Insured Name Patient Relationship to Insured Coverage Start Date Coverage End Date Medicare [employer] [address] [place] [address] [id number] Antoni Kent Self - patient is the insured [employer] [facility] [address] [place] [address] [id number] Antoni Kent Self - patient is the insured Medical (General) History Medical History History ICD Code anxiety back, hip, knee pain depression type I diabetes neuropathy reflux stomach ulcer chicken pox High blood pressure Surgical History Surgery Date(Month/Year) gall bladder 07/08/2000 appendectomy 5th lumbar 08/10/2000
--- OUTSIDE RECORDS SUMMARY | 2024-11-17 16:52 | XMS_ITS | Patient Health Record ---
Author Organization Hector Padron III, MD Address [address] [place] [address] [address] [place] [phone] Care Team Providers Care Enrollment Management Manager Name Role Phone Hector Padron Primary [...] ff Reviewed date:12/12/2023 07:00:26 AM Interpretation: Performing Lab:[facility], [address] [place] [address] Notes/Report: White Blood Count 6.3 4.8-10.8 X10*3/uL [...] NRBC Abs Auto 0.000 0.0-0.012 X10*3/uL Comprehensive [place]. Panel Fa st Reviewed date:12/12/2023 07:00:26 AM Interpretation: Performing Lab:[facility], [address] [place] [phone] Notes/Report: Sodium 142 135-145 mmol/L Potassium 4.2 3.3-5.1 mmol/L Chloride 105 96-108 mmol/L Carbon Dioxide 25 22-29 mmol/L Anion Gap 16 12-20 Blood Urea Nitrogen 16 9-16 mg/dL Creatinine 1.07 0.5-1.4 mg/dL Estimated Glomerular Filt Rate > 60 NOTE: For -Nauruan individuals, multiply the result by 1.210. Chronic [...] Panel Reviewed date:12/12/2023 07:00:26 AM Interpretation: Performing Lab:[address] [address] Notes/Report: Triglycerides 142 <150 mg/dL Desirable Triglyceride: [...] Antigen Reviewed date:12/12/2023 07:00:26 AM Interpretation: Performing Lab:[address] [address] Notes/Report: Prostate Specific Antigen 1.70 <0.05-4.0 ng/mL PSA methodology: Patterson Alinity i Chemiluminescent Microparticle Immunoassay (CMIA) Microalbumin, Random Reviewed date:12/12/2023 07:00:26 AM Interpretation: Performing Lab:[address] [address] Notes/Report: Creatinine Urine 78.10 Microalbumin Urine 5.0 Microalbum/Creatinine Ratio Ur 6.4 <30 ug/mg cr Albumin/Creatinine Ratio Reference Ranges: Normal: < 30 ug/mg creatinine Microalbuminuria: 30 - 300 ug/mg creatinine Clinical Albuminuria: > 300 ug/mg creatinine Hemoglobin A1c Reviewed date:12/12/2023 07:00:26 AM Interpretation: Performing Lab:[facility], [address] [place] [phone] Notes/Report: Hemoglobin A1c % 5.5 <6.0 % [...] average glucose, using the formula of the U0Q-Qgdpypr Average Glucose study (ADAG), Diabetes Care, Vol.31,#8, Oct. 2007 Complete Blood Count Auto Di ff Reviewed date:04/21/2024 04:23:26 AM Interpretation: Performing Lab:[facility], [address] [place] [phone] Notes/Report: White Blood Count 5.6 4.8-10.8 X10*3/uL [...] NRBC Abs Auto 0.000 0.0-0.012 X10*3/uL Comprehensive [place]. Panel Fa st Reviewed date:04/21/2024 04:23:26 AM Interpretation: Performing Lab:[facility], [address] [place] [phone] Notes/Report: Sodium 138 135-145 mmol/L Potassium 3.9 [...] Panel Reviewed date:04/21/2024 04:23:26 AM Interpretation: Performing Lab:[facility], [address] [place] [phone] Notes/Report: Triglycerides 92 <150 mg/dL Desirable Triglyceride: [...] Antigen Reviewed date:04/21/2024 04:23:26 AM Interpretation: Performing Lab:[facility], [address] [place] [phone] Notes/Report: Prostate Specific Antigen 2.12 <0.05-4.0 ng/mL PSA methodology: Patterson Alinity i Chemiluminescent Microparticle Immunoassay (CMIA) Microalbumin, Random Reviewed date:04/21/2024 04:23:26 AM Interpretation: Performing Lab:[facility], [address] [place] [phone] Notes/Report: Creatinine Urine 167.26 Microalbumin Urine 10.0 Microalbum/Creatinine Ratio Ur 5.9 <30 ug/mg cr Albumin/Creatinine Ratio Reference Ranges: Normal: < 30 ug/mg creatinine Microalbuminuria: 30 - 300 ug/mg creatinine Clinical Albuminuria: > 300 ug/mg creatinine Hemoglobin A1c Reviewed date:04/21/2024 04:23:26 AM Interpretation: Performing Lab:[facility], [address] [place] [phone] Notes/Report: Hemoglobin A1c % 5.4 <6.0 % [...] average glucose, using the formula of the O4R-Wrfduyk Average Glucose study (ADAG), Diabetes Care, Vol.31,#8, 2007 Diabetic Eye Exam Reviewed date:06/12/2024 09:19:55 AM Interpretation:undefined Performing Lab: Notes/Report: undefined Complete Blood Count Auto Di ff Reviewed date:08/12/2024 11:52:59 AM Interpretation: Performing Lab:[facility], [address] [place] [phone] Notes/Report: White Blood Count 6.3 4.8-10.8 X10*3/uL Red Blood Count 4.24 4.60-5.80 X10*6/uL Hemoglobin 13.5 14.0-18.0 g/dl Hematocrit 38.7 42.0-52.0 % Mean Corpuscular Volume 91.3 80.0-98.0 fL Mean Corpuscular Hemoglobin 31.8 27.0-33.0 pg Mean Corpuscular HGB Conc 34.9 31.0-36.0 g/dl Red Cell Distribution Width 12.8 11.0-16.0 % Platelet Count 163 160-400 X10*3/uL Mean Platelet Volume 9.1 9.4-12.4 fL Neutrophils Percent Auto 41.6 45-73 % Imm Gran Pct Auto 0.5 0.0-0.4 % Lymphocytes Percent Auto 46.5 20-40 % Monocytes Percent Auto 9.7 2-11 % Eosinophils Percent Auto 1.4 0-4 % Basophils Percent Auto 0.3 0-2 % NRBC Pct Auto 0.0 0.0-0.2 /100WBC Neutrophils Absolute Auto 2.6 2.0-8.3 x10*3/u L Imm Gran Abs Auto 0.03 0.00-0.03 X10*3/uL Lymphocytes Absolute Auto 2.9 1.2-4.9 X10*3/u L Monocytes Absolute Auto 0.6 0.1-1.2 X10*3/uL Eosinophils Absolute Auto 0.1 0.0-0.4 X10*3/u L Basophils Absolute Auto 0.0 0.0-0.2 X10*3/uL NRBC Abs Auto 0.000 0.0-0.012 X10*3/uL Comprehensive [place]. Panel Fa st Reviewed date:08/12/2024 11:52:59 AM Interpretation: Performing Lab:[facility], [address] [place] [phone] Notes/Report: Sodium 142 135-145 mmol/L Potassium 3.9 3.3-5.1 mmol/L Chloride 110 96-108 mmol/L Carbon Dioxide 24 22-29 mmol/L Anion Gap 12 12-20 Blood Urea Nitrogen 17 9-16 mg/dL Creatinine 0.99 0.5-1.4 mg/dL Estimated Glomerular Filt Rate > 60 Chronic Kidney Disease: Estimated GFR < 60 mL/min/1.73m2 Severe Kidney Disease: Estimated GFR < 15 mL/min/1.73m2 Glucose Fasting 86 60-99 mg/dL Calcium 9.1 8.4-10.2 mg/dL Bilirubin Total 0.4 0.0-1.0 mg/dL Aspartate Amino Transferase 21 5-37 U/L Alanine Aminotransferase 18 0-40 U/L Total Protein 6.5 6.5-8.0 g/dL Albumin Level 4.2 3.5-5.0 g/dL Alkaline Phosphatase 127 39-117 U/L Lipid Panel Reviewed date:08/12/2024 11:52:59 AM Interpretation: Performing Lab:[facility], [address] [place] [phone] Notes/Report: Triglycerides 85 <150 mg/dL Desirable Triglyceride: less than 150 mg/dL Borderline High Triglyceride 150-199 mg/dL High Triglyceride: 200-499 mg/dL Very High Triglyceride: greater than or equal to 5OO mg/dL Cholesterol 124 <200 mg/dL Desirable Cholesterol: less than 200 mg/dL Borderline High Cholesterol: 200-239 mg/dL High Cholesterol: greater than 239 mg/dL LDL Cholesterol Calculated 64 <100 mg/dL Desirable LDL: less than 100 mg/dL Near Optimal/Above Optimal LDL: 110-129 mg/dL Borderline High LDL: 130-159 mg/dL High LDL: 160-189 mg/dL Very High LDL: greater than or equal to 190 mg/dL HDL Cholesterol 43 >40 mg/dL Desirable HDL: greater than 40 mg/dL Note: This HDL assay may give artificially low results in patients with liver disease. Prostate Specific Antigen Reviewed date:08/12/2024 11:52:59 AM Interpretation: Performing Lab:[address] [phone] Notes/Report: Prostate Specific Antigen 1.75 <0.05-4.0 ng/mL PSA methodology: Patterson Alinity i Chemiluminescent Microparticle Immunoassay (CMIA) Microalbumin, Random Reviewed date:08/12/2024 11:52:59 AM Interpretation: Performing Lab:[facility], [address] [place] [phone] Notes/Report: Creatinine Urine 76.27 Microalbumin Urine < 5.0 Microalbum/Creatinine Ratio Ur TNP <30 ug/mg cr Unable to calculate albumin/creatinine ratio due to low microalbumin or creatinine result. Hemoglobin A1c Reviewed date:08/12/2024 11:52:59 AM Interpretation: Performing Lab:[facility], [address] [place] [phone] Notes/Report: Hemoglobin A1c % 5.6 <6.0 % Hemoglobin A1C Reference Range Adults: 4.8 - 6.0 % Non diabetic: < 6.0 % Goal: < 7.0 % Additional Action Suggested: > 8.0 % Note: Hemoglobin A1c results are invalid for patients with abnormal amounts of HbF. Blood transfusions may impact the HbA1c concentration in the patient sample. Estimated Average Glucose 114 eAG = Estimated average glucose which is %A1C expressed as average glucose, using the formula of the R5M-Fmqxeql Average Glucose study (ADAG), Diabetes Care, Vol.31,#8, Oct. 2007 Reason For Referral Reason Two 2cm decubitus [...] Provider Speciality Internal M edicine Referred Provider [facility] Referred Provider Specialty Unknown General Notes Jocelyn Blount CMA 02/26 03:57:46 PM >Ref/progress note faxed to wound care center at , Jocelyn Blount [facility] [place] 03/03/2024 11:34:17 AM > Called patient he stated the wound center called him but he refused to make appt. I spoke to patient and he stated if I made appt he would go to this appt . LM for wound center to call me back so I can set up this appt, Jocelyn Blount [facility] 03/03/2024 02:02:58 PM > called wound care [...] Last Name Nereida Referring Provider Speciality Internal edicine Referred Provider ALLEGRA Fraga Referred Provider Specialty Carlos s General Notes Jocelyn Blount [facility] 02/26 04:16:49 PM > ref/demographic and progress note faxed to [facility]ana [facility], Jocelyn Blount [facility] 03/03/2024 10:43:12 AM I called patient to [...] Referring Provider First Name Hector Referring Provider Porter Padron [facility]erring [facility]erred Provider ALLEGRA Fraga Referred Provider Specialty Unknown General Notes Jocelyn Blount [facility] 03/03 10:47:30 AM >The original referral that [...] 1 tablet Orally Once a day Active Vitamin D (Ergocalciferol) 1.25 MG (68511 UT) TAKE 1 CAPSULE BY MOUTH ONE [...] sugars once a day E11.9 Diabetes Active risperiDONE 0.5 MG 1 tablet on the tongue and allow to dissolve Orally Twice a day Active clonazePAM 2 MG 1 tablet Orally Tree times a day Active Myrbetriq 25 MG TAKE 1 TABLET BY MOUTH DAILY Oral Active Immunizations Vaccine Route Administration Date Status [...] ed Fluzone High-Dose (HD-IIV3) Unknown 01/28/2024 Administ eremita COVID-19 Moderna SPIKEVAX Unknown 04/29/2024 Administer ed Tdap Unknown 06/16/2024 Administered SHINGRIX Unknown 06/16/2024 Administered Fluzone High-Dose (HD-IIV3) Unknown 11/03/2024 Administ dianna SHINGRIX Unknown 11/03/2024 Administered Social History Tobacco Use: Social History [...] Problem Status W/U Status Risk Notes Problem 148322481 Overweight (E66.3) Active confirmed He remains overweight but his weight is stable. We discussed diet and nutrition today. Problem 05808596 Depression (F32.9) Active confirmed He has mild chronic depression. He is compliant with his psychiatric medications and up-to-date with his psychiatrist. This problem is stable. Problem 041176532 GERD (gastroesophage al reflux disease) (K21.9) Active confirmed His heartburn i s well controlled with medications. He is sleeping through the night. No change in his regimen was needed. Problem 65552617 Type 2 diabetes mellitus without complications (E11.9) Active confirmed His hemoglobin A1c is 5.4. No change in his regimen was necessary today.He is doing well. The recent available. Blood work shows good control of the diabetes. Problem 62758554 Irritable bowel syndrome (K58.9) Active confirmed Visit irritable bowel syndrome is minor and well controlled. Problem 816555136 BPH (benign prostatic hyperplasia) (N40.0) Active confirmed He rises from sleep once or twice a night to urinate. We discussed lifestyle modification as a way to reduce nocturia. Problem 265582973 Hyperlipidemia type II (E78.0) Active confirmed His fasting lipid profile shows his lipids to be in the normal range. No change in his regimen was necessary today. Problem 182338443 Cholelithiasis (K80.20) Active confirmed Problem 854912019 Chronic insomnia (F51.04) Active confirmed He is still sleeping poorly but appears to be well rested. Problem 790616016548644 History of herpes zoster (Z86.19) Active confirmed Problem 463850347 History of pulmonary embolism (Z86.711) Active confirmed There is no sig n of venous thromboembolism on examination today. Problem 05488887 Age-related cataract of both eyes, unspecified age-related cataract type (H25.9) Active confirmed He is scheduled for cataract surgery next week. There is no contraindication . The dyspnea seems minor today. Is going to call me after the weekend to report on his breathing. He is given medical clearance for cataract surgery. Vital Signs Heart Rate 82 /min 08/20/2024 Temperature 97.7 degrees Fahrenheit 08/20/2024 Oximetry 99 % 07/08/2024 Blood pressure diastolic 55 mm Hg 08/20/2024 Height 72 in 08/20/2024 Blood pressure systolic 128 mm Hg 08/20/2024 Weight 206 lbs 08/20/2024 BMI 27.94 kg/m2 08/20/2024 Encounters Encounter Location Date Provider Diagnosis Hector Padron III, MD [address] [place] [address] [place] [address] 12/17/2023 Hector Padron Depression F32.9 ; T ype 2 diabetes mellitus without complications E11.9 ; BPH (benign prostatic hyperplasia) N40.0 ; History of pulmonary embolism Z86.711 ; Overweight E66.3 ; GERD (gastroesophageal reflux disease) K21.9 and Hyperlipidemia type II E78.01 Hector Padron III, MD [address] [place] [address] [place] [address] 02/27/2024 Hector Padron Depression F32.9 ; T ype 2 diabetes mellitus without complications E11.9 ; Overweight E66.3 ; BPH (benign prostatic hyperplasia) N40.0 ; History of pulmonary embolism Z86.711 ; Hyperlipidemia type II E78.0 ; GERD (gastroesophageal reflux disease) K21.9 ; Diabetic neuropathy E11.40 and Pressure injury of buttock, stage 3, 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 Hector Padron III, MD [address] [place] [address] [address] [place] [address] 04/21/2024 Hector Padron Depression F32.9 ; T ype 2 diabetes mellitus without complications E11.9 ; Overweight E66.3 ; GERD (gastroesophageal reflux disease) K21.9 ; Chronic insomnia F51.04 ; BPH (benign prostatic hyperplasia) N40.0 ; Hyperlipidemia type II E78.0 ; Diabetic neuropathy E11.40 and History of pulmonary embolism Z86.711 Hector Padron III, MD [address] [place] [address] [place] [address] 07/08/2024 Hector Padron Depression F32.9 ; T ype 2 diabetes mellitus without complications E11.9 ; Overweight E66.3 ; GERD (gastroesophageal reflux disease) K21.9 ; Chronic insomnia F51.04 ; BPH (benign prostatic hyperplasia) N40.0 ; Hyperlipidemia type II E78.0 ; SOB (shortness of breath) R06.02 and Age-related cataract of both eyes, unspecified age-related cataract type H25.9 Hector Padron III, MD [address] [place] [address] [place] [address] 08/20/2024 Hector Padron Depression F32.9 ; T [...] shows good control of the diabetes. 08/20/2024 Depression (ICD-10 - F32.9) He has [...] index is 28. His nutrition is stable. 08/20/2024 Overweight (ICD-10 - E66.3) He remains overweight but his weight is stable. We discussed diet and nutrition today. 12/17/2023 History of pulmonary embolism (ICD-10 - [...] change in his regimen was needed. 08/20/2024 GERD (gastroesophageal reflux disease) (ICD-10 - [...] but appears to be well rested. 08/20/2024 History of pulmonary embolism (ICD-10 - Z86.711) There is no sign of venous thromboembolism on examination today. 12/17/2023 GERD (gastroesophageal reflux disease) (ICD-10 - [...] modification as a way to reduce nocturia. 08/20/2024 Cholelithiasis (ICD-10 - K80.20) 12/17/2023 Hyperlipidemia type II (ICD-10 - E78.01) [...] change in his regimen was necessary today. 08/20/2024 Chronic insomnia (ICD-10 - F51.04) He is still sleeping poorly but appears to be well rested. 02/27/2024 Diabetic neuropathy (ICD-10 - E11.40) Symptoms [...] was no sign of peripheral DVT today. 08/20/2024 BPH (benign prostatic hyperplasia) (ICD-10 - N40.0) He rises from sleep once or twice a night to urinate. We discussed lifestyle modification as a way to reduce nocturia. 02/27/2024 Pressure injury of buttock, stage 3, [...] Date PROFILE, FASTING (COMPREHENSIVE METABOLI C) 04/21/2024 PROFILE, FASTING (COMPREHENSIVE METABOLI C) 08/20/2024 PROFILE, FASTING (COMPREHENSIVE METABOLI C) 04/19/2018 PROFILE, FASTING (COMPREHENSIVE METABOLI C) 04/28/2019 PROFILE, FASTING (COMPREHENSIVE METABOLI C) 12/18/2017 PROFILE, [...] C) 05/11/2020 PROFILE, FASTING (COMPREHENSIVE METABOLI C) 09/08/2022 PROFILE, FASTING (COMPREHENSIVE METABOLI C) 04/17/2022 PROFILE, FASTING (COMPREHENSIVE METABOLI C) 01/06/2020 PROFILE, FASTING (COMPREHENSIVE METABOLI C) 12/13/2020 PROFILE, FASTING (COMPREHENSIVE METABOLI C) 12/08/2022 PROFILE, FASTING (COMPREHENSIVE METABOLI C) 08/08/2023 PROFILE, FASTING (COMPREHENSIVE METABOLI C) 08/27/2019 PROFILE, FASTING (COMPREHENSIVE METABOLI C) 12/17/2023 PROFILE, RANDOM (COMPREHENSIVE METABOLIC ) 04/11/2023 HEMOGLOBIN A1C (GLYCOHEMOGLOBIN) 020 HEMOGLOBIN A1C (GLYCOHEMOGLOBIN) 019 HEMOGLOBIN A1C (GLYCOHEMOGLOBIN) 020 HEMOGLOBIN A1C (GLYCOHEMOGLOBIN) 018 HEMOGLOBIN A1C (GLYCOHEMOGLOBIN) 019 HEMOGLOBIN A1C (GLYCOHEMOGLOBIN) 019 HEMOGLOBIN A1C (GLYCOHEMOGLOBIN) 022 HEMOGLOBIN A1C (GLYCOHEMOGLOBIN) 018 HEMOGLOBIN A1C (GLYCOHEMOGLOBIN) 021 HEMOGLOBIN A1C (GLYCOHEMOGLOBIN) 018 HEMOGLOBIN A1C (GLYCOHEMOGLOBIN) 022 HEMOGLOBIN A1C (GLYCOHEMOGLOBIN) 021 HEMOGLOBIN A1C (GLYCOHEMOGLOBIN) 023 HEMOGLOBIN A1C (GLYCOHEMOGLOBIN) 020 HEMOGLOBIN A1C (GLYCOHEMOGLOBIN) 021 HEMOGLOBIN A1C (GLYCOHEMOGLOBIN) 023 LIPID PANEL 01/06/2020 LIPID PANEL 12/13/2020 LIPID PANEL 04/11/2023 LIPID PANEL 12/08/2022 LIPID PANEL 08/27/2019 LIPID PANEL 04/19/2018 LIPID PANEL 04/28/2019 LIPID PANEL 12/18/2017 LIPID PANEL 12/25/2018 LIPID PANEL 08/20/2018 LIPID PANEL 04/13/2021 LIPID PANEL 09/19/2017 LIPID PANEL 09/08/2020 LIPID PANEL 05/23/2017 LIPID PANEL 05/11/2020 LIPID PANEL 09/08/2022 PSA, TOTAL 09/08/2020 PSA, TOTAL 05/23/2017 PSA, TOTAL 12/17/2023 PSA, TOTAL 04/21/2024 PSA, TOTAL 01/06/2020 PSA, TOTAL 12/08/2022 PSA, TOTAL 08/20/2024 PSA, TOTAL 12/12/2021 PSA, TOTAL 04/19/2018 PSA, TOTAL 08/20/2018 PSA, TOTAL 08/08/2021 PSA, TOTAL 04/13/2021 PSA, TOTAL 08/08/2023 MICROALBUMIN, RANDOM 05/11/2020 MICROALBUMIN, RANDOM 09/08/2022 MICROALBUMIN, RANDOM 04/13/2021 MICROALBUMIN, RANDOM 09/08/2020 MICROALBUMIN, RANDOM 12/08/2022 MICROALBUMIN, RANDOM 12/18/2017 MICROALBUMIN, RANDOM 12/25/2018 MICROALBUMIN, RANDOM 04/19/2018 CBC w DIFF 09/19/2017 CBC w DIFF 08/20/2018 CBC w DIFF 08/08/2021 CBC w DIFF 04/19/2018 CBC w DIFF 12/13/2020 CBC w DIFF 04/11/2023 CBC w DIFF 05/23/2017 CBC w DIFF 05/11/2020 CBC w DIFF 09/08/2022 CBC w DIFF 04/13/2021 CBC w DIFF 01/06/2020 CBC w DIFF 08/27/2019 CBC w DIFF 09/08/2020 CBC w DIFF 08/20/2024 CBC w DIFF 12/08/2022 CBC w DIFF 04/28/2019 CBC w DIFF 04/17/2022 CBC w DIFF 12/12/2021 CBC w DIFF 12/18/2017 CBC w DIFF 12/25/2018 VITAMIN D 25-OH TOTAL 09/08/2022 CBC WITH AUTO DIFF 08/08/2023 CBC WITH AUTO DIFF 12/17/2023 CBC WITH AUTO DIFF 04/21/2024 Lipid Panel 12/12/2021 Lipid Panel 08/08/2021 Lipid Panel 08/08/2023 Lipid Panel 12/17/2023 Lipid Panel 04/21/2024 Lipid Panel 08/20/2024 Lipid Panel 04/17/2022 Vitamin D 25-OH Total 04/11/2023 Vitamin D 25-OH Total 08/20/2024 Microalbumin, Random 08/20/2024 Microalbumin, Random 04/17/2022 Microalbumin, Random 12/12/2021 Microalbumin, Random 08/08/2023 Microalbumin, Random 12/17/2023 Microalbumin, Random 04/21/2024 Hemoglobin A1c 08/20/2024 Hemoglobin A1c 04/17/2022 Hemoglobin A1c 12/12/2021 Hemoglobin A1c 04/11/2023 Hemoglobin A1c 08/08/2023 Hemoglobin A1c 12/17/2023 Hemoglobin A1c 04/21/2024 Next Appt Details Provider Name:Hector Padron, 12/17/2024 02:00:00 PM, [address] [place] [address] [address], [place], [address], Insurance Providers Payer Name Payer Address Payer Phone Subscriber Number Group Number Insured Name Patient Relationship to Insured Coverage Start Date Coverage End Date MEDICARE NGS [address] [place] [phone] [id number] Antoni Kent Self - patient is the insured [facility] [address] [place], [place] [id number] Antoni Kent Self - patient is the insured Medical (General) History Medical History History ICD Code depression insomnia cholelithiasis hemorrhoids GERD acne BPH irritable bowel syndrome shingles left shouder chronic diarrhea diabetes mellitus hyperlipidemia pulmonary embolism neuropathy Surgical History Surgery Date(Month/Year) No history cholecystectomy Hospitalization History Reason Date(Month/Year) No history [facility], rhabdomyolysis, fell at home 08/10/2022
== END 2024-11-18 13:54 | disposition home or self-care (01) ==
LOC: HO.HMGAL 15:15
PROVIDERS: PCP Internal Medicine Medical Oncology; Visit Provider Registered Nurse Emergency
DX: J30.89 Other allergic rhinitis (principal)
CPT/HCPCS: 95117; 95165

== ENCOUNTER 2024-12-01 09:48 | Outpatient (REF) | payer MEDICARE, SELFPAY ==
--- OUTSIDE RECORDS SUMMARY | 2023-12-17 10:00 | XMS_ITS ---
Author Organization Hector Padron III, MD Address [address] [place] [address] Care Team Providers Care Nanosystems Engineer Name Role Phone Hector Padron Primary Care Provider [phone] Allergies Allergen (clinical drug ingredient) Drug/Non Drug [...] DAY Active Vitamin D (Ergocalciferol) 1.25 MG (80567 UT) TAKE 1 CAPSULE BY MOUTH ONE [...] Date Provider Diagnosis Hector Padron III, MD [address] [place] [address] [place] [address] 12/17/2023 Hector Padron Depression F32.9 ; T [...] EVERY DAY Vitamin D (Ergocalciferol) 1.25 MG (34517 UT) TAKE 1 CAPSULE BY MOUTH ONE [...] Up: 4 Months, Reason: OV Provider Name:Hector Padron, 12/17/2024 02:00:00 PM, [address] [place] [address] FLACO RANGEL, [place], [address], Progress Notes * Antoni KENT MDOB:1940 (83 yo M)Acc No.[id number]:12/17/2023 Progress Notes Patient: Antoni GROSS Provider: Liv Padron MD :1940 A ge:83 Y S ex:Male Date:12/17/2023 [address] [id number] Subjective: * Chief Complaints: * A nnual [...] c holecystectomy * Hospitalization/Major Diagno stic Procedure: [facility], rhabdomyolysis, fell at home 08/10/2022 * [...] N egative Nevaeh angeles was born in [place], [place]. He has a son. He is retired from [employer]. He has a son, Lawrence Hardingjr. [employer] in [place]. One [facility]. * Medications: T akingVitamin D (Ergocalciferol) 1.25 MG (01389 UT) Capsule TAKE 1 CAPSULE BY MOUTH [...] 2 diabetesTaking Vitamin D (Ergocalciferol) 1.25 MG (18683 UT) Capsule TAKE 1 CAPSULE BY MOUTH [...] mg/dL) 105 (Ref Range: mg/dL) * Lab:Comprehensive [place]. Pane l Fast * Collection Date 12/10/2023 [...] ontinue Vitamin D (Ergocalciferol) Capsule, 1.25 MG (91123 UT), TAKE 1 CAPSULE BY MOUTH ONE [...] Padron MD Date: 0 12/17/2023 Generated for Printi ng/eMghana/eTransmitting on: 12/01/2024 11:23 AM EDT History and Physical Notes * HPI (History [...]
--- OUTSIDE RECORDS SUMMARY | 2024-02-27 11:00 | XMS_ITS ---
Author Organization Hector Padron III, MD Address [address] [place] [address] Care Team Providers Care Fabrication Engineer Name Role Phone Hector Padron Primary Care Provider Reason For Referral Reason Two 2cm decubitus ul cers on buttock diabetic with decubitus ulcers on buttock left is thru all layers of skin Diagnosis 1 Pressure injury of s kin of buttock, unspecified injury stage, unspecified laterality (L89.309) Diagnosis 2 Type 2 diabetes eduardo itus without complications (E11.9) Referral Organization Hetcor Padron III, MD Referring Provider First Name Hector Referring Provider Last Name Nereida Referring Provider Speciality Internal M edicine Referred Provider [facility], care center Referred Provider Specialty Unknown General Notes Jocelyn Blount CMA 02/26 03:57:46 PM >Ref/progress note faxed to wound care center at , Jocelyn Blount CMA 03/03/2024 11:34:17 AM > Called patient he stated the wound center called him but he refused to make appt. I spoke to patient and he stated if I made appt he would go to this appt . for wound center to call me back so I can set up this appt, Jocelyn Blount CMA 03/03/2024 02:02:58 PM > called wound care [...] Diabetes Active Vitamin D (Ergocalciferol) 1.25 MG (93304 UT) TAKE 1 CAPSULE BY MOUTH ONE [...] Date Provider Diagnosis Hector Padron III, MD [address] [place] [address] [place] [address] 02/27/2024 Hector Padron Depression F32.9 ; T [...] E11.9 Diabetes Vitamin D (Ergocalciferol) 1.25 MG (70449 UT) TAKE 1 CAPSULE BY MOUTH ONE TIME PER WEEK FLUoxetine HCl 40 MG 1 capsule Orally Once a day Accu-Chek FastClix Lancets - USE TO TEST BLOOD SUGAR ONCE DAILY E11.9 Type 2 diabetes Referrals Referral Date Details 02/27/2024 02/27/2024, Two 2cm decubitus ulcers on buttock diabetic with decubitus ulcers on buttock left is thru all layers of skin, care center [facility] Next Appt Details Follow Up: as scheduled Haris eckert, Reason: OV Provider Name:Hector Padron, 12/17/2024 02:00:00 PM, [address] [place] [address] , [place] [id number], [place], [phone], Progress Notes * Antoni KENT MDOB:1940 (83 yo M)Acc No.[id number]:02/27/2024 Progress Notes Patient: Antoni GROSS Provider: Liv Padron MD :1940 A ge:83 Y S ex:Male Date:02/27/2024 Address:[address] [place] [address] [id number] Subjective: * Chief Complaints: * R esuming [...] No history * Hospitalization/Major Diagno stic Procedure: [facility], rhabdomyolysis, fell at home 08/10/2022No history * [...] Pharmacist: E11.9 DiabetesVitamin D (Ergocalciferol) 1.25 MG (57029 UT) Capsule TAKE 1 CAPSULE BY MOUTH [...] E11.9 DiabetesTaking Vitamin D (Ergocalciferol) 1.25 MG (69285 UT) Capsule TAKE 1 CAPSULE BY MOUTH [...] Negative -) Menstrating NR N/A * Lab:[facility] Pane l [facility] * Collection Date 12/10/2023 [...] 2 diabetes mellitus without complications Referral To:care center [facility] Unknown Reason:Two 2cm decubitus ulcers on buttock diabetic with decubitus ulcers on buttock left is thru all layers of skin 3. O thers Referral To:[facility] Unknown Reason:Two 2cm decubitus ulcers on [...] Padron MD Date: 04/29/2023 Generated for Daylin helm/Meghana/eTvanessasmitting on: 0 12/01/2024 11:24 AM EDT History and Physical Notes * [...]
--- OUTSIDE RECORDS SUMMARY | 2024-04-21 10:30 | XMS_ITS ---
Author Organization Hector Padron III, MD Address [address] [place] [address] DR SAM Shreya DINESH [place] [phone] Care Team Providers Care Forklift Picker Name Role Phone Hector Padron Primary Care Provider Allergies Allergen (clinical drug [...] day Active Vitamin D (Ergocalciferol) 1.25 MG (95670 UT) TAKE 1 CAPSULE BY MOUTH ONE [...] Date Provider Diagnosis Hector Padron III, MD [address] [place] [address] DR [place], DINESH [phone] 04/21/2024 Hector Padron Depression F32.9 ; T [...] a day Vitamin D (Ergocalciferol) 1.25 MG (18014 UT) TAKE 1 CAPSULE BY MOUTH ONE [...] ov Provider Name:Hector Padron, 12/17/2024 02:00:00 PM, [address] [place] [address] FLACO RANGEL, DINESH [place], [phone], Progress Notes * Antoni KENT MDOB:1940 (83 yo M)Acc No.[id number]:04/21/2024 Progress Notes Patient: Antoni GROSS Provider: Liv Padron MD :1940 A ge:83 Y S ex:Male Date:04/21/2024 Address:[address] [place] [address] [address] [place] [place], [phone] Subjective: * [...] No history * Hospitalization/Major Diagno stic Procedure: [facility], rhabdomyolysis, fell at home 08/10/2022No history [...] ggressive non-smoker Nevaeh angeles was born in [place], [place]. He has a son. He is retired from [employer]. He has a son, Lawrence Hardingjr. [facility] in [place]. One [facility]. * Medications: T akingAccu-Chek FastClix Lancets - Miscellaneous USE TO TEST BLOOD SUGAR ONCE DAILY , Notes to Pharmacist: E11.9 Type 2 diabetesMirtazapine 45 MG Tablet TAKE 1 TABLET BY MOUTH EVERYDAY AT BEDTIME Accu-Chek Laura Plus - Strip as directed In Vitro test blood sugars once a day , Notes to Pharmacist: E11.9 DiabetesVitamin D (Ergocalciferol) 1.25 MG (25206 UT) Capsule TAKE 1 CAPSULE BY MOUTH [...] E11.9 DiabetesTaking Vitamin D (Ergocalciferol) 1.25 MG (31561 UT) Capsule TAKE 1 CAPSULE BY MOUTH [...] ontinue Vitamin D (Ergocalciferol) Capsule, 1.25 MG (74355 UT), TAKE 1 CAPSULE BY MOUTH ONE [...] 04/21/2024 Generated for Daylin helm/Meghana/Kentonitting on: 0 12/01/2024 11:23 AM EDT History and Physical [...]
--- OUTSIDE RECORDS SUMMARY | 2024-07-08 11:00 | XMS_ITS ---
Author Organization Hector Padron III, MD Address [address] [place] [address] [address] [place] [address] Care Team Providers Care Heliotherapist Name Role Phone Hector Padron Primary Care Provider [phone] Allergies Allergen (clinical drug ingredient) Drug/Non Drug [...] diabetes Active Vitamin D (Ergocalciferol) 1.25 MG (87193 UT) TAKE 1 CAPSULE BY MOUTH ONE [...] Problem Status W/U Status Risk Notes Problem [id number] Age-related cataract of both eyes, unspecified age-related [...] Date Provider Diagnosis Hector Padron III, MD [address] [place] [address] [place] [address] 07/08/2024 Hector Padron Depression F32.9 ; T [...] 2 diabetes Vitamin D (Ergocalciferol) 1.25 MG (95815 UT) TAKE 1 CAPSULE BY MOUTH ONE TIME PER WEEK Next Appt Details Follow Up: As Scheduled, Rhea son: OV Provider Name:Hector Padron, 12/17/2024 02:00:00 PM, [address] [place] [address] [address], [place], [address], Progress Notes * Antoni KENT MDOB:1940 (84 yo M)Acc No.[id number]:07/08/2024 Patient: Leslie SANDRA Antoni Salmeron Provider: Liv Padron MD :1940 A ge:84 Y S ex:Male Date:07/08/2024 Address:[address] [place] [address], [address] [id number] Subjective: * Chief Complaints: * P re-Op [...] No history * Hospitalization/Major Diagno stic Procedure: [facility], rhabdomyolysis, fell at home 08/10/2022No history [...] ggressive non-smoker Nevaeh angeles was born in [place], [place] He has a son. He is retired from [employer]. He has a son, Lawrence Harding jr. [employer] in [place]. One [facility]. * Medications: T [...] EVERY DAY Vitamin D (Ergocalciferol) 1.25 MG (00251 UT) Capsule TAKE 1 CAPSULE BY MOUTH [...] DAY Taking Vitamin D (Ergocalciferol) 1.25 MG (09544 UT) Capsule TAKE 1 CAPSULE BY MOUTH [...] 0 07/08/2024 Generated for Daylin helm/Meghana/Kentonitting on: 0 12/01/2024 [...]
--- OUTSIDE RECORDS SUMMARY | 2024-08-08 08:00 | XMS_ITS ---
Author Organization [facility] Address [address] [place] [address] Care Team Providers Care Pmo Analyst Name Role Phone Nereida CORNELIUS, Hector Primary Care Provider Unavailab Suzette Calvillo Unavailable [phone] Hewitt Encounters Encounter Location Date Provider Diagnosis [facility] [address] [place] [address] 08/08/2024 Suzette Schmitz Plan Of Treatment Next Appt Details Provider Name:Suzette saini, 12/30/2024 01:30:00 PM, [address] [place], [address], Progress Notes * Antoni KENT MDOB:1940 (84 yo M)Acc No.[id number]:08/08/2024 Progress Note Patient: Antoni GROSS Provider: Gayla Schmitz DPM :1940 A ge:84 Y S ex:Male Date:08/08/2024 Address: [address] [id number] Pcp:Hector Padron MD Subjective: * Chief Complaints: * [address] Hewitt. * Medical History: Objective: * Vitals: Assessment: Plan: * Treatment: * Images: * The named appointment provid er may or may not be the originator of this progress note, and it is not deemed complete until electronically signed by the appointment provider. Sign off status: Pending * Provider: Gayla Schmitz, DPJaron Date: 0 08/08/2024 Generated for Daylin helm/Meghana/Vanessa on: 0 12/01/2024 11:24 AM EDT
--- OUTSIDE RECORDS SUMMARY | 2024-08-20 10:30 | XMS_ITS ---
Author Organization Hector Padron III, MD Address [address] [place] [address] DR SAM Shreya DINESH [place] [address] Care Team Providers Care Construction Or Leak Gang Laborer Name Role Phone Hector Padron Primary Care Provider [phone] Allergies Allergen (clinical drug ingredient) Drug/Non Drug [...] day Active Vitamin D (Ergocalciferol) 1.25 MG (30288 UT) TAKE 1 CAPSULE BY MOUTH ONE [...] Date Provider Diagnosis Hector Padron III, MD [address] [place] [address] DR BINGHAM, DINESH [address] 08/20/2024 Hector Padron Depression F32.9 ; T [...] a day Vitamin D (Ergocalciferol) 1.25 MG (03903 UT) TAKE 1 CAPSULE BY MOUTH ONE [...] ov Provider Name:Hector Padron, 12/17/2024 02:00:00 PM, [address] [place] [address] DR, [place] [address], [place], [address], Progress Notes * Antoni KENT MDOB:1940 (84 yo M)Acc No.[id number]:08/20/2024 Progress Notes Patient: Leslie ROSALIORishi ALVARADOchristy Salmeron Provider: Liv Padron MD :1940 A ge:84 Y S ex:Male Date:08/20/2024 Address:[address] [place] [address] [address], [place], [id number] Subjective: * Chief Complaints: * D epressionDiabetesPulmonary [...] history * Hospitalization/Major Diagno stic Procedure: H [facility], rhabdomyolysis, fell at home 08/10/2022No history [...] ggressive non-smoker Nevaeh angeles was born in [place], [place] He has a son. He is retired from [employer]. He has a son, Lawrence Hardingjr. [facility] [place]. [facility]. * Medications: T akingVitamin D (Ergocalciferol) 1.25 MG (82462 UT) Capsule TAKE 1 CAPSULE BY MOUTH [...] the patientTaking Vitamin D (Ergocalciferol) 1.25 MG (58916 UT) Capsule TAKE 1 CAPSULE BY MOUTH [...] 43 (Ref Range: >40 mg/dL) * Lab:[facility] [place]. Pane l Fast * Collection Date 08/12/2024 [...] Continue Vitamin D (Ergocalciferol) Capsule, 1.25 MG (57274 UT), TAKE 1 CAPSULE BY MOUTH ONE [...] 08/20/2024 Generated for Daylin helm/Meghana/Kentonitting on: 0 12/01/2024 [...]
--- OUTSIDE RECORDS SUMMARY | 2024-10-10 08:00 | XMS_ITS ---
Author Organization [facility] Address [address] [place] [address] Care Team Providers Care Ekg Tech Name Role Phone Hector Padron MD Primary Care Provider Unavailab Suzette Calvillo Unavailable [phone] Medications Medication SIG (Take, Route, Frequency, Duration) [...] Not-Taking Encounters Encounter Location Date Provider Diagnosis [facility] [address] [address] 10/10/2024 Suzette Schmitz Plan Of Treatment Next Appt Details Provider Name:Suzette saini, 12/30/2024 01:30:00 PM, [address] [place] [address], [phone], Progress Notes * Antoni KENT MDOB:1940 (84 yo M)Acc No.[id number]:10/10/2024 Progress Note Patient: Antoni GROSS Provider: Gayla Schmitz DPM :1940 A ge:84 Y S ex:Male Date:10/10/2024 Address:[address] [place] [address] [id number] Pcp:Hector Padron MD Subjective: * Chief Complaints: [...] 10/10/2024 Generated for Daylin helm/Meghana/Vanessa on: 0 12/01/2024 11:24 AM EDT History and Physical Notes * HPI (History of Present Illness) Category Sub-Category Detail Notes Category Not es At Risk footcare Pt States Last PCP Visit: Date:
[2024-12-01 10:01] LABS: MANUAL DIFF FLAG NO
[2024-12-01 10:06] LABS: Hematocrit 39.5 % (42.0-52.0); Hemoglobin 13.4 g/dl (14.0-18.0); Imm Gran Abs Auto 0.03 X10*3/uL (0.00-0.03); Imm Gran Pct Auto 0.5 % (0.0-0.4); Lymphocytes Absolute Auto 2.2 X10*3/uL (1.2-4.9); Mean Corpuscular HGB Conc 33.9 g/dl (31.0-36.0); Mean Corpuscular Hemoglobin 31.8 pg (27.0-33.0); Mean Corpuscular Volume 93.8 fL (80.0-98.0); NRBC Abs Auto 0.000 X10*3/uL (0.0-0.012); NRBC Pct Auto 0.0 /100WBC (0.0-0.2); Platelet Count 172 X10*3/uL (160-400); Red Blood Count 4.21 X10*6/uL (4.60-5.80); White Blood Count 6.5 X10*3/uL (4.8-10.8)
[2024-12-01 10:16] LABS: Hemoglobin A1C 129.8259 umol/L; Total Hemoglobin (HGBA1C) 3500.2581 umol/L
[2024-12-01 10:48] LABS: Alanine Aminotransferase 17 U/L (0-40); Albumin Level 4.4 g/dL (3.5-5.0); Alkaline Phosphatase 121 U/L (39-117); Anion Gap 13 (12-20); Aspartate Amino Transferase 20 U/L (5-37); Blood Urea Nitrogen 18 mg/dL (9-16); Calcium 9.0 mg/dL (8.4-10.2); Carbon Dioxide 24 mmol/L (22-29); Chloride 109 mmol/L (96-108); Cholesterol 140 mg/dL (<200); Estimated Glomerular Filt Rate 59; HDL Cholesterol 47 mg/dL (>40); Potassium 4.0 mmol/L (3.3-5.1); Sodium 142 mmol/L (135-145); Total Protein 6.6 g/dL (6.5-8.0); Triglycerides 92 mg/dL (<150)
[2024-12-01 10:52] LABS: Prostate Specific Antigen 1.58 ng/mL (<0.05-4.0)
--- OUTSIDE RECORDS SUMMARY | 2024-12-01 11:24 | XMS_ITS | Patient Health Record ---
Author Organization [facility] Address [address] [facility] [place] [address] Care Team Providers Care Engineering Operations Leader Name Role Phone Hector Padron MD Primary Care Provider Suzette Newton Unavailable [phone] Allergies No Known Allergies Results Component Value [...] Disorder of joint of ankle and/or foot (369533206) Arthritis - Degenerative (719.97) Active confirmed Problem Neuralgia - Neuritis (729.2) Active confirmed Problem Bursitis (77409867) Bursitis (727.3) Active confirmed Problem Metatarsalgia (15735737) Metatarsalgia (726.70) Active confirmed Problem Pain in limb (16813383) Pain in Limb (729.5) Active confirmed Problem Neurologic disorder associated with type II diabetes mellitus (544052835) Diabetic - NIDDM/Neuropathy (250.60) Active confirmed Problem Polyneuropathy due to type 2 diabetes mellitus (817916700) 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 Problem 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) Active confirmed Vital Signs Blood pressure diastolic 82 mm Hg 05/02/2024 Height 6 ft in 05/02/2024 Blood pressure systolic 140 mm Hg 05/02/2024 Weight 206 lbs 05/02/2024 BMI 27.94 kg/m2 05/02/2024 Encounters Encounter Location Date Provider Diagnosis [facility] [address] [place] [address] 02/01/2024 Suzette Schmitz Type 2 diabetes mellitus with polyneuropathy E11.42 ; Tinea unguium B35.1 ; Metatarsalgia, left foot M77.42 and Metatarsalgia, right foot M77.41 [facility] [address] [place] [address] 05/02/2024 Suzette Schmitz Type 2 diabetes mellitus with polyneuropathy E11.42 ; Contusion of right lesser toe(s) with damage to nail, initial encounter S90.221A ; Tinea unguium B35.1 ; Neuropathic ulcer of right foot with fat layer exposed L97.512 and Contusion of left lesser toe(s) without damage to nail, initial encounter S90.122A [facility] [address] [address] 10/10/2024 Suzette Schmitz Assessments Encounter Date Diagnosis [...] X ray : Foot, right 2V 08/03/2011 [id number] SKIN LESIONS, 2 TO 4 08/03/19 12 Next Appt Details Provider Name:Suzette saini, 12/30/2024 01:30:00 PM, [address] [facility], [place], [address], Insurance Providers Payer Name Payer Address Payer Phone Subscriber Number Group Number Insured Name Patient Relationship to Insured Coverage Start Date Coverage End Date Medicare National [employer] [address] [place] [address] [id number] Antoni Kent Self - patient is the insured [employer] [facility] [address] [place] [address] [id number] Antoni Kent Self - patient is the insured Medical (General) History Medical History History ICD Code anxiety back, hip, knee pain depression type I diabetes neuropathy reflux stomach ulcer chicken pox High blood pressure Surgical History Surgery Date(Month/Year) gall bladder 07/08/2000 appendectomy 5th lumbar 08/10/2000
--- OUTSIDE RECORDS SUMMARY | 2024-12-01 11:24 | XMS_ITS | Patient Health Record ---
Author Organization Hector Padron III, MD Address [address] [place] [address] [address] [address] Care Team Providers Care [employer] Name Role Phone Hector Padron Primary Care Provider [phone] Allergies Allergen (clinical drug ingredient) Drug/Non Drug [...] ff Reviewed date:12/12/2023 07:00:26 AM Interpretation: Performing Lab:[facility], [address] [place] [address] Notes/Report: White Blood Count 6.3 4.8-10.8 X10*3/uL [...] NRBC Abs Auto 0.000 0.0-0.012 X10*3/uL Comprehensive [place]. Panel Fa st Reviewed date:12/12/2023 07:00:26 AM Interpretation: Performing Lab:[facility], [address] [place] [phone] Notes/Report: Sodium 142 135-145 mmol/L Potassium 4.2 3.3-5.1 mmol/L Chloride 105 96-108 mmol/L Carbon Dioxide 25 22-29 mmol/L Anion Gap 16 12-20 Blood Urea Nitrogen 16 9-16 mg/dL Creatinine 1.07 0.5-1.4 mg/dL Estimated Glomerular Filt Rate > 60 NOTE: For -[place] Citizen individuals, multiply the result by 1.210. Chronic [...] Panel Reviewed date:12/12/2023 07:00:26 AM Interpretation: Performing Lab:[address] [phone] Notes/Report: Triglycerides 142 <150 mg/dL Desirable Triglyceride: [...] Antigen Reviewed date:12/12/2023 07:00:26 AM Interpretation: Performing Lab:[address] [address] Notes/Report: Prostate Specific Antigen 1.70 <0.05-4.0 ng/mL PSA methodology: Patterson Alinity i Chemiluminescent Microparticle Immunoassay (CMIA) Microalbumin, Random Reviewed date:12/12/2023 07:00:26 AM Interpretation: Performing Lab:[address] [address] Notes/Report: Creatinine Urine 78.10 Microalbumin Urine 5.0 Microalbum/Creatinine Ratio Ur 6.4 <30 ug/mg cr Albumin/Creatinine Ratio Reference Ranges: Normal: < 30 ug/mg creatinine Microalbuminuria: 30 - 300 ug/mg creatinine Clinical Albuminuria: > 300 ug/mg creatinine Hemoglobin A1c Reviewed date:12/12/2023 07:00:26 AM Interpretation: Performing Lab:[facility], [address] [place] [phone] Notes/Report: Hemoglobin A1c % 5.5 <6.0 % [...] average glucose, using the formula of the T6J-Arsbxad Average Glucose study (ADAG), Diabetes Care, Vol.31,#8, Oct. 2007 Complete Blood Count Auto Di ff Reviewed date:04/21/2024 04:23:26 AM Interpretation: Performing Lab:[facility], [address] [place] [phone] Notes/Report: White Blood Count 5.6 4.8-10.8 X10*3/uL [...] NRBC Abs Auto 0.000 0.0-0.012 X10*3/uL Comprehensive [place]. Panel Fa st Reviewed date:04/21/2024 04:23:26 AM Interpretation: Performing Lab:[facility], [address] [place] [phone] Notes/Report: Sodium 138 135-145 mmol/L Potassium 3.9 [...] Panel Reviewed date:04/21/2024 04:23:26 AM Interpretation: Performing Lab:[facility], [address] [place] [address] Notes/Report: Triglycerides 92 <150 mg/dL Desirable Triglyceride: [...] Antigen Reviewed date:04/21/2024 04:23:26 AM Interpretation: Performing Lab:[facility], [address] [place] [phone] Notes/Report: Prostate Specific Antigen 2.12 <0.05-4.0 ng/mL PSA methodology: Patterson Alinity i Chemiluminescent Microparticle Immunoassay (CMIA) Microalbumin, Random Reviewed date:04/21/2024 04:23:26 AM Interpretation: Performing Lab:[facility], [address] [place] [address] Notes/Report: Creatinine Urine 167.26 Microalbumin Urine 10.0 Microalbum/Creatinine Ratio Ur 5.9 <30 ug/mg cr Albumin/Creatinine Ratio Reference Ranges: Normal: < 30 ug/mg creatinine Microalbuminuria: 30 - 300 ug/mg creatinine Clinical Albuminuria: > 300 ug/mg creatinine Hemoglobin A1c Reviewed date:04/21/2024 04:23:26 AM Interpretation: Performing Lab:[facility], [address] [place] [phone] Notes/Report: Hemoglobin A1c % 5.4 <6.0 % [...] average glucose, using the formula of the I6T-Wfpbsgw Average Glucose study (ADAG), Diabetes Care, Vol.31,#8, 2007 Diabetic Eye Exam Reviewed date:06/12/2024 09:19:55 AM Interpretation:undefined Performing Lab: Notes/Report: undefined Complete Blood Count Auto Di ff Reviewed date:08/12/2024 11:52:59 AM Interpretation: Performing Lab:[facility], [address] [place] [phone] Notes/Report: White Blood Count 6.3 4.8-10.8 X10*3/uL [...] NRBC Abs Auto 0.000 0.0-0.012 X10*3/uL Comprehensive [place]. Panel Fa st Reviewed date:08/12/2024 11:52:59 AM Interpretation: Performing Lab:[facility], [address] [place] [phone] Notes/Report: Sodium 142 135-145 mmol/L Potassium 3.9 [...] Panel Reviewed date:08/12/2024 11:52:59 AM Interpretation: Performing Lab:[facility], [address] [place] [phone] Notes/Report: Triglycerides 85 <150 mg/dL Desirable Triglyceride: [...] Antigen Reviewed date:08/12/2024 11:52:59 AM Interpretation: Performing Lab:[address] [phone] Notes/Report: Prostate Specific Antigen 1.75 <0.05-4.0 ng/mL PSA methodology: Patterson Alinity i Chemiluminescent Microparticle Immunoassay (CMIA) Microalbumin, Random Reviewed date:08/12/2024 11:52:59 AM Interpretation: Performing Lab:[facility], [address] [place] [phone] Notes/Report: Creatinine Urine 76.27 Microalbumin Urine < 5.0 Microalbum/Creatinine Ratio Ur TNP <30 ug/mg cr Unable to calculate albumin/creatinine ratio due to low microalbumin or creatinine result. Hemoglobin A1c Reviewed date:08/12/2024 11:52:59 AM Interpretation: Performing Lab:[facility], [address] [place] [phone] Notes/Report: Hemoglobin A1c % 5.6 <6.0 % [...] average glucose, using the formula of the L2N-Cthakgj Average Glucose study (ADAG), Diabetes Care, Vol.31,#8, Oct. 2007 Complete Blood Count Auto Di ff (Not yet reviewed by provider) Interpretation: Performing Lab:[facility], [address] [place] [phone] Notes/Report: White Blood Count 6.5 4.8-10.8 X10*3/uL Red Blood Count 4.21 4.60-5.80 X10*6/uL Hemoglobin 13.4 14.0-18.0 g/dl Hematocrit 39.5 42.0-52.0 % Mean Corpuscular Volume 93.8 80.0-98.0 fL Mean Corpuscular Hemoglobin 31.8 27.0-33.0 pg Mean Corpuscular HGB Conc 33.9 31.0-36.0 g/dl Red Cell Distribution Width 12.2 11.0-16.0 % Platelet Count 172 160-400 X10*3/uL Mean Platelet Volume 9.0 9.4-12.4 fL Neutrophils Percent Auto 55.5 45-73 % Imm Gran Pct Auto 0.5 0.0-0.4 % Lymphocytes Percent Auto 34.0 20-40 % Monocytes Percent Auto 8.1 2-11 % Eosinophils Percent Auto 1.4 0-4 % Basophils Percent Auto 0.5 0-2 % NRBC Pct Auto 0.0 0.0-0.2 /100WBC Neutrophils Absolute Auto 3.6 2.0-8.3 x10*3/u L Imm Gran Abs Auto 0.03 0.00-0.03 X10*3/uL Lymphocytes Absolute Auto 2.2 1.2-4.9 X10*3/u L Monocytes Absolute Auto 0.5 0.1-1.2 X10*3/uL Eosinophils Absolute Auto 0.1 0.0-0.4 X10*3/u L Basophils Absolute Auto 0.0 0.0-0.2 X10*3/uL NRBC Abs Auto 0.000 0.0-0.012 X10*3/uL Comprehensive [place]. Panel Fa (Not yet reviewed by provider) Interpretation: Performing Lab:[address] [address] Notes/Report: Sodium 142 135-145 mmol/L Potassium 4.0 3.3-5.1 mmol/L Chloride 109 96-108 mmol/L Carbon Dioxide 24 22-29 mmol/L Anion Gap 13 12-20 Blood Urea Nitrogen 18 9-16 mg/dL Creatinine 1.18 0.5-1.4 mg/dL Estimated Glomerular Filt Rate 59 Chronic Kidney Disease: Estimated GFR < 60 mL/min/1.73m2 Severe Kidney Disease: Estimated GFR < 15 mL/min/1.73m2 Glucose Fasting 119 60-99 mg/dL A fasting glucose from 100-125 mg/dl is considered impaired (pre-diabetes). Calcium 9.0 8.4-10.2 mg/dL Bilirubin Total 0.5 0.0-1.0 mg/dL Aspartate Amino Transferase 20 5-37 U/L Alanine Aminotransferase 17 0-40 U/L Total Protein 6.6 6.5-8.0 g/dL Albumin Level 4.4 3.5-5.0 g/dL Alkaline Phosphatase 121 39-117 U/L Lipid Panel (Not yet reviewe d by provider) Interpretation: Performing Lab:[facility], [address] [place] [phone] Notes/Report: Triglycerides 92 <150 mg/dL Desirable Triglyceride: less than 150 mg/dL Borderline High Triglyceride 150-199 mg/dL High Triglyceride: 200-499 mg/dL Very High Triglyceride: greater than or equal to 5OO mg/dL Cholesterol 140 <200 mg/dL Desirable Cholesterol: less than 200 mg/dL Borderline High Cholesterol: 200-239 mg/dL High Cholesterol: greater than 239 mg/dL LDL Cholesterol Calculated 75 <100 mg/dL Desirable LDL: less than 100 mg/dL Near Optimal/Above Optimal LDL: 110-129 mg/dL Borderline High LDL: 130-159 mg/dL High LDL: 160-189 mg/dL Very High LDL: greater than or equal to 190 mg/dL HDL Cholesterol 47 >40 mg/dL Desirable HDL: greater than 40 mg/dL Note: This HDL assay may give artificially low results in patients with liver disease. Prostate Specific Antigen (N ot yet reviewed by provider) Interpretation: Performing Lab:[facility], [address] [place] [phone] Notes/Report: Prostate Specific Antigen 1.58 <0.05-4.0 ng/mL PSA methodology: Patterson Alinity i Chemiluminescent Microparticle Immunoassay (CMIA) Vitamin D 25-OH Total (Not y et reviewed by provider) Interpretation: Performing Lab:[facility], [address] [place] [phone] Notes/Report: Vitamin D 25-OH Total 55.7 >30 ng/mL Health Based Reference Values* < 20 ng/mL Deficient 20-30 ng/mL Insufficient > 30 ng/mL Sufficient *Mayank MOTLEY. N Engl J Med. 2007;357:266-280 There is no well-established upper level of normal vitamin D levels. Some laboratories use 50 ng/mL as an upper limit of normal. However, toxicity is patient-dependent and may occur at any level. Careful correlation with the patient's presentation is necessary and, if there is concern for vitamin D toxicity, treatment should be considered irrespective of the serum level. Care must be taken in interpreting Vitamin D results from different laboratories and methodologies. Published data demonstrated that results from patients undergoing hemodialysis may show a negative bias when tested with various automated 25-OH vitamin D assays when compared to LC-MS/MS. When testing samples from patients whose predominant form of Vitamin D is Vitamin D2, such as patients receiving Vitamin D2 supplementation, results that are subtherapeutic should be confirmed with another method such as LC-MS/MS. Hemoglobin A1c (Not yet revi ewed by provider) Interpretation: Performing Lab:[facility], [address] [place] [phone] Notes/Report: Hemoglobin A1c % 5.5 <6.0 % [...] average glucose, using the formula of the Q9H-Qpeoayu Average Glucose study (ADAG), Diabetes Care, Vol.31,#8, [...] Provider Speciality Internal M edicine Referred Provider [place] [facility] [place] Referred Provider Specialty Unknown General Notes Jocelyn [...] can set up this appt, Jocelyn Blount [facility] 03/03/2024 02:02:58 PM > called [...] Specialty Carlos s General Notes Jocelyn Blount [facility] 02/26 04:16:49 PM > ref/demographic and progress note faxed to Deana DINH, Mine Jocelyn [facility] 03/03/2024 10:43:12 AM I called [...] Provider Specialty Unknown General Notes Jocelyn Blount [facility] 03/03 10:47:30 AM >The original referral that [...] even ing Orally Once a day Active Accu-Chek FastClix Lancets - USE TO TEST BLOOD SUGAR ONCE DAILY for 90 Active Lisinopril 5 MG TAKE 1 TABLET BY EZEQUIEL TH EVERY DAY Active Accu-Chek Laura Plus - like directed In Vitro test blood sugars once a day Active valACYclovir HCl 500 MG 1 tablet Orally Once a day Active Vitamin D (Ergocalciferol) 1.25 MG (93722 UT) TAKE 1 CAPSULE BY MOUTH ONE TIME PER WEEK Active Mirtazapine 45 MG TAKE 1 TABLET BY EZEQUIEL TH EVERYDAY AT BEDTIME Active FLUoxetine HCl 40 MG 1 capsule Orally On ce a day Active risperiDONE 0.5 MG 1 tablet on the tong ue and allow to dissolve Orally Twice a day Active clonazePAM 2 MG 1 tablet Orally Tree times a day Active Myrbetriq 25 MG TAKE 1 TABLET BY EZEQUIEL TH DAILY Oral Active Immunizations Vaccine Route Administration [...] Problem Status W/U Status Risk Notes Problem 686029443 Overweight (E66.3) Active confirmed He remains overweight but his weight is stable. We discussed diet and nutrition today. Problem 22294171 Depression (F32.9) Active confirmed He has mild chronic depression. He is compliant with his psychiatric medications and up-to-date with his psychiatrist. This problem is stable. Problem 425547450 GERD (gastroesophage al reflux disease) (K21.9) Active confirmed His heartburn i s well controlled with medications. He is sleeping through the night. No change in his regimen was needed. Problem 24107428 Type 2 diabetes mellitus without complications (E11.9) Active confirmed His hemoglobin A1c is 5.4. No change in his regimen was necessary today.He is doing well. The recent available. Blood work shows good control of the diabetes. Problem 68007549 Irritable bowel syndrome (K58.9) Active confirmed Visit irritable bowel syndrome is minor and well controlled. Problem 592063865 BPH (benign prostatic hyperplasia) (N40.0) Active confirmed He rises from sleep once or twice a night to urinate. We discussed lifestyle modification as a way to reduce nocturia. Problem 629965398 Hyperlipidemia type II (E78.0) Active confirmed His fasting lipid profile shows his lipids to be in the normal range. No change in his regimen was necessary today. Problem 765673100 Cholelithiasis (K80.20) Active confirmed Problem 291853568 Chronic insomnia (F51.04) Active confirmed He is still sleeping poorly but appears to be well rested. Problem 615713648161713 History of herpes zoster (Z86.19) Active confirmed Problem 015775867 History of pulmonary embolism (Z86.711) Active confirmed There is no sig n of venous thromboembolism on examination today. Problem 13137683 Age-related cataract of both eyes, unspecified age-related [...] Provider Diagnosis Hector Padron III, MD [address] [place] [address] [place] [address] 12/17/2023 Hector Padron Depression F32.9 ; T ype 2 diabetes mellitus without complications E11.9 ; BPH (benign prostatic hyperplasia) N40.0 ; History of pulmonary embolism Z86.711 ; Overweight E66.3 ; GERD (gastroesophageal reflux disease) K21.9 and Hyperlipidemia type II E78.01 Hector Padron III, MD [address] [place] [address] [place] [address] 02/27/2024 Hector Padron Depression F32.9 ; T ype 2 diabetes mellitus without complications E11.9 ; Overweight E66.3 ; BPH (benign prostatic hyperplasia) N40.0 ; History of pulmonary embolism Z86.711 ; Hyperlipidemia type II E78.0 ; GERD (gastroesophageal reflux disease) K21.9 ; Diabetic neuropathy E11.40 and Pressure injury of buttock, stage 3, 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 Hector Padron III, MD [address] [place] [address] [place] [address] 04/21/2024 Hector Padron Depression F32.9 ; T ype 2 diabetes mellitus without complications E11.9 ; Overweight E66.3 ; GERD (gastroesophageal reflux disease) K21.9 ; Chronic insomnia F51.04 ; BPH (benign prostatic hyperplasia) N40.0 ; Hyperlipidemia type II E78.0 ; Diabetic neuropathy E11.40 and History of pulmonary embolism Z86.711 Hector Padron III, MD [address] [place] [address] [place] [address] 07/08/2024 Hector Padron Depression F32.9 ; T ype 2 diabetes mellitus without complications E11.9 ; Overweight E66.3 ; GERD (gastroesophageal reflux disease) K21.9 ; Chronic insomnia F51.04 ; BPH (benign prostatic hyperplasia) N40.0 ; Hyperlipidemia type II E78.0 ; SOB (shortness of breath) R06.02 and Age-related cataract of both eyes, unspecified age-related cataract type H25.9 Hector Padron III, MD [address] [place] [address] [place] [address] 08/20/2024 Hector Padron Depression F32.9 ; T [...] DIFF 12/17/2023 CBC WITH AUTO DIFF 04/21/2024 Complete Blood Count Auto Diff Comprehensive [place]. Panel Fast Lipid Panel 12/12/2021 Lipid Panel 08/08/2021 Lipid Panel 08/08/2023 Lipid Panel 12/17/2023 Lipid Panel 04/21/2024 Lipid Panel 08/20/2024 Lipid Panel 12/01/2024 Lipid Panel 04/17/2022 Prostate Specific Antigen 12/01/2024 Vitamin D 25-OH Total 12/01/2024 Vitamin D 25-OH Total 04/11/2023 Vitamin D 25-OH Total 08/20/2024 Microalbumin, Random 08/20/2024 Microalbumin, Random 04/17/2022 Microalbumin, Random 12/12/2021 Microalbumin, Random 08/08/2023 Microalbumin, Random 12/17/2023 Microalbumin, Random 04/21/2024 Hemoglobin A1c 08/20/2024 Hemoglobin A1c 12/01/2024 Hemoglobin A1c 04/17/2022 Hemoglobin A1c 12/12/2021 Hemoglobin A1c 04/11/2023 Hemoglobin A1c 08/08/2023 Hemoglobin A1c 12/17/2023 Hemoglobin A1c 04/21/2024 Next Appt Details Provider Name:Hector Padron, 12/17/2024 02:00:00 PM, [address] [place] [address] [address], [place], [address], Insurance Providers Payer Name Payer Address Payer Phone Subscriber Number Group Number Insured Name Patient Relationship to Insured Coverage Start Date Coverage End Date MEDICARE NGS [address] [place] [phone] [id number] Antoni Kent Self - patient is the insured [facility] [address] [place], [place] [id number] Antoni Kent Self - patient is the insured Medical (General) History Medical History History ICD Code depression insomnia cholelithiasis hemorrhoids GERD acne BPH irritable bowel syndrome shingles left shouder chronic diarrhea diabetes mellitus hyperlipidemia pulmonary embolism neuropathy Surgical History Surgery Date(Month/Year) No history cholecystectomy Hospitalization History Reason Date(Month/Year) No history [facility], rhabdomyolysis, fell at home 08/10/2022
--- OUTSIDE RECORDS SUMMARY | 2024-12-01 11:25 | XMS_ITS | Patient Health Record ---
Author Organization [facility] Address [address] [place] [address] Care Team Providers Care [employer]er Name Role Phone Hector Padron MD Primary Care Provider Unavailab Hector Wisdom Unavailable [phone] Reason For Referral No Information Medications Medication [...] Problem Status W/U Status Risk Notes Problem 860528534 Encounter for screening for malignant neoplasm of colon (Z12.11) Active confirmed Problem 707676333 History of adenomatous polyp of colon (Z86.010) Active confirmed Problem Screening for malignant neoplasm of rectum (171640160) Encounter for screening for malignant neoplasm of rectum (Z12.12) Active confirmed Problem 784389841 Family history o f colon cancer (Z80.0) Active confirmed Problem 43945355 Irritable bowel syndrome with both constipation and diarrhea (K58.2) Active confirmed Plan Of Treatment Future Test Test Name Order Date COLONOSCOPY 02/10/2011 COLONOSCOPY 06/28/2016 Insurance Providers Payer Name Payer Address Payer Phone Subscriber Number Group Number Insured Name Patient Relationship to Insured Coverage Start Date Coverage End Date MEDICARE OF [place] [address] [place] [address] [phone] [id number] CISNEROSEL Self - patient is the insured [employer] [address] [place] [address] [id number] ERI HODGE Self - patient is the insured Medical (General) History Medical History History ICD Code Colonoscopy 03/29/2011--small tubular josette nomas removed EGD 01/20/2010--biopsies wer e negative for celiac disease and H. pylori--no esophagitis nor Mckeon's esophagus IBS GERD--EGD as above PUD He has been treated for Helicobacter in the past Depression/anxiety--[place] sam[place] [facility] [place]monary embolus and pneumonia in 2010 Denies SC, stroke, asthma, nor kidney di sease NIDDM Surgical History Surgery Date(Month/Year) back surgery cholecystectomy
== END 2024-12-01 09:49 | disposition home or self-care (01) ==
LOC: HO.LAB 09:48
PROVIDERS: PCP Internal Medicine Medical Oncology; Visit Provider Internal Medicine Medical Oncology
DX: N40.0 Benign prostatic hyperplasia without lower urinary tract symptoms (principal); K21.9 Gastro-esophageal reflux disease without esophagitis; E11.9 Type 2 diabetes mellitus without complications; F32.9 Major depressive disorder, single episode, unspecified; E66.3 Overweight; Z12.5 Encounter for screening for malignant neoplasm of prostate; Z13.21 Encounter for screening for nutritional disorder
CPT/HCPCS: 36415; 80053; 80061; 82043; 82306; 82570; 83036; 84153; 85025

== ENCOUNTER 2025-01-12 14:41 | Outpatient (AMB) | payer MEDICARE, SELFPAY | END 2025-01-12 14:42 | disposition home or self-care (01) | LOC: HO.HMGAL 14:41 | PROVIDERS: PCP Internal Medicine Medical Oncology; Visit Provider Registered Nurse Emergency | DX: J30.89 Other allergic rhinitis (principal) | CPT/HCPCS: 95117; 95165 ==

== ENCOUNTER 2025-02-06 13:51 | Outpatient (AMB) | payer MEDICARE, SELFPAY ==
--- OUTSIDE RECORDS SUMMARY | 2023-08-08 09:00 | XMS_ITS ---
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 Hector Padron III Primary Care Provider Allergies Allergen (clinical drug ingredient) Drug/Non Drug Allergy documented on EMR Reaction Allergy Type Onset Date Status No Known Drug Allergy Unknown Drug Allergy Active REASON FOR VISIT diabetes, depression, history of pulmonary embolism, BPH, hyperlipidemia Medications Medication SIG (Take, Route, Frequency, Duration) Notes Start Date End Date Status risperiDONE 0.5 MG 1 tablet on the tong ue and allow to dissolve Orally Twice a day Active clonazePAM 2 MG 1 tablet Orally Tree times a day Active FLUoxetine HCl 20 MG 1 capsule Orally On ce a day Active Simvastatin 10 MG 1 tablet in the even ing Orally Once a day Active FLUoxetine HCl 40 MG 1 capsule Orally On ce a day Active Lisinopril 5 MG TAKE 1 TABLET BY EZEQUIEL TH EVERY DAY Active Mirtazapine 45 MG TAKE 1 TABLET BY EZEQUIEL TH EVERY DAY AT BEDTIME Active Accu-Chek Laura Plus - TEST BLOOD SUGAR ONCE A DAY E11.9 Active Vitamin D (Ergocalciferol) 1.25 MG (01690 UT) TAKE 1 CAPSULE BY MOUTH ONE TIME PER WEEK Active valACYclovir HCl 500 MG 1 tablet Orally Once a day Active Accu-Chek FastClix Lancets - USE TO TEST BLOOD SUGAR ONCE DAILY Active Social History Tobacco Use: Social History Observation Description Date Details (start date - stop date) Never Smoker NA - NA Sex Assigned At : Social History Observation Description Sex Assigned At Male Tobacco Use/Smoking Question Answer Notes Patient is a nonsmoker Additional Findings: Tobacco Non-User Aggressive non-smoker Vital Signs Temperature 98.6 degrees Fahrenheit 08/08/19 24 Blood pressure systolic 120 mm Hg 08/08/19 24 Blood pressure diastolic 65 mm Hg 024 Heart Rate 73 /min 08/08/2023 Height 72 in 08/08/2023 Weight 209 lbs 08/08/2023 BMI 28.34 kg/m2 08/08/2023 Encounters Encounter Location Date Provider Diagnosis Hector Padron III, MD [address] [place] [address] DR [place], [place] [phone] 08/08/2023 Hector Padron Depression F32.9 ; Overweight E66.3 ; Type 2 diabetes mellitus without complications E11.9 ; BPH (benign prostatic hyperplasia) N40.0 and Hyperlipidemia type II E78.01 Assessments Encounter Date Diagnosis (ICD Code) Assessment Notes Treat ment Notes Treatment Clinical Notes 08/08/2023 Depression (ICD-10 - F32.9) His depression is stable and he is compliant with all of his medications. He will see the psychiatrist next month. 08/08/2023 Overweight (ICD-10 - E66.3) He remains overweight. We discussed his diabetic weight reduction diet at length. We reviewed his diet and nutrition. We made a plan to lose weight at a rate of one half a pound per week 08/08/2023 Type 2 diabetes mellitus without complications (ICD-10 - E11.9) His hemoglobin A1c is 5.4. No change in his regimen was necessary today. 08/08/2023 BPH (benign prostati c hyperplasia) (ICD-10 - N40.0) He rises from sleep once or twice a night to urinate. We discussed lifestyle modification as a way to reduce nocturia. 08/08/2023 Hyperlipidemia type II (ICD-10 - E78.01) His triglycerides are slightly elevated but his cholesterol values are within their target ranges. I recommended weight loss and a healthy diet. Plan Of Treatment Medication Medication Name Sig Start Date Stop Date Notes risperiDONE 0.5 MG 1 tablet on the tong ue and allow to dissolve Orally Twice a day clonazePAM 2 MG 1 tablet Orally Tree times a day FLUoxetine HCl 20 MG 1 capsule Orally Once a day Simvastatin 10 MG 1 tablet in the even ing Orally Once a day FLUoxetine HCl 40 MG 1 capsule Orally Once a day Lisinopril 5 MG TAKE 1 TABLET BY EZEQUIEL TH EVERY DAY Mirtazapine 45 MG TAKE 1 TABLET BY EZEQUIEL TH EVERY DAY AT BEDTIME Accu-Chek Laura Plus - TEST BLOOD SUGAR ONCE A DAY E11.9 Vitamin D (Ergocalciferol) 1 .25 MG (85319 UT) TAKE 1 CAPSULE BY MOUTH ONE TIME PER WEEK valACYclovir HCl 500 MG 1 tablet Orally Once a day Accu-Chek FastClix Lancets - USE TO TEST BLOOD SUGAR ONCE DAILY Pending Test Test Name Order Date PROFILE, FASTING (COMPREHENSIVE METABOLI C) 08/08/2023 PSA, TOTAL 08/08/2023 CBC WITH AUTO DIFF 08/08/2023 Lipid Panel 08/08/2023 Microalbumin, Random 08/08/2023 Hemoglobin A1c 08/08/2023 Next Appt Details Follow Up: 4 Months, Reason: Annual Exam Provider Name:Hector Padron , 04/22/2025 02:30:00 PM, [address] [place] [address] [address], [place], [address], Provider Name:Hector Padron , 12/23/2025 02:00:00 PM, [address] [place] [address] [address], [place], [address], Progress Notes * Antoni KENT MDOB:1940 (83 yo M)Acc No.[id number]:08/08/2023 Progress Notes Patient: Antoni Kelly Provider: Liv Padron MD :1940 A ge:83 Y S ex:Male Date:08/08/2023 Address:[address] [place] [address] [address] [phone] Subjective: * Chief Complaints: * D iabetesDepressionHistory of pulmonary embolismBPHHyperlipidemia * HPI: C OVID-19 Screening: He returns to the office for a scheduled visit to manage his metabolic issues. His vital signs are stable. His diabetes is well controlled. His appetite is good and he is sleeping well. He denies any pain or dyspnea. His heartburn is well controlled. He is no longer anticoagulated. He rises from sleep once or twice a night to urinate. We discussed lifestyle modification as a way to reduce nocturia. His blood work was reviewed with him. Questions H ave you experienced fever, chills, cough, sore throat, shortness of breath, difficulty breathing, muscle aches, loss of taste or smell? N o H ave you been exposed to the virus within the last 10 days? N o H ave you travelled internationally in the last 10 days? N o H ave you been exposed to COVID-19 in the past? N o * ROS: G eneral/Constitutional: pain o nly normal aches and pains. C hills d enies.?Fatigue a dmits. F ever d enies. E NT: Decreased hearing m ild. R espiratory: Cough d enies. C ardiovascular: Chest pain with exertion d enies. D yspnea on exertion?denies. S hortness of breath d enies. G astrointestinal: Constipation o ccasional. D ecreased appetite d enies. D iarrhea d enies. H eartburn d enies. N ausea d enies. R ectal bleeding d enies. V omiting d enies. H ematology: bruising d enies. p etechiae d enies. S wollen glands n one have been noted. G enitourinary: Frequent urination o nce a night. M usculoskeletal: Muscle aches d enies. P ainful joints d enies. S ciatica d enies. W eakness d enies. S kin: Itching d enies. R whit d enies. S kin lesion(s)?denies. N eurologic: Difficulty speaking d enies. D izziness d enies.?Headache d enies. L ow back pain d enies. P sychiatric: Depressed mood d enies. * Medical History: * Surgical History: c holecystectomy * Hospitalization/Major Diagno stic Procedure: [facility], rhabdomyolysis, fell at home 08/10/2022 * Family History: F ather: , homicide. M other: , intestinal cancer, diagnosed with Cancer.?1 son(s) - healthy. . An aunt had breast cancer and another had GI cancer. His son is healthy. He is not aware of any family history of mental illness or substance use disorder. * Social History: T obacco Use: T obacco Use/Smoking P yelena is a n onsmoker A dditional Findings: Tobacco Non-User A ggressive non-smoker Nevaeh angeles was born in [place], [place] He has a son. He is retired from [employer]. He has a son, Lawrence Hardingjr. [employer] [facility] in [place]. [facility]. * Medications: T akingVitamin D (Ergocalciferol) 1.25 MG (58945 UT) Capsule TAKE 1 CAPSULE BY MOUTH ONE TIME PER WEEK Lisinopril 5 MG Tablet TAKE 1 TABLET BY MOUTH EVERY DAY Mirtazapine 45 MG Tablet TAKE 1 TABLET BY MOUTH EVERY DAY AT BEDTIME valACYclovir HCl 500 MG Tablet 1 tablet Orally Once a daySimvastatin 10 MG Tablet 1 tablet in the evening Orally Once a dayFLUoxetine HCl 40 MG Capsule 1 capsule Orally Once a dayclonazePAM 2 MG Tablet 1 tablet Orally Tree times a dayFLUoxetine HCl 20 MG Capsule 1 capsule Orally Once a dayrisperiDONE 0.5 MG Tablet Dispersible 1 tablet on the tongue and allow to dissolve Orally Twice a dayAccu-Chek FastClix Lancets - Miscellaneous USE TO TEST BLOOD SUGAR ONCE DAILY Accu-Chek Laura Plus - Strip TEST BLOOD SUGAR ONCE A DAY E11.9 Medication List reviewed and reconciled with the patientTaking Vitamin D (Ergocalciferol) 1.25 MG (37868 UT) Capsule TAKE 1 CAPSULE BY MOUTH ONE TIME PER WEEK Taking Lisinopril 5 MG Tablet TAKE 1 TABLET BY MOUTH EVERY DAY Taking Mirtazapine 45 MG Tablet TAKE 1 TABLET BY MOUTH EVERY DAY AT BEDTIME Taking valACYclovir HCl 500 MG Tablet 1 tablet Orally Once a dayTaking Simvastatin 10 MG Tablet 1 tablet in the evening Orally Once a dayTaking FLUoxetine HCl 40 MG Capsule 1 capsule Orally Once a dayTaking clonazePAM 2 MG Tablet 1 tablet Orally Tree times a dayTaking FLUoxetine HCl 20 MG Capsule 1 capsule Orally Once a dayTaking risperiDONE 0.5 MG Tablet Dispersible 1 tablet on the tongue and allow to dissolve Orally Twice a dayTaking Accu-Chek FastClix Lancets - Miscellaneous USE TO TEST BLOOD SUGAR ONCE DAILY Taking Accu-Chek Laura Plus - Strip TEST BLOOD SUGAR ONCE A DAY E11.9 Medication List reviewed and reconciled with the patient * Allergies: N o Known Drug Allergyno[Allergies Verified] Objective: * Vitals: H t: 72, Wt:209, BMI:28.34, BP:120/65, HR:73, Temp:98.6, Wt-k.8. * P ast Orders: Lab:Vitamin D 25-OH Total * Order Date 07/30/2023 11/29/2022 Vitamin D 25-OH Total 52.3 (Ref Range: >30 ng/mL) 60.1 (Ref Range: >30 ng/mL) * Lab:Lipid Panel * Order Date 07/30/2023 04/03/2023 11/29/2022 Triglycerides 174 H (Ref Range: <150 mg/dL) 141 (Ref Range: <150 mg/dL) 127 (Ref Range: <150 mg/dL) Cholesterol 145 (Ref Range: <200 mg/dL) 154 (Ref Range: <200 mg/dL) 154 (Ref Range: <200 mg/dL) LDL Cholesterol Calculated 73 (Ref Range: <100 mg/dL) 84 (Ref Range: <100 mg/dL) 87 (Ref Range: <100 mg/dL) HDL Cholesterol 38 L (Ref Range: >40 mg/dL) 42 (Ref Range: >40 mg/dL) 42 (Ref Range: >40 mg/dL) * Lab:Comprehensive Met. Panel * Order Date 07/30/2023 07/31/2022 Sodium 143 (Ref Range: 135-145 mmol/L) 140 (Ref Range: 135-145 mmol/L) Bilirubin Total 0.3 (Ref Range: 0.0-1.0 mg/dL) 0.5 (Ref Range: 0.0-1.0 mg/dL) Aspartate Amino Transferase 18 (Ref Range: 5-37 U/L) 15 (Ref Range: 5-37 U/L) Alanine Aminotransferase 15 (Ref Range: 0-40 U/L) 19 (Ref Range: 0-40 U/L) Total Protein 6.4 L (Ref Range: 6.5-8.0 g/dL) 6.3 L (Ref Range: 6.5-8.0 g/dL) Albumin Level 4.0 (Ref Range: 3.5-5.0 g/dL) 4.2 (Ref Range: 3.5-5.0 g/dL) Alkaline Phosphatase 110 (Ref Range: 39-117 U/L) 132 H (Ref Range: 39-117 U/L) Potassium 4.0 (Ref Range: 3.3-5.1 mmol/L) 4.2 (Ref Range: 3.3-5.1 mmol/L) Chloride 108 (Ref Range: 96-108 mmol/L) 108 (Ref Range: 96-108 mmol/L) Carbon Dioxide 26 (Ref Range: 22-29 mmol/L) 24 (Ref Range: 22-29 mmol/L) Anion Gap 13 (Ref Range: 12-20) 12 (Ref Range: 12-20) Blood Urea Nitrogen 22 H (Ref Range: 9-16 mg/dL) 15 (Ref Range: 9-16 mg/dL) Creatinine 1.03 (Ref Range: 0.5-1.4 mg/dL) 1.10 (Ref Range: 0.5-1.4 mg/dL) Estimated Glomerular Filt Rate > 60 > 60 Glucose Random 102 (Ref Range: 60-115 mg/dL) 106 (Ref Range: 60-115 mg/dL) Calcium 9.9 (Ref Range: 8.4-10.2 mg/dL) 9.4 (Ref Range: 8.4-10.2 mg/dL) * Lab:Complete Blood Count Aut o Diff * Order Date 07/30/2023 04/03/2023 11/29/2022 White Blood Count 7.0 (Ref Range: 4.8-10.8 X10*3/uL) 5.3 (Ref Range: 4.8-10.8 X10*3/uL) 6.4 (Ref Range: 4.8-10.8 X10*3/uL) Red Blood Count 4.26 L (Ref Range: 4.60-5.80 X10*6/uL) 4.44 L (Ref Range: 4.60-5.80 X10*6/uL) 4.38 L (Ref Range: 4.60-5.80 X10*6/uL) Hemoglobin 13.7 L (Ref Range: 14.0-18.0 g/dl) 14.1 (Ref Range: 14.0-18.0 g/dl) 14.0 (Ref Range: 14.0-18.0 g/dl) Hematocrit 39.9 L (Ref Range: 42.0-52.0 %) 41.6 L (Ref Range: 42.0-52.0 %) 40.5 L (Ref Range: 42.0-52.0 %) Mean Corpuscular Volume 93.7 (Ref Range: 80.0-98.0 fL) 93.7 (Ref Range: 80.0-98.0 fL) 92.5 (Ref Range: 80.0-98.0 fL) Mean Corpuscular Hemoglobin 32.2 (Ref Range: 27.0-33.0 pg) 31.8 (Ref Range: 27.0-33.0 pg) 32.0 (Ref Range: 27.0-33.0 pg) Mean Corpuscular HGB Conc 34.3 (Ref Range: 31.0-36.0 g/dl) 33.9 (Ref Range: 31.0-36.0 g/dl) 34.6 (Ref Range: 31.0-36.0 g/dl) Red Cell Distribution Width 12.4 (Ref Range: 11.0-16.0 %) 12.1 (Ref Range: 11.0-16.0 %) 12.6 (Ref Range: 11.0-16.0 %) Platelet Count 173 (Ref Range: 160-400 X10*3/uL) 180 (Ref Range: 160-400 X10*3/uL) 175 (Ref Range: 160-400 X10*3/uL) Mean Platelet Volume 8.9 L (Ref Range: 9.4-12.4 fL) 9.0 L (Ref Range: 9.4-12.4 fL) 9.0 L (Ref Range: 9.4-12.4 fL) Neutrophils Percent Auto 43.1 L (Ref Range: 45-73 %) 50.0 (Ref Range: 45-73 %) 45.3 (Ref Range: 45-73 %) Imm Gran Pct Auto 0.6 H (Ref Range: 0.0-0.4 %) 0.4 (Ref Range: 0.0-0.4 %) 0.3 (Ref Range: 0.0-0.4 %) Lymphocytes Percent Auto 45.3 H (Ref Range: 20-40 %) 39.4 (Ref Range: 20-40 %) 43.6 H (Ref Range: 20-40 %) Monocytes Percent Auto 8.3 (Ref Range: 2-11 %) 8.1 (Ref Range: 2-11 %) 8.8 (Ref Range: 2-11 %) Eosinophils Percent Auto 2.3 (Ref Range: 0-4 %) 1.7 (Ref Range: 0-4 %) 1.7 (Ref Range: 0-4 %) Basophils Percent Auto 0.4 (Ref Range: 0-2 %) 0.4 (Ref Range: 0-2 %) 0.3 (Ref Range: 0-2 %) NRBC Pct Auto 0.0 (Ref Range: 0.0-0.2 /100WBC) 0.0 (Ref Range: 0.0-0.2 /100WBC) 0.0 (Ref Range: 0.0-0.2 /100WBC) Neutrophils Absolute Auto 3.0 (Ref Range: 2.0-8.3 x10*3/uL) 2.6 (Ref Range: 2.0-8.3 x10*3/uL) 2.9 (Ref Range: 2.0-8.3 x10*3/uL) Imm Gran Abs Auto 0.04 H (Ref Range: 0.00-0.03 X10*3/uL) 0.02 (Ref Range: 0.00-0.03 X10*3/uL) 0.02 (Ref Range: 0.00-0.03 X10*3/uL) Lymphocytes Absolute Auto 3.2 (Ref Range: 1.2-4.9 X10*3/uL) 2.1 (Ref Range: 1.2-4.9 X10*3/uL) 2.8 (Ref Range: 1.2-4.9 X10*3/uL) Monocytes Absolute Auto 0.6 (Ref Range: 0.1-1.2 X10*3/uL) 0.4 (Ref Range: 0.1-1.2 X10*3/uL) 0.6 (Ref Range: 0.1-1.2 X10*3/uL) Eosinophils Absolute Auto 0.2 (Ref Range: 0.0-0.4 X10*3/uL) 0.1 (Ref Range: 0.0-0.4 X10*3/uL) 0.1 (Ref Range: 0.0-0.4 X10*3/uL) Basophils Absolute Auto 0.0 (Ref Range: 0.0-0.2 X10*3/uL) 0.0 (Ref Range: 0.0-0.2 X10*3/uL) 0.0 (Ref Range: 0.0-0.2 X10*3/uL) NRBC Abs Auto 0.000 (Ref Range: 0.0-0.012 X10*3/uL) 0.000 (Ref Range: 0.0-0.012 X10*3/uL) 0.000 (Ref Range: 0.0-0.012 X10*3/uL) * Lab:Hemoglobin A1c * Order Date 07/30/2023 04/03/2023 11/29/2022 Hemoglobin A1c % 5.4 (Ref Range: <6.0 %) 5.3 (Ref Range: <6.0 %) 5.1 (Ref Range: <6.0 %) Estimated Average Glucose 108 (Ref Range: mg/dL) 105 (Ref Range: mg/dL) 100 (Ref Range: mg/dL) * Examination: G eneral Examination: GENERAL APPEARANCE: p leasant, well nourished, well developed, in no acute distress, calm and relaxed , overweight , man. HEAD: a traumatic, normocephalic. EYES: e dre, perrla, anicteric, conjugate. EARS: n ormal. NOSE: s eptum intact. ORAL CAVITY: n ormal, unremarkable. NECK/THYROID: n o jugular venous distention, no carotid bruit, thyroid normal. LYMPH NODES: n o enlarged lymph nodes,spleen normal. SKIN: n o suspicious lesions, anicteric. HEART: n o clicks, gallops, murmurs, or rubs, regular rhythm, S1, S2 normal, no s3, or vascular bruits. LUNGS: c lear to auscultation . BREASTS: no masses palpable bilaterally. ABDOMEN: b owel sounds normal, no ascites, no organomegaly, no mass , overweight. RECTAL EXAM: n ot examined. MUSCULOSKELETAL: e xtremities unremarkable, no clubbing, cyanosis or edema. PERIPHERAL PULSES: n ormal. NEUROLOGIC: a lert and oriented, cranial nerves 2-12 grossly intact, deep tendon reflexes 2+ symmetrical, motor strength normal upper and lower extremities, sensory exam intact. PSYCH: a lert, oriented , mood depressed , affect flat.? Assessment: * Assessment: 1. D epression - F32.9 (Primary), His depression is stable and he is compliant with all of his medications. He will see the psychiatrist next month. 2 . O verweight - E66.3, He remains overweight. We discussed his diabetic weight reduction diet at length. We reviewed his diet and nutrition. We made a plan to lose weight at a rate of one half a pound per week 3 . T ype 2 diabetes mellitus without complications - E11.9, His hemoglobin A1c is 5.4. No change in his regimen was necessary today. 4 . B PH (benign prostatic hyperplasia) - N40.0, He rises from sleep once or twice a night to urinate. We discussed lifestyle modification as a way to reduce nocturia. 5 .?Hyperlipidemia type II - E78.01, His triglycerides are slightly elevated but his cholesterol values are within their target ranges. I recommended weight loss and a healthy diet. Plan: * Treatment: 2. O verweight L AB: PROFILE, FASTING (COMPREHENSIVE METABOLIC) L AB: PSA, TOTAL L AB: CBC WITH AUTO DIFF L AB: Lipid Panel L AB: Microalbumin, Random L AB: Hemoglobin A1c 3. T ype 2 diabetes mellitus without complications L AB: PROFILE, FASTING (COMPREHENSIVE METABOLIC) L AB: PSA, TOTAL L AB: CBC WITH AUTO DIFF L AB: Lipid Panel L AB: Microalbumin, Random L AB: Hemoglobin A1c 4. B PH (benign prostatic hyperplasia) L AB: PROFILE, FASTING (COMPREHENSIVE METABOLIC) L AB: PSA, TOTAL L AB: CBC WITH AUTO DIFF L AB: Lipid Panel L AB: Microalbumin, Random L AB: Hemoglobin A1c 5. H yperlipidemia type II L AB: PROFILE, FASTING (COMPREHENSIVE METABOLIC) L AB: PSA, TOTAL L AB: CBC WITH AUTO DIFF L AB: Lipid Panel L AB: Microalbumin, Random L AB: Hemoglobin A1c 6. O thers Continue Vitamin D (Ergocalciferol) Capsule, 1.25 MG (82654 UT), TAKE 1 CAPSULE BY MOUTH ONE TIME PER WEEK; C ontinue Lisinopril Tablet, 5 MG, TAKE 1 TABLET BY MOUTH EVERY DAY; C ontinue Mirtazapine Tablet, 45 MG, TAKE 1 TABLET BY MOUTH EVERY DAY AT BEDTIME; C ontinue valACYclovir HCl Tablet, 500 MG, 1 tablet, Orally, Once a day; C ontinue Simvastatin Tablet, 10 MG, 1 tablet in the evening, Orally, Once a day; C ontinue FLUoxetine HCl Capsule, 40 MG, 1 capsule, Orally, Once a day; C ontinue Accu-Chek FastClix Lancets Miscellaneous, -, USE TO TEST BLOOD SUGAR ONCE DAILY; C ontinue Accu-Chek Laura Plus Strip, -, TEST BLOOD SUGAR ONCE A DAY E11.9. * Procedure Codes: * Preventive Medicine: Counseling: C are goal follow-up plan: Counseling for abnormal BMI given Y es Above Normal BMI Follow-up D ietary management education, guidance, and counseling, Dietary needs education, Exercise promotion: strength training, Exercise promotion: stretching, Feeding regime, Giving encouragement to exercise, Lifestyle education regarding diet, Nutrition / feeding management, Nutrition therapy, Prescribed activity/exercise education, Prescribed diet education, Prescribed dietary intake, Special diet education, Weight monitoring , Intervention, Order not done: Medical or Other reason not done DM Care Plan: P atient Lifestyle Goals P atient wants to be able to manage diabetes without too much effort. T reatment Goals H bA1C < 7.0, Blood Sugars less than < 115. B arriers n o barriers. S elf-Managment Goals W ork on weight loss, with a goal of losing 1 lb per week. * Follow Up: 4 Months (Reason: Annual Exam) * Images: * Sign off status: Completed true * Provider: Liv Padron MD Date: 0 08/08/2023 Generated for Daylin helm/Meghana/Vanessa on: 04/08/2024 08:21 PM EST History and Physical Notes * HPI (History of Present Illness) Category Sub-Category Detail Notes COVID-19 Screening Questions Have you had any new onset fever, chills, cough, congestion, sore throat, shortness of breath, muscle aches?: No Have you been exposed to the virus with n the last 10 days?: No Have you travelled internationally in [facility] last 10 days?: No Have you been exposed to COVID-19 in the past?: No Examination Category Sub-Category Detail Notes General Examination GENERAL APPEARANCE: pleasant , well nourished, well developed, in no acute distress, calm and relaxed , overweight , man HEAD: atraumatic, normocep halic EYES: eomi, perrla, anicte gertrudis, conjugate EARS: normal NOSE: septum intact NECK/THYROID: no jugular venous di stention, no carotid bruit, thyroid normal HEART: no clicks, gallops, murmurs, or rubs, regular rhythm, S1, S2 normal, no s3, or vascular bruits LUNGS: clear to auscultatio n ABDOMEN: bowel sounds normal, no ascites, no organomegaly, no mass , overweight NEUROLOGIC: alert and oriented, cranial nerves 2-12 grossly intact, deep tendon reflexes 2+ symmetrical, motor strength normal upper and lower extremities, sensory exam intact SKIN: no suspicious lesion s, anicteric PERIPHERAL PULSES: normal BREASTS: no masses palpable b ilaterally MUSCULOSKELETAL: extremities unremark able, no clubbing, cyanosis or edema LYMPH NODES: no enlarged lymph no cameron,spleen normal RECTAL EXAM: not examined PSYCH: alert, oriented , mo od depressed , affect flat ORAL CAVITY: normal, unremarkable
--- OUTSIDE RECORDS SUMMARY | 2023-09-14 12:45 | XMS_ITS ---
Author Organization Hector Padron III, MD Address [address] [place] [address] [place] [address] Care Team Providers Care Event Staff Name Role Phone Dr. Hector Padron III Primary Care Provider REASON FOR VISIT Annual Exam Social History Sex Assigned At : Social History Observation Description Sex Assigned At Male Encounters Encounter Location Date Provider Diagnosis Hector Padron III, MD [address] [place] [address] [place] [address] 09/14/2023 Hector Padron Plan Of Treatment Next Appt Details Provider Name:Hector Padron , 04/22/2025 02:30:00 PM, [address] [place] [address] [place], [address], Provider Name:Hector Padron , 12/23/2025 02:00:00 PM, [address] [place] [address] [place], [address], Progress Notes * Antoni KENT MDOB:1940 (84 yo M)Acc No.[id number]:09/14/2023 Progress Notes Patient: Leslie Antoni FLORES Provider: Liv Padron MD :1940 A ge:83 Y S ex:Male Date:09/14/2023 Address: [facility], [address] [place], [phone] Subjective: * Chief Complaints: * 1 . Annual Exam. * Medical History: Objective: * Vitals: Assessment: Plan: * Treatment: * Images: * The named appointment provid er may or may not be the originator of this progress note, and it is not deemed complete until electronically signed by the appointment provider. Sign off status: Pending * Provider: Liv Padron MD Date: 0 09/14/2023 Generated for Daylin helm/Meghana/Arunsmitting on: 04/08/2024 08:20 PM EST
--- OUTSIDE RECORDS SUMMARY | 2023-12-17 09:00 | XMS_ITS ---
Author Organization Hector Padron III, MD Address [address] [place] [address] Care Team Providers Care Night Warehouse Selector Name Role Phone Dr. Hector Padron III [...] DAY Active Vitamin D (Ergocalciferol) 1.25 MG (65736 UT) TAKE 1 CAPSULE BY MOUTH ONE [...] Date Provider Diagnosis Hector Padron III, MD [address] [place] [address] [place] [address] 12/17/2023 Hector Padron Depression F32.9 ; T [...] EVERY DAY Vitamin D (Ergocalciferol) 1.25 MG (51228 UT) TAKE 1 CAPSULE BY MOUTH ONE [...] Provider Name:Hector Padron , 04/22/2025 02:30:00 PM, [address] [place] [address] [place] RANGEL, [place], [address], Provider Name:Hector Padron , 12/23/2025 02:00:00 PM, [address] [place] [address] FLAC[address] RANGEL, [place], [address], Progress Notes * Antoni KENT MDOB:1940 (83 yo M)Acc No.[id number]:12/17/2023 Progress Notes Patient: Antoni GROSS Provider: Liv Padron MD :1940 A ge:83 Y S ex:Male Date:12/17/2023 Address:[address] [place] [address], [address], [place], [id number] Subjective: * Chief Complaints: * A nnual [...] holecystectomy * Hospitalization/Major Diagno stic Procedure: H [facility], rhabdomyolysis, fell at home 08/10/2022 * [...] N egative Nevaeh angeles was born in [place], [place] He has a son. He is retired from [employer]. He has a son, Lawrence Harding jr. [facility] in [place]. [facility]. * Medications: T akingVitamin D (Ergocalciferol) 1.25 MG (99754 UT) Capsule TAKE 1 CAPSULE BY MOUTH [...] 2 diabetesTaking Vitamin D (Ergocalciferol) 1.25 MG (62060 UT) Capsule TAKE 1 CAPSULE BY MOUTH [...] mg/dL) 105 (Ref Range: mg/dL) * Lab:Comprehensive [place]. Pane l Fast * Collection Date 12/10/2023 [...] ontinue Vitamin D (Ergocalciferol) Capsule, 1.25 MG (08454 UT), TAKE 1 CAPSULE BY MOUTH ONE [...] MD Date: 0 12/17/2023 Generated for Daylin helm/Meghana/Arunsmitting on: 1 04/08/2024 08:21 PM EST History and Physical [...]
--- OUTSIDE RECORDS SUMMARY | 2024-02-27 10:00 | XMS_ITS ---
Author Organization Hector Padron III, MD Address [address] [place] [address] DR SAM Shreya [place] [address] Care Team Providers Care Armhole Raiser Lockstitch Name Role Phone Dr. Hector Padron III Primary Care Provider [phone] Reason For Referral Reason Two 2cm decubitus ul cers on buttock diabetic with decubitus ulcers on buttock left is thru all layers of skin Diagnosis 1 Pressure injury of s kin of buttock, unspecified injury stage, unspecified laterality (L89.309) Diagnosis 2 Type 2 diabetes eduardo itus without complications (E11.9) Referral Organization Hector Padron III, MD Referring Provider First Name Hector Referring Provider Last Name Nereida Referring Provider Speciality Internal M edicine Referred Provider [facility], care center Referred Provider Specialty Unknown General Notes Jocelyn Blount [facility] 02/26 03:57:46 PM >Ref/progress note faxed to wound care center at , Jocelyn Blount [facility] 03/03/2024 11:34:17 AM > Called patient he stated the wound center called him but he refused to make appt. I spoke to patient and he stated if I made appt he would go to this appt . LM for wound center to call me back so I can set up this appt, Jocelyn Blount [facility] 03/03/2024 02:02:58 PM > called wound care center spoke to Nini asked them to set patient up appt he was given 03/12/2024 at 8:30am Nini stated she will call patient with this appt information Referral Priority Routine Referral Appointment Date 03/12/2024 REASON FOR VISIT Resuming generally weak and, Bilateral decubiti wound both buttocks, Diabetes mellitus, Benign prostatic hypertrophy Medications Medication SIG (Take, Route, Frequency, Duration) Notes Start Date End Date Status clonazePAM 2 MG 1 tablet Orally Tree times a day Active risperiDONE 0.5 MG 1 tablet on the tongue and allow to dissolve Orally Twice a day Active Simvastatin 10 MG 1 tablet in the evening Orally Once a day Active valACYclovir HCl 500 MG 1 tablet Orally Once a day Active Lisinopril 5 MG TAKE 1 TABLET BY MOUTH EVERY DAY Active Mirtazapine 45 MG TAKE 1 TABLET BY MOUTH EVERYDAY AT BEDTIME Active Accu-Chek Laura Plus - as directed In Vitro test blood sugars once a day E11.9 Diabetes Active Vitamin D (Ergocalciferol) 1.25 MG (13901 UT) TAKE 1 CAPSULE BY MOUTH ONE TIME PER WEEK Active FLUoxetine HCl 40 MG 1 capsule Orally Once a day Active Accu-Chek FastClix Lancets - USE TO TEST BLOOD SUGAR ONCE DAILY E11.9 Type 2 diabetes Active Social History Sex Assigned At : Social History Observation Description Sex Assigned At Male Vital Signs Temperature 97.1 degrees Fahrenheit 02/27/20 24 Blood pressure systolic 125 mm Hg 02/27/20 24 Blood pressure diastolic 56 mm Hg 024 Heart Rate 76 /min 02/27/2024 Height 72 in 02/27/2024 Weight 210 lbs 02/27/2024 BMI 28.48 kg/m2 02/27/2024 Encounters Encounter Location Date Provider Diagnosis Hector Padron III, MD [address] [place] [address] [place] [address] 02/27/2024 Hector Padron Depression F32.9 ; T ype 2 diabetes mellitus without complications E11.9 ; Overweight E66.3 ; BPH (benign prostatic hyperplasia) N40.0 ; History of pulmonary embolism Z86.711 ; Hyperlipidemia type II E78.0 ; GERD (gastroesophageal reflux disease) K21.9 ; Diabetic neuropathy E11.40 and Pressure injury of buttock, stage 3, 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 Assessments Encounter Date Diagnosis (ICD Code) Assessment Notes Treat ment Notes Treatment Clinical Notes 02/27/2024 Depression (ICD-10 - F32.9) He says he is compliant with his medications. His depression appears worse. I will see if I can have the psychiatrist reevaluate him. He is going to telephone me every day until I see him again. 02/27/2024 Type 2 diabetes mellitus without complications (ICD-10 - E11.9) His hemoglobin A1c is 5.5. No change in his regimen was necessary today.He is doing well. The recent available. Blood work shows good control of the diabetes. 02/27/2024 Overweight (ICD-10 - E66.3) He has gained 4 pounds and weighs 210. His body mass index is 28. His nutrition is stable. 02/27/2024 BPH (benign prostatic hyperplasia) (ICD-10 - N40.0) He rises from sleep once or twice a night to urinate. We discussed lifestyle modification as a way to reduce nocturia. 02/27/2024 History of pulmonary embolism (ICD-10 - Z86.711) There is no sign of venous thromboembolism on examination today. 02/27/2024 Hyperlipidemia type II (ICD-10 - E78.0) His fasting lipid profile shows his lipids to be in the normal range. No change in his regimen was necessary today. 02/27/2024 GERD (gastroesophageal reflux disease) (ICD-10 - K21.9) His heartburn is well controlled with medications. He is sleeping through the night. No change in his regimen was needed. 02/27/2024 Diabetic neuropathy (ICD-10 - E11.40) Symptoms from this are very mild. He did not complain about them. He controlled his diabetes is excellent at this point. 02/27/2024 Pressure injury of buttock, stage 3, unspecified laterality (ICD-10 - L89.303) He has bilateral kissing decubitus ulcers along the intergluteal fold apparently from prolonged sitting. He looks much weaker than usual, although he has gained weight and his vital signs are stable. I have referred him for the wound clinic and asked visiting nurses to assess the home situation. If necessary. Elder services will be involved. Plan Of Treatment Medication Medication Name Sig Start Date Stop Date Notes clonazePAM 2 MG 1 tablet Orally Tree times a day risperiDONE 0.5 MG 1 tablet on the tongue and allow to dissolve Orally Twice a day Simvastatin 10 MG 1 tablet in the evening Orally Once a day valACYclovir HCl 500 MG 1 tablet Orally Once a day Lisinopril 5 MG TAKE 1 TABLET BY MOUTH EVERY DAY Mirtazapine 45 MG TAKE 1 TABLET BY MOUTH EVERYDAY AT BEDTIME Accu-Chek Laura Plus - as directed In Vi tro test blood sugars once a day E11.9 Diabetes Vitamin D (Ergocalciferol) 1.25 MG (88251 UT) TAKE 1 CAPSULE BY MOUTH ONE TIME PER WEEK FLUoxetine HCl 40 MG 1 capsule Orally Once a day Accu-Chek FastClix Lancets - USE TO TEST BLOOD SUGAR ONCE DAILY E11.9 Type 2 diabetes Referrals Referral Date Details 02/27/2024 02/27/2024, Two 2cm decubitus ulcers on buttock diabetic with decubitus ulcers on buttock left is thru all layers of skin, care center [facility] Next Appt Details Follow Up: as scheduled Haris eckert, Reason: OV Provider Name:Hector Padron , 04/22/2025 02:30:00 PM, [address] [place] [address] [address], [place], [phone], Provider Name:Hector Padron , 12/23/2025 02:00:00 PM, [address] [place] [address] [address], [place], [address], Progress Notes * Antoni KENT MDOB:1940 (83 yo M)Acc No.[id number]:02/27/2024 Progress Notes Patient: Antoni GROSS Provider: Liv Padron MD :1940 A ge:83 Y S ex:Male Date:02/27/2024 Address:[address] [place] [address], [address] [phone] Subjective: * Chief Complaints: * R esuming generally weak andBilateral decubiti wound both buttocksDiabetes mellitusBenign prostatic hypertrophy * HPI: C OVID-19 Screening: Questions H ave you experienced fever, chills, [...] COVID-19 in the past? N o * : The patient, an 83-year-old male, presented with two sores on his bottom that have been present for 10 days. These sores developed after the patient purchased a new reclining chair. The patient has not noticed any sores on his feet. His blood sugar levels have been good, with a reading of 101 on the day of the visit. The patient also reported heartburn, which is under control, and urinates once a night. He is currently seeing a psychiatrist and has not had any recent changes to his medication. The patient's A1C in November was 55. Upon physical examination, the doctor noted that one sore was slightly open, while the other was beginning to open. The patient spends most of his day sitting in his new chair. Blood Sugar Level is 101. On examination he had diffuse muscular weakness which was new. He walks with difficulty and uses a walker which is new. On examination of his buttocks he had a full-thickness 2 cm decubitus on the left side which was noninfected in the right side. A larger area of excoriated skin with impending breakdown in a 1-1/2 cm area close to the gluteal fold. This was surrounded by erythema. Her wounds were clean and bandaged. He was referred to the wound clinic for definitive treatment. I have asked for the visiting nurses to go to the home to do a safety check and evaluate his continence in his ability to care for himself at home. He reports that he? hasn't gotten rid of an old reclining chair that he has had for many years and purchased a new 1. He says the new chair is causing the decubiti. * ROS: G eneral/Constitutional: pain T he bilateral decubiti on the buttocks are painful.?Chills d enies. F atigue a dmits. F ever d enies. E NT: Decreased hearing d enies. R espiratory: Cough d enies. C ardiovascular: Chest pain with exertion d enies. D yspnea on exertion?denies. S hortness of breath w ith exertion. G astrointestinal: Constipation o ccasional. D ecreased appetite d enies. D iarrhea d enies. A dmits H eartburn, d enies. N ausea d enies.?Rectal bleeding d enies. V omiting d enies. H ematology: bruising d enies. p etechiae d enies. S wollen glands n one have been noted. G enitourinary: Frequent urination t wice a night. M usculoskeletal: Muscle aches d enies. P ainful joints d enies. S ciatica d enies. W eakness t hat is generalized. S kin: Itching d enies. R whit d enies. S kin lesion(s)?denies. N eurologic: Difficulty speaking d enies. D izziness d enies.?Headache d enies. L ow back pain d enies. P sychiatric: Depressed mood w hich is moderate. * Medical History: * Surgical History: c holecystectomy No history * Hospitalization/Major Diagno stic Procedure: [facility], rhabdomyolysis, fell at home 08/10/2022No history * Medications: T akingAccu-Chek FastClix Lancets - Miscellaneous USE TO TEST BLOOD SUGAR ONCE DAILY , Notes to Pharmacist: E11.9 Type 2 diabetesMirtazapine 45 MG Tablet TAKE 1 TABLET BY MOUTH EVERYDAY AT BEDTIME Accu-Chek Laura Plus - Strip as directed In Vitro test blood sugars once a day , Notes to Pharmacist: E11.9 DiabetesVitamin D (Ergocalciferol) 1.25 MG (82665 UT) Capsule TAKE 1 CAPSULE BY MOUTH ONE TIME PER WEEK FLUoxetine HCl 40 MG Capsule 1 capsule Orally Once a day clonazePAM 2 MG Tablet 1 tablet Orally Tree times a day risperiDONE 0.5 MG Tablet Dispersible 1 tablet on the tongue and allow to dissolve Orally Twice a day Simvastatin 10 MG Tablet 1 tablet in the evening Orally Once a day valACYclovir HCl 500 MG Tablet 1 tablet Orally Once a day Lisinopril 5 MG Tablet TAKE 1 TABLET BY MOUTH EVERY DAY Taking Accu-Chek FastClix Lancets - Miscellaneous USE TO TEST BLOOD SUGAR ONCE DAILY , Notes to Pharmacist: E11.9 Type 2 diabetesTaking Mirtazapine 45 MG Tablet TAKE 1 TABLET BY MOUTH EVERYDAY AT BEDTIME Taking Accu-Chek Laura Plus - Strip as directed In Vitro test blood sugars once a day , Notes to Pharmacist: E11.9 DiabetesTaking Vitamin D (Ergocalciferol) 1.25 MG (34237 UT) Capsule TAKE 1 CAPSULE BY MOUTH ONE TIME PER WEEK Taking FLUoxetine HCl 40 MG Capsule 1 capsule Orally Once a day Taking clonazePAM 2 MG Tablet 1 tablet Orally Tree times a day Taking risperiDONE 0.5 MG Tablet Dispersible 1 tablet on the tongue and allow to dissolve Orally Twice a day Taking Simvastatin 10 MG Tablet 1 tablet in the evening Orally Once a day Taking valACYclovir HCl 500 MG Tablet 1 tablet Orally Once a day Taking Lisinopril 5 MG Tablet TAKE 1 TABLET BY MOUTH EVERY DAY Objective: * Vitals: H t: 72, Wt:210, BMI:28.48, BP:125/56, HR:76, Temp:97.1, Wt-k.25. * P ast Orders: Lab:URINE DIP STICK * Collection Date 12/17/2023 [...] Range: Negative -) Menstrating NR N/A * Lab:Comprehensive [place]. Pane l Fast * Collection Date 12/10/2023 [...] mg/dL) 42 (Ref Range: >40 mg/dL) * Lab:Prostate Specific Antige n * Collection Date [...] Range: mg/dL) 105 (Ref Range: mg/dL) * Lab:Complete Blood Count Aut o [...] X10*3/uL) 0.000 (Ref Range: 0.0-0.012 X10*3/uL) * Examination: G eneral Examination: GENERAL APPEARANCE: p leasant, well nourished, well developed, in no acute distress, calm and relaxed, overweight, man. HEAD: a traumatic, normocephalic. EYES: e dre, perrla, anicteric, conjugate. EARS: n ormal. NOSE: s eptum intact. ORAL CAVITY: n ormal, unremarkable. NECK/THYROID: n o jugular venous distention, no carotid bruit, thyroid normal. LYMPH NODES: n o enlarged lymph nodes,spleen normal. SKIN: O n the left mid-buttock near the gluteal fold Is a 2 cm open area without infection. On the right buttock just opposite near the gluteal fold is a 4 cm area of excoriated skin with multiple areas of impending breakdown one of which is a centimeter in diameter with open areas and bleeding. T hat area is erythematous.. HEART: n o clicks, gallops, murmurs, or [...] sensory exam intact. PSYCH: a lert, oriented, mood depressed, speech diminished output, volume. - : H eart and Lungs:Regular rhythm and no heart murmurs, Breathing: Nice and clear, Skin: Looks OK, Sores: One is slightly open, the other is beginning to open. Assessment: * Assessment: 1. D epression - F32.9 (Primary) N otes :He says he is compliant with his medications. His depression appears worse. I will see if I can have the psychiatrist reevaluate him. He is going to telephone me every day until I see him again. 2 . T ype 2 diabetes mellitus without complications - E11.9 N otes :His hemoglobin A1c is 5.5. No change in his regimen was necessary today.He is doing well. The recent available. Blood work shows good control of the diabetes. 3 . O verweight - E66.3 N otes :He has gained 4 pounds and weighs 210. His body mass index is 28. His nutrition is stable. 4 . B PH (benign prostatic hyperplasia) - N40.0 N otes :He rises from sleep once or twice a night to urinate. We discussed lifestyle modification as a way to reduce nocturia. 5 . H istory of pulmonary embolism - Z86.711 N otes :There is no sign of venous thromboembolism on examination today. 6 . H yperlipidemia type II - E78.0 N otes :His fasting lipid profile shows his lipids to be in the normal range. No change in his regimen was necessary today. 7 . G ERD (gastroesophageal reflux disease) - K21.9 N otes :His heartburn is well controlled with medications. He is sleeping through the night. No change in his regimen was needed. 8 . D iabetic neuropathy - E11.40 N otes :Symptoms from this are very mild. He did not complain about them. He controlled his diabetes is excellent at this point. 9 . P ressure injury of buttock, stage 3, unspecified laterality - L89.303? Notes :He has bilateral kissing decubitus ulcers along the intergluteal fold apparently from prolonged sitting. He looks much weaker than usual, although he has gained weight and his vital signs are stable. I have referred him for the wound clinic and asked visiting nurses to assess the home situation. If necessary. Elder services will be involved. Plan: * Treatment: 2. T ype 2 diabetes mellitus without complications Referral To:care [facility] Wound Unknown Reason:Two 2cm decubitus ulcers on buttock diabetic with decubitus ulcers on buttock left is thru all layers of skin 3. O thers Referral To:[facility] W[facility] Unknown Reason:Two 2cm decubitus ulcers on buttock diabetic with decubitus ulcers on buttock left is thru all layers of skin * Procedure Codes: * Preventive Medicine: DM Care Plan: P atient Lifestyle Goals P atient wants to be able to manage diabetes without too much effort. T reatment Goals H bA1C < 7.0, Blood Sugars less than < 115. B arriers n o barriers. S elf-Managment Goals W ork on weight loss, with a goal of losing 1 lb per week. * Follow Up: a s scheduled March (Reason: OV) * Images: * Sign off status: Completed true * Provider: Liv Padron MD Date: 04/29/2023 Generated for Daylin helm/Meghana/Arunsmitting on: 04/08/2024 08:19 PM EST History and Physical Notes * [...] no acute distress, calm and relaxed, overweight, man HEAD: atraumatic, normocep halic EYES: eomi, [...] and lower extremities, sensory exam intact SKIN: On the left mid-butt ock near the gluteal fold Is a 2 cm open area without infection. On the right buttock just opposite near the gluteal fold is a 4 cm area of excoriated skin with multiple areas of impending breakdown one of which is a centimeter in diameter with open areas and bleeding. That area is erythematous. PERIPHERAL PULSES: normal BREASTS: no masses palpable b ilaterally MUSCULOSKELETAL: extremities unremark able, no clubbing, cyanosis or edema LYMPH NODES: no enlarged lymph no cameron,spleen normal RECTAL EXAM: not examined PSYCH: alert, oriented, moo d depressed, speech diminished output, volume ORAL CAVITY: normal, unremarkable Consultation Request Notes Referral Date Referring Provider Referred Provider Not temitope 02/27/2024 Hector Padron Wound, care center Two 2cm decubitus ulcers on buttock diabetic with decubitus ulcers on buttock left is thru all layers of skin
--- OUTSIDE RECORDS SUMMARY | 2024-04-21 09:30 | XMS_ITS ---
Author Organization Hector Padron III, MD Address [address] [place] [address] DR SAM Shreya [place] [address] Care Team Providers Care Banquet Attendant Name Role Phone Dr. Hector Padron III [...] day Active Vitamin D (Ergocalciferol) 1.25 MG (59572 UT) TAKE 1 CAPSULE BY MOUTH ONE [...] Provider Diagnosis Hector Padron III, MD [address] [place] [address] DR [place], DINESH [phone] 04/21/2024 Hector Padron Depression F32.9 ; T [...] a day Vitamin D (Ergocalciferol) 1.25 MG (53860 UT) TAKE 1 CAPSULE BY MOUTH ONE [...] Months, Reason: ov Provider Name:Hector Padron , 04/22/2025 02:30:00 PM, [address] [place] [address] FL[address] R[address]EL, [place], [phone], Provider Name:Hector Padron , 12/23/2025 02:00:00 PM, [address] [place] [address] [place], [phone], Progress Notes * Antoni KENT MDOB:1940 (83 yo M)Acc No.[id number]:04/21/2024 Progress Notes Patient: Antoni GROSS Provider: Liv Padron MD :1940 A ge:83 Y S ex:Male Date:04/21/2024 Address:[address] [place] [address], [phone] Subjective: * Chief Complaints: [...] No history * Hospitalization/Major Diagno stic Procedure: [facility], rhabdomyolysis, fell at home 08/10/2022No history [...] ggressive non-smoker Nevaeh angeles was born in [place], [place]. He has a son. He is retired from [employer]. He has a son, Lawrence Hardingjr. [employer] in [place]. One [facility]. * Medications: T akingAccu-Chek FastClix Lancets - Miscellaneous USE TO TEST BLOOD SUGAR ONCE DAILY , Notes to Pharmacist: E11.9 Type 2 diabetesMirtazapine 45 MG Tablet TAKE 1 TABLET BY MOUTH EVERYDAY AT BEDTIME Accu-Chek Laura Plus - Strip as directed In Vitro test blood sugars once a day , Notes to Pharmacist: E11.9 DiabetesVitamin D (Ergocalciferol) 1.25 MG (07038 UT) Capsule TAKE 1 CAPSULE BY MOUTH [...] E11.9 DiabetesTaking Vitamin D (Ergocalciferol) 1.25 MG (10611 UT) Capsule TAKE 1 CAPSULE BY MOUTH [...] ontinue Vitamin D (Ergocalciferol) Capsule, 1.25 MG (43130 UT), TAKE 1 CAPSULE BY MOUTH ONE [...] 0 04/21/2024 Generated for Daylin helm/Meghana/Vanessa on: 04/08/2024 08:18 PM EST History and Physical Notes * [...]
--- OUTSIDE RECORDS SUMMARY | 2024-07-08 10:00 | XMS_ITS ---
Author Organization Hector Padron III, MD Address [address] [place] [address] [place] [address] Care Team Providers Care Leather Tanner Name Role Phone Dr. Hector Padron III Primary Care Provider Allergies Allergen (clinical drug ingredient) Drug/Non Drug Allergy documented on EMR Reaction Allergy Type Onset Date Status No Known Drug Allergy Unknown Drug Allergy Active REASON FOR VISIT Pre-Op Clearance Cataract Surgery on 07/15/[address] Hassan, Depression, Diabetes, GERD, Historyof pulmonary embolism, Benign prostatic hypertrophy, Hyperlipidemia Medications Medication SIG (Take, Route, Frequency, Duration) Notes Start Date End Date Status valACYclovir HCl 500 MG 1 tablet Orally Once a day Active Simvastatin 10 MG 1 tablet in the evening Orally Once a day Active risperiDONE 0.5 MG 1 tablet on the tongue and allow to dissolve Orally Twice a day Active clonazePAM 2 MG 1 tablet Orally Tree times a day Active FLUoxetine HCl 40 MG 1 capsule Orally Once a day Active Lisinopril 5 MG TAKE 1 TABLET BY MOUTH EVERY DAY Active Accu-Chek Laura Plus - as directed In Vitro test blood sugars once a day E11.9 Diabetes Active Mirtazapine 45 MG TAKE 1 TABLET BY MOUTH EVERYDAY AT BEDTIME Active Accu-Chek FastClix Lancets - USE TO TEST BLOOD SUGAR ONCE DAILY E11.9 Type 2 diabetes Active Vitamin D (Ergocalciferol) 1.25 MG (32778 UT) TAKE 1 CAPSULE BY MOUTH ONE TIME PER WEEK Active Social History Tobacco Use: Social History Observation Description Date Details (start date - stop date) Never Smoker NA - NA Sex Assigned At : Social History Observation Description Sex Assigned At Male Tobacco Use/Smoking Question Answer Notes Patient is a nonsmoker Additional Findings: Tobacco Non-User Aggressive non-smoker Problems Problem Type SNOMED Code ICD Code Onset Dates Problem Status W/U Status Risk Notes Problem [id number] Age-related cataract of both eyes, unspecified age-related cataract type (H25.9) Active confirmed He is scheduled for cataract surgery next week. There is no contraindica tion. The dyspnea seems minor today. Is going to call me after the weekend to report on his breathing. He is given medical clearance for cataract surgery. Vital Signs Temperature 98.4 degrees Fahrenheit 07/09/19 25 Blood pressure systolic 112 mm Hg 07/09/19 25 Blood pressure diastolic 52 mm Hg 025 Heart Rate 78 /min 07/08/2024 Height 72 in 07/08/2024 Weight 206 lbs 07/08/2024 BMI 27.94 kg/m2 07/08/2024 Oximetry 99 % 07/08/2024 Encounters Encounter Location Date Provider Diagnosis Hector Padron III, MD [address] [place] [address] [place] [address] 07/08/2024 Hector Padron Depression F32.9 ; T ype 2 diabetes mellitus without complications E11.9 ; Overweight E66.3 ; GERD (gastroesophageal reflux disease) K21.9 ; Chronic insomnia F51.04 ; BPH (benign prostatic hyperplasia) N40.0 ; Hyperlipidemia type II E78.0 ; SOB (shortness of breath) R06.02 and Age-related cataract of both eyes, unspecified age-related cataract type H25.9 Assessments Encounter Date Diagnosis (ICD Code) Assessment Notes Treat ment Notes Treatment Clinical Notes 07/08/2024 Depression (ICD-10 - F32.9) He has mild chronic depression. He is compliant with his psychiatric medications and up-to-date with his psychiatrist. This problem is stable. 07/08/2024 Type 2 diabetes mellitus without complications (ICD-10 - E11.9) His hemoglobin A1c is 5.4. No change in his regimen was necessary today.He is doing well. The recent available. Blood work shows good control of the diabetes. 07/08/2024 Overweight (ICD-10 - E66.3) He has lost 4 pounds and weighs 206. His body mass index is 28. His nutrition is stable. 07/08/2024 GERD (gastroesophageal reflux disease) (ICD-10 - K21.9) His heartburn is well controlled with medications. He is sleeping through the night. No change in his regimen was needed. 07/08/2024 Chronic insomnia (ICD-10 - F51.04) He is still sleeping poorly but appears to be well rested. 07/08/2024 BPH (benign prostati c hyperplasia) (ICD-10 - N40.0) He rises from sleep once or twice a night to urinate. We discussed lifestyle modification as a way to reduce nocturia. 07/08/2024 Hyperlipidemia type II (ICD-10 - E78.0) His fasting lipid profile shows his lipids to be in the normal range. No change in his regimen was necessary today. 07/08/2024 SOB (shortness of breath) (ICD-10 - R06.02) The examination of his lungs is normal. His respiratory rate is 16. His oxygen saturation is 99% and his pulse is normal. He was comfortable lying on his back during the examination. He is going to notify me at once if this symptom worsens. He seems stable at this time. It is noted that he has a history of pulmonary embolism. It was no sign of peripheral DVT today. 07/08/2024 Age-related cataract of both eyes, unspecified age-related cataract type (ICD-10 - H25.9) He is scheduled for cataract surgery next week. There is no contraindication. The dyspnea seems minor today. Is going to call me after the weekend to report on his breathing. He is given medical clearance for cataract surgery. Plan Of Treatment Medication Medication Name Sig Start Date Stop Date Notes valACYclovir HCl 500 MG 1 tablet Orally Once a day Simvastatin 10 MG 1 tablet in the evening Orally Once a day risperiDONE 0.5 MG 1 tablet on the tongue and allow to dissolve Orally Twice a day clonazePAM 2 MG 1 tablet Orally Tree times a day FLUoxetine HCl 40 MG 1 capsule Orally Once a day Lisinopril 5 MG TAKE 1 TABLET BY MOUTH EVERY DAY Accu-Chek Laura Plus - as directed In Vi tro test blood sugars once a day E11.9 Diabetes Mirtazapine 45 MG TAKE 1 TABLET BY MOUTH EVERYDAY AT BEDTIME Accu-Chek FastClix Lancets - USE TO TEST BLOOD SUGAR ONCE DAILY E11.9 Type 2 diabetes Vitamin D (Ergocalciferol) 1.25 MG (29123 UT) TAKE 1 CAPSULE BY MOUTH ONE TIME PER WEEK Next Appt Details Follow Up: As Scheduled, Rhea son: JESUS ALBERTO Provider Name:Hector Angeles Nereida , 04/22/2025 02:30:00 PM, [address] [place] [address] [address], [place], [address], Provider Name:Hector Angeles Nereida , 12/23/2025 02:00:00 PM, [address] [place] [address] [address], [place], [address], Progress Notes * Antoni KENT MDOB:1940 (84 yo M)Acc No.[id number]:07/08/2024 Patient: Antoni GROSS Provider: Liv Padron MD :1940 A ge:84 Y S ex:Male Date:07/08/2024 Address:[address] [place] [address], [address] [phone] Subjective: * Chief Complaints: * P re-Op Clearance Cataract Surgery on 07/15/[address] BrownepressionDiabetesGERDHistory of pulmonary embolismBenign prostatic hypertrophyHyperlipidemia * HPI: C OVID-19 Screening: Nevaeh angeles returns to the office today for a medical clearance for cataract surgery.. A?new complaint is that he feels short of breathOn examination his lungs sounded normal without wheezing or rales or rhonchi. His oxygen saturation is 99%. He has had no fever. He was able to lie flat without difficulty. Testing will be done. This may well be the onset of allergy season. Also he complains of recent urinary incontinence. He says he feels an urgent need to urinate and leaks urine before he can get to the bathroom. He says this occurs every couple of hours. He is scheduled for cataract surgery next Sunday. I did not find a contraindication to surgery today. He was given medical clearance. Is going to see urology.? The respiratory status will be monitored caarefully. Questions H ave you had any new onset fever, chills, cough, congestion, sore throat, shortness of breath, muscle aches? N o * ROS: G eneral/Constitutional: pain o nly normal aches and pains. C hills d enies.?Fatigue a dmits. F ever d enies. E NT: Decreased hearing d enies. R espiratory: Cough d enies. C ardiovascular: Chest pain with exertion d enies. D yspnea on exertion?denies. S hortness of breath t hat is mild. G astrointestinal: Constipation o ccasional. D ecreased appetite d enies. D iarrhea d enies. H eartburn d enies. N ausea d enies. R ectal bleeding d enies. V omiting d enies. H ematology: bruising d enies. p etechiae d enies. S wollen glands n one have been noted. G enitourinary: Frequent urination d enies. M usculoskeletal: Muscle aches d enies. P [...] No history * Hospitalization/Major Diagno stic Procedure: [facility], rhabdomyolysis, fell at home 08/10/2022No history [...] ggressive non-smoker Nevaeh angeles was born in [place], [place]. He has a son. He is retired from [employer]. He has a son, Lawrence Hardingjr. [employer] in [place]. One [facility]. * Medications: T akingAccu-Chek FastClix Lancets - Miscellaneous USE TO TEST BLOOD SUGAR ONCE DAILY , Notes to Pharmacist: E11.9 Type 2 diabetesMirtazapine 45 MG Tablet TAKE 1 TABLET BY MOUTH EVERYDAY AT BEDTIME Accu-Chek Laura Plus - Strip as directed In Vitro test blood sugars once a day , Notes to Pharmacist: E11.9 DiabetesFLUoxetine HCl 40 MG Capsule 1 capsule Orally [...] EVERY DAY Vitamin D (Ergocalciferol) 1.25 MG (71051 UT) Capsule TAKE 1 CAPSULE BY MOUTH ONE TIME PER WEEK Medication List reviewed and reconciled with the patientTaking Accu-Chek FastClix Lancets - Miscellaneous USE TO TEST BLOOD SUGAR ONCE DAILY , Notes to Pharmacist: E11.9 Type 2 diabetesTaking Mirtazapine 45 MG Tablet TAKE 1 TABLET BY MOUTH EVERYDAY AT BEDTIME Taking Accu- Chek Laura Plus - Strip as directed In Vitro test blood sugars once a day , Notes to Pharmacist: E11.9 DiabetesTaking FLUoxetine HCl 40 MG Capsule 1 capsule [...] 1 TABLET BY MOUTH EVERY DAY Taking Vitamin D (Ergocalciferol) 1.25 MG (83525 UT) Capsule TAKE 1 CAPSULE BY MOUTH ONE TIME PER WEEK Medication List reviewed and reconciled with the patient * Allergies: N o Known Drug Allergyno[Allergies Verified] Objective: * Vitals: H t: 72, Wt:206, BMI:27.94, BP:112/52, HR:78, Temp:98.4, Oxygen sat %:99, Wt-k.44. * P ast Orders: Lab:Hemoglobin A1c [...] (Ref Range: 0.0-0.012 X10*3/uL) * Lab:Deirdre Beard. Alexe l Fast * Collection Date 04/14/2024 12/10/2023 [...] or vascular bruits. LUNGS: c lear to auscultation, no wheezes, rales, rhonchi, good air movement, No difficulty breathing lying flat on his back during the examination, mucous membranes are pink, oxygen saturation 99% on room air, Respiratory rate 16 breaths per. BREASTS: no masses palpable bilaterally. ABDOMEN: b [...] intact. PSYCH: a lert, oriented, mood depressed, Anxiety not noted, seems calm and relaxed. Assessment: * Assessment: 1. T ype 2 diabetes mellitus without complications - E11.9 (Primary) N otes :His hemoglobin A1c is 5.4. No change in his regimen was necessary today.He is doing well. The recent available. Blood work shows good control of the diabetes. 2 . D epression - F32.9 N otes :He has mild chronic depression. He is compliant with his psychiatric medications and up-to-date with his psychiatrist. This problem is stable. 3 . O verweight - E66.3 N [...] his regimen was necessary today. 8 . S OB (shortness of breath) - R06.02 N otes :The examination of his lungs is normal. His respiratory rate is 16. His oxygen saturation is 99% and his pulse is normal. He was comfortable lying on his back during the examination. He is going to notify me at once if this symptom worsens. He seems stable at this time. It is noted that he has a history of pulmonary embolism. It was no sign of peripheral DVT today. 9 . A ge-related cataract of both eyes, unspecified age-related cataract type - H25.9 N otes :He is scheduled for cataract surgery next week. There is no contraindication. The dyspnea seems minor today. Is going to call me after the weekend to report on his breathing. He is given medical clearance for cataract surgery. Plan: * Treatment: * Procedure Codes: 9 4760 MEASURE BLOOD OXYGEN LEVEL * Preventive Medicine: Counseling: C are goal follow-up plan: Counseling for abnormal BMI given Y es Above Normal BMI Follow-up D ietary management education, guidance, and counseling, Dietary needs education, Exercise promotion: strength training DM Care Plan: P atient Lifestyle Goals P atient wants to be able to manage diabetes without too much effort. T reatment Goals B lood Sugars less than < 115, HbA1C < 7.0. B arriers n o barriers. S elf-Managment Goals W ork on weight loss, with a goal of losing 1 lb per week. * Follow Up: A s Scheduled (Reason: OV) * Images: * Sign off status: Completed true * Provider: Liv Padron MD Date: 0 07/08/2024 Generated for Daylin helm/Meghana/Kentonitting on: 04/08/2024 08:20 PM EST History and Physical Notes * [...] or vascular bruits LUNGS: clear to auscultatio n, no wheezes, rales, rhonchi, good air movement, No difficulty breathing lying flat on his back during the examination, mucous membranes are pink, oxygen saturation 99% on room air, Respiratory rate 16 breaths per ABDOMEN: bowel sounds normal, no ascites, no [...] examined PSYCH: alert, oriented, moo d depressed, Anxiety not noted, seems calm and relaxed ORAL CAVITY: normal, unremarkable
--- OUTSIDE RECORDS SUMMARY | 2024-08-08 07:00 | XMS_ITS ---
Author Organization [facility] Address [address] [place] [address] Care Team Providers Care Specialist Wound Care Name Role Phone Nereida CORNELIUS, Hector Primary Care Provider Unavailab Suzette Calvillo Unavailable [phone] Hewitt Encounters Encounter Location Date Provider Diagnosis [facility] [address] [place] [address] 08/08/2024 Suzette Schmitz Plan Of Treatment Next Appt Details Provider Name:Suzette saini, 04/03/2025 02:00:00 PM, [address] [place], [address], Progress Notes * Antoni KENT MDOB:1940 (84 yo M)Acc No.[id number]:08/08/2024 Progress Note Patient: Antoni GROSS Provider: Gayla Schmitz DPM :1940 A ge:84 Y S ex:Male Date:08/08/2024 Address: [address] [id number] Pcp:Hector Padron MD Subjective: * Chief Complaints: [...] 08/08/2024 Generated for Daylin helm/Meghana/Vanessa on: 1 04/08/2024 08:21 PM EST
--- OUTSIDE RECORDS SUMMARY | 2024-08-20 09:30 | XMS_ITS ---
Author Organization Hector Padron III, MD Address [address] [place] [address] DR SAM Shreya [place] [address] Care Team Providers Care Hoop Punch And Coiler Operator Name Role Phone Dr. Hector Padron III Primary Care Provider [phone] Allergies Allergen (clinical drug ingredient) Drug/Non Drug [...] day Active Vitamin D (Ergocalciferol) 1.25 MG (71630 UT) TAKE 1 CAPSULE BY MOUTH ONE [...] Date Provider Diagnosis Hector Padron III, MD [address] [place] [address] [address] [place], DINESH [phone] 08/20/2024 Hector Padron Depression F32.9 ; T [...] a day Vitamin D (Ergocalciferol) 1.25 MG (89882 UT) TAKE 1 CAPSULE BY MOUTH ONE [...] Follow Up: 4 Months, Reason: ov Provider Name:Hetcor Padron , 04/22/2025 02:30:00 PM, [address] [place] [address] [address], [place], [address], Provider Name:Hector Padron , 12/23/2025 02:00:00 PM, [address] [place] [address] [address], [place], [address], Progress Notes * Antoni KENT MDOB:1940 (84 yo M)Acc No.[id number]:08/20/2024 Progress Notes Patient: Antoni GROSS Provider: Liv Padron MD :1940 A ge:84 Y S ex:Male Date:08/20/2024 Address:[address] [place] [address], [phone] Subjective: * Chief Complaints: [...] history * Hospitalization/Major Diagno stic Procedure: H [facility], rhabdomyolysis, fell at home 08/10/2022No history * [...] ggressive non-smoker Nevaeh angeles was born in [place], [place]. He has a son. He is retired from [employer]. He has a son, Lawrence Hardingjr. [facility] in [place]. One [facility]. * Medications: T akingVitamin D (Ergocalciferol) 1.25 MG (73190 UT) Capsule TAKE 1 CAPSULE BY MOUTH [...] the patientTaking Vitamin D (Ergocalciferol) 1.25 MG (97088 UT) Capsule TAKE 1 CAPSULE BY MOUTH [...] 43 (Ref Range: >40 mg/dL) * Lab:Comprehensive [place]. Pane l Fast * Collection Date 08/12/2024 [...] Continue Vitamin D (Ergocalciferol) Capsule, 1.25 MG (74939 UT), TAKE 1 CAPSULE BY MOUTH ONE [...] 0 08/20/2024 Generated for Daylin helm/Meghana/Kentonitting on: 04/08/2024 08:21 PM EST History and [...]
--- OUTSIDE RECORDS SUMMARY | 2024-10-10 07:00 | XMS_ITS ---
Author Organization [facility] Address [address] [place] [address] Care Team Providers Care Performance Instructor Name Role Phone Hector Padron MD Primary Care Provider Unavailab Suzette Calvillo Unavailable [phone] Medications Medication SIG (Take, Route, Frequency, Duration) [...] Not-Taking Encounters Encounter Location Date Provider Diagnosis [facility] [address] [address] 10/10/2024 Suzette Schmitz Plan Of Treatment Next Appt Details Provider Name:Suzette saini, 04/03/2025 02:00:00 PM, [address] [place] [address], [phone], Progress Notes * Antoni KENT MDOB:1940 (84 yo M)Acc No.[id number]:10/10/2024 Progress Note Patient: Antoni GROSS Provider: Gayla Schmitz DPM :1940 A ge:84 Y S ex:Male Date:10/10/2024 Address:[address] [place] [address] [address] [facility] [id number] Pcp:Hector aPdron MD Subjective: * Chief Complaints: * * HPI: A t Risk footcare: Pt States Last PCP Visit: D ate 0 03/26/2024 * Medical History: A nxiety, [...] 10/10/2024 Generated for Daylin helm/Meghana/Vanessa on: 1 04/08/2024 08:20 PM EST History and Physical Notes * HPI (History of Present Illness) Category Sub-Category Detail Notes Category Not es At Risk footcare Pt States Last PCP Visit: Date:
--- OUTSIDE RECORDS SUMMARY | 2024-12-17 09:00 | XMS_ITS ---
Author Organization Hector Padron III, MD Address [address] [place] [address] DR SAM Shreya DINESH [place] [address] Care Team Providers Care Billing Analyst Name Role Phone Dr. Hector Padron III Primary Care Provider [phone] Allergies Allergen (clinical drug ingredient) Drug/Non Drug Allergy documented on EMR Reaction Allergy Type Onset Date Status No Known Drug Allergy Unknown Drug Allergy Active No Known Food Allergy Unknown Drug Allergy Active REASON FOR VISIT Annual Exam Medications Medication SIG (Take, Route, Frequency, Duration) Notes Start Date End Date Status Myrbetriq 25 MG TAKE 1 TABLET BY EZEQUIEL TH DAILY Oral Active risperiDONE 0.5 MG 1 tablet on the tong ue and allow to dissolve Orally Twice a day Active Simvastatin 10 MG 1 tablet in the even ing Orally Once a day Active valACYclovir HCl 500 MG 1 tablet Orally Once a day Active Lisinopril 5 MG TAKE 1 TABLET BY EZEQUIEL TH EVERY DAY Active Accu-Chek FastClix Lancets - USE TO TEST BLOOD SUGAR ONCE DAILY Active Vitamin D (Ergocalciferol) 1.25 MG (09782 UT) TAKE 1 CAPSULE BY MOUTH ONE TIME PER WEEK Active Mirtazapine 45 MG TAKE 1 TABLET BY EZEQUIEL TH EVERYDAY AT BEDTIME Active FLUoxetine HCl 40 MG 1 capsule Orally On ce a day Active clonazePAM 2 MG 1 tablet Orally Tree times a day Active Accu-Chek Laura Plus - like directed In Vitro test blood sugars once a day Active Social History Tobacco Use: Social History Observation Description Date Details (start date - stop date) Never Smoker NA - NA Sex Assigned At : Social History Observation Description Sex Assigned At Male Tobacco Control (Standard) Question Answer Notes Tobacco use: Nonsmoker Additional Findings: Tobacco non-user Aggressive nonsmoker AUDIT-C (Standard) Question Answer Notes Did you have a drink containing alcohol in the p ast year? No Points 0 Interpretation Negative Vital Signs Temperature 98.1 degrees Fahrenheit 12/18/19 25 Blood pressure systolic 109 mm Hg 12/18/19 25 Blood pressure diastolic 54 mm Hg 025 Heart Rate 70 /min 12/17/2024 Height 72 in 12/17/2024 Weight 201 lbs 12/17/2024 BMI 27.26 kg/m2 12/17/2024 Encounters Encounter Location Date Provider Diagnosis Hector Padron III, MD [address] [place] [address] [place] [address] 12/17/2024 Hector Padron Type 2 diabetes mellitus without complications E11.9 ; Overweight E66.3 ; Depression F32.9 ; GERD (gastroesophageal reflux disease) K21.9 ; History of pulmonary embolism Z86.711 ; Chronic insomnia F51.04 ; BPH (benign prostatic hyperplasia) N40.0 and Irritable bowel syndrome K58.9 Assessments Encounter Date Diagnosis (ICD Code) Assessment Notes Treatment Notes Treatment Clinical Notes 12/17/2024 Type 2 diabetes mellitus without complications (ICD-10 - E11.9) His hemoglobin A1c is 5.4. No change in his regimen was necessary today.He is doing well. The recent available. Blood work shows good control of the diabetes. 12/17/2024 Overweight (ICD-10 - E66.3) His body mass index is 27. We reviewed his weight loss strategy and diabetic diet. We made a plan to increase physical activity and to lose weight at a rate of one half of a pound per week. 12/17/2024 Depression (ICD-10 - F32.9) He has mild chronic depression. He is compliant with his psychiatric medications and up-to-date with his psychiatrist. This problem is stable. 12/17/2024 GERD (gastroesophageal reflux disease) (ICD-10 - K21.9) His heartburn is well controlled with medications. He is sleeping through the night. No change in his regimen was needed. 12/17/2024 History of pulmonary embolism (ICD-10 - Z86.711) There is no sign of venous thromboembolism on examination today. 12/17/2024 Chronic insomnia (ICD-10 - F51.04) He is still sleeping poorly but appears to be well rested. 12/17/2024 BPH (benign prostatic hyperplasia) (ICD-10 - N40.0) He rises from sleep once or twice a night to urinate. We discussed lifestyle modification as a way to reduce nocturia. 12/17/2024 Irritable bowel syndrome (ICD-10 - K58.9) Visit irritable bowel syndrome is minor and well controlled. Plan Of Treatment Medication Medication Name Sig Start Date Stop Date Notes Myrbetriq 25 MG TAKE 1 TABLET BY EZEQUIEL TH DAILY Oral risperiDONE 0.5 MG 1 tablet on the tong ue and allow to dissolve Orally Twice a day Simvastatin 10 MG 1 tablet in the even ing Orally Once a day valACYclovir HCl 500 MG 1 tablet Orally Once a day Lisinopril 5 MG TAKE 1 TABLET BY EZEQUIEL TH EVERY DAY Accu-Chek FastClix Lancets - USE TO TEST BLOOD SUGAR ONCE DAILY Vitamin D (Ergocalciferol) 1 .25 MG (67085 UT) TAKE 1 CAPSULE BY MOUTH ONE TIME PER WEEK Mirtazapine 45 MG TAKE 1 TABLET BY EZEQUIEL TH EVERYDAY AT BEDTIME FLUoxetine HCl 40 MG 1 capsule Orally Once a day clonazePAM 2 MG 1 tablet Orally Tree times a day Accu-Chek Laura Plus - like directed In Vitro test blood sugars once a day Pending Test Test Name Order Date PROFILE, FASTING (COMPREHENSIVE METABOLI C) 12/17/2024 CBC w DIFF 12/17/2024 Lipid Panel 12/17/2024 Microalbumin, Random 12/17/2024 Hemoglobin A1c 12/17/2024 Next Appt Details Follow Up: 4 Months, Reason: OV Provider Name:Hector Padron , 04/22/2025 02:30:00 PM, [address] [place] [address] [place], [address], Provider Name:Hector Padron , 12/23/2025 02:00:00 PM, [address] [place] [address] [place], [address], Progress Notes * Antoni KENT MDOB:1940 (84 yo M)Acc No.[id number]:12/17/2024 Progress Notes Patient: Antoni GROSS Provider: Liv Padron MD :1940 A ge:84 Y S ex:Male Date:12/17/2024 Address:[address] [place] [address] [place], [id number] Subjective: * Chief Complaints: * A nnual Exam * HPI: D epression Screening: He returns at the age of 84 for his annual physical examination. He has lost 5 pounds through dieting. He says he is sleeping well. He occasionally has become incontinent of urine but has seen the urologist, Dr. Garcia, who is going to do a cystoscopy next January. He has been experiencing nocturia once a night. We have discussed lifesttyle modifications he could make to avoid this. 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 His fasting glucose has been excellent and today's value was 95.Comprehensive blood work was available and was discussed with him in detail today. PHQ-9 L ittle interest or pleasure in doing things?Several days F eeling down, depressed, or hopeless N [...] N ot at all T otal Score 1 I nterpretation M inimal Depression C OVID-19 Screening: Questions H ave you had any new onset fever, chills, cough, congestion, sore throat, shortness of breath, muscle aches? N o S GONSALO Questions: SDOH Questions I n the past year have you been worried about losing your housing? N o I n the past year have you or any family members you live with been unable to get any of the following when it was really needed? Check all that apply: N one F all Risk Screening: Fall History H ave you had any falls with injury in the past year? N o H ave you had two or more falls in the past year? Y es F all Risk Assessment: T wo or more falls without injury in the past year * ROS: G eneral/Constitutional: pain o nly [...] No history * Hospitalization/Major Diagno stic Procedure: [facility], rhabdomyolysis, fell at home 08/10/2022No [...] Social History: T obacco Use: T obacco Control (Standard) T obacco use: N onsmoker A dditional Findings: Tobacco non-user A ggressive nonsmoker D rugs/Alcohol: D rugs H ave you used drugs other than those for medical reasons in the past 12 months? N o D rug/Alcohol: A MINH-C (Standard) D id you have a drink containing alcohol in the past year? N o P oints 0 I nterpretation N egative Nevaeh angeles was born in [place], [place] He has a son. He is retired from [employer]. He has a son, Lawrence Hardingjr. [employer] in [place]. [facility]. * Medications: T akingVitamin D (Ergocalciferol) 1.25 MG (09025 UT) Capsule TAKE 1 CAPSULE BY MOUTH ONE TIME PER WEEK Mirtazapine 45 MG Tablet TAKE 1 TABLET BY MOUTH EVERYDAY AT BEDTIME FLUoxetine HCl 40 MG Capsule 1 capsule [...] TAKE 1 TABLET BY MOUTH DAILY Oral Accu-Chek FastClix Lancets - Miscellaneous USE TO TEST BLOOD SUGAR ONCE DAILY Accu-Chek Laura Plus - Strip like directed In Vitro test blood sugars once a day Medication List reviewed and reconciled with the patientTaking Vitamin D (Ergocalciferol) 1.25 MG (38377 UT) Capsule TAKE 1 CAPSULE BY MOUTH ONE TIME PER WEEK Taking Mirtazapine 45 MG Tablet TAKE 1 TABLET BY MOUTH EVERYDAY AT BEDTIME Taking FLUoxetine HCl 40 MG Capsule 1 [...] TAKE 1 TABLET BY MOUTH DAILY Oral Taking Accu- Chek FastClix Lancets - Miscellaneous USE TO TEST BLOOD SUGAR ONCE DAILY Taking Accu- Chek Laura Plus - Strip like directed In Vitro test blood sugars once a day Medication List reviewed and reconciled with the patient * Allergies: N o Known Drug AllergyNo Known Food Allergyno[Allergies Verified] Objective: * Vitals: H t: 72, Wt:201, BMI:27.26, BP:109/54, HR:70, Temp:98.1, Wt-k.17. * P ast Orders: Lab:Prostate Specific Antige n * Collection Date 12/01/2024 08/12/2024 04/14/2024 Collection Time 09:59 AM 07:10 AM 09:38 AM Order Date 12/01/2024 08/12/2024 04/14/2024 Prostate Specific Antigen 1.58 (Ref Range: <0.05-4.0 ng/mL) 1.75 (Ref Range: <0.05-4.0 ng/mL) 2.12 (Ref Range: <0.05-4.0 ng/mL) * Lab:Vitamin D 25-OH Total * Collection Date 12/01/2024 07/30/2023 11/29/2022 Collection Time 09:59 AM 08:34 AM 08:24 AM Order Date 12/01/2024 07/30/2023 11/29/2022 Vitamin D 25-OH Total 55.7 (Ref Range: >30 ng/mL) 52.3 (Ref Range: >30 ng/mL) 60.1 (Ref Range: >30 ng/mL) * Lab:[facility] [place]. Pane l Fast * Collection Date 12/01/2024 08/12/2024 04/14/2024 Collection Time 09:59 AM 07:10 AM 09:38 AM Order Date 12/01/2024 08/12/2024 04/14/2024 Sodium 142 (Ref Range: 135-145 mmol/L) 142 (Ref Range: 135-145 mmol/L) 138 (Ref Range: 135-145 mmol/L) Bilirubin Total 0.5 (Ref Range: 0.0-1.0 mg/dL) 0.4 (Ref Range: 0.0-1.0 mg/dL) 0.5 (Ref Range: 0.0-1.0 mg/dL) Aspartate Amino Transferase 20 (Ref Range: 5-37 U/L) 21 (Ref Range: 5-37 U/L) 19 (Ref Range: 5-37 U/L) Alanine Aminotransferase 17 (Ref Range: 0-40 U/L) 18 (Ref Range: 0-40 U/L) 18 (Ref Range: 0-40 U/L) Total Protein 6.6 (Ref Range: 6.5-8.0 g/dL) 6.5 (Ref Range: 6.5-8.0 g/dL) 6.6 (Ref Range: 6.5-8.0 g/dL) Albumin Level 4.4 (Ref Range: 3.5-5.0 g/dL) 4.2 (Ref Range: 3.5-5.0 g/dL) 3.9 (Ref Range: 3.5-5.0 g/dL) Alkaline Phosphatase 121 H (Ref Range: 39-117 U/L) 127 H (Ref Range: 39-117 U/L) 127 H (Ref Range: 39-117 U/L) Potassium 4.0 (Ref Range: 3.3-5.1 mmol/L) 3.9 (Ref Range: 3.3-5.1 mmol/L) 3.9 (Ref Range: 3.3-5.1 mmol/L) Chloride 109 H (Ref Range: 96-108 mmol/L) 110 H (Ref Range: 96-108 mmol/L) 110 H (Ref Range: 96-108 mmol/L) Carbon Dioxide 24 (Ref Range: 22-29 mmol/L) 24 (Ref Range: 22-29 mmol/L) 24 (Ref Range: 22-29 mmol/L) Anion Gap 13 (Ref Range: 12-20) 12 (Ref Range: 12-20) 8 L (Ref Range: 12-20) Blood Urea Nitrogen 18 H (Ref Range: 9-16 mg/dL) 17 H (Ref Range: 9-16 mg/dL) 15 (Ref Range: 9-16 mg/dL) Creatinine 1.18 (Ref Range: 0.5-1.4 mg/dL) 0.99 (Ref Range: 0.5-1.4 mg/dL) 0.85 (Ref Range: 0.5-1.4 mg/dL) Estimated Glomerular Filt Rate 59 > 60 > 60 Glucose Fasting 119 H (Ref Range: 60-99 mg/dL) 86 (Ref Range: 60-99 mg/dL) 113 H (Ref Range: 60-99 mg/dL) Calcium 9.0 (Ref Range: 8.4-10.2 mg/dL) 9.1 (Ref Range: 8.4-10.2 mg/dL) 8.6 (Ref Range: 8.4-10.2 mg/dL) * Lab:Lipid Panel * Collection Date 12/01/2024 08/12/2024 04/14/2024 Collection Time 09:59 AM 07:10 AM 09:38 AM Order Date 12/01/2024 08/12/2024 04/14/2024 Triglycerides 92 (Ref Range: <150 mg/dL) 85 (Ref Range: <150 mg/dL) 92 (Ref Range: <150 mg/dL) Cholesterol 140 (Ref Range: <200 mg/dL) 124 (Ref Range: <200 mg/dL) 130 (Ref Range: <200 mg/dL) LDL Cholesterol Calculated 75 (Ref Range: <100 mg/dL) 64 (Ref Range: <100 mg/dL) 68 (Ref Range: <100 mg/dL) HDL Cholesterol 47 (Ref Range: >40 mg/dL) 43 (Ref Range: >40 mg/dL) 44 (Ref Range: >40 mg/dL) * Lab:Hemoglobin A1c * Collection Date 12/01/2024 08/12/2024 04/14/2024 Collection Time 09:59 AM 07:10 AM 09:38 AM Order Date 12/01/2024 08/12/2024 04/14/2024 Hemoglobin A1c % 5.5 (Ref Range: <6.0 %) 5.6 (Ref Range: <6.0 %) 5.4 (Ref Range: <6.0 %) Estimated Average Glucose 111 (Ref Range: mg/dL) 114 (Ref Range: mg/dL) 108 (Ref Range: mg/dL) * Lab:Complete Blood Count Aut o Diff * Collection Date 12/01/2024 08/12/2024 04/14/2024 Collection Time 09:59 AM 07:10 AM 09:38 AM Order Date 12/01/2024 08/12/2024 04/14/2024 White Blood Count 6.5 (Ref Range: 4.8-10.8 X10*3/uL) 6.3 (Ref Range: 4.8-10.8 X10*3/uL) 5.6 (Ref Range: 4.8-10.8 X10*3/uL) Red Blood Count 4.21 L (Ref Range: 4.60-5.80 X10*6/uL) 4.24 L (Ref Range: 4.60-5.80 X10*6/uL) 3.93 L (Ref Range: 4.60-5.80 X10*6/uL) Hemoglobin 13.4 L (Ref Range: 14.0-18.0 g/dl) 13.5 L (Ref Range: 14.0-18.0 g/dl) 12.6 L (Ref Range: 14.0-18.0 g/dl) Hematocrit 39.5 L (Ref Range: 42.0-52.0 %) 38.7 L (Ref Range: 42.0-52.0 %) 37.3 L (Ref Range: 42.0-52.0 %) Mean Corpuscular Volume 93.8 (Ref Range: 80.0-98.0 fL) 91.3 (Ref Range: 80.0-98.0 fL) 94.9 (Ref Range: 80.0-98.0 fL) Mean Corpuscular Hemoglobin 31.8 (Ref Range: 27.0-33.0 pg) 31.8 (Ref Range: 27.0-33.0 pg) 32.1 (Ref Range: 27.0-33.0 pg) Mean Corpuscular HGB Conc 33.9 (Ref Range: 31.0-36.0 g/dl) 34.9 (Ref Range: 31.0-36.0 g/dl) 33.8 (Ref Range: 31.0-36.0 g/dl) Red Cell Distribution Width 12.2 (Ref Range: 11.0-16.0 %) 12.8 (Ref Range: 11.0-16.0 %) 12.0 (Ref Range: 11.0-16.0 %) Platelet Count 172 (Ref Range: 160-400 X10*3/uL) 163 (Ref Range: 160-400 X10*3/uL) 201 (Ref Range: 160-400 X10*3/uL) Mean Platelet Volume 9.0 L (Ref Range: 9.4-12.4 fL) 9.1 L (Ref Range: 9.4-12.4 fL) 8.9 L (Ref Range: 9.4-12.4 fL) Neutrophils Percent Auto 55.5 (Ref Range: 45-73 %) 41.6 L (Ref Range: 45-73 %) 52.6 (Ref Range: 45-73 %) Imm Gran Pct Auto 0.5 H (Ref Range: 0.0-0.4 %) 0.5 H (Ref Range: 0.0-0.4 %) 0.5 H (Ref Range: 0.0-0.4 %) Lymphocytes Percent Auto 34.0 (Ref Range: 20-40 %) 46.5 H (Ref Range: 20-40 %) 35.3 (Ref Range: 20-40 %) Monocytes Percent Auto 8.1 (Ref Range: 2-11 %) 9.7 (Ref Range: 2-11 %) 9.9 (Ref Range: 2-11 %) Eosinophils Percent Auto 1.4 (Ref Range: 0-4 %) 1.4 (Ref Range: 0-4 %) 1.3 (Ref Range: 0-4 %) Basophils Percent Auto 0.5 (Ref Range: 0-2 %) 0.3 (Ref Range: 0-2 %) 0.4 (Ref Range: 0-2 %) NRBC Pct Auto 0.0 (Ref Range: 0.0-0.2 /100WBC) 0.0 (Ref Range: 0.0-0.2 /100WBC) 0.0 (Ref Range: 0.0-0.2 /100WBC) Neutrophils Absolute Auto 3.6 (Ref Range: 2.0-8.3 x10*3/uL) 2.6 (Ref Range: 2.0-8.3 x10*3/uL) 2.9 (Ref Range: 2.0-8.3 x10*3/uL) Imm Gran Abs Auto 0.03 (Ref Range: 0.00-0.03 X10*3/uL) 0.03 (Ref Range: 0.00-0.03 X10*3/uL) 0.03 (Ref Range: 0.00-0.03 X10*3/uL) Lymphocytes Absolute Auto 2.2 (Ref Range: 1.2-4.9 X10*3/uL) 2.9 (Ref Range: 1.2-4.9 X10*3/uL) 2.0 (Ref Range: 1.2-4.9 X10*3/uL) Monocytes Absolute Auto 0.5 (Ref Range: 0.1-1.2 X10*3/uL) 0.6 (Ref Range: 0.1-1.2 X10*3/uL) 0.6 (Ref [...] X10*3/uL) 0.000 (Ref Range: 0.0-0.012 X10*3/uL) * Lab:Microalbumin, Random * Collection Date 12/01/2024 08/12/2024 04/14/2024 Collection Time 09:55 AM 07:23 AM 11:15 AM Order Date 12/01/2024 08/12/2024 04/14/2024 Creatinine Urine 92.23 (Ref Range: mg/dL) 76.27 (Ref Range: mg/dL) 167.26 (Ref Range: mg/dL) Microalbumin Urine < 5.0 (Ref Range: mg/L) < 5.0 (Ref Range: mg/L) 10.0 (Ref Range: mg/L) Microalbum Creatinine Ratio Ur TNP (Ref Range: <30 ug/mg cr) TNP (Ref Range: <30 ug/mg cr) 5.9 (Ref Range: <30 ug/mg cr) * Examination: G eneral Examination: GENERAL APPEARANCE: p leasant, well nourished, well developed, in no acute distress, calm and relaxed: overweight: elderly man. HEAD: a traumatic, normocephalic. EYES: [...] sounds normal, no ascites, no organomegaly, no mass: overweight. RECTAL EXAM: n ot examined. MUSCULOSKELETAL: e xtremities unremarkable, no clubbing, cyanosis or edema. PERIPHERAL PULSES: n ormal. NEUROLOGIC: a lert and oriented, cranial nerves 2-12 grossly intact, deep tendon reflexes 2+ symmetrical, motor strength normal upper and lower extremities, sensory exam intact. PSYCH: a lert, oriented. Assessment: * Assessment: 1. T ype 2 diabetes mellitus without complications - E11.9 (Primary) N otes :His hemoglobin A1c is 5.4. No change in his regimen was necessary today.He is doing well. The recent available. Blood work shows good control of the diabetes. 2 . O verweight - E66.3 N otes :His body mass index is 27. We reviewed his weight loss strategy and diabetic diet. We made a plan to increase physical activity and to lose weight at a rate of one half of a pound per week. 3 . D epression - F32.9 N otes :He has mild chronic depression. He is compliant with his psychiatric medications and up-to-date with his psychiatrist. This problem is stable. 4 . G ERD (gastroesophageal reflux disease) - K21.9 N otes :His heartburn is well controlled with medications. He is sleeping through the night. No change in his regimen was needed. 5 . H istory of pulmonary embolism - Z86.711 N otes :There is no sign of venous thromboembolism on examination today. 6 . C hronic insomnia - F51.04 N otes :He is still sleeping poorly but appears to be well rested. 7 . B PH (benign prostatic hyperplasia) - N40.0 N otes :He rises from sleep once or twice a night to urinate. We discussed lifestyle modification as a way to reduce nocturia. 8 . I rritable bowel syndrome - K58.9 N otes :Visit irritable bowel syndrome is minor and well controlled. Plan: * Treatment: 2. O verweight L AB: PROFILE, FASTING (COMPREHENSIVE METABOLIC) L AB: CBC w DIFF L AB: Lipid Panel L AB: Microalbumin, Random L AB: Hemoglobin A1c 3. D epression Continue Accu-Chek Laura Plus Strip, -, like directed In Vitro test blood sugars once a day; C ontinue Accu-Chek FastClix Lancets Miscellaneous, -, USE TO TEST BLOOD SUGAR ONCE DAILY; C ontinue Vitamin D (Ergocalciferol) Capsule, 1.25 MG (79377 UT), TAKE 1 CAPSULE BY MOUTH ONE TIME PER WEEK; C ontinue Mirtazapine Tablet, 45 MG, TAKE 1 TABLET BY MOUTH EVERYDAY AT BEDTIME; C ontinue FLUoxetine HCl Capsule, 40 MG, [...] TAKE 1 TABLET BY MOUTH EVERY DAY. ? L AB: PROFILE, FASTING (COMPREHENSIVE METABOLIC) L AB: CBC w DIFF L AB: Lipid Panel L AB: Microalbumin, Random L AB: Hemoglobin A1c * Procedure Codes: * Preventive Medicine: DM Care Plan: P atient Lifestyle Goals P atient wants to be able to manage diabetes without too much effort. T reatment Goals H bA1C < 7.0, Blood Sugars less than < 115. B arriers n o barriers. S elf-Managment Goals T abbe blood sugars twice daily and keep a log. Bring log in to next appointment, Work on weight loss, with a goal of losing 1 lb per week. * Follow Up: 4 Months (Reason: OV) * Images: * Sign off status: Completed true * Provider: Liv Padron MD Date: 0 12/17/2024 Generated for Daylin helm/Meghana/Adrianaransmitting on: 04/08/2024 08:20 PM EST History and Physical Notes * HPI (History of Present Illness) Category Sub-Category Detail Notes Depression Screening PHQ-9 Little inte rest or pleasure in doing things: Several days Feeling down, depressed, or hopeless: No t [...] some way: Not at all Total Score: 1 Interpretation: Minimal Depression Fall Risk Screening Fall History Have you had any falls with injury in the past year?: No Have you had two or more falls in the st year?: Yes Fall Risk Assessment:: Two or more falls without injury in the past year COVID-19 Screening Questions Have you had any new onset fever, chills, cough, congestion, sore throat, shortness of breath, muscle aches?: No SDOH Questions SDOH Questions In the [...] developed, in no acute distress, calm and relaxed: overweight: elderly man HEAD: atraumatic, normocep halic EYES: eomi, perrla, anicte gertrudis, conjugate EARS: normal NOSE: septum intact NECK/THYROID: no jugular venous di stention, no carotid bruit, thyroid normal HEART: no clicks, gallops, murmurs, or rubs, regular rhythm, S1, S2 normal, no s3, or vascular bruits LUNGS: clear to auscultatio n ABDOMEN: bowel sounds normal, no ascites, no organomegaly, no mass: overweight NEUROLOGIC: alert and oriented, cranial nerves [...] RECTAL EXAM: not examined PSYCH: alert, oriented ORAL CAVITY: normal, unremarkable
--- OUTSIDE RECORDS SUMMARY | 2025-01-19 11:14 | XMS_ITS ---
Author Organization Hector Padron III, MD Address [address] [place] [address] [place] [address] Care Team Providers Care Pattern Changer Name Role Phone Dr. Hector Padron III Primary Care Provider REASON FOR VISIT Rx Refill Social History Sex Assigned At : Social History Observation Description Sex Assigned At Male Encounters Encounter Location Date Provider Diagnosis Hector Padron III, MD [address] [place] [address] [place] [address] 01/19/2025 Hector Padron Plan Of Treatment Next Appt Details Provider Name:Hector Padron , 04/22/2025 02:30:00 PM, [address] [place] [address] [place], [address], Provider Name:Hector Padron , 12/23/2025 02:00:00 PM, [address] [place] [address] [place], [address], Progress Notes * Antoni KENT MDOB:1940 (84 yo M)Acc No.[id number]:01/19/2025 Patient: Antoni GROSS :1940 A ge:84 Y S ex:Male Address:[address] [facility], [place] [address] * true * Date: Generated for Daylin helm/Meghana/Vanessa on: 04/08/2024 08:18 PM EST
--- OUTSIDE RECORDS SUMMARY | 2025-01-19 11:57 | XMS_ITS ---
Author Organization Hector Padron III, MD Address [address] [place] [address] [place] [address] Care Team Providers Care Associate Professor Physician Name Role Phone Dr. Hector Padron III [...] Provider Diagnosis Hector Padron III, MD [address] [place] [address] [place] [address] 01/19/2025 Hector Padron Plan Of Treatment Medication Medication Name Sig Start Date Stop Date Notes valACYclovir HCl 500 MG 1 tablet Orally Once a day for 90 days 01/19/2025 01/14/2026 Next Appt Details Provider Name:Hector Padron , 04/22/2025 02:30:00 PM, [address] [place] [address] [place], [address], Provider Name:Hector Padron , 12/23/2025 02:00:00 PM, [address] [place] [address] [place], [address], Progress Notes * Antoni KENT MDOB:1940 (84 yo M)Acc No.[id number]:01/19/2025 Patient: Antoni GROSS :1940 A ge:84 Y S ex:Male Address:[address] [place] [address], [place] [address] * Refills Start valACYclovir HCl Tablet, 500 MG, Orally, 90 Tablet, 1 tablet, Once a day, 90 days, Refills=3 * true * Date: Generated for Daylin helm/Meghana/Kentonitting on: 04/08/2024 08:22 PM EST
--- NOTE | 2025-02-06 13:53 | MHC.OFFVIS ---
Intake Visit Reasons: cysto Intake Note: Patient is present for Cystoscopy Urology Med: None Antibiotic Allergy: None Blood Thinner: None PSA- 1.58 12/01/2024 H1AC- 5.5 12/01/2024 URO G-HD Cystoscope LOT: [id number] EXP:09/02/2027 Allergies No Known Allergies Allergy (Verified 11/07/24 13:52) HPI Comments Details: Antoni is a pleasant male. He is a patient of Dr. Padron. He is seen for the following urologic issues - lower urinary tract symptoms Check cystoscopy Open bladder neck Grade 2/3 trabeculation Patient is over 75. Can not use oxybutynin or tolterodine secondary to well known cognitive effects. Prescribed festoridine. Three-month follow-up may need Botox Bladder instability Failed to respond to Myrbetriq Has been managed with timed voiding and decrease fluid intake Lower urinary tract symptoms Stable with current medications Prior PSA velocity movements PSA history baseline 0.85 - 05/16 0.97, 11/14 0.9, 04/17 1.3, 04/18 1.4 PFSH Medical History Anxiety and depression Hyperlipidemia Hypertension Surgical History Hx of cholecystectomy Social History Household Members: None Housing: Condominium Do you presently have visiting nurse or other home services: No Alcohol intake: never Patient Tobacco Use Status: Never used Tobacco Advance Directives Date on File: 08/11/22 service: No Current occupational status: retired Review of Systems Const Denies chills and Denies fever(s) Card Reports no additional complaints and Denies syncope Resp Denies cough GI Denies abdominal pain and Denies heartburn Reports as per HPI and Denies change in libido Neuro Denies syncope Psych Denies change in libido Endo Denies change in libido Physical Exam Const General: cooperative, healthy appearing, comfortable and no acute distress Orientation/consciousness: patient oriented x3 HEENT Face and sinus: Yes normal facial exam Mouth: moist mucous membranes Neck Neck: Yes normal visual inspection, Yes full ROM and Yes trachea midline Chest Chest palpation & inspection: normal inspection of the chest Resp Effort & Inspection: normal respiratory effort, able to speak in complete sentences and no respiratory distress GI Inspection: Yes normal to inspection Back/Spine/Pelvis Cervical Spine: normal cervical lordosis Thoracic/Lumbar Spine: thoracic and lumbar spine normal to inspection Skin General skin exam: no rashes or lesions noted Neuro General: patient oriented x3, gait normal, tone normal and moves all extremities Extrem General: Yes normal to inspection and Yes capillary refill normal Office Procedures Cystoscopy Consent Discussed risk and benefit or proposed procedure with the patient. Information consent for procedure given to the patient. Discussed technical aspects, risks, benefits and alternatives in full. Addressed all of the patient's questions and concerns regarding the procedure. The patient demonstrated knowledge and understanding. They wish to proceed with this procedure. Preparation The patient was prepped in the usual manner. A public affairs director was present and in the room. Genitalia was prepped with betadine solution in a sterile manner. Lidocaine Jelly 2% was placed into the urethra and 16Fr flexible Olympus cystoscope was inserted into the meatus after adequate lubrication. Procedure Consent confirmed Cystoscopy performed using a disposable Urovue digital 16 Spanish cystoscope. Meatus circumcised Urethra anterior and posterior urethra normal Prostatic Urethra unremarkable - small Bladder examination with retroflexion of cystoscope Bladder Orifices normal shape and position Bladder Capacity Normal Trabeculations grade 2/3 Cellule Formation yes Diverticulum Formation None Mucosal Erythema None Bladder Tumor None 75885-Ycabzdzlbs DISPOSABLE SCOPE URO-G FLEXIBLE SCOPE Procedure code (CPT) selection complete Office Meds lidocaine HCl 2 % mucosal jelly in applicator Performing Provider: Kody Garcia MD Performing Location: [facility] Administered by: Vanessa Philippe RN on 02/06/25 14:15 Dose Route Admin Location Dispensed Lot Number Expiration Date [place] Supervisor Production Department 10 mL intra-urethral 10 mL nitrofurantoin monohydrate/macrocrystals 100 mg capsule Performing Provider: Kody Garcia MD Performing Location: [facility] Administered by: Vanessa Philippe RN on 02/06/25 14:15 Dose Route Admin Location Dispensed Lot Number Expiration Date [place] Supervisor Production Department 100 mg PO 1 cap Results AMB Urinalysis, Automated UA Leukoctes 0 Janes/uL Last Edit by RUT Paige on 02/06/25 14:17 UA Nitrite Negative Last Edit by RUT Paige on 02/06/25 14:17 UA Urobilinogen 0.2 mg/dL Last Edit by Fabby Phillips, RMA on 02/06/25 14:17 UA Protein 0 mg/dL Last Edit by Fabby Phillips, RMA on 02/06/25 14:17 UA pH 6.0 Last Edit by Fabby Phillips, RMA on 02/06/25 14:17 UA Blood 0 Paul/uL Last Edit by Fabby Phillips, RMA on 02/06/25 14:17 UA Specific [place] 1.015 Last Edit by Fabby Phillips, RMA on 02/06/25 14:17 UA Ketone Negative Last Edit by Fabby Phillips, RMA on 02/06/25 14:17 UA Bilirubin 0 mg/dL Last Edit by Fabby Phillips, RMA on 02/06/25 14:17 UA Glucose 0 mg/dL Last Edit by Fabby Phillips, RMA on 02/06/25 14:17 Results Reviewed Results Reviewed: Laboratory Last Values Urine pH (Auto) 6.0 02/06/25 14:16 Specific [place] (Auto) 1.015 02/06/25 14:16 Urine Protein (Auto) 0 mg/dL 02/06/25 14:16 Glucose (UA)(Auto) 0 mg/dL 02/06/25 14:16 Urine Ketones (Auto) Negative 02/06/25 14:16 Urine Blood (Auto) 0 Paul/uL 02/06/25 14:16 Urine Nitrite (Auto) Negative 02/06/25 14:16 Urine Bilirubin (Auto) 0 mg/dL 02/06/25 14:16 Urine Urobilinogen (Auto) 0.2 mg/dL 02/06/25 14:16 Leukocyte Esterase (Auto) 0 Janes/uL 02/06/25 14:16 Assessment & Plan Assessment & Plan (1) Bladder instability: Code(s): N32.89 - Other specified disorders of bladder Category: Medical (2) Urge incontinence of urine: Code(s): N39.41 - Urge incontinence Category: Medical Plan Failed Myrbetriq Over 75 so needs medication that does not cross the blood-brain barrier. Trial Toviaz. Orders: Orders AMB Cystoscopy Today N13.8 - Other obstructive and reflux uropathy, N32.89 - Other specified disorders of bladder, N39.41 - Urge incontinence, N40.1 - Benign prostatic hyperplasia with lower urinary tract symptoms AMB Urinalysis Automated Today Z13.9 - Encounter for screening, unspecified Medications: New fesoterodine ER 8 mg PO DAILY 30 tabs 2RF 30 days N32.89 - Other specified disorders of bladder Patient Instructions: This note is constructed using voice recognition software. While every effort has been made to ensure accuracy yield clerk errors may have been included. Imaging studies, laboratory and physical exam results were discussed and reviewed in detail. No major barriers to patient understanding were identified. An opportunity to ask questions regarding the treatment plan was provided. All questions were answered. The patient expressed understanding and agreement with the above treatment plan. The patient is aware they should contact our office by phone for worsening of their current condition or the appearance of new urologic symptoms. Compliance is encouraged with any medications and followup testing that is ordered. It is a privilege to participate in the urologic care of your patient. If you have any questions or concerns regarding treatment for the above conditions, or other urologic issues, please do not hesitate to contact me. The office telephone contact is [phone]. Sincerely, Dr Kody Garcia MD, [facility] - Urology Compassionate Specialist Care for the Genitourinary System Coding Level of Care Code Est Pt Level 3 (51394) Complex EM visit Add On G2211 Diagnoses Bladder instability N32.89 Urge incontinence of urine N39.41 CPT Codes Cystoscopy - CPT: 23117-Ertgoqmihd ([id number])
--- OUTSIDE RECORDS SUMMARY | 2025-02-06 20:19 | XMS_ITS | Patient Health Record ---
[facility] Organization [facility] Address [address] [place] [address] Care Team Providers Care Life Skills Worker Name Role Phone Hector Padron MD Primary Care Provider Suzette Newton Unavailable [phone] Allergies No Known Allergies Results Component Value Reference Range Notes HEMOGLOBIN A1C (GLYCOHEMOGLO BIN) Reviewed date:05/02/2024 12:13:58 PM Interpretation: Performing Lab: Notes/Report: HEMOGLOBIN A1C % (HH) 5.4 Reason For Referral No Information Medications Medication SIG (Take, Route, Frequency, Duration) Notes Start Date End Date Status risperiDONE 0.5 MG 1 tablet Orally Once a day; Duration: 30 day(s) Not-Marco ing Ondansetron 4 MG as directed Orally Not-Taking Promethazine HCl 25 MG 1 tablet at bedti me Orally Once a day; Duration: 30 day(s) Not-Taking Mirtazapine 45 MG 1 tablet before bedt tomas every evening Orally Once a day; Duration: 30 day(s) Not-Taking FLUoxetine HCl 60 MG as directed Orally Once a day Not-Taking Extra-Depth Diabetic Shoes with 3 Pair Custom heat-molded multi-density innersoles . 1pair shoes/3sets inserts . .; Duration: 1 year Not-Taking valACYclovir HCl 500 MG 1 tablet Orally every 12 hrs; Duration: 10 day(s) Not-Marco ing clonazePAM 2 MG 1 tablet at bedtime Orally Once a day Not-Taking Extra Depth Orthopedic Shoes (1 Pair) with Customized Heat Molded Multidensity Innersoles (3 Pair) Dx: NIDDM/Polyneuropathy (E11.42), Hammertoe Foot Deformity (M20.41,M20.42), Preulcerative Skin Lesion(s) (L85.1); Duration: 365 days 12/30/2024 Active Lisinopril 5 MG 0.5 tablet Orally On ce a day; Duration: 30 day(s) Not-Marco ing Simvastatin 10 MG 1 tablet every eveni ng Orally Once a day; Duration: 30 day(s) Not-Taking Metformin & Diet Manage Prod 500 MG as directed Orally Not-Takin g Keflex 500 MG 1 capsule Orally alejandra ry 12 hrs; Duration: 5 days 10/20/2022 Not-Marco ing Jublia 10 % as directed External ly Daily; Duration: 30 days 10/20/2022 Not-Marco ing Vitamin D2 Active Dicyclomine HCl 10 MG 1 capsule Orally F our times a day; Duration: 30 day(s) Not-Taking Immunizations Vaccine Route Administration Date Status Comme nts Influenza Unknown 11/24/2021 Administered Influenza Unknown 12/25/2022 Administered Influenza Unknown 12/24/2024 Administered Social History Tobacco Use: Social History [...] Are you an other tobacco user? No AUDIT-C (Standard) Question Answer Notes Did you have a drink containing alcohol in the p ast year? 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 Vital Signs Blood pressure diastolic 80 mm Hg 12/30/2024 Height 6 ft in 12/30/2024 Blood pressure systolic 135 mm Hg 12/30/2024 Weight 201 lbs 12/30/2024 BMI 27.26 kg/m2 12/30/2024 Encounters Encounter Location Date Provider Diagnosis [facility] [place] [address] [place] [address] 05/02/2024 Suzette Schmitz Type 2 diabetes mellitus with polyneuropathy E11.42 ; Contusion of right lesser toe(s) with damage to nail, initial encounter S90.221A ; Tinea unguium B35.1 ; Neuropathic ulcer of right foot with fat layer exposed L97.512 and Contusion of left lesser toe(s) without damage to nail, initial encounter S90.122A [facility] [place] [address] [place] [address] 12/30/2024 Suzette Schmitz Type 2 diabetes mellitus with polyneuropathy E11.42 ; Other hammer toe(s) (acquired), right foot M20.41 ; Tinea unguium B35.1 and Other hammer toe(s) (acquired), left foot M20.42 [facility] [address] [address] 10/10/2024 Suzette Schmitz Assessments Encounter Date Diagnosis (ICD Code) Assessment Notes Treatment Notes Treatment Clinical Notes Section Notes 05/02/2024 Contusion of right lesser toe(s) with damage to nail, initial encounter (ICD-10 - S90.221A) 05/02/2024 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) 12/30/2024 Other hammer toe(s) (acquired), right foot (ICD-10 - M20.41) Patient Educated with: DIABETIC FOOT CARE INSTRUCTIONS. pdf (DIABETIC FOOT CARE INSTRUCTIONS. 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 (ICD-10 - L97.512) 05/02/2024 Contusion of left lesser toe(s) without damage to nail, initial encounter (ICD-10 - S90.122A) Plan Of Treatment Pending Test Test Name Order Date X ray : Foot, left 2V 08/03/2011 X ray : Foot, right 2V 08/03/2011 27726-VOWK SKIN LESIONS, 2 TO 4 08/03/19 12 Next Appt Details Provider Name:Suzette Saini Svitlana saini, 04/03/2025 02:00:00 PM, [address] [facility], [place], [address], Insurance Providers Payer Name Payer Address Payer Phone Subscriber Number Group Number Insured Name Patient Relationship to Insured Coverage Start Date Coverage End Date Medicare National [employer] [address] [place] [address] [id number] Antoni Kent Self - patient is the insured [employer] [facility] [address] [place] [address] [id number] Antoni Kent Self - patient is the insured Medical (General) History Medical History History ICD Code anxiety back, hip, knee pain depression type I diabetes neuropathy reflux stomach ulcer chicken pox High blood pressure Surgical History Surgery Date(Month/Year) gall bladder 07/08/2000 appendectomy 5th lumbar 08/10/2000 cataract surgery 10/17
--- OUTSIDE RECORDS SUMMARY | 2025-02-06 20:20 | XMS_ITS | Patient Health Record ---
Author Organization Hector Padron III, MD Address [address] [place] [address] [address] [place] [address] Care Team Providers Care Sand Polisher Name Role Phone Dr. Hector Padron III Primary Care Provider [phone] Allergies Allergen (clinical drug ingredient) Drug/Non Drug Allergy documented on EMR Reaction Allergy Type Onset Date Status No Known Drug Allergy Unknown Drug Allergy Active No Known Food Allergy Unknown Drug Allergy Active Results Component Value Reference Range Notes Complete Blood Count Auto Di ff Reviewed date:04/21/2024 04:23:26 AM Interpretation: Performing Lab:[facility], [address] [place] [phone] Notes/Report: White Blood Count 5.6 4.8-10.8 X10*3/uL [...] NRBC Abs Auto 0.000 0.0-0.012 X10*3/uL Comprehensive [place]. Panel Fa st Reviewed date:04/21/2024 04:23:26 AM Interpretation: Performing Lab:[facility], [address] [place] [phone] Notes/Report: Sodium 138 135-145 mmol/L Potassium 3.9 [...] Panel Reviewed date:04/21/2024 04:23:26 AM Interpretation: Performing Lab:[facility], [address] [place] [phone] Notes/Report: Triglycerides 92 <150 mg/dL Desirable Triglyceride: [...] Antigen Reviewed date:04/21/2024 04:23:26 AM Interpretation: Performing Lab:[facility], [address] [place] [phone] Notes/Report: Prostate Specific Antigen 2.12 <0.05-4.0 ng/mL PSA methodology: Patterson Alinity i Chemiluminescent Microparticle Immunoassay (CMIA) Microalbumin, Random Reviewed date:04/21/2024 04:23:26 AM Interpretation: Performing Lab:[facility], [address] [place] [phone] Notes/Report: Creatinine Urine 167.26 Microalbumin Urine 10.0 Microalbum/Creatinine Ratio Ur 5.9 <30 ug/mg cr Albumin/Creatinine Ratio Reference Ranges: Normal: < 30 ug/mg creatinine Microalbuminuria: 30 - 300 ug/mg creatinine Clinical Albuminuria: > 300 ug/mg creatinine Hemoglobin A1c Reviewed date:04/21/2024 04:23:26 AM Interpretation: Performing Lab:[facility], [address] [place] [phone] Notes/Report: Hemoglobin A1c % 5.4 <6.0 % [...] average glucose, using the formula of the P2F-Tepavhr Average Glucose study (ADAG), Diabetes Care, Vol.31,#8, Oct. 2007 Diabetic Eye Exam Reviewed date:06/12/2024 09:19:55 AM Interpretation:undefined Performing Lab: Notes/Report: undefined Complete Blood Count Auto Di ff Reviewed date:08/12/2024 11:52:59 AM Interpretation: Performing Lab:[facility], [address] [place] [phone] Notes/Report: White Blood Count 6.3 4.8-10.8 X10*3/uL [...] NRBC Abs Auto 0.000 0.0-0.012 X10*3/uL Comprehensive [place]. Panel Fa Reviewed date:08/12/2024 11:52:59 AM Interpretation: Performing Lab:[facility], [address] [place] [phone] Notes/Report: Sodium 142 135-145 mmol/L Potassium 3.9 [...] Panel Reviewed date:08/12/2024 11:52:59 AM Interpretation: Performing Lab:[facility], [address] [place] [phone] Notes/Report: Triglycerides 85 <150 mg/dL Desirable Triglyceride: [...] Antigen Reviewed date:08/12/2024 11:52:59 AM Interpretation: Performing Lab:[facility], [address] [place] [phone] Notes/Report: Prostate Specific Antigen 1.75 <0.05-4.0 ng/mL PSA methodology: Patterson Alinity i Chemiluminescent Microparticle Immunoassay (CMIA) Microalbumin, Random Reviewed date:08/12/2024 11:52:59 AM Interpretation: Performing Lab:[facility], [address] [place] [phone] Notes/Report: Creatinine Urine 76.27 Microalbumin Urine < 5.0 Microalbum/Creatinine Ratio Ur TNP <30 ug/mg cr Unable to calculate albumin/creatinine ratio due to low microalbumin or creatinine result. Hemoglobin A1c Reviewed date:08/12/2024 11:52:59 AM Interpretation: Performing Lab:[address] [phone] Notes/Report: Hemoglobin A1c % 5.6 <6.0 % [...] average glucose, using the formula of the F2N-Uewhwaz Average Glucose study (ADAG), Diabetes Care, Vol.31,#8, Oct. 2007 Complete Blood Count Auto Di ff Reviewed date:12/02/2024 03:10:37 PM Interpretation: Performing Lab:[address] [phone] Notes/Report: White Blood Count 6.5 4.8-10.8 X10*3/uL [...] NRBC Abs Auto 0.000 0.0-0.012 X10*3/uL Comprehensive [place]. Panel Fa st Reviewed date:12/02/2024 03:10:37 PM Interpretation: Performing Lab:[facility], [address] [place] [phone] Notes/Report: Sodium 142 135-145 mmol/L Potassium 4.0 [...] Alkaline Phosphatase 121 39-117 U/L Lipid Panel Reviewed date:12/02/2024 03:10:37 PM Interpretation: Performing Lab:[address] [phone] Notes/Report: Triglycerides 92 <150 mg/dL Desirable Triglyceride: [...] with liver disease. Prostate Specific Antigen Reviewed date:12/02/2024 03:10:37 PM Interpretation: Performing Lab:[address] [phone] Notes/Report: Prostate Specific Antigen 1.58 <0.05-4.0 ng/mL PSA methodology: Patterson Alinity i Chemiluminescent Microparticle Immunoassay (CMIA) Vitamin D 25-OH Total Reviewed date:12/02/2024 03:10:37 PM Interpretation: Performing Lab:[address] [phone] Notes/Report: Vitamin D 25-OH Total 55.7 >30 [...] confirmed with another method such as LC-MS/MS. Microalbumin, Random Reviewed date:12/02/2024 03:10:38 PM Interpretation: Performing Lab:[facility], [address] [place] [phone] Notes/Report: Creatinine Urine 92.23 Microalbumin Urine < 5.0 Microalbum/Creatinine Ratio Ur TNP <30 ug/mg cr Unable to calculate albumin/creatinine ratio due to low microalbumin or creatinine result. Hemoglobin A1c Reviewed date:12/02/2024 03:10:37 PM Interpretation: Performing Lab:[facility], [address] [place] [phone] Notes/Report: Hemoglobin A1c % 5.5 <6.0 % [...] average glucose, using the formula of the I8Z-Wsfksis Average Glucose study (ADAG), Diabetes Care, Vol.31,#8, 2007 Reason For Referral Reason Two 2cm decubitus ul cers on buttock diabetic with decubitus ulcers on buttock left is thru all layers of skin Diagnosis 1 Pressure injury of s kin of buttock, unspecified injury stage, unspecified laterality (L89.309) Diagnosis 2 Type 2 diabetes eduardo itus without complications (E11.9) Referral Organization Hector Pardon III, MD Referring Provider First Name Hector Referring Provider Last Name Nereida Referring Provider Speciality Internal edicine Referred Provider Deana [facility], [facility] Referred Provider Specialty Unknown General Notes Jocelyn Blount [facility] 02/26 03:57:46 PM >Ref/progress note faxed to wound care center at , Jocelyn Blount [facility] 03/03/2024 11:34:17 AM > Called patient he stated the wound center called him but he refused to make appt. I spoke to patient and he stated if I made appt he would go to this appt . for wound center to call me back so I can set up this appt, Jocelyn Blount [facility] 03/03/2024 02:02:58 PM > called wound care [...] Specialty Carlos s General Notes Jocelyn Blount [facility] 02/26 04:16:49 PM > ref/demographic and progress note faxed to Deana DIN[facility], Jocelyn Blount [facility] 03/03/2024 10:43:12 AM I called patient to [...] Provider Specialty Unknown General Notes Jocelyn Blount [facility] 03/03 10:47:30 AM >The original referral that [...] TABLET BY EZEQUIEL TH DAILY Oral Active Accu-Chek Laura Plus - like directed In Vitro test blood sugars once a day Active Accu-Chek FastClix Lancets - USE TO TEST BLOOD SUGAR ONCE DAILY Active valACYclovir HCl 500 MG 1 tablet Orally Once a day for 90 days 01/19/2025 01/14/2026 Active Vitamin D (Ergocalciferol) 1.25 MG (91047 UT) TAKE 1 CAPSULE BY MOUTH ONE TIME PER WEEK Active risperiDONE 0.5 MG 1 tablet on the tong ue and allow to dissolve Orally Twice a day Active valACYclovir HCl 500 MG 1 tablet Orally Once a day Active Lisinopril 5 MG TAKE 1 TABLET BY EZEQUIEL TH EVERY DAY for 90 Active Simvastatin 10 MG 1 tablet in the even ing Orally Once a day for 90 days Active Mirtazapine 45 MG TAKE 1 TABLET BY EZEQUIEL TH EVERYDAY AT BEDTIME for 90 Active FLUoxetine HCl 40 MG 1 capsule Orally On a day Active clonazePAM 2 MG 1 tablet Orally Tree times a day Active Immunizations Vaccine Route Administration [...] Administered Fluzone High-Dose (HD-IIV3) Unknown 11/03/2024 Administ ered SHINGRIX Unknown 11/03/2024 Administered Social History Tobacco [...] Problem Status W/U Status Risk Notes Problem 893987881 Overweight (E66.3) Active confirmed His body mass index is 27. We reviewed his weight loss strategy and diabetic diet. We made a plan to increase physical activity and to lose weight at a rate of one half of a pound per week. Problem 65743421 Depression (F32.9) Active confirmed He has mild chronic depression. He is compliant with his psychiatric medications and up-to-date with his psychiatrist. This problem is stable. Problem 577835086 GERD (gastroesophage al reflux disease) (K21.9) Active confirmed His heartburn i s well controlled with medications. He is sleeping through the night. No change in his regimen was needed. Problem 47135101 Type 2 diabetes mellitus without complications (E11.9) Active confirmed His hemoglobin A1c is 5.4. No change in his regimen was necessary today.He is doing well. The recent available. Blood work shows good control of the diabetes. Problem 73470068 Irritable bowel syndrome (K58.9) Active confirmed Visit irritable bowel syndrome is minor and well controlled. Problem 283016221 BPH (benign prostatic hyperplasia) (N40.0) Active confirmed He rises from sleep once or twice a night to urinate. We discussed lifestyle modification as a way to reduce nocturia. Problem 273196803 Hyperlipidemia type II (E78.0) Active confirmed His fasting lipid profile shows his lipids to be in the normal range. No change in his regimen was necessary today. Problem 342018782 Cholelithiasis (K80.20) Active confirmed Problem 781013217 Chronic insomnia (F51.04) Active confirmed He is still sleeping poorly but appears to be well rested. Problem 528890698879040 History of herpes zoster (Z86.19) Active confirmed Problem 855758542 History of pulmonary embolism (Z86.711) Active confirmed There is no sig n of venous thromboembolism on examination today. Problem 36364498 Age-related cataract of both eyes, unspecified age-related cataract type (H25.9) Active confirmed He is scheduled for cataract surgery next week. There is no contraindication . The dyspnea seems minor today. Is going to call me after the weekend to report on his breathing. He is given medical clearance for cataract surgery. Vital Signs Heart Rate 70 /min 12/17/2024 Temperature 98.1 degrees Fahrenheit 12/17/2024 Oximetry 99 % 07/08/2024 Blood pressure diastolic 54 mm Hg 12/17/2024 Height 72 in 12/17/2024 Blood pressure systolic 109 mm Hg 12/17/2024 Weight 201 lbs 12/17/2024 BMI 27.26 kg/m2 12/17/2024 Encounters Encounter Location Date Provider Diagnosis Hector Padron III, MD [address] [place] [address] [place] [address] 02/27/2024 Hector Padron Depression F32.9 ; T ype 2 diabetes mellitus without complications E11.9 ; Overweight E66.3 ; BPH (benign prostatic hyperplasia) N40.0 ; History of pulmonary embolism Z86.711 ; Hyperlipidemia type II E78.0 ; GERD (gastroesophageal reflux disease) K21.9 ; Diabetic neuropathy E11.40 and Pressure injury of buttock, stage 3, 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 Hector Padron III, MD [address] [place] [address] [place] [address] 04/21/2024 Hector Padron Depression F32.9 ; T ype 2 diabetes mellitus without complications E11.9 ; Overweight E66.3 ; GERD (gastroesophageal reflux disease) K21.9 ; Chronic insomnia F51.04 ; BPH (benign prostatic hyperplasia) N40.0 ; Hyperlipidemia type II E78.0 ; Diabetic neuropathy E11.40 and History of pulmonary embolism Z86.711 Hector Padron III, MD [address] [place] [address] [place] [address] 07/08/2024 Hector Padron Depression F32.9 ; T ype 2 diabetes mellitus without complications E11.9 ; Overweight E66.3 ; GERD (gastroesophageal reflux disease) K21.9 ; Chronic insomnia F51.04 ; BPH (benign prostatic hyperplasia) N40.0 ; Hyperlipidemia type II E78.0 ; SOB (shortness of breath) R06.02 and Age-related cataract of both eyes, unspecified age-related cataract type H25.9 Hector Padron III, MD [address] [place] [address] [place] [address] 08/20/2024 Hector Padron Depression F32.9 ; T ype 2 diabetes mellitus without complications E11.9 ; Overweight E66.3 ; GERD (gastroesophageal reflux disease) K21.9 ; History of pulmonary embolism Z86.711 ; Cholelithiasis K80.20 ; Chronic insomnia F51.04 and BPH (benign prostatic hyperplasia) N40.0 Hector Padron III, MD [address] [place] [address] [place] [address] 12/17/2024 Hector Padron Type 2 diabetes eduardo itus without complications E11.9 ; Overweight E66.3 ; Depression F32.9 ; GERD (gastroesophageal reflux disease) K21.9 ; History of pulmonary embolism Z86.711 ; Chronic insomnia F51.04 ; BPH (benign prostatic hyperplasia) N40.0 and Irritable bowel syndrome K58.9 Hector Padron III, MD [address] [place] [address] [address] [place] [address] 01/19/2025 Hector Padron III, MD [address] [place] [address] [address] [place] [address] 01/19/2025 Hector Padron Assessments Encounter Date Diagnosis (ICD Code) Assessment [...] half of a pound per week. 12/17/2024 Type 2 diabetes mellitus without complications [...] stable. We discussed diet and nutrition today. 12/17/2024 Depression (ICD-10 - F32.9) He has mild chronic depression. He is compliant with his psychiatric medications and up-to-date with his psychiatrist. This problem is stable. 02/27/2024 BPH (benign prostatic hyperplasia) [...] change in his regimen was needed. 12/17/2024 GERD (gastroesophageal reflux disease) (ICD-10 - K21.9) His heartburn is well controlled with medications. He is sleeping through the night. No change in his regimen was needed. 02/27/2024 History of pulmonary embolism (ICD-10 - [...] of venous thromboembolism on examination today. 12/17/2024 History of pulmonary embolism (ICD-10 - [...] reduce nocturia. 08/20/2024 Cholelithiasis (ICD-10 - K80.20) 12/17/2024 Chronic insomnia (ICD-10 - F51.04) He is still sleeping poorly but appears to be well rested. 02/27/2024 GERD (gastroesophageal reflux disease) (ICD-10 - [...] as a way to reduce nocturia. 02/27/2024 Diabetic neuropathy (ICD-10 - E11.40) Symptoms [...] bowel syndrome is minor and well controlled. 02/27/2024 Pressure injury of buttock, stage 3, [...] C) 04/19/2018 PROFILE, FASTING (COMPREHENSIVE METABOLI C) 04/21/2024 PROFILE, FASTING (COMPREHENSIVE METABOLI C) 12/18/2017 PROFILE, FASTING (COMPREHENSIVE METABOLI C) 12/25/2018 PROFILE, FASTING (COMPREHENSIVE METABOLI C) 08/20/2018 PROFILE, FASTING (COMPREHENSIVE METABOLI C) 08/20/2024 PROFILE, FASTING (COMPREHENSIVE METABOLI C) 04/13/2021 PROFILE, FASTING (COMPREHENSIVE METABOLI C) 09/19/2017 PROFILE, FASTING (COMPREHENSIVE METABOLI C) 12/12/2021 PROFILE, FASTING (COMPREHENSIVE METABOLI C) 09/08/2020 PROFILE, FASTING (COMPREHENSIVE METABOLI C) 05/23/2017 PROFILE, FASTING (COMPREHENSIVE METABOLI C) 08/08/2021 PROFILE, FASTING (COMPREHENSIVE METABOLI C) 05/11/2020 PROFILE, FASTING (COMPREHENSIVE METABOLI C) 04/17/2022 PROFILE, FASTING (COMPREHENSIVE METABOLI C) 01/06/2020 PROFILE, FASTING (COMPREHENSIVE METABOLI C) 12/17/2024 PROFILE, FASTING (COMPREHENSIVE METABOLI C) 12/13/2020 PROFILE, FASTING (COMPREHENSIVE METABOLI C) 09/08/2022 PROFILE, FASTING (COMPREHENSIVE METABOLI C) 08/27/2019 PROFILE, FASTING (COMPREHENSIVE METABOLI C) 12/08/2022 PROFILE, [...] HEMOGLOBIN A1C (GLYCOHEMOGLOBIN) 020 HEMOGLOBIN A1C (GLYCOHEMOGLOBIN) 023 LIPID PANEL 09/08/2022 LIPID PANEL 04/11/2023 LIPID PANEL 08/27/2019 LIPID PANEL 12/08/2022 LIPID PANEL 04/28/2019 LIPID PANEL 04/19/2018 LIPID PANEL 12/18/2017 LIPID PANEL 12/25/2018 LIPID PANEL 08/20/2018 LIPID PANEL 04/13/2021 LIPID PANEL 09/19/2017 LIPID PANEL 09/08/2020 LIPID PANEL 05/23/2017 LIPID PANEL 05/11/2020 LIPID PANEL 01/06/2020 LIPID PANEL 12/13/2020 PSA, TOTAL 08/08/2023 PSA, TOTAL 01/06/2020 PSA, TOTAL 12/17/2023 PSA, TOTAL 04/21/2024 PSA, TOTAL 12/08/2022 PSA, TOTAL 08/20/2024 PSA, TOTAL 12/12/2021 PSA, TOTAL 04/19/2018 PSA, TOTAL 08/20/2018 PSA, TOTAL 08/08/2021 PSA, TOTAL 04/13/2021 PSA, TOTAL 09/08/2020 PSA, TOTAL 05/23/2017 MICROALBUMIN, RANDOM 05/11/2020 MICROALBUMIN, RANDOM 04/13/2021 MICROALBUMIN, RANDOM 09/08/2020 MICROALBUMIN, RANDOM 09/08/2022 MICROALBUMIN, RANDOM 12/08/2022 MICROALBUMIN, RANDOM 12/18/2017 MICROALBUMIN, RANDOM 12/25/2018 MICROALBUMIN, RANDOM 04/19/2018 CBC w DIFF 12/13/2020 CBC w DIFF 05/23/2017 CBC w DIFF 05/11/2020 CBC w DIFF 04/13/2021 CBC w DIFF 01/06/2020 CBC w DIFF 04/11/2023 CBC w DIFF 08/27/2019 CBC w DIFF 09/08/2020 CBC w DIFF 09/08/2022 CBC w DIFF 04/28/2019 CBC w DIFF 08/20/2024 CBC w DIFF 04/17/2022 CBC w DIFF 12/17/2024 CBC w DIFF 12/12/2021 CBC w DIFF 12/08/2022 CBC w DIFF 12/18/2017 CBC w DIFF 12/25/2018 CBC w DIFF 09/19/2017 CBC w DIFF 08/20/2018 CBC w DIFF 08/08/2021 CBC w DIFF 04/19/2018 VITAMIN D 25-OH TOTAL 09/08/2022 CBC WITH AUTO DIFF 08/08/2023 CBC WITH AUTO DIFF 12/17/2023 CBC WITH AUTO DIFF 04/21/2024 Lipid Panel 08/08/2021 Lipid Panel 08/08/2023 Lipid Panel 12/17/2023 Lipid Panel 04/21/2024 Lipid Panel 08/20/2024 Lipid Panel 04/17/2022 Lipid Panel 12/17/2024 Lipid Panel 12/12/2021 Vitamin D 25-OH Total 04/11/2023 Vitamin D 25-OH Total 08/20/2024 Microalbumin, Random 12/17/2024 Microalbumin, Random 12/12/2021 Microalbumin, Random 08/20/2024 Microalbumin, Random 04/17/2022 Microalbumin, Random 08/08/2023 Microalbumin, Random 12/17/2023 Microalbumin, Random 04/21/2024 Hemoglobin A1c 04/21/2024 Hemoglobin A1c 12/17/2024 Hemoglobin A1c 12/12/2021 Hemoglobin A1c 08/20/2024 Hemoglobin A1c 04/17/2022 Hemoglobin A1c 04/11/2023 Hemoglobin A1c 08/08/2023 Hemoglobin A1c 12/17/2023 Next Appt Details Provider Name:Hector Ashleyne , 04/22/2025 02:30:00 PM, [address] [place] [address] [address], [place], [address], Provider Name:Hector Padron , 12/23/2025 02:00:00 PM, [address] [place] [address] [address], [place], [address], Insurance Providers Payer Name Payer Address Payer Phone Subscriber Number Group Number Insured Name Patient Relationship to Insured Coverage Start Date Coverage End Date MEDICARE NGS [address] [place] [address] [id number] Antoni Kent Self - patient is the insured [facility] [address] [place], [place] [id number] [phone] [id number] Antoni Kent Self - patient is the insured Medical (General) History Medical History History ICD Code depression insomnia cholelithiasis hemorrhoids GERD acne BPH irritable bowel syndrome shingles left shouder chronic diarrhea diabetes mellitus hyperlipidemia pulmonary embolism neuropathy Surgical History Surgery Date(Month/Year) No history cholecystectomy Hospitalization History Reason Date(Month/Year) No history [facility], rhabdomyolysis, fell at home 08/10/2022
== END 2025-02-06 14:38 | disposition home or self-care (01) ==
LOC: HO.HUSH 13:52
PROVIDERS: PCP Internal Medicine Medical Oncology; Visit Provider Urology
DX: N40.1 Benign prostatic hyperplasia with lower urinary tract symptoms (principal); N13.8 Other obstructive and reflux uropathy; N39.41 Urge incontinence; N32.89 Other specified disorders of bladder
CPT/HCPCS: 52000

== ENCOUNTER → 2025-02-06 13:51 | Outpatient (BNVA) | payer MEDICARE, SELFPAY | PROVIDERS: PCP Internal Medicine Medical Oncology; Visit Provider Urology | DX: N40.1 Benign prostatic hyperplasia with lower urinary tract symptoms (principal); N13.8 Other obstructive and reflux uropathy; N32.89 Other specified disorders of bladder; N39.41 Urge incontinence; Z13.9 Encounter for screening, unspecified | CPT/HCPCS: 52000; 81003; 99212 ==

== ENCOUNTER 2025-02-09 15:38 | Outpatient (AMB) | payer MEDICARE, SELFPAY ==
--- OUTSIDE RECORDS SUMMARY | 2023-09-14 12:45 | XMS_ITS ---
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 Hector Padron III Primary Care Provider REASON FOR VISIT Annual Exam Social History Sex Assigned At : Social History Observation Description Sex Assigned At Male Encounters Encounter Location Date Provider Diagnosis Hector Padron III, MD [address] [place] [address] [place] [address] 09/14/2023 Hector Padron Plan Of Treatment Next Appt Details Provider Name:Hector Padron , 04/22/2025 02:30:00 PM, [address] [place] [address] [place], [address], Provider Name:Hector Padron , 12/23/2025 02:00:00 PM, [address] [place] [address] [place], [address], Progress Notes * Antoni KENT MDOB:1940 (84 yo M)Acc No.[id number]:09/14/2023 Progress Notes Patient: Leslie Antoni FLORES Provider: Liv Padron MD :1940 A ge:83 Y S ex:Male Date:09/14/2023 Address: [facility], [address] [phone] Subjective: * Chief Complaints: * 1 . [...] 0 09/14/2023 Generated for Daylin helm/Meghana/Arunsmitting on: 04/12/2024 06:12 AM EST
--- OUTSIDE RECORDS SUMMARY | 2023-12-17 09:00 | XMS_ITS ---
Author Organization Hector Padron III, MD Address [address] [place] [address] Care Team Providers Care Lot Worker Name Role Phone Dr. Hector Padron III Primary Care Provider [phone] Allergies Allergen (clinical drug ingredient) Drug/Non Drug [...] DAY Active Vitamin D (Ergocalciferol) 1.25 MG (14914 UT) TAKE 1 CAPSULE BY MOUTH ONE [...] Date Provider Diagnosis Hector Padron III, MD [address] [place] [address] [place] [address] 12/17/2023 Hector Padron Depression F32.9 ; T [...] EVERY DAY Vitamin D (Ergocalciferol) 1.25 MG (79567 UT) TAKE 1 CAPSULE BY MOUTH ONE [...] Months, Reason: OV Provider Name:Hector Padron , 04/22/2025 02:30:00 PM, [address] [place] [address] [address]AC[address] RANGEL, [place], [address], Provider Name:Hector Padron , 12/23/2025 02:00:00 PM, [address] [place] [address] [place] [place]ANGEL, [place], [address], Progress Notes * Antoni KENT MDOB:1940 (83 yo M)Acc No.[id number]:12/17/2023 Progress Notes Patient: Antoni GROSS Provider: Liv Padron MD :1940 A ge:83 Y S ex:Male Date:12/17/2023 Address:[address] [place] [address], [address], [place], [id number] Subjective: * Chief Complaints: * A nnual [...] holecystectomy * Hospitalization/Major Diagno stic Procedure: H [facility], rhabdomyolysis, fell at home 08/10/2022 * [...] N egative Nevaeh angeles was born in [place], [place] He has a son. He is retired from [employer]. He has a son, Lawrence Harding jr. [facility] in [place]. One [facility]. * Medications: T akingVitamin D (Ergocalciferol) 1.25 MG (68971 UT) Capsule TAKE 1 CAPSULE BY MOUTH [...] 2 diabetesTaking Vitamin D (Ergocalciferol) 1.25 MG (71004 UT) Capsule TAKE 1 CAPSULE BY MOUTH [...] mg/dL) 105 (Ref Range: mg/dL) * Lab:Comprehensive [place]. Pane l Fast * Collection Date 12/10/2023 [...] ontinue Vitamin D (Ergocalciferol) Capsule, 1.25 MG (23707 UT), TAKE 1 CAPSULE BY MOUTH ONE [...] 12/17/2023 Generated for Daylin helm/Meghana/Adrianaransmitting on: 1 04/12/2024 06:13 AM EST History and Physical Notes * HPI [...]
--- OUTSIDE RECORDS SUMMARY | 2024-02-27 10:00 | XMS_ITS ---
Author Organization Hector Padron III, MD Address [address] [place] [address] DR SAM Shreya [place] [phone] Care Team Providers Care Oenologist Name Role Phone Dr. Hector Padron III [...] Provider Specialty Unknown General Notes Jocelyn Blount [facility] 02/26 03:57:46 PM >Ref/progress note faxed to wound care center at , Jocelyn Blount [facility] 03/03/2024 11:34:17 AM > Called patient he stated the wound center called him but he refused to make appt. I spoke to patient and he stated if I made appt he would go to this appt . LM for wound center to call me back so I can set up this appt, Jocelyn Blount [facility] 03/03/2024 02:02:58 PM > called wound care [...] Diabetes Active Vitamin D (Ergocalciferol) 1.25 MG (15800 UT) TAKE 1 CAPSULE BY MOUTH ONE [...] Date Provider Diagnosis Hector Padron III, MD [address] [place] [address] [place] [address] 02/27/2024 Hector Padron Depression F32.9 ; T [...] E11.9 Diabetes Vitamin D (Ergocalciferol) 1.25 MG (08110 UT) TAKE 1 CAPSULE BY MOUTH ONE TIME PER WEEK FLUoxetine HCl 40 MG 1 capsule Orally Once a day Accu-Chek FastClix Lancets - USE TO TEST BLOOD SUGAR ONCE DAILY E11.9 Type 2 diabetes Referrals Referral Date Details 02/27/2024 02/27/2024, Two 2cm decubitus ulcers on buttock diabetic with decubitus ulcers on buttock left is thru all layers of skin, care center [facility] Next Appt Details Follow Up: as scheduled Haris eckert, Reason: OV Provider Name:Hector Padron , 04/22/2025 02:30:00 PM, [address] [place] [address] [address], [place], [phone], Provider Name:Hector Padron , 12/23/2025 02:00:00 PM, [address] [place] [address] [address], [place], [address], Progress Notes * Antoni KENT MDOB:1940 (83 yo M)Acc No.[id number]:02/27/2024 Progress Notes Patient: Antoni GROSS Provider: Liv Padron MD :1940 A ge:83 Y S ex:Male Date:02/27/2024 Address:[address] [place] [address], [address] [id number] Subjective: * Chief [...] No history * Hospitalization/Major Diagno stic Procedure: [facility], rhabdomyolysis, fell at home 08/10/2022No history * [...] Pharmacist: E11.9 DiabetesVitamin D (Ergocalciferol) 1.25 MG (89605 UT) Capsule TAKE 1 CAPSULE BY MOUTH [...] E11.9 DiabetesTaking Vitamin D (Ergocalciferol) 1.25 MG (36776 UT) Capsule TAKE 1 CAPSULE BY MOUTH [...] Negative -) Menstrating NR N/A * Lab:Comprehensive [place]. Pane l Fast * Collection Date 12/10/2023 [...] 2 diabetes mellitus without complications Referral To:care [facility] Wound Unknown Reason:Two 2cm decubitus ulcers on buttock diabetic with decubitus ulcers on buttock left is thru all layers of skin 3. O thers Referral To:[facility] W[facility] Unknown Reason:Two 2cm decubitus ulcers on [...] Date: 04/29/2023 Generated for Daylin helm/Meghana/Arunsmitting on: 04/12/2024 06:11 AM EST History and Physical Notes * [...]
--- OUTSIDE RECORDS SUMMARY | 2024-04-21 09:30 | XMS_ITS ---
Author Organization Hector Padron III, MD Address [address] [place] [address] DR SAM Shreya DIN[place] [address] Care Team Providers Care Nutritional Yeast Supervisor Name Role Phone Dr. Hector Padron III Primary Care Provider [phone] Allergies Allergen (clinical drug ingredient) Drug/Non Drug [...] day Active Vitamin D (Ergocalciferol) 1.25 MG (43955 UT) TAKE 1 CAPSULE BY MOUTH ONE [...] Date Provider Diagnosis Hector Padron III, MD [address] [place] [address] DR [place], DINESH [phone] 04/21/2024 Hector Padron Depression F32.9 ; T [...] a day Vitamin D (Ergocalciferol) 1.25 MG (65364 UT) TAKE 1 CAPSULE BY MOUTH ONE [...] Provider Name:Hector Padron , 04/22/2025 02:30:00 PM, [address] [place] [address] FLACO RANGEL, DINESH [place], [phone], Provider Name:Hector Padron , 12/23/2025 02:00:00 PM, [address] [place] [address] [place], [phone], Progress Notes * Antoni KENT MDOB:1940 (83 yo M)Acc No.[id number]:04/21/2024 Progress Notes Patient: Antoni GROSS Provider: Liv Padron MD :1940 A ge:83 Y S ex:Male Date:04/21/2024 Address:[address] [place] [address], [address] [id number] Subjective: * Chief Complaints: [...] No history * Hospitalization/Major Diagno stic Procedure: [facility], rhabdomyolysis, fell at home 08/10/2022No history [...] ggressive non-smoker Nevaeh angeles was born in [place], [place]. He has a son. He is retired from [employer]. He has a son, Lawrence Hardingjr. [employer] in [place]. One [facility]. * Medications: T akingAccu-Chek FastClix Lancets - Miscellaneous USE TO TEST BLOOD SUGAR ONCE DAILY , Notes to Pharmacist: E11.9 Type 2 diabetesMirtazapine 45 MG Tablet TAKE 1 TABLET BY MOUTH EVERYDAY AT BEDTIME Accu-Chek Laura Plus - Strip as directed In Vitro test blood sugars once a day , Notes to Pharmacist: E11.9 DiabetesVitamin D (Ergocalciferol) 1.25 MG (56728 UT) Capsule TAKE 1 CAPSULE BY MOUTH [...] E11.9 DiabetesTaking Vitamin D (Ergocalciferol) 1.25 MG (10165 UT) Capsule TAKE 1 CAPSULE BY MOUTH [...] ontinue Vitamin D (Ergocalciferol) Capsule, 1.25 MG (37545 UT), TAKE 1 CAPSULE BY MOUTH ONE [...] 0 04/21/2024 Generated for Daylin helm/Meghana/Vanessa on: 04/12/2024 06:08 AM EST History and Physical Notes * [...]
--- OUTSIDE RECORDS SUMMARY | 2024-07-08 10:00 | XMS_ITS ---
Author Organization Hector Padron III, MD Address [address] [place] [address] [place] [address] Care Team Providers Care Public Works Commissioner Name Role Phone Dr. Hector Padron III Primary Care Provider [phone] Allergies Allergen (clinical drug ingredient) Drug/Non Drug [...] diabetes Active Vitamin D (Ergocalciferol) 1.25 MG (07803 UT) TAKE 1 CAPSULE BY MOUTH ONE [...] Problem Status W/U Status Risk Notes Problem [id number] Age-related cataract of both eyes, unspecified age-related [...] Date Provider Diagnosis Hector Padron III, MD [address] [place] [address] [place] [address] 07/08/2024 Hector Padron Depression F32.9 ; T [...] 2 diabetes Vitamin D (Ergocalciferol) 1.25 MG (28736 UT) TAKE 1 CAPSULE BY MOUTH ONE TIME PER WEEK Next Appt Details Follow Up: As Scheduled, Rhea son: JESUS ALBERTO Provider Name:Hector Angeles Nereida , 04/22/2025 02:30:00 PM, [address] [place] [address] [address], [place], [address], Provider Name:Hector Angeles Nereida , 12/23/2025 02:00:00 PM, [address] [place] [address] [address], [place], [address], Progress Notes * Antoni KENT MDOB:1940 (84 yo M)Acc No.[id number]:07/08/2024 Patient: Antoni GROSS Provider: Liv Padron MD :1940 A ge:84 Y S ex:Male Date:07/08/2024 Address:[address] [place] [address], [address] [id number] Subjective: * Chief [...] No history * Hospitalization/Major Diagno stic Procedure: [facility], rhabdomyolysis, fell at home 08/10/2022No history [...] ggressive non-smoker Nevaeh angeles was born in [place], [place] He has a son. He is retired from [employer]. He has a son, Lawrence Hardingjr. [employer] in [place]. One [facility]. * Medications: T akingAccu-Chek FastClix Lancets [...] EVERY DAY Vitamin D (Ergocalciferol) 1.25 MG (17694 UT) Capsule TAKE 1 CAPSULE BY MOUTH [...] DAY Taking Vitamin D (Ergocalciferol) 1.25 MG (21451 UT) Capsule TAKE 1 CAPSULE BY MOUTH [...] 0 07/08/2024 Generated for Daylin helm/Meghana/Kentonitting on: 04/12/2024 06:13 AM EST History and Physical [...]
--- OUTSIDE RECORDS SUMMARY | 2024-08-08 07:00 | XMS_ITS ---
Author Organization [facility] Address [address] [place] [address] Care Team Providers Care Rehabilitation Therapist Name Role Phone Nereida CORNELIUS, Hector Primary Care Provider Unavailab Suzette Calvillo Unavailable [phone] Hewitt Encounters Encounter Location Date Provider Diagnosis [facility] [address] [place] [address] 08/08/2024 Suzette Schmitz Plan Of Treatment Next Appt Details Provider Name:Suzette saini, 04/03/2025 02:00:00 PM, [address] [place], [address], Progress Notes * Antoni KENT MDOB:1940 (84 yo M)Acc No.[id number]:08/08/2024 Progress Note Patient: Antoni GROSS Provider: Gayla Schmitz DPM :1940 A ge:84 Y S ex:Male Date:08/08/2024 Address: [address] [id number] Pcp:Hector Padron MD Subjective: * Chief Complaints: [...] 08/08/2024 Generated for Daylin helm/Meghana/Vanessa on: 1 04/12/2024 06:14 AM EST
--- OUTSIDE RECORDS SUMMARY | 2024-08-20 09:30 | XMS_ITS ---
Author Organization Hector Padron III, MD Address [address] [place] [address] DR SAM Shreya [place] [address] Care Team Providers Care Flight Readiness Technician Name Role Phone Dr. Hector Padron III [...] day Active Vitamin D (Ergocalciferol) 1.25 MG (85844 UT) TAKE 1 CAPSULE BY MOUTH ONE [...] Provider Diagnosis Hector Padron III, MD [address] [place] [address] DR [place], DINESH [phone] 08/20/2024 Hector Padron Depression F32.9 ; T [...] a day Vitamin D (Ergocalciferol) 1.25 MG (27008 UT) TAKE 1 CAPSULE BY MOUTH ONE [...] Provider Name:Hector Padron , 04/22/2025 02:30:00 PM, [address] [place] [address] [address], [place], [phone], Provider Name:Hector Padron , 12/23/2025 02:00:00 PM, [address] [place] [address] [address], [place], [phone], Progress Notes * Antoni KENT MDOB:1940 (84 yo M)Acc No.[id number]:08/20/2024 Progress Notes Patient: Antoni GROSS Provider: Liv Padron MD :1940 A ge:84 Y S ex:Male Date:08/20/2024 Address:[address] [place] [address], [phone] Subjective: * Chief Complaints: [...] history * Hospitalization/Major Diagno stic Procedure: H [facility], rhabdomyolysis, fell at home 08/10/2022No history * [...] ggressive non-smoker Nevaeh angeles was born in [place], [place] He has a son. He is retired from [employer]. He has a son, Lawrence Hardingjr. [facility] in [place]. One [facility]. * Medications: T akingVitamin D (Ergocalciferol) 1.25 MG (15795 UT) Capsule TAKE 1 CAPSULE BY MOUTH [...] the patientTaking Vitamin D (Ergocalciferol) 1.25 MG (43446 UT) Capsule TAKE 1 CAPSULE BY MOUTH [...] 43 (Ref Range: >40 mg/dL) * Lab:Comprehensive [place]. Pane l Fast * Collection Date 08/12/2024 [...] Continue Vitamin D (Ergocalciferol) Capsule, 1.25 MG (29706 UT), TAKE 1 CAPSULE BY MOUTH ONE [...] 0 08/20/2024 Generated for Daylin helm/Meghana/Kentonitting on: 04/12/2024 06:14 AM EST History and Physical Notes * [...]
--- OUTSIDE RECORDS SUMMARY | 2024-10-10 07:00 | XMS_ITS ---
Author Organization [facility] Address [address] [place] [address] Care Team Providers Care Biology Specimen Technician Name Role Phone Hector Padron MD Primary Care Provider Unavailab Suzette Calvillo Unavailable [phone] Medications Medication SIG (Take, Route, Frequency, Duration) [...] Not-Taking Encounters Encounter Location Date Provider Diagnosis [facility] [address] [address] 10/10/2024 Suzette Schmitz Plan Of Treatment Next Appt Details Provider Name:Suzette saini, 04/03/2025 02:00:00 PM, [address] [place] [address], [phone], Progress Notes * Antoni KENT MDOB:1940 (84 yo M)Acc No.[id number]:10/10/2024 Progress Note Patient: Antoni GROSS Provider: Gayla Schmitz DPM :1940 A ge:84 Y S ex:Male Date:10/10/2024 Address:[address] [place] [address] [id number] Pcp:Hector Padron MD Subjective: * Chief Complaints: [...] 0 10/10/2024 Generated for Daylin helm/Meghana/Vanessa on: 04/12/2024 06:10 AM EST History and Physical Notes * HPI (History of Present Illness) Category Sub-Category Detail Notes Category Not es At Risk footcare Pt States Last PCP Visit: Date:
--- OUTSIDE RECORDS SUMMARY | 2024-12-17 09:00 | XMS_ITS ---
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 Hector Padron III [...] DAILY Active Vitamin D (Ergocalciferol) 1.25 MG (13357 UT) TAKE 1 CAPSULE BY MOUTH ONE [...] Date Provider Diagnosis Hector Padron III, MD [address] [place] [address] [place] [address] 12/17/2024 Hector Padron Type 2 diabetes mellitus [...] DAILY Vitamin D (Ergocalciferol) 1 .25 MG (42739 UT) TAKE 1 CAPSULE BY MOUTH ONE [...] Provider Name:Hector Padron , 04/22/2025 02:30:00 PM, [address] [place] [address] [place], [address], Provider Name:Hector Padron , 12/23/2025 02:00:00 PM, [address] [place] [address] [place], [phone], Progress Notes * Antoni KENT MDOB:1940 (84 yo M)Acc No.[id number]:12/17/2024 Progress Notes Patient: Antoni GROSS Provider: Liv Padron MD :1940 A ge:84 Y S ex:Male Date:12/17/2024 Address:[address] [place] [address] [place], [id number] Subjective: * Chief Complaints: * A nnual [...] make to avoid this. He saw his admitting counselor yesterday and several skin lesions were frozen [...] No history * Hospitalization/Major Diagno stic Procedure: [facility], rhabdomyolysis, fell at home 08/10/2022No history [...] N egative Nevaeh angeles was born in [place], [place] He has a son. He is retired from [employer]. He has a son, Lawrence Hardingjr. [employer] in [place]. One [facility]. * Medications: T akingVitamin D (Ergocalciferol) 1.25 MG (33245 UT) Capsule TAKE 1 CAPSULE BY MOUTH [...] the patientTaking Vitamin D (Ergocalciferol) 1.25 MG (21580 UT) Capsule TAKE 1 CAPSULE BY MOUTH [...] 60.1 (Ref Range: >30 ng/mL) * Lab:[facility] [place]. Pane l Fast * Collection Date 12/01/2024 [...] ontinue Vitamin D (Ergocalciferol) Capsule, 1.25 MG (57581 UT), TAKE 1 CAPSULE BY MOUTH ONE [...] 0 12/17/2024 Generated for Daylin helm/Meghana/Adrianaransmitting on: 1 04/12/2024 06:12 AM EST History and Physical Notes * [...]
--- OUTSIDE RECORDS SUMMARY | 2025-01-19 11:14 | XMS_ITS ---
Author Organization Hector Padron III, MD Address [address] [place] [address] [place] [address] Care Team Providers Care Inclusion Internship Name Role Phone Dr. Hector Padron III Primary Care Provider [phone] REASON FOR VISIT Rx Refill Social History Sex Assigned At : Social History Observation Description Sex Assigned At Male Encounters Encounter Location Date Provider Diagnosis Hector Padron III, MD [address] [place] [address] [place] [address] 01/19/2025 Hector Padron Plan Of Treatment Next Appt Details Provider Name:Hector Padron , 04/22/2025 02:30:00 PM, [address] [place] [address] [place], [address], Provider Name:Hector Padron , 12/23/2025 02:00:00 PM, [address] [place] [address] [place], [address], Progress Notes * Antoni KENT MDOB:1940 (84 yo M)Acc No.[id number]:01/19/2025 Patient: Antoni GROSS :1940 A ge:84 Y S ex:Male Address:[address] [facility], [place] [address] * true * Date: Generated for Daylin helm/Meghana/Vanessa on: 04/12/2024 06:08 AM EST
--- OUTSIDE RECORDS SUMMARY | 2025-01-19 11:57 | XMS_ITS ---
Author Organization Hector Padron III, MD Address [address] [place] [address] [place] [address] Care Team Providers Care Senior Communications Engineer Name Role Phone Dr. Hector Padron III Primary Care Provider Medications Medication SIG (Take, Route, Frequency, Duration) Notes Start Date End Date Status valACYclovir HCl 500 MG 1 tablet Orally Once a day for 90 days 01/19/2025 01/14/2026 Active Social History Sex Assigned At : Social History Observation Description Sex Assigned At Male Encounters Encounter Location Date Provider Diagnosis Hector Padron III, MD [address] [place] [address] [place] [address] 01/19/2025 Hector Padron Plan Of Treatment Medication Medication Name Sig Start Date Stop Date Notes valACYclovir HCl 500 MG 1 tablet Orally Once a day for 90 days 01/19/2025 01/14/2026 Next Appt Details Provider Name:Hector Padron , 04/22/2025 02:30:00 PM, [address] [place] [address] [place], [address], Provider Name:Hector Padron , 12/23/2025 02:00:00 PM, [address] [place] [address] [place], [address], Progress Notes * Antoni KENT MDOB:1940 (84 yo M)Acc No.[id number]:01/19/2025 Patient: Antoni GROSS :1940 A ge:84 Y S ex:Male Address:[address] [place] [address], [place] [address] * Refills Start valACYclovir HCl Tablet, 500 MG, Orally, 90 Tablet, 1 tablet, Once a day, 90 days, Refills=3 * true * Date: Generated for Daylin helm/Meghana/Kentonitting on: 04/12/2024 06:15 AM EST
--- OUTSIDE RECORDS SUMMARY | 2025-02-10 06:10 | XMS_ITS | Patient Health Record ---
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 Vital Signs Blood pressure diastolic 80 mm Hg 12/30/2024 Height 6 ft in 12/30/2024 Blood pressure systolic 135 mm Hg 12/30/2024 Weight 201 lbs 12/30/2024 BMI 27.26 kg/m2 12/30/2024 Encounters Encounter Location Date Provider Diagnosis [facility] [address] [place] [address] 05/02/2024 Suzette Schmitz Type 2 diabetes mellitus with polyneuropathy E11.42 ; Contusion of right lesser toe(s) with damage to nail, initial encounter S90.221A ; Tinea unguium B35.1 ; Neuropathic ulcer of right foot with fat layer exposed L97.512 and Contusion of left lesser toe(s) without damage to nail, initial encounter S90.122A [facility] [address] [place] [address] 12/30/2024 Suzette Schmitz Type 2 diabetes mellitus with polyneuropathy E11.42 ; Other hammer toe(s) (acquired), right foot M20.41 ; Tinea unguium B35.1 and Other hammer toe(s) (acquired), left foot M20.42 [facility] [address] [address] 10/10/2024 Suzette Schmitz Assessments Encounter Date Diagnosis [...] X ray : Foot, right 2V 08/03/2011 [id number] SKIN LESIONS, 2 TO 4 08/03/19 12 Next Appt Details Provider Name:Suzette Saini Svitlana saini, 04/03/2025 02:00:00 PM, [address] [facility], [place], [address], Insurance Providers Payer Name Payer Address Payer Phone Subscriber Number Group Number Insured Name Patient Relationship to Insured Coverage Start Date Coverage End Date Medicare National [employer] [address] [facility] [address] [id number] Antoni Kent Self - patient is the insured [employer] [facility] [address] [place] [address] [id number] Antoni Kent Self - patient is the insured Medical (General) History Medical History History ICD Code anxiety back, hip, knee pain depression type I diabetes neuropathy reflux stomach ulcer chicken pox High blood pressure Surgical History Surgery Date(Month/Year) gall bladder 07/08/2000 appendectomy 5th lumbar 08/10/2000 cataract surgery 10/17
--- OUTSIDE RECORDS SUMMARY | 2025-02-10 06:12 | XMS_ITS | Patient Health Record ---
Author Organization Hector Padron III, MD Address [address] [place] [address] [address] [place] [address] Care Team Providers Care Quarter Seamer Name Role Phone Dr. Hector Padron III Primary Care Provider [phone] Allergies Allergen (clinical drug ingredient) Drug/Non Drug Allergy documented on EMR Reaction Allergy Type Onset Date Status No Known Drug Allergy Unknown Drug Allergy Active No Known Food Allergy Unknown Drug Allergy Active Results Component Value Reference Range Notes Complete Blood Count Auto Di ff Reviewed date:04/21/2024 04:23:26 AM Interpretation: Performing Lab:[facility], [address] [place] [phone] Notes/Report: White Blood Count 5.6 4.8-10.8 X10*3/uL [...] NRBC Abs Auto 0.000 0.0-0.012 X10*3/uL Comprehensive [place]. Panel Fa st Reviewed date:04/21/2024 04:23:26 AM Interpretation: Performing Lab:[facility], [address] [place] [phone] Notes/Report: Sodium 138 135-145 mmol/L Potassium 3.9 [...] Panel Reviewed date:04/21/2024 04:23:26 AM Interpretation: Performing Lab:[facility], [address] [place] [phone] Notes/Report: Triglycerides 92 <150 mg/dL Desirable Triglyceride: [...] Antigen Reviewed date:04/21/2024 04:23:26 AM Interpretation: Performing Lab:[facility], [address] [place] [phone] Notes/Report: Prostate Specific Antigen 2.12 <0.05-4.0 ng/mL PSA methodology: Patterson Alinity i Chemiluminescent Microparticle Immunoassay (CMIA) Microalbumin, Random Reviewed date:04/21/2024 04:23:26 AM Interpretation: Performing Lab:[facility], [address] [place] [phone] Notes/Report: Creatinine Urine 167.26 Microalbumin Urine 10.0 Microalbum/Creatinine Ratio Ur 5.9 <30 ug/mg cr Albumin/Creatinine Ratio Reference Ranges: Normal: < 30 ug/mg creatinine Microalbuminuria: 30 - 300 ug/mg creatinine Clinical Albuminuria: > 300 ug/mg creatinine Hemoglobin A1c Reviewed date:04/21/2024 04:23:26 AM Interpretation: Performing Lab:[facility], [address] [place] [phone] Notes/Report: Hemoglobin A1c % 5.4 <6.0 % [...] average glucose, using the formula of the S6X-Qewvbla Average Glucose study (ADAG), Diabetes Care, Vol.31,#8, Oct. 2007 Diabetic Eye Exam Reviewed date:06/12/2024 09:19:55 AM Interpretation:undefined Performing Lab: Notes/Report: undefined Complete Blood Count Auto Di ff Reviewed date:08/12/2024 11:52:59 AM Interpretation: Performing Lab:[facility], [address] [place] [phone] Notes/Report: White Blood Count 6.3 4.8-10.8 X10*3/uL [...] NRBC Abs Auto 0.000 0.0-0.012 X10*3/uL Comprehensive [place]. Panel Fa Reviewed date:08/12/2024 11:52:59 AM Interpretation: Performing Lab:[facility], [address] [place] [phone] Notes/Report: Sodium 142 135-145 mmol/L Potassium 3.9 [...] Panel Reviewed date:08/12/2024 11:52:59 AM Interpretation: Performing Lab:[facility], [address] [place] [phone] Notes/Report: Triglycerides 85 <150 mg/dL Desirable Triglyceride: [...] Antigen Reviewed date:08/12/2024 11:52:59 AM Interpretation: Performing Lab:[facility], [address] [place] [phone] Notes/Report: Prostate Specific Antigen 1.75 <0.05-4.0 ng/mL PSA methodology: Patterson Alinity i Chemiluminescent Microparticle Immunoassay (CMIA) Microalbumin, Random Reviewed date:08/12/2024 11:52:59 AM Interpretation: Performing Lab:[facility], [address] [place] [phone] Notes/Report: Creatinine Urine 76.27 Microalbumin Urine < 5.0 Microalbum/Creatinine Ratio Ur TNP <30 ug/mg cr Unable to calculate albumin/creatinine ratio due to low microalbumin or creatinine result. Hemoglobin A1c Reviewed date:08/12/2024 11:52:59 AM Interpretation: Performing Lab:[address] [address] Notes/Report: Hemoglobin A1c % 5.6 <6.0 % [...] average glucose, using the formula of the M3M-Pdhbuus Average Glucose study (ADAG), Diabetes Care, Vol.31,#8, Oct. 2007 Complete Blood Count Auto Di ff Reviewed date:12/02/2024 03:10:37 PM Interpretation: Performing Lab:[address] [phone] Notes/Report: White Blood Count 6.5 4.8-10.8 X10*3/uL [...] NRBC Abs Auto 0.000 0.0-0.012 X10*3/uL Comprehensive [place]. Panel Fa st Reviewed date:12/02/2024 03:10:37 PM Interpretation: Performing Lab:[facility], [address] [place] [phone] Notes/Report: Sodium 142 135-145 mmol/L Potassium 4.0 [...] Panel Reviewed date:12/02/2024 03:10:37 PM Interpretation: Performing Lab:[address] [phone] Notes/Report: Triglycerides 92 <150 mg/dL Desirable Triglyceride: [...] Antigen Reviewed date:12/02/2024 03:10:37 PM Interpretation: Performing Lab:[address] [phone] Notes/Report: Prostate Specific Antigen 1.58 <0.05-4.0 ng/mL PSA methodology: Patterson Alinity i Chemiluminescent Microparticle Immunoassay (CMIA) Vitamin D 25-OH Total Reviewed date:12/02/2024 03:10:37 PM Interpretation: Performing Lab:[address] [phone] Notes/Report: Vitamin D 25-OH Total 55.7 >30 [...] Random Reviewed date:12/02/2024 03:10:38 PM Interpretation: Performing Lab:[facility], [address] [place] [phone] Notes/Report: Creatinine Urine 92.23 Microalbumin Urine < 5.0 Microalbum/Creatinine Ratio Ur TNP <30 ug/mg cr Unable to calculate albumin/creatinine ratio due to low microalbumin or creatinine result. Hemoglobin A1c Reviewed date:12/02/2024 03:10:37 PM Interpretation: Performing Lab:[facility], [address] [place] [phone] Notes/Report: Hemoglobin A1c % 5.5 <6.0 % [...] average glucose, using the formula of the C7O-Quvjgvi Average Glucose study (ADAG), Diabetes Care, Vol.31,#8, [...] Provider Speciality Internal edicine Referred Provider [facility] Referred Provider Specialty Unknown General Notes Jocelyn Blount [facility] 02/26 03:57:46 PM >Ref/progress note faxed to wound care center at , Jocelyn Blount [facility] 03/03/2024 11:34:17 AM > Called patient he stated the wound center called him but he refused to make appt. I spoke to patient and he stated if I made appt he would go to this appt . for wound center to call me back so I can set up this appt, Jocelyn Blount [facility] 03/03/2024 02:02:58 PM > called wound [...] Carlos s General Notes Jocelyn Blount [facility] 02/26 04:16:49 PM > ref/demographic and progress note faxed to Deana [facility], Jocelyn Blount [facility] 03/03/2024 10:43:12 AM I called patient [...] 01/14/2026 Active Vitamin D (Ergocalciferol) 1.25 MG (74232 UT) TAKE 1 CAPSULE BY MOUTH ONE [...] Problem Status W/U Status Risk Notes Problem 049542323 Overweight (E66.3) Active confirmed His body mass index is 27. We reviewed his weight loss strategy and diabetic diet. We made a plan to increase physical activity and to lose weight at a rate of one half of a pound per week. Problem 02947772 Depression (F32.9) Active confirmed He has mild chronic depression. He is compliant with his psychiatric medications and up-to-date with his psychiatrist. This problem is stable. Problem 633416004 GERD (gastroesophage al reflux disease) (K21.9) Active confirmed His heartburn i s well controlled with medications. He is sleeping through the night. No change in his regimen was needed. Problem 33045379 Type 2 diabetes mellitus without complications (E11.9) Active confirmed His hemoglobin A1c is 5.4. No change in his regimen was necessary today.He is doing well. The recent available. Blood work shows good control of the diabetes. Problem 28712840 Irritable bowel syndrome (K58.9) Active confirmed Visit irritable bowel syndrome is minor and well controlled. Problem 663345567 BPH (benign prostatic hyperplasia) (N40.0) Active confirmed He rises from sleep once or twice a night to urinate. We discussed lifestyle modification as a way to reduce nocturia. Problem 388803867 Hyperlipidemia type II (E78.0) Active confirmed His fasting lipid profile shows his lipids to be in the normal range. No change in his regimen was necessary today. Problem 437375800 Cholelithiasis (K80.20) Active confirmed Problem 019366036 Chronic insomnia (F51.04) Active confirmed He is still sleeping poorly but appears to be well rested. Problem 722558503596261 History of herpes zoster (Z86.19) Active confirmed Problem 262287734 History of pulmonary embolism (Z86.711) Active confirmed There is no sig n of venous thromboembolism on examination today. 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 Hector Padron III, MD [address] [place] [address] [place] [address] 04/21/2024 Hector Padron Depression F32.9 ; T ype 2 diabetes mellitus without complications E11.9 ; Overweight E66.3 ; GERD (gastroesophageal reflux disease) K21.9 ; Chronic insomnia F51.04 ; BPH (benign prostatic hyperplasia) N40.0 ; Hyperlipidemia type II E78.0 ; Diabetic neuropathy E11.40 and History of pulmonary embolism Z86.711 Hector Padron III, MD [address] [place] [address] [place] [address] 07/08/2024 Hector Padron Depression F32.9 ; T ype 2 diabetes mellitus without complications E11.9 ; Overweight E66.3 ; GERD (gastroesophageal reflux disease) K21.9 ; Chronic insomnia F51.04 ; BPH (benign prostatic hyperplasia) N40.0 ; Hyperlipidemia type II E78.0 ; SOB (shortness of breath) R06.02 and Age-related cataract of both eyes, unspecified age-related cataract type H25.9 Hector Padron III, MD [address] [place] [address] [place] [address] 08/20/2024 Hector Padron Depression F32.9 ; T ype 2 diabetes mellitus without complications E11.9 ; Overweight E66.3 ; GERD (gastroesophageal reflux disease) K21.9 ; History of pulmonary embolism Z86.711 ; Cholelithiasis K80.20 ; Chronic insomnia F51.04 and BPH (benign prostatic hyperplasia) N40.0 Hector Padron III, MD [address] [place] [address] [place] [address] 12/17/2024 Hector Padron Type 2 diabetes eduardo itus without complications E11.9 ; Overweight E66.3 ; Depression F32.9 ; GERD (gastroesophageal reflux disease) K21.9 ; History of pulmonary embolism Z86.711 ; Chronic insomnia F51.04 ; BPH (benign prostatic hyperplasia) N40.0 and Irritable bowel syndrome K58.9 Hector Padron III, MD [address] [place] [address] [address] [place] [address] 01/19/2025 Hector Padron III, MD [address] [place] [address] [address] [place] [address] 01/19/2025 Hector Padron Assessments Encounter Date Diagnosis [...] C) 04/19/2018 PROFILE, FASTING (COMPREHENSIVE METABOLI C) 12/25/2018 PROFILE, FASTING (COMPREHENSIVE METABOLI C) 08/20/2024 PROFILE, FASTING (COMPREHENSIVE METABOLI C) 12/18/2017 PROFILE, FASTING (COMPREHENSIVE METABOLI C) 08/20/2018 PROFILE, FASTING (COMPREHENSIVE METABOLI C) 04/13/2021 PROFILE, FASTING (COMPREHENSIVE METABOLI C) 09/19/2017 PROFILE, FASTING (COMPREHENSIVE METABOLI C) 12/12/2021 PROFILE, FASTING (COMPREHENSIVE METABOLI C) 12/17/2024 PROFILE, FASTING (COMPREHENSIVE METABOLI C) 09/08/2020 PROFILE, FASTING (COMPREHENSIVE METABOLI C) 05/23/2017 PROFILE, FASTING (COMPREHENSIVE METABOLI C) 08/08/2021 PROFILE, FASTING (COMPREHENSIVE METABOLI C) 04/17/2022 PROFILE, FASTING (COMPREHENSIVE METABOLI C) 05/11/2020 PROFILE, FASTING (COMPREHENSIVE METABOLI C) 01/06/2020 PROFILE, FASTING (COMPREHENSIVE METABOLI C) 09/08/2022 PROFILE, FASTING (COMPREHENSIVE METABOLI C) 12/13/2020 PROFILE, [...] A1C (GLYCOHEMOGLOBIN) 020 HEMOGLOBIN A1C (GLYCOHEMOGLOBIN) 023 HEMOGLOBIN A1C (GLYCOHEMOGLOBIN) 021 HEMOGLOBIN A1C (GLYCOHEMOGLOBIN) 023 LIPID PANEL 04/11/2023 LIPID PANEL 12/08/2022 LIPID PANEL 08/27/2019 LIPID PANEL 04/28/2019 LIPID PANEL 04/19/2018 LIPID PANEL 12/25/2018 LIPID PANEL 12/18/2017 LIPID PANEL 08/20/2018 LIPID PANEL 04/13/2021 LIPID PANEL 09/19/2017 LIPID PANEL 09/08/2020 LIPID PANEL 05/23/2017 LIPID PANEL 05/11/2020 LIPID PANEL 01/06/2020 LIPID PANEL 09/08/2022 LIPID PANEL 12/13/2020 PSA, TOTAL 09/08/2020 PSA, TOTAL 05/23/2017 PSA, TOTAL 12/17/2023 PSA, TOTAL 01/06/2020 PSA, TOTAL 04/21/2024 PSA, TOTAL 12/08/2022 PSA, TOTAL 08/20/2024 PSA, TOTAL 12/12/2021 PSA, TOTAL 04/19/2018 PSA, TOTAL 08/20/2018 PSA, TOTAL 08/08/2021 PSA, TOTAL 04/13/2021 PSA, TOTAL 08/08/2023 MICROALBUMIN, RANDOM 05/11/2020 MICROALBUMIN, RANDOM 04/13/2021 MICROALBUMIN, RANDOM 09/08/2022 MICROALBUMIN, RANDOM 09/08/2020 MICROALBUMIN, RANDOM 12/08/2022 MICROALBUMIN, RANDOM 12/25/2018 MICROALBUMIN, RANDOM 12/18/2017 MICROALBUMIN, RANDOM 04/19/2018 CBC w DIFF 08/08/2021 CBC w DIFF 04/19/2018 CBC w DIFF 12/13/2020 CBC w DIFF 05/23/2017 CBC w DIFF 04/11/2023 CBC w DIFF 05/11/2020 CBC w DIFF 04/13/2021 CBC w DIFF 01/06/2020 CBC w DIFF 09/08/2022 CBC w DIFF 08/27/2019 CBC w DIFF 09/08/2020 CBC w DIFF 08/20/2024 CBC w DIFF 04/28/2019 CBC w DIFF 12/17/2024 CBC w DIFF 12/08/2022 CBC w DIFF 04/17/2022 CBC w DIFF 12/12/2021 CBC w DIFF 12/25/2018 CBC w DIFF 12/18/2017 CBC w DIFF 08/20/2018 CBC w DIFF 09/19/2017 VITAMIN D 25-OH TOTAL 09/08/2022 CBC WITH AUTO DIFF 08/08/2023 CBC WITH AUTO DIFF 12/17/2023 CBC WITH AUTO DIFF 04/21/2024 Lipid Panel 08/08/2021 Lipid Panel 08/08/2023 Lipid Panel 12/17/2023 Lipid Panel 04/21/2024 Lipid Panel 08/20/2024 Lipid Panel 12/17/2024 Lipid Panel 04/17/2022 Lipid Panel 12/12/2021 Vitamin D 25-OH Total 04/11/2023 Vitamin D 25-OH Total 08/20/2024 Microalbumin, Random 12/17/2024 Microalbumin, Random 08/20/2024 Microalbumin, Random 12/12/2021 Microalbumin, Random 04/17/2022 Microalbumin, Random 08/08/2023 Microalbumin, Random 12/17/2023 Microalbumin, Random 04/21/2024 Hemoglobin A1c 12/17/2024 Hemoglobin A1c 08/20/2024 Hemoglobin A1c 12/12/2021 Hemoglobin A1c 04/17/2022 Hemoglobin A1c 04/11/2023 Hemoglobin A1c 08/08/2023 Hemoglobin A1c 12/17/2023 Hemoglobin A1c 04/21/2024 Next Appt Details Provider Name:Hector Ashleyne , 04/22/2025 02:30:00 PM, [address] [place] [address] [address], [place], [address], Provider Name:Hector Padron , 12/23/2025 02:00:00 PM, [address] [place] [address] [address], [place], [address], Insurance Providers Payer Name Payer Address Payer Phone Subscriber Number Group Number Insured Name Patient Relationship to Insured Coverage Start Date Coverage End Date MEDICARE NGS [address] [place] [address] [id number] Antoni Kent Self - patient is the insured [facility] [address] [place], [place] [id number] Antoni Kent Self - patient is the insured Medical (General) History Medical History History ICD Code depression insomnia cholelithiasis hemorrhoids GERD acne BPH irritable bowel syndrome shingles left shouder chronic diarrhea diabetes mellitus hyperlipidemia pulmonary embolism neuropathy Surgical History Surgery Date(Month/Year) No history cholecystectomy Hospitalization History Reason Date(Month/Year) No history [facility], rhabdomyolysis, fell at home 08/10/2022
--- OUTSIDE RECORDS SUMMARY | 2025-02-10 06:16 | XMS_ITS | Patient Health Record ---
Author Organization [facility] Address [address] [place] [address] Care Team Providers Care Process Safety Management Engineer Name Role Phone Hector Padron MD Primary Care Provider Unavailab Hector Wisdom Unavailable [phone] Reason For Referral No Information Medications Medication SIG (Take, Route, Frequency, Duration) Notes Start Date End Date Status Vitamin D2 1.25 Tablet 1 tablet Orally O nce a week Active risperiDONE 0.5 MG Tablet 1 tablet Orall y Once a day Active valACYclovir HCl 500 MG Tablet 2 tablets Orally QD Active FLUoxetine HCl 60 MG Tablet 1 tablet Ora lly Once a day Active clonazePAM 1mg Tablet 1 tablet Orally on ce a day Active Mirtazapine 45 MG Tablet Dispersible 1 tablet at bedtime Orally Once a day Active Simvastatin 10mg Tablet 1 tablet in the evening Orally Once a day Active Lisinopril 5 MG Tablet 1 tablet Orally O nce a day Active Immunizations Vaccine Route Administration Date Status Comme nts Flu vaccine no Preserv 3 and > Unknown 12/28/2015 Admin istered Social History Social History Additional Details Category Social Info Options Details Miscellaneous: Marital status: Occupation: retired Section Notes: He does not smoke nor use an y significant amounts of alcohol He does not smoke nor use an y significant amounts of alcohol He does not smoke nor use an y significant amounts of alcohol He does not smoke nor use an y alcohol---recovering alcoholic since 1989 Problems Problem Type SNOMED Code ICD Code Onset Dates Problem Status W/U Status Risk Notes Problem Screening for malignant neoplasm of colon (228132662) Encounter for screening for malignant neoplasm of colon (Z12.11) Active confirmed Problem History of adenomatous polyp of colon (809753689) History of adenomatous polyp of colon (Z86.010) Active confirmed Problem Screening for malignant neoplasm of rectum (909237328) Encounter for screening for malignant neoplasm of rectum (Z12.12) Active confirmed Problem Family History of Cancer of Colon (Situation) (075023252) Family history of colon cancer (Z80.0) Active confirmed Problem Irritable bowel syndrome (06145510) Irritable bowel syndrome with both constipation and diarrhea (K58.2) Active confirmed Plan Of Treatment Future Test Test Name Order Date COLONOSCOPY 02/10/2011 COLONOSCOPY 06/28/2016 Insurance Providers Payer Name Payer Address Payer Phone Subscriber Number Group Number Insured Name Patient Relationship to Insured Coverage Start Date Coverage End Date MEDICARE OF [place] [address] [place] [address] [phone] [id number] ERI HODGE Self - patient is the insured [employer] CLAIMS [address] [place] [address] [id number] ERI HODGE Self - patient is the insured Medical (General) History Medical History History ICD Code Colonoscopy 03/29/2011--small tubular josette nomas removed EGD 01/20/2010--biopsies wer e negative for celiac disease and H. pylori--no esophagitis nor Mckeon's esophagus IBS GERD--EGD as above PUD He has been treated for Helicobacter in the past Depression/anxiety--he sees Dr. Micah samuel at [facility] Pulmonary embolus and pneumonia in 2010 Denies [place], stroke, asthma, nor kidney di sease NIDDM Surgical History Surgery Date(Month/Year) back surgery cholecystectomy
== END 2025-02-09 15:38 | disposition home or self-care (01) ==
LOC: HO.HMGAL 15:38
PROVIDERS: PCP Internal Medicine Medical Oncology; Visit Provider Registered Nurse Emergency
DX: J30.89 Other allergic rhinitis (principal)
CPT/HCPCS: 95117; 95165

== ENCOUNTER 2025-03-16 15:32 | Outpatient (AMB) | payer MEDICARE, SELFPAY ==
--- OUTSIDE RECORDS SUMMARY | 2023-12-17 09:00 | XMS_ITS ---
Author Organization Hector Padron III, MD Address [address] [place] [address] Care Team Providers Care Tool Procurement Coordinator Name Role Phone Dr. Hector Padron III Primary Care Provider Allergies Allergen (clinical drug ingredient) Drug/Non Drug Allergy documented on EMR Reaction Allergy Type Onset Date Status No Known Drug Allergy Unknown Drug Allergy Active Results Component Value Reference Range Notes URINE DIP STICK Reviewed date:12/17/2023 02:19:11 PM Interpretation: Performing Lab: Notes/Report: SG 1.010 1.005 - 1.025 pH 6.5 5.0 - 9.0 ILSA Negative Negative - NIT Negative Negative - PRO 15 Negative - Trace GLU Negative Negative - KET 5 Negative - UBG 0.2 0.1 - 1.8 SHIRA Negative 0.2 - 1.3 BLD Negative Negative - REASON FOR VISIT Annual Exam Medications Medication SIG (Take, Route, Frequency, Duration) Notes Start Date End Date Status Simvastatin 10 MG 1 tablet in the evening Orally Once a day Active valACYclovir HCl 500 MG 1 tablet Orally Once a day Active FLUoxetine HCl 40 MG 1 capsule Orally Once a day Active Lisinopril 5 MG TAKE 1 TABLET BY MOUTH EVERY DAY Active Vitamin D (Ergocalciferol) 1.25 MG (10234 UT) TAKE 1 CAPSULE BY MOUTH ONE TIME PER WEEK Active risperiDONE 0.5 MG 1 tablet on the tongue and allow to dissolve Orally Twice a day Active Accu-Chek FastClix Lancets - USE TO TEST BLOOD SUGAR ONCE DAILY E11.9 Type 2 diabetes Active Accu-Chek Laura Plus - as directed In Vitro test blood sugars once a day E11.9 Diabetes Active Mirtazapine 45 MG TAKE 1 TABLET BY MOUTH EVERYDAY AT BEDTIME Active clonazePAM 2 MG 1 tablet Orally Tree times a day Active Social History Tobacco Use: Social History Observation Description Date Details (start date - stop date) Never Smoker NA - NA Sex Assigned At : Social History Observation Description Sex Assigned At Male Tobacco Use/Smoking Question Answer Notes Patient is a nonsmoker Additional Findings: Tobacco Non-User Aggressive non-smoker Alcohol Screen Question Answer Notes Did you have a drink containing alcohol in the p ast year? No Points 0 Interpretation Negative Vital Signs Temperature 97.5 degrees Fahrenheit 12/17/19 24 Blood pressure systolic 114 mm Hg 12/17/19 24 Blood pressure diastolic 59 mm Hg 024 Heart Rate 76 /min 12/17/2023 Height 72 in 12/17/2023 Weight 206 lbs 12/17/2023 BMI 27.94 kg/m2 12/17/2023 Encounters Encounter Location Date Provider Diagnosis Hector Padron III, MD [address] [place] [address] [place] [address] 12/17/2023 Hector Padron Depression F32.9 ; T ype 2 diabetes mellitus without complications E11.9 ; BPH (benign prostatic hyperplasia) N40.0 ; History of pulmonary embolism Z86.711 ; Overweight E66.3 ; GERD (gastroesophageal reflux disease) K21.9 and Hyperlipidemia type II E78.01 Assessments Encounter Date Diagnosis (ICD Code) Assessment Notes Treat ment Notes Treatment Clinical Notes 12/17/2023 Depression (ICD-10 - F32.9) His depression is stable and he is compliant with all of his medications. He will see the psychiatrist next month. 12/17/2023 Type 2 diabetes mellitus without complications (ICD-10 - E11.9) His hemoglobin A1c is 5.4. No change in his regimen was necessary today.He is doing well 12/17/2023 BPH (benign prostatic hyperplasia) (ICD-10 - N40.0) He rises from sleep once or twice a night to urinate. We discussed lifestyle modification as a way to reduce nocturia. 12/17/2023 History of pulmonary embolism (ICD-10 - Z86.711) There is no sign of venous thromboembolism on examination today. 12/17/2023 Overweight (ICD-10 - E66.3) He remains overweight. We discussed his diabetic weight reduction diet at length. We reviewed his diet and nutrition. We made a plan to lose weight at a rate of one half a pound per week 12/17/2023 GERD (gastroesophageal reflux disease) (ICD-10 - K21.9) His heartburn is well controlled with medications. He is sleeping through the night. No change in his regimen was needed. 12/17/2023 Hyperlipidemia type II (ICD-10 - E78.01) His triglycerides are slightly elevated but his cholesterol values are within their target ranges. I recommended weight loss and a healthy diet. Plan Of Treatment Medication Medication Name Sig Start Date Stop Date Notes Simvastatin 10 MG 1 tablet in the evening Orally Once a day valACYclovir HCl 500 MG 1 tablet Orally Once a day FLUoxetine HCl 40 MG 1 capsule Orally Once a day Lisinopril 5 MG TAKE 1 TABLET BY MOUTH EVERY DAY Vitamin D (Ergocalciferol) 1.25 MG (95636 UT) TAKE 1 CAPSULE BY MOUTH ONE TIME PER WEEK risperiDONE 0.5 MG 1 tablet on the tongue and allow to dissolve Orally Twice a day Accu-Chek FastClix Lancets - USE TO TEST BLOOD SUGAR ONCE DAILY E11.9 Type 2 diabetes Accu-Chek Laura Plus - as directed In Vi tro test blood sugars once a day E11.9 Diabetes Mirtazapine 45 MG TAKE 1 TABLET BY MOUTH EVERYDAY AT BEDTIME clonazePAM 2 MG 1 tablet Orally Tree times a day Pending Test Test Name Order Date PROFILE, FASTING (COMPREHENSIVE METABOLI C) 12/17/2023 PSA, TOTAL 12/17/2023 CBC WITH AUTO DIFF 12/17/2023 Lipid Panel 12/17/2023 Microalbumin, Random 12/17/2023 Hemoglobin A1c 12/17/2023 Next Appt Details Follow Up: 4 Months, Reason: OV Provider Name:Hector Padron , 04/23/2025 10:30:00 AM, [address] [place] [address] [place], [place], [address], Provider Name:Hector Padron , 12/23/2025 02:00:00 PM, [address] [place] [address] [place], [place], [address], Progress Notes * Antoni KENT MDOB:1940 (83 yo M)Acc No.[id number]:12/17/2023 Progress Notes Patient: Antoni GROSS Provider: Liv Padron MD :1940 A ge:83 Y S ex:Male Date:12/17/2023 Address:[address] [place] [address], [address], [place], [id number] Subjective: * Chief Complaints: * A nnual Exam * HPI: D epression Screening: He returns to the office at the age of 83, for his annual physical examination. Since his last visit he has been healthy and well. He has been compliant with all of his medications. His diabetes has been well-controlled. He has had no new problems or emergency room visits or invasive procedures. He denies shortness of breath or chest pain. His blood work was reviewed with him. No changes were made in his regimen.? His vital signs were stable. PHQ-9 L ittle interest or pleasure in doing things?Not at all F eeling down, depressed, or hopeless N ot at all T rouble falling or staying asleep, or sleeping too much N ot at all F eeling tired or having little energy N ot at all P oor appetite or overeating N ot at all F eeling bad about yourself or that you are a failure, or have let yourself or your family down N ot at all T rouble concentrating on things, such as reading the newspaper or watching television N ot at all M oving or speaking so slowly that other people could have noticed; or the opposite, being so fidgety or restless that you have been moving around a lot more than usual N ot at all T houghts that you would be better off or of hurting yourself in some way N ot at all T otal Score 0 C OVID-19 Screening: no new meds, psa 1.7 lelo brown noct x 1. Questions H ave you experienced fever, chills, cough, sore throat, shortness of breath, difficulty breathing, muscle aches, loss of taste or smell? N o H ave you been exposed to the virus within the last 10 days? N o H ave you travelled internationally in the last 10 days? N o H ave you been exposed to COVID-19 in the past? N o F all Risk Screening: Fall History H ave you had any falls with injury in the past year? N o H ave you had two or more falls in the past year? N o F all Risk Assessment: N o falls in the past year S GONSALO Questions: SDOH Questions I n the past year have you been worried about losing your housing? N o I n the past year have you or any family members you live with been unable to get any of the following when it was really needed? Check all that apply: N one * ROS: G eneral/Constitutional: pain o nly normal aches and pains. C hills d enies.?Fatigue a dmits. F ever d enies. E NT: Decreased hearing d enies. R espiratory: Cough d enies. C ardiovascular: Chest pain with exertion d enies. D yspnea on exertion?denies. S hortness of breath d enies. G astrointestinal: Constipation o ccasional. D ecreased appetite d enies. D iarrhea d enies. H eartburn o ccasional. N ausea d enies. R ectal bleeding [...] pain d enies. P sychiatric: Depressed mood w hich is mild. * Medical History: * Surgical History: c holecystectomy * Hospitalization/Major Diagno stic Procedure: [facility], rhabdomyolysis, fell at home 08/10/2022 * [...] T obacco Use: T obacco Use/Smoking P atient is a n onsmoker A dditional Findings: Tobacco Non-User A ggressive non-smoker D rugs/Alcohol: D rugs H ave you used drugs other than those for medical reasons in the past 12 months? N o Alcohol Screen D id you have a drink containing alcohol in the past year? N o P oints 0 I nterpretation N egative Nevaeh angeles was born in [place], [place] He has a son. He is retired from [employer]. He has a son, Lawrence Harding jr. [facility] in [place]. [facility]. * Medications: T akingVitamin D (Ergocalciferol) 1.25 MG (78603 UT) Capsule TAKE 1 CAPSULE BY MOUTH ONE TIME PER WEEK Lisinopril 5 MG Tablet TAKE 1 TABLET BY MOUTH EVERY DAY valACYclovir HCl 500 MG Tablet 1 tablet Orally Once a day Simvastatin 10 MG Tablet 1 tablet in the evening Orally Once a day FLUoxetine HCl 40 MG Capsule 1 capsule Orally Once a day clonazePAM 2 MG Tablet 1 tablet Orally Tree times a day risperiDONE 0.5 MG Tablet Dispersible 1 tablet on the tongue and allow to dissolve Orally Twice a day Accu-Chek Laura Plus - Strip as directed In Vitro test blood sugars once a day , Notes to Pharmacist: E11.9 DiabetesMirtazapine 45 MG Tablet TAKE 1 TABLET BY MOUTH EVERYDAY AT BEDTIME Accu-Chek FastClix Lancets - Miscellaneous USE TO TEST BLOOD SUGAR ONCE DAILY , Notes to Pharmacist: E11.9 Type 2 diabetesTaking Vitamin D (Ergocalciferol) 1.25 MG (22158 UT) Capsule TAKE 1 CAPSULE BY MOUTH ONE TIME PER WEEK Taking Lisinopril 5 MG Tablet TAKE 1 TABLET BY MOUTH EVERY DAY Taking valACYclovir HCl 500 MG Tablet 1 tablet Orally Once a day Taking Simvastatin 10 MG Tablet 1 tablet in the evening Orally Once a day Taking FLUoxetine HCl 40 MG Capsule 1 capsule Orally Once a day Taking clonazePAM 2 MG Tablet 1 tablet Orally Tree times a day Taking risperiDONE 0.5 MG Tablet Dispersible 1 tablet on the tongue and allow to dissolve Orally Twice a day Taking Accu-Chek Laura Plus - Strip as directed In Vitro test blood sugars once a day , Notes to Pharmacist: E11.9 DiabetesTaking Mirtazapine 45 MG Tablet TAKE 1 TABLET BY MOUTH EVERYDAY AT BEDTIME Taking Accu-Chek FastClix Lancets - Miscellaneous USE TO TEST BLOOD SUGAR ONCE DAILY , Notes to Pharmacist: E11.9 Type 2 diabetesDiscontinuedFLUoxetine HCl 20 MG Capsule 1 capsule Orally Once a day Medication List reviewed and reconciled with the patientDiscontinued FLUoxetine HCl 20 MG Capsule 1 capsule Orally Once a day Medication List reviewed and reconciled with the patient * Allergies: N o Known Drug Allergyno[Allergies Verified] Objective: * Vitals: H t: 72, Wt:206, BMI:27.94, BP:114/59, HR:76, Temp:97.5, Wt-k.44. * P ast Orders: Lab:Prostate Specific Antige n * Collection Date 12/10/2023 04/03/2023 04/10/2022 Collection Time 09:45 AM 09:28 AM 10:04 AM Order Date 12/10/2023 04/03/2023 04/10/2022 Prostate Specific Antigen 1.70 (Ref Range: <0.05-4.0 ng/mL) 1.39 (Ref Range: <0.05-4.0 ng/mL) 1.29 (Ref Range: <0.05-4.0 ng/mL) * Lab:Microalbumin, Random * Collection Date 12/10/2023 04/03/2023 11/29/2022 Collection Time 09:45 AM 10:20 AM 08:25 AM Order Date 12/10/2023 04/03/2023 11/29/2022 Creatinine Urine 78.10 (Ref Range: mg/dL) 126.42 (Ref Range: mg/dL) 70.88 (Ref Range: mg/dL) Microalbumin Urine 5.0 (Ref Range: mg/L) 6.0 (Ref Range: mg/L) < 5.0 (Ref Range: mg/L) Microalbum Creatinine Ratio Ur 6.4 (Ref Range: <30 ug/mg cr) 4.7 (Ref Range: <30 ug/mg cr) TNP (Ref Range: <30 ug/mg cr) * Lab:Hemoglobin A1c * Collection Date 12/10/2023 07/30/2023 04/03/2023 Collection Time 09:45 AM 08:34 AM 09:28 AM Order Date 12/10/2023 07/30/2023 04/03/2023 Hemoglobin A1c % 5.5 (Ref Range: <6.0 %) 5.4 (Ref Range: <6.0 %) 5.3 (Ref Range: <6.0 %) Estimated Average Glucose 111 (Ref Range: mg/dL) 108 (Ref Range: mg/dL) 105 (Ref Range: mg/dL) * Lab:Comprehensive [place]. Pane l Fast * Collection Date 12/10/2023 04/03/2023 11/29/2022 Collection Time 09:45 AM 09:28 AM 08:24 AM Order Date 12/10/2023 04/03/2023 11/29/2022 Sodium 142 (Ref Range: 135-145 mmol/L) 141 (Ref Range: 135-145 mmol/L) 141 (Ref Range: 135-145 mmol/L) Bilirubin Total 0.5 (Ref Range: 0.0-1.0 mg/dL) 0.5 (Ref Range: 0.0-1.0 mg/dL) 0.5 (Ref Range: 0.0-1.0 mg/dL) Aspartate Amino Transferase 17 (Ref Range: 5-37 U/L) 17 (Ref Range: 5-37 U/L) 16 (Ref Range: 5-37 U/L) Alanine Aminotransferase 17 (Ref Range: 0-40 U/L) 14 (Ref Range: 0-40 U/L) 14 (Ref Range: 0-40 U/L) Total Protein 7.0 (Ref Range: 6.5-8.0 g/dL) 6.8 (Ref Range: 6.5-8.0 g/dL) 6.6 (Ref Range: 6.5-8.0 g/dL) Albumin Level 4.3 (Ref Range: 3.5-5.0 g/dL) 4.2 (Ref Range: 3.5-5.0 g/dL) 4.1 (Ref Range: 3.5-5.0 g/dL) Alkaline Phosphatase 113 (Ref Range: 39-117 U/L) 99 (Ref Range: 39-117 U/L) 120 H (Ref Range: 39-117 U/L) Potassium 4.2 (Ref Range: 3.3-5.1 mmol/L) 4.0 (Ref Range: 3.3-5.1 mmol/L) 4.0 (Ref Range: 3.3-5.1 mmol/L) Chloride 105 (Ref Range: 96-108 mmol/L) 107 (Ref Range: 96-108 mmol/L) 107 (Ref Range: 96-108 mmol/L) Carbon Dioxide 25 (Ref Range: 22-29 mmol/L) 26 (Ref Range: 22-29 mmol/L) 27 (Ref Range: 22-29 mmol/L) Anion Gap 16 (Ref Range: 12-20) 12 (Ref Range: 12-20) 11 L (Ref Range: 12-20) Blood Urea Nitrogen 16 (Ref Range: 9-16 mg/dL) 17 H (Ref Range: 9-16 mg/dL) 16 (Ref Range: 9-16 mg/dL) Creatinine 1.07 (Ref Range: 0.5-1.4 mg/dL) 1.02 (Ref Range: 0.5-1.4 mg/dL) 0.93 (Ref Range: 0.5-1.4 mg/dL) Estimated Glomerular Filt Rate > 60 > 60 > 60 Glucose Fasting 107 H (Ref Range: 60-99 mg/dL) 111 H (Ref Range: 60-99 mg/dL) 100 H (Ref Range: 60-99 mg/dL) Calcium 9.5 (Ref Range: 8.4-10.2 mg/dL) 9.6 (Ref Range: 8.4-10.2 mg/dL) 9.3 (Ref Range: 8.4-10.2 mg/dL) * Lab:Lipid Panel * Collection Date 12/10/2023 07/30/2023 04/03/2023 Collection Time 09:45 AM 08:34 AM 09:28 AM Order Date 12/10/2023 07/30/2023 04/03/2023 Triglycerides 142 (Ref Range: <150 mg/dL) 174 H (Ref Range: <150 mg/dL) 141 (Ref Range: <150 mg/dL) Cholesterol 149 (Ref Range: <200 mg/dL) 145 (Ref Range: <200 mg/dL) 154 (Ref Range: <200 mg/dL) LDL Cholesterol Calculated 78 (Ref Range: <100 mg/dL) 73 (Ref Range: <100 mg/dL) 84 (Ref Range: <100 mg/dL) HDL Cholesterol 43 (Ref Range: >40 mg/dL) 38 L (Ref Range: >40 mg/dL) 42 (Ref Range: >40 mg/dL) * Lab:Complete Blood Count Aut o Diff * Collection Date 12/10/2023 07/30/2023 04/03/2023 Collection Time 09:45 AM 08:34 AM 09:28 AM Order Date 12/10/2023 07/30/2023 04/03/2023 White Blood Count 6.3 (Ref Range: 4.8-10.8 X10*3/uL) 7.0 (Ref Range: 4.8-10.8 X10*3/uL) 5.3 (Ref Range: 4.8-10.8 X10*3/uL) Red Blood Count 4.51 L (Ref Range: 4.60-5.80 X10*6/uL) 4.26 L (Ref Range: 4.60-5.80 X10*6/uL) 4.44 L (Ref Range: 4.60-5.80 X10*6/uL) Hemoglobin 14.4 (Ref Range: 14.0-18.0 g/dl) 13.7 L (Ref Range: 14.0-18.0 g/dl) 14.1 (Ref Range: 14.0-18.0 g/dl) Hematocrit 42.2 (Ref Range: 42.0-52.0 %) 39.9 L (Ref Range: 42.0-52.0 %) 41.6 L (Ref Range: 42.0-52.0 %) Mean Corpuscular Volume 93.6 (Ref Range: 80.0-98.0 fL) 93.7 (Ref Range: 80.0-98.0 fL) 93.7 (Ref Range: 80.0-98.0 fL) Mean Corpuscular Hemoglobin 31.9 (Ref Range: 27.0-33.0 pg) 32.2 (Ref Range: 27.0-33.0 pg) 31.8 (Ref Range: 27.0-33.0 pg) Mean Corpuscular HGB Conc 34.1 (Ref Range: 31.0-36.0 g/dl) 34.3 (Ref Range: 31.0-36.0 g/dl) 33.9 (Ref Range: 31.0-36.0 g/dl) Red Cell Distribution Width 12.7 (Ref Range: 11.0-16.0 %) 12.4 (Ref Range: 11.0-16.0 %) 12.1 (Ref Range: 11.0-16.0 %) Platelet Count 183 (Ref Range: 160-400 X10*3/uL) 173 (Ref Range: 160-400 X10*3/uL) 180 (Ref Range: 160-400 X10*3/uL) Mean Platelet Volume 9.2 L (Ref Range: 9.4-12.4 fL) 8.9 L (Ref Range: 9.4-12.4 fL) 9.0 L (Ref Range: 9.4-12.4 fL) Neutrophils Percent Auto 54.0 (Ref Range: 45-73 %) 43.1 L (Ref Range: 45-73 %) 50.0 (Ref Range: 45-73 %) Imm Gran Pct Auto 0.3 (Ref Range: 0.0-0.4 %) 0.6 H (Ref Range: 0.0-0.4 %) 0.4 (Ref Range: 0.0-0.4 %) Lymphocytes Percent Auto 35.9 (Ref Range: 20-40 %) 45.3 H (Ref Range: 20-40 %) 39.4 (Ref Range: 20-40 %) Monocytes Percent Auto 7.7 (Ref Range: 2-11 %) 8.3 (Ref Range: 2-11 %) 8.1 (Ref Range: 2-11 %) Eosinophils Percent Auto 1.6 (Ref Range: 0-4 %) 2.3 (Ref Range: 0-4 %) 1.7 (Ref Range: 0-4 %) Basophils Percent Auto 0.5 (Ref Range: 0-2 %) 0.4 (Ref Range: 0-2 %) 0.4 (Ref Range: 0-2 %) NRBC Pct Auto 0.0 (Ref Range: 0.0-0.2 /100WBC) 0.0 (Ref Range: 0.0-0.2 /100WBC) 0.0 (Ref Range: 0.0-0.2 /100WBC) Neutrophils Absolute Auto 3.4 (Ref Range: 2.0-8.3 x10*3/uL) 3.0 (Ref Range: 2.0-8.3 x10*3/uL) 2.6 (Ref Range: 2.0-8.3 x10*3/uL) Imm Gran Abs Auto 0.02 (Ref Range: 0.00-0.03 X10*3/uL) 0.04 H (Ref Range: 0.00-0.03 X10*3/uL) 0.02 (Ref Range: 0.00-0.03 X10*3/uL) Lymphocytes Absolute Auto 2.3 (Ref Range: 1.2-4.9 X10*3/uL) 3.2 (Ref Range: 1.2-4.9 X10*3/uL) 2.1 (Ref Range: 1.2-4.9 X10*3/uL) Monocytes Absolute Auto 0.5 (Ref Range: 0.1-1.2 X10*3/uL) 0.6 (Ref Range: 0.1-1.2 X10*3/uL) 0.4 (Ref Range: 0.1-1.2 X10*3/uL) Eosinophils Absolute Auto 0.1 (Ref Range: 0.0-0.4 X10*3/uL) 0.2 (Ref Range: 0.0-0.4 X10*3/uL) 0.1 (Ref Range: 0.0-0.4 X10*3/uL) Basophils Absolute Auto 0.0 (Ref Range: 0.0-0.2 X10*3/uL) 0.0 (Ref Range: 0.0-0.2 X10*3/uL) 0.0 (Ref Range: 0.0-0.2 X10*3/uL) NRBC Abs Auto 0.000 (Ref Range: 0.0-0.012 X10*3/uL) 0.000 (Ref Range: 0.0-0.012 X10*3/uL) 0.000 (Ref Range: 0.0-0.012 X10*3/uL) * Lab:URINE DIP STICK * Collection Date 12/17/2023 09/08/2022 Order Date 12/17/2023 09/08/2022 SG 1.010 (Ref Range: 1.005 - 1.025) 1.015 (Ref Range: 1.005 - 1.025) pH 6.5 (Ref Range: 5.0 - 9.0) 6.5 (Ref Range: 5.0 - 9.0) ILSA Negative (Ref Range: Negative -) Negative (Ref Range: Negative -) NIT Negative (Ref Range: Negative -) Negative (Ref Range: Negative -) PRO 15 (Ref Range: Negative - Trace) 15 (Ref Range: Negative - Trace) GLU Negative (Ref Range: Negative -) Negative (Ref Range: Negative -) KET 5 (Ref Range: Negative -) Negative (Ref Range: Negative -) UBG 0.2 (Ref Range: 0.1 - 1.8) 0.2 (Ref Range: 0.1 - 1.8) SHIRA Negative (Ref Range: 0.2 - 1.3) Negative (Ref Range: 0.2 - 1.3) BLD Negative (Ref Range: Negative -) Negative (Ref Range: Negative -) Menstrating NR N/A * Examination: G eneral Examination: GENERAL APPEARANCE: p leasant, well nourished, well developed, in no acute distress, calm and relaxed, overweight, elderly man. HEAD: a traumatic, normocephalic. EYES: e [...] sounds normal, no ascites, no organomegaly, no mass, overweight. RECTAL EXAM: n ot examined. MUSCULOSKELETAL: e xtremities unremarkable, no clubbing, cyanosis or edema. PERIPHERAL PULSES: n ormal. NEUROLOGIC: a lert and oriented, cranial nerves 2-12 grossly intact, deep tendon reflexes 2+ symmetrical, motor strength normal upper and lower extremities, sensory exam intact. PSYCH: a lert, oriented, cognitive function intact, cooperative with exam, good eye contact, speech clear, thought process logical, goal directed, mood depressed. Assessment: * Assessment: 1. T ype 2 diabetes mellitus without complications - E11.9 (Primary) N otes :His hemoglobin A1c is 5.4. No change in his regimen was necessary today.He is doing well 2 . D epression - F32.9 N otes :His depression is stable and he is compliant with all of his medications. He will see the psychiatrist next month. 3 . B PH (benign prostatic hyperplasia) - N40.0 N otes :He rises from sleep once or twice a night to urinate. We discussed lifestyle modification as a way to reduce nocturia. 4 . H istory of pulmonary embolism - Z86.711 N otes :There is no sign of venous thromboembolism on examination today. 5 . O verweight - E66.3 N otes :He remains overweight. We discussed his diabetic weight reduction diet at length. We reviewed his diet and nutrition. We made a plan to lose weight at a rate of one half a pound per week 6 . G ERD (gastroesophageal reflux disease) - K21.9 N otes :His heartburn is well controlled with medications. He is sleeping through the night. No change in his regimen was needed. 7 . H yperlipidemia type II - E78.01 N otes :His triglycerides are slightly elevated but his cholesterol values are within their target ranges. I recommended weight loss and a healthy diet. Plan: * Treatment: 2. D epression Continue clonazePAM Tablet, 2 MG, 1 tablet, Orally, Tree times a day; C ontinue risperiDONE Tablet Dispersible, 0.5 MG, 1 tablet on the tongue and allow to dissolve, Orally, Twice a day. ? 3. B PH (benign prostatic hyperplasia) L AB: PROFILE, FASTING (COMPREHENSIVE METABOLIC) L AB: PSA, TOTAL L AB: CBC WITH AUTO DIFF L AB: Lipid Panel L AB: Microalbumin, Random L AB: Hemoglobin A1c 4. O thers Continue Accu-Chek FastClix Lancets Miscellaneous, -, USE TO TEST BLOOD SUGAR ONCE DAILY, Notes to Pharmacist: E11.9 Type 2 diabetes; C ontinue Mirtazapine Tablet, 45 MG, TAKE 1 TABLET BY MOUTH EVERYDAY AT BEDTIME; C ontinue Accu-Chek Laura Plus Strip, -, as directed, In Vitro, test blood sugars once a day, Notes to Pharmacist: E11.9 Diabetes; C ontinue Vitamin D (Ergocalciferol) Capsule, 1.25 MG (17710 UT), TAKE 1 CAPSULE BY MOUTH ONE TIME PER WEEK; C ontinue Lisinopril Tablet, 5 MG, TAKE 1 TABLET BY MOUTH EVERY DAY; C ontinue valACYclovir HCl Tablet, 500 MG, 1 tablet, Orally, Once a day; C ontinue Simvastatin Tablet, 10 MG, 1 tablet in the evening, Orally, Once a day; C ontinue FLUoxetine HCl Capsule, 40 MG, 1 capsule, Orally, Once a day. * Labs: * L ab: URINE DIP STICK (Collection Date & Time - 12/17/2023) Value Reference Range S G 1.010 1.005 - 1.025 * p H 6.5 5.0 - 9.0 * L EU Negative Negative - * N IT Negative Negative - * P RO 15 Negative - Trace * G CINTIA Negative Negative - * K ET 5 Negative - * U BG 0.2 0.1 - 1.8 * B IL Negative 0.2 - 1.3 * B LD Negative Negative - * Procedure Codes: 8 1002 URINE-NO MICRO * Preventive Medicine: Counseling: C are goal follow-up plan: Counseling for abnormal BMI given Y es Above Normal BMI Follow-up D ietary management education, guidance, and counseling DM Care Plan: P atient Lifestyle Goals P atient wants to be able to manage diabetes without too much effort. T reatment Goals B lood Sugars less than < 115, HbA1C < 7.0. B arriers n o barriers. S elf-Managment Goals W ork on weight loss, with a goal of losing 1 lb per week. * Follow Up: 4 Months (Reason: OV) * Images: * Sign off status: Completed true * Provider: Liv Padron MD Date: 0 12/17/2023 Generated for Daylin helm/Meghana/Adrianaransmitting on: 1 05/17/2024 06:33 PM EST History and Physical Notes * HPI (History of Present Illness) Category Sub-Category Detail Notes Depression Screening PHQ-9 Little inte rest or pleasure in doing things: Not at all Feeling down, depressed, or hopeless: No t at all Trouble falling or staying asleep, or sl eeping too much: Not at all Feeling tired or having little energy: N ot at all Poor appetite or overeating: Not at all Feeling bad about yourself o r that you are a failure, or have let yourself or your family down: Not at all Trouble concentrating on thi ngs, such as reading the newspaper or watching television: Not at all Moving or speaking so slowly that other people could have noticed; or the opposite, being so fidgety or restless that you have been moving around a lot more than usual: Not at all Thoughts that you would be b karen off or of hurting yourself in some way: Not at all Total Score: 0 Fall Risk Screening Fall History Have you had any falls with injury in the past year?: No Have you had two or more falls in the ?: No Fall Risk Assessment:: No falls in the year COVID-19 Screening Questions Have you had any new onset fever, chills, cough, congestion, sore throat, shortness of breath, muscle aches?: No Have you been exposed to the virus withi n the last 10 days?: No Have you travelled internationally in last 10 days?: No Have you been exposed to COVID-19 in the past?: No SDOH Questions SDOH Questions In the past year have you been worried about losing your housing?: No In the past year have you or any family members you live with been unable to get any of the following when it was really needed? Check all that apply:: None Examination Category Sub-Category Detail Notes General Examination GENERAL APPEARANCE: pleasant , well nourished, well developed, in no acute distress, calm and relaxed, overweight, elderly man HEAD: atraumatic, normocep halic EYES: eomi, perrla, anicte gertrudis, conjugate EARS: normal NOSE: septum intact NECK/THYROID: no jugular venous di stention, no carotid bruit, thyroid normal HEART: no clicks, gallops, murmurs, or rubs, regular rhythm, S1, S2 normal, no s3, or vascular bruits LUNGS: clear to auscultatio n ABDOMEN: bowel sounds normal, no ascites, no organomegaly, no mass, overweight NEUROLOGIC: alert and oriented, cranial nerves 2-12 grossly intact, deep tendon reflexes 2+ symmetrical, motor strength normal upper and lower extremities, sensory exam intact SKIN: no suspicious lesion s, anicteric PERIPHERAL PULSES: normal BREASTS: no masses palpable b ilaterally MUSCULOSKELETAL: extremities unremark able, no clubbing, cyanosis or edema LYMPH NODES: no enlarged lymph no cameron,spleen normal RECTAL EXAM: not examined PSYCH: alert, oriented, cog nitive function intact, cooperative with exam, good eye contact, speech clear, thought process logical, goal directed, mood depressed ORAL CAVITY: normal, unremarkable
--- OUTSIDE RECORDS SUMMARY | 2024-02-27 10:00 | XMS_ITS ---
Author Organization Hector Padron III, MD Address [address] [place] [address] DR SAM Shreya [place] [phone] Care Team Providers Care Ob Tech Name Role Phone Dr. Hector Padron III Primary Care Provider Reason For Referral Reason Two 2cm decubitus [...] Provider Specialty Unknown General Notes Jocelyn Blount [facility] 02/26 03:57:46 PM >Ref/progress note faxed to wound care center at , Jocelyn Blount [facility] 03/03/2024 11:34:17 AM > Called patient he stated the wound center called him but he refused to make appt. I spoke to patient and he stated if I made appt he would go to this appt . LM for wound center to call me back so I can set up this appt, oJcelyn Blount [facility] 03/03/2024 02:02:58 PM > called wound care [...] Diabetes Active Vitamin D (Ergocalciferol) 1.25 MG (49731 UT) TAKE 1 CAPSULE BY MOUTH ONE [...] Date Provider Diagnosis Hector Padron III, MD [address] [place] [address] [place] [address] 02/27/2024 Hector Padron Depression F32.9 ; T [...] E11.9 Diabetes Vitamin D (Ergocalciferol) 1.25 MG (59220 UT) TAKE 1 CAPSULE BY MOUTH ONE TIME PER WEEK FLUoxetine HCl 40 MG 1 capsule Orally Once a day Accu-Chek FastClix Lancets - USE TO TEST BLOOD SUGAR ONCE DAILY E11.9 Type 2 diabetes Referrals Referral Date Details 02/27/2024 02/27/2024, Two 2cm decubitus ulcers on buttock diabetic with decubitus ulcers on buttock left is thru all layers of skin, care center [facility] Next Appt Details Follow Up: as scheduled Haris eckert, Reason: OV Provider Name:Hector Padron , 04/23/2025 10:30:00 AM, [address] [place] [address] [address], [place], [phone], Provider Name:Hector Padron , 12/23/2025 02:00:00 PM, [address] [place] [address] [address], [place], [phone], Progress Notes * Antoni KENT MDOB:1940 (83 yo M)Acc No.[id number]:02/27/2024 Progress Notes Patient: Antoni GROSS Provider: Liv Padron MD :1940 A ge:83 Y S ex:Male Date:02/27/2024 Address:[address] [place] [address], [address] [id number] Subjective: * Chief [...] No history * Hospitalization/Major Diagno stic Procedure: [facility], rhabdomyolysis, fell at home 08/10/2022No history [...] Pharmacist: E11.9 DiabetesVitamin D (Ergocalciferol) 1.25 MG (99387 UT) Capsule TAKE 1 CAPSULE BY MOUTH [...] E11.9 DiabetesTaking Vitamin D (Ergocalciferol) 1.25 MG (65348 UT) Capsule TAKE 1 CAPSULE BY MOUTH [...] Negative -) Menstrating NR N/A * Lab:Comprehensive [place]. Pane l Fast * Collection Date 12/10/2023 [...] 2 diabetes mellitus without complications Referral To:care [facility] Wound Unknown Reason:Two 2cm decubitus ulcers on buttock diabetic with decubitus ulcers on buttock left is thru all layers of skin 3. O thers Referral To:[facility] Unknown Reason:Two 2cm decubitus ulcers on [...] Date: 04/29/2023 Generated for Daylin helm/Meghana/Arunsmitting on: 05/17/2024 06:33 PM EST History and Physical [...]
--- OUTSIDE RECORDS SUMMARY | 2024-04-21 09:30 | XMS_ITS ---
Author Organization Hector Padron III, MD Address [address] [place] [address] [address] [place] [address] Care Team Providers Care Autocutter Name Role Phone Dr. Hector Padron III Primary Care Provider Allergies Allergen (clinical drug ingredient) Drug/Non Drug Allergy documented on EMR Reaction Allergy Type Onset Date Status No Known Drug Allergy Unknown Drug Allergy Active REASON FOR VISIT Diabetes, Depression, GERD, History of pulmonary embolism, Benign prostatic hypertrophy, Hyperlipidemia Medications Medication SIG (Take, Route, Frequency, Duration) Notes Start Date End Date Status Lisinopril 5 MG TAKE 1 TABLET BY MOUTH EVERY DAY Active valACYclovir HCl 500 MG 1 tablet Orally Once a day Active Simvastatin 10 MG 1 tablet in the evening Orally Once a day Active risperiDONE 0.5 MG 1 tablet on the tongue and allow to dissolve Orally Twice a day Active clonazePAM 2 MG 1 tablet Orally Tree times a day Active Vitamin D (Ergocalciferol) 1.25 MG (29700 UT) TAKE 1 CAPSULE BY MOUTH ONE TIME PER WEEK Active Accu-Chek Laura Plus - as directed In Vitro test blood sugars once a day E11.9 Diabetes Active Mirtazapine 45 MG TAKE 1 TABLET BY MOUTH EVERYDAY AT BEDTIME Active Accu-Chek FastClix Lancets - USE TO TEST BLOOD SUGAR ONCE DAILY E11.9 Type 2 diabetes Active FLUoxetine HCl 40 MG 1 capsule Orally Once a day Active Social History Tobacco Use: Social History Observation Description Date Details (start date - stop date) Never Smoker NA - NA Sex Assigned At : Social History Observation Description Sex Assigned At Male Tobacco Use/Smoking Question Answer Notes Patient is a nonsmoker Additional Findings: Tobacco Non-User Aggressive non-smoker Vital Signs Temperature 98.3 degrees Fahrenheit 04/21/19 25 Blood pressure systolic 119 mm Hg 04/21/19 25 Blood pressure diastolic 50 mm Hg 025 Heart Rate 71 /min 04/21/2024 Height 72 in 04/21/2024 Weight 206 lbs 04/21/2024 BMI 27.94 kg/m2 04/21/2024 Encounters Encounter Location Date Provider Diagnosis Hector Padron III, MD [address] [place] [address] [address] [place], [place] [phone] 04/21/2024 Hector Padron Depression F32.9 ; T ype 2 diabetes mellitus without complications E11.9 ; Overweight E66.3 ; GERD (gastroesophageal reflux disease) K21.9 ; Chronic insomnia F51.04 ; BPH (benign prostatic hyperplasia) N40.0 ; Hyperlipidemia type II E78.0 ; Diabetic neuropathy E11.40 and History of pulmonary embolism Z86.711 Assessments Encounter Date Diagnosis (ICD Code) Assessment Notes Treat ment Notes Treatment Clinical Notes 04/21/2024 Depression (ICD-10 - F32.9) He says he is compliant with his medications. His depression appears worse. I will see if I can have the psychiatrist reevaluate him. He is going to telephone me every day until I see him again. 04/21/2024 Type 2 diabetes mellitus without complications (ICD-10 - E11.9) His hemoglobin A1c is 5.4. No change in his regimen was necessary today.He is doing well. The recent available. Blood work shows good control of the diabetes. 04/21/2024 Overweight (ICD-10 - E66.3) He has lost 4 pounds and weighs 206. His body mass index is 28. His nutrition is stable. 04/21/2024 GERD (gastroesophageal reflux disease) (ICD-10 - K21.9) His heartburn is well controlled with medications. He is sleeping through the night. No change in his regimen was needed. 04/21/2024 Chronic insomnia (ICD-10 - F51.04) He is still sleeping poorly but appears to be well rested. 04/21/2024 BPH (benign prostatic hyperplasia) (ICD-10 - N40.0) He rises from sleep once or twice a night to urinate. We discussed lifestyle modification as a way to reduce nocturia. 04/21/2024 Hyperlipidemia type II (ICD-10 - E78.0) His fasting lipid profile shows his lipids to be in the normal range. No change in his regimen was necessary today. 04/21/2024 Diabetic neuropathy (ICD-10 - E11.40) Symptoms from this are very mild. He did not complain about them. He controlled his diabetes is excellent at this point. 04/21/2024 History of pulmonary embolism (ICD-10 - Z86.711) There is no sign of venous thromboembolism on examination today. Plan Of Treatment Medication Medication Name Sig Start Date Stop Date Notes Lisinopril 5 MG TAKE 1 TABLET BY MOUTH EVERY DAY valACYclovir HCl 500 MG 1 tablet Orally Once a day Simvastatin 10 MG 1 tablet in the evening Orally Once a day risperiDONE 0.5 MG 1 tablet on the tongue and allow to dissolve Orally Twice a day clonazePAM 2 MG 1 tablet Orally Tree times a day Vitamin D (Ergocalciferol) 1.25 MG (12483 UT) TAKE 1 CAPSULE BY MOUTH ONE TIME PER WEEK Accu-Chek Laura Plus - as directed In Vi tro test blood sugars once a day E11.9 Diabetes Mirtazapine 45 MG TAKE 1 TABLET BY MOUTH EVERYDAY AT BEDTIME Accu-Chek FastClix Lancets - USE TO TEST BLOOD SUGAR ONCE DAILY E11.9 Type 2 diabetes FLUoxetine HCl 40 MG 1 capsule Orally Once a day Pending Test Test Name Order Date PROFILE, FASTING (COMPREHENSIVE METABOLI C) 04/21/2024 PSA, TOTAL 04/21/2024 CBC WITH AUTO DIFF 04/21/2024 Lipid Panel 04/21/2024 Microalbumin, Random 04/21/2024 Hemoglobin A1c 04/21/2024 Next Appt Details Follow Up: 4 Months, Reason: ov Provider Name:Hector Padron , 04/23/2025 10:30:00 AM, [address] [facility] [place], [place], [phone], Provider Name:Hector Padron , 12/23/2025 02:00:00 PM, [address] [place] [address] [place], [address], Progress Notes * Antoni KENT MDOB:1940 (83 yo M)Acc No.[id number]:04/21/2024 Progress Notes Patient: Antoni GROSS Provider: Liv Padron MD :1940 A ge:83 Y S ex:Male Date:04/21/2024 Address:[address] [place] [address], [address] [id number] Subjective: * Chief Complaints: * D iabetesDepressionGERDHistory of pulmonary embolismBenign prostatic hypertrophyHyperlipidemia * HPI: C OVID-19 Screening: Questions H ave you had any new onset fever, chills, cough, congestion, sore throat, shortness of breath, muscle aches? N o * : The patient, Giovani, is an 83-year-old male who has been maintaining a healthy lifestyle. He has been feeling good and has no complaints of any pains or troubles. He has a history of pulmonary embolism, but that was a long time ago. His blood work shows good white and red blood cells, and his platelets are okay. His sodium, potassium, and bicarbonate levels are also okay. His kidneys are functioning perfectly, and his blood sugar is 113. His cholesterol level is 130. His PSA is 2.1 and his A1C is 5.4. He has no swelling and no pain in the belly. He does not have any trouble urinating and does not wake up at night to urinate much. He sees a psychiatrist for depression every three months. Blood Sugar Level is 113. * ROS: G eneral/Constitutional: Denies p ain, o nly normal aches and pains. C hills?denies. F atigue a dmits. F ever d [...] No history * Hospitalization/Major Diagno stic Procedure: [facility], rhabdomyolysis, fell at home 08/10/2022No history * Family History: F ather: , homicide. [...] ggressive non-smoker Nevaeh angeles was born in [place], [place] He has a son. He is retired from [employer]. He has a son, Lawrence Hardingjr. [employer] in [place]. [facility]. * Medications: T akingAccu-Chek FastClix Lancets - Miscellaneous USE TO TEST BLOOD SUGAR ONCE DAILY , Notes to Pharmacist: E11.9 Type 2 diabetesMirtazapine 45 MG Tablet TAKE 1 TABLET BY MOUTH EVERYDAY AT BEDTIME Accu-Chek Laura Plus - Strip as directed In Vitro test blood sugars once a day , Notes to Pharmacist: E11.9 DiabetesVitamin D (Ergocalciferol) 1.25 MG (49353 UT) Capsule TAKE 1 CAPSULE BY MOUTH [...] TAKE 1 TABLET BY MOUTH EVERY DAY Medication List reviewed and reconciled with the patientTaking Accu-Chek FastClix Lancets - Miscellaneous USE TO TEST BLOOD SUGAR ONCE DAILY , Notes to Pharmacist: E11.9 Type 2 diabetesTaking Mirtazapine 45 MG Tablet TAKE 1 TABLET BY MOUTH EVERYDAY AT BEDTIME Taking Accu- Chek Laura Plus - Strip as directed In Vitro test blood sugars once a day , Notes to Pharmacist: E11.9 DiabetesTaking Vitamin D (Ergocalciferol) 1.25 MG (44355 UT) Capsule TAKE 1 CAPSULE BY MOUTH [...] TAKE 1 TABLET BY MOUTH EVERY DAY Medication List reviewed and reconciled with the patient * Allergies: N o Known Drug Allergyno[Allergies Verified] Objective: * Vitals: H t: 72, Wt:206, BMI:27.94, BP:119/50, HR:71, Temp:98.3, Wt-k.44. * P ast Orders: Lab:Hemoglobin A1c * Collection Date 04/14/2024 12/10/2023 07/30/2023 Collection Time 09:38 AM 09:45 AM 08:34 AM Order Date 04/14/2024 12/10/2023 07/30/2023 Hemoglobin A1c % 5.4 (Ref Range: <6.0 %) 5.5 (Ref Range: <6.0 %) 5.4 (Ref Range: <6.0 %) Estimated Average Glucose 108 (Ref Range: mg/dL) 111 (Ref Range: mg/dL) 108 (Ref Range: mg/dL) * Lab:Complete Blood Count Aut o Diff * Collection Date 04/14/2024 12/10/2023 07/30/2023 Collection Time 09:38 AM 09:45 AM 08:34 AM Order Date 04/14/2024 12/10/2023 07/30/2023 White Blood Count 5.6 (Ref Range: 4.8-10.8 X10*3/uL) 6.3 (Ref Range: 4.8-10.8 X10*3/uL) 7.0 (Ref Range: 4.8-10.8 X10*3/uL) Red Blood Count 3.93 L (Ref Range: 4.60-5.80 X10*6/uL) 4.51 L (Ref Range: 4.60-5.80 X10*6/uL) 4.26 L (Ref Range: 4.60-5.80 X10*6/uL) Hemoglobin 12.6 L (Ref Range: 14.0-18.0 g/dl) 14.4 (Ref Range: 14.0-18.0 g/dl) 13.7 L (Ref Range: 14.0-18.0 g/dl) Hematocrit 37.3 L (Ref Range: 42.0-52.0 %) 42.2 (Ref Range: 42.0-52.0 %) 39.9 L (Ref Range: 42.0-52.0 %) Mean Corpuscular Volume 94.9 (Ref Range: 80.0-98.0 fL) 93.6 (Ref Range: 80.0-98.0 fL) 93.7 (Ref Range: 80.0-98.0 fL) Mean Corpuscular Hemoglobin 32.1 (Ref Range: 27.0-33.0 pg) 31.9 (Ref Range: 27.0-33.0 pg) 32.2 (Ref Range: 27.0-33.0 pg) Mean Corpuscular HGB Conc 33.8 (Ref Range: 31.0-36.0 g/dl) 34.1 (Ref Range: 31.0-36.0 g/dl) 34.3 (Ref Range: 31.0-36.0 g/dl) Red Cell Distribution Width 12.0 (Ref Range: 11.0-16.0 %) 12.7 (Ref Range: 11.0-16.0 %) 12.4 (Ref Range: 11.0-16.0 %) Platelet Count 201 (Ref Range: 160-400 X10*3/uL) 183 (Ref Range: 160-400 X10*3/uL) 173 (Ref Range: 160-400 X10*3/uL) Mean Platelet Volume 8.9 L (Ref Range: 9.4-12.4 fL) 9.2 L (Ref Range: 9.4-12.4 fL) 8.9 L (Ref Range: 9.4-12.4 fL) Neutrophils Percent Auto 52.6 (Ref Range: 45-73 %) 54.0 (Ref Range: 45-73 %) 43.1 L (Ref Range: 45-73 %) Imm Gran Pct Auto 0.5 H (Ref Range: 0.0-0.4 %) 0.3 (Ref Range: 0.0-0.4 %) 0.6 H (Ref Range: 0.0-0.4 %) Lymphocytes Percent Auto 35.3 (Ref Range: 20-40 %) 35.9 (Ref Range: 20-40 %) 45.3 H (Ref Range: 20-40 %) Monocytes Percent Auto 9.9 (Ref Range: 2-11 %) 7.7 (Ref Range: 2-11 %) 8.3 (Ref Range: 2-11 %) Eosinophils Percent Auto 1.3 (Ref Range: 0-4 %) 1.6 (Ref Range: 0-4 %) 2.3 (Ref Range: 0-4 %) Basophils Percent Auto 0.4 (Ref Range: 0-2 %) 0.5 (Ref Range: 0-2 %) 0.4 (Ref Range: 0-2 %) NRBC Pct Auto 0.0 (Ref Range: 0.0-0.2 /100WBC) 0.0 (Ref Range: 0.0-0.2 /100WBC) 0.0 (Ref Range: 0.0-0.2 /100WBC) Neutrophils Absolute Auto 2.9 (Ref Range: 2.0-8.3 x10*3/uL) 3.4 (Ref Range: 2.0-8.3 x10*3/uL) 3.0 (Ref Range: 2.0-8.3 x10*3/uL) Imm Gran Abs Auto 0.03 (Ref Range: 0.00-0.03 X10*3/uL) 0.02 (Ref Range: 0.00-0.03 X10*3/uL) 0.04 H (Ref Range: 0.00-0.03 X10*3/uL) Lymphocytes Absolute Auto 2.0 (Ref Range: 1.2-4.9 X10*3/uL) 2.3 (Ref Range: 1.2-4.9 X10*3/uL) 3.2 (Ref Range: 1.2-4.9 X10*3/uL) Monocytes Absolute Auto 0.6 (Ref Range: 0.1-1.2 X10*3/uL) 0.5 (Ref Range: 0.1-1.2 X10*3/uL) 0.6 (Ref Range: 0.1-1.2 X10*3/uL) Eosinophils Absolute Auto 0.1 (Ref Range: 0.0-0.4 X10*3/uL) 0.1 (Ref Range: 0.0-0.4 X10*3/uL) 0.2 (Ref Range: 0.0-0.4 X10*3/uL) Basophils Absolute Auto 0.0 (Ref Range: 0.0-0.2 X10*3/uL) 0.0 (Ref Range: 0.0-0.2 X10*3/uL) 0.0 (Ref Range: 0.0-0.2 X10*3/uL) NRBC Abs Auto 0.000 (Ref Range: 0.0-0.012 X10*3/uL) 0.000 (Ref Range: 0.0-0.012 X10*3/uL) 0.000 (Ref Range: 0.0-0.012 X10*3/uL) * Lab:[facility] Rosen l Fast * Collection Date 04/14/2024 12/10/2023 04/03/2023 Collection Time 09:38 AM 09:45 AM 09:28 AM Order Date 04/14/2024 12/10/2023 04/03/2023 Sodium 138 (Ref Range: 135-145 mmol/L) 142 (Ref Range: 135-145 mmol/L) 141 (Ref Range: 135-145 mmol/L) Bilirubin Total 0.5 (Ref Range: 0.0-1.0 mg/dL) 0.5 (Ref Range: 0.0-1.0 mg/dL) 0.5 (Ref Range: 0.0-1.0 mg/dL) Aspartate Amino Transferase 19 (Ref Range: 5-37 U/L) 17 (Ref Range: 5-37 U/L) 17 (Ref Range: 5-37 U/L) Alanine Aminotransferase 18 (Ref Range: 0-40 U/L) 17 (Ref Range: 0-40 U/L) 14 (Ref Range: 0-40 U/L) Total Protein 6.6 (Ref Range: 6.5-8.0 g/dL) 7.0 (Ref Range: 6.5-8.0 g/dL) 6.8 (Ref Range: 6.5-8.0 g/dL) Albumin Level 3.9 (Ref Range: 3.5-5.0 g/dL) 4.3 (Ref Range: 3.5-5.0 g/dL) 4.2 (Ref Range: 3.5-5.0 g/dL) Alkaline Phosphatase 127 H (Ref Range: 39-117 U/L) 113 (Ref Range: 39-117 U/L) 99 (Ref Range: 39-117 U/L) Potassium 3.9 (Ref Range: 3.3-5.1 mmol/L) 4.2 (Ref Range: 3.3-5.1 mmol/L) 4.0 (Ref Range: 3.3-5.1 mmol/L) Chloride 110 H (Ref Range: 96-108 mmol/L) 105 (Ref Range: 96-108 mmol/L) 107 (Ref Range: 96-108 mmol/L) Carbon Dioxide 24 (Ref Range: 22-29 mmol/L) 25 (Ref Range: 22-29 mmol/L) 26 (Ref Range: 22-29 mmol/L) Anion Gap 8 L (Ref Range: 12-20) 16 (Ref Range: 12-20) 12 (Ref Range: 12-20) Blood Urea Nitrogen 15 (Ref Range: 9-16 mg/dL) 16 (Ref Range: 9-16 mg/dL) 17 H (Ref Range: 9-16 mg/dL) Creatinine 0.85 (Ref Range: 0.5-1.4 mg/dL) 1.07 (Ref Range: 0.5-1.4 mg/dL) 1.02 (Ref Range: 0.5-1.4 mg/dL) Estimated Glomerular Filt Rate > 60 > 60 > 60 Glucose Fasting 113 H (Ref Range: 60-99 mg/dL) 107 H (Ref Range: 60-99 mg/dL) 111 H (Ref Range: 60-99 mg/dL) Calcium 8.6 (Ref Range: 8.4-10.2 mg/dL) 9.5 (Ref Range: 8.4-10.2 mg/dL) 9.6 (Ref Range: 8.4-10.2 mg/dL) * Lab:Lipid Panel * Collection Date 04/14/2024 12/10/2023 07/30/2023 Collection Time 09:38 AM 09:45 AM 08:34 AM Order Date 04/14/2024 12/10/2023 07/30/2023 Triglycerides 92 (Ref Range: <150 mg/dL) 142 (Ref Range: <150 mg/dL) 174 H (Ref Range: <150 mg/dL) Cholesterol 130 (Ref Range: <200 mg/dL) 149 (Ref Range: <200 mg/dL) 145 (Ref Range: <200 mg/dL) LDL Cholesterol Calculated 68 (Ref Range: <100 mg/dL) 78 (Ref Range: <100 mg/dL) 73 (Ref Range: <100 mg/dL) HDL Cholesterol 44 (Ref Range: >40 mg/dL) 43 (Ref Range: >40 mg/dL) 38 L (Ref Range: >40 mg/dL) * Lab:Prostate Specific Antige n * Collection Date 04/14/2024 12/10/2023 04/03/2023 Collection Time 09:38 AM 09:45 AM 09:28 AM Order Date 04/14/2024 12/10/2023 04/03/2023 Prostate Specific Antigen 2.12 (Ref Range: <0.05-4.0 ng/mL) 1.70 (Ref Range: <0.05-4.0 ng/mL) 1.39 (Ref Range: <0.05-4.0 ng/mL) * Lab:Microalbumin, Random * Collection Date 04/14/2024 12/10/2023 04/03/2023 Collection Time 11:15 AM 09:45 AM 10:20 AM Order Date 04/14/2024 12/10/2023 04/03/2023 Creatinine Urine 167.26 (Ref Range: mg/dL) 78.10 (Ref Range: mg/dL) 126.42 (Ref Range: mg/dL) Microalbumin Urine 10.0 (Ref Range: mg/L) 5.0 (Ref Range: mg/L) 6.0 (Ref Range: mg/L) Microalbum Creatinine Ratio Ur 5.9 (Ref Range: <30 ug/mg cr) 6.4 (Ref Range: <30 ug/mg cr) 4.7 (Ref Range: <30 ug/mg cr) * Examination: G eneral Examination: GENERAL APPEARANCE: [...] exam intact. PSYCH: a lert, oriented, mood depressed. ? Assessment: * Assessment: 1. T ype 2 diabetes mellitus without complications - E11.9 (Primary) N otes :His hemoglobin A1c is 5.4. No change in his regimen was necessary today.He is doing well. The recent available. Blood work shows good control of the diabetes. 2 . D epression - F32.9 N otes :He says he is compliant with his medications. His depression appears worse. I will see if I can have the psychiatrist reevaluate him. He is going to telephone me every day until I see him again. 3 . O verweight - E66.3 N otes :He has lost 4 pounds and weighs 206. His body mass index is 28. His nutrition is stable. 4 . G ERD (gastroesophageal reflux disease) - K21.9 N otes :His heartburn is well controlled with medications. He is sleeping through the night. No change in his regimen was needed. 5 . C hronic insomnia - F51.04 N otes :He is still sleeping poorly but appears to be well rested. 6 . B PH (benign prostatic hyperplasia) - N40.0 N otes :He rises from sleep once or twice a night to urinate. We discussed lifestyle modification as a way to reduce nocturia. 7 . H yperlipidemia type II - E78.0 N otes :His fasting lipid profile shows his lipids to be in the normal range. No change in his regimen was necessary today. 8 . D iabetic neuropathy - E11.40 N otes :Symptoms from this are very mild. He did not complain about them. He controlled his diabetes is excellent at this point. 9 . H istory of pulmonary embolism - Z86.711 N otes :There is no sign of venous thromboembolism on examination today. Plan: * Treatment: 2. D epression Continue Accu-Chek FastClix Lancets Miscellaneous, -, USE [...] ontinue Vitamin D (Ergocalciferol) Capsule, 1.25 MG (95489 UT), TAKE 1 CAPSULE BY MOUTH ONE TIME PER WEEK; C ontinue FLUoxetine HCl Capsule, 40 MG, 1 capsule, Orally, Once a day; C ontinue clonazePAM Tablet, 2 MG, 1 tablet, Orally, Tree times a day; C ontinue risperiDONE Tablet Dispersible, 0.5 MG, 1 tablet on the tongue and allow to dissolve, Orally, Twice a day; C ontinue Simvastatin Tablet, 10 MG, 1 tablet in the evening, Orally, Once a day; C ontinue valACYclovir HCl Tablet, 500 MG, 1 tablet, Orally, Once a day; C ontinue Lisinopril Tablet, 5 MG, TAKE 1 TABLET BY MOUTH EVERY DAY. L AB: PROFILE, FASTING (COMPREHENSIVE METABOLIC) L AB: PSA, TOTAL L AB: CBC WITH AUTO DIFF L AB: Lipid Panel L AB: Microalbumin, Random L AB: Hemoglobin A1c 3. O verweight L AB: PROFILE, FASTING (COMPREHENSIVE [...] AB: Microalbumin, Random L AB: Hemoglobin A1c * Procedure Codes: * Preventive Medicine: Counseling: C are goal follow-up plan: Counseling for abnormal BMI given Y es Above Normal BMI Follow-up D ietary management education, guidance, and counseling, Dietary needs education DM Care Plan: P atient Lifestyle Goals P atient wants to be able to manage diabetes without too much effort. T reatment Goals B lood Sugars less than < 115, HbA1C < 7.0. B arriers n o barriers. S elf-Managment Goals W ork on weight loss, with a goal of losing 1 lb per week. * Follow Up: 4 Months (Reason: ov) * Images: * Sign off status: Completed true * Provider: Liv Padron MD Date: 0 04/21/2024 Generated for Daylin helm/Meghana/Vanessa on: 05/17/2024 06:32 PM EST History and Physical Notes * HPI (History of Present Illness) Category Sub-Category Detail Notes COVID-19 Screening Questions Have you had any new onset fever, chills, cough, congestion, sore throat, shortness of breath, muscle aches?: No Examination Category Sub-Category Detail Notes General [...] not examined PSYCH: alert, oriented, moo d depressed ORAL CAVITY: normal, unremarkable
--- OUTSIDE RECORDS SUMMARY | 2024-07-08 10:00 | XMS_ITS ---
Author Organization Hector Padron III, MD Address [address] [place] [address] [place] [address] Care Team Providers Care Tube Closing Machine Operator Name Role Phone Dr. Hector Padron III Primary Care Provider [phone] Allergies Allergen (clinical drug ingredient) Drug/Non Drug [...] diabetes Active Vitamin D (Ergocalciferol) 1.25 MG (13117 UT) TAKE 1 CAPSULE BY MOUTH ONE [...] Problem Status W/U Status Risk Notes Problem [id number] Age-related cataract of both eyes, unspecified age-related [...] Date Provider Diagnosis Hector Padron III, MD [address] [place] [address] [place] [address] 07/08/2024 Hector Padron Depression F32.9 ; T [...] 2 diabetes Vitamin D (Ergocalciferol) 1.25 MG (62646 UT) TAKE 1 CAPSULE BY MOUTH ONE TIME PER WEEK Next Appt Details Follow Up: As Scheduled, Rhea son: JESUS ALBERTO Provider Name:Hector Angeles Nereida , 04/23/2025 10:30:00 AM, [address] [facility] [address], [place], [address], Provider Name:Hector Angeles Nereida , 12/23/2025 02:00:00 PM, [address] [facility] [address], [place], [address], Progress Notes * Antoni KENT MDOB:1940 (84 yo M)Acc No.[id number]:07/08/2024 Patient: Antoni GROSS Provider: Liv Padron MD :1940 A ge:84 Y S ex:Male Date:07/08/2024 Address:[address] [place] [address] [address] [id number] Subjective: * Chief Complaints: * P [...] No history * Hospitalization/Major Diagno stic Procedure: [facility], rhabdomyolysis, fell at home 08/10/2022No history [...] ggressive non-smoker Nevaeh angeles was born in [place], [place] He has a son. He is retired from [employer]. He has a son, Lawrence Hardingjr. [employer] in [place]. One [facility]. * Medications: T [...] EVERY DAY Vitamin D (Ergocalciferol) 1.25 MG (35408 UT) Capsule TAKE 1 CAPSULE BY MOUTH [...] DAY Taking Vitamin D (Ergocalciferol) 1.25 MG (34101 UT) Capsule TAKE 1 CAPSULE BY MOUTH [...] 0 07/08/2024 Generated for Daylin helm/Meghana/Kentonitting on: 05/17/2024 06:33 PM EST History and [...]
--- OUTSIDE RECORDS SUMMARY | 2024-08-08 07:00 | XMS_ITS ---
Author Organization [facility] Address [address] [place] [address] Care Team Providers Care Scrap Burner Name Role Phone Nereida CORNELIUS, Hector Primary Care Provider Unavailab Suzette Calvillo Unavailable [phone] Hewitt Encounters Encounter Location Date Provider Diagnosis [facility] [address] [place] [address] 08/08/2024 Suzette Schmitz Plan Of Treatment Next Appt Details Provider Name:Suzette saini, 04/03/2025 02:00:00 PM, [address] [place], [address], Progress Notes * Antoni KENT MDOB:1940 (84 yo M)Acc No.[id number]:08/08/2024 Progress Note Patient: Antoni GROSS Provider: Gayla Schmitz DPM :1940 A ge:84 Y S ex:Male Date:08/08/2024 Address: [address] [id number] Pcp:Hector Padron MD Subjective: * Chief Complaints: * [address] Hewitt. * Medical History: Objective: * Vitals: Assessment: Plan: * Treatment: * Images: * The named appointment provid er may or may not be the originator of this progress note, and it is not deemed complete until electronically signed by the appointment provider. Sign off status: Pending * Provider: Gayla Schmitz, [place] Date: 0 08/08/2024 Generated for Daylin helm/Meghana/Vanessa on: 1 05/17/2024 06:33 PM EST
--- OUTSIDE RECORDS SUMMARY | 2024-08-20 09:30 | XMS_ITS ---
Author Organization Hector Padron III, MD Address [address] [place] [address] DR SAM Shreya [place] [address] Care Team Providers Care Kraft Digester Operator Name Role Phone Dr. Hector Padron III Primary Care Provider Allergies Allergen (clinical drug ingredient) Drug/Non Drug Allergy documented on EMR Reaction Allergy Type Onset Date Status No Known Drug Allergy Unknown Drug Allergy Active REASON FOR VISIT Depression, Diabetes, Pulmonary embolism, Chronic insomnia, Benign prostatic hypertrophy, Hyperlipidemia Medications Medication SIG (Take, Route, Frequency, Duration) Notes Start Date End Date Status Simvastatin 10 MG 1 tablet in the evening Orally Once a day Active Lisinopril 5 MG TAKE 1 TABLET BY MOUTH EVERY DAY Active valACYclovir HCl 500 MG 1 tablet Orally Once a day Active risperiDONE 0.5 MG 1 tablet on the tongue and allow to dissolve Orally Twice a day Active clonazePAM 2 MG 1 tablet Orally Tree times a day Active Vitamin D (Ergocalciferol) 1.25 MG (13137 UT) TAKE 1 CAPSULE BY MOUTH ONE TIME PER WEEK Active Mirtazapine 45 MG TAKE 1 TABLET BY MOUTH EVERYDAY AT BEDTIME Active Accu-Chek FastClix Lancets - USE TO TEST BLOOD SUGAR ONCE DAILY E11.9 Type 2 diabetes Active FLUoxetine HCl 40 MG 1 capsule Orally Once a day Active Accu-Chek Laura Plus - as directed In Vitro test blood sugars once a day E11.9 Diabetes Active Myrbetriq 25 MG TAKE 1 TABLET BY MOUTH DAILY Oral Active Social History Tobacco Use: Social History Observation Description Date Details (start date - stop date) Never Smoker NA - NA Sex Assigned At : Social History Observation Description Sex Assigned At Male Tobacco Use/Smoking Question Answer Notes Patient is a nonsmoker Additional Findings: Tobacco Non-User Aggressive non-smoker Vital Signs Temperature 97.7 degrees Fahrenheit 08/21/19 25 Blood pressure systolic 128 mm Hg 08/21/19 25 Blood pressure diastolic 55 mm Hg 025 Heart Rate 82 /min 08/20/2024 Height 72 in 08/20/2024 Weight 206 lbs 08/20/2024 BMI 27.94 kg/m2 08/20/2024 Encounters Encounter Location Date Provider Diagnosis Hector Padron III, MD [address] [place] [address] DR [place]INGH[place], DINESH [address] 08/20/2024 Hector Padron Depression F32.9 ; T ype 2 diabetes mellitus without complications E11.9 ; Overweight E66.3 ; GERD (gastroesophageal reflux disease) K21.9 ; History of pulmonary embolism Z86.711 ; Cholelithiasis K80.20 ; Chronic insomnia F51.04 and BPH (benign prostatic hyperplasia) N40.0 Assessments Encounter Date Diagnosis (ICD Code) Assessment Notes Treat ment Notes Treatment Clinical Notes 08/20/2024 Depression (ICD-10 - F32.9) He has mild chronic depression. He is compliant with his psychiatric medications and up-to-date with his psychiatrist. This problem is stable. 08/20/2024 Type 2 diabetes mellitus without complications (ICD-10 - E11.9) His hemoglobin A1c is 5.4. No change in his regimen was necessary today.He is doing well. The recent available. Blood work shows good control of the diabetes. 08/20/2024 Overweight (ICD-10 - E66.3) He remains overweight but his weight is stable. We discussed diet and nutrition today. 08/20/2024 GERD (gastroesophageal reflux disease) (ICD-10 - K21.9) His heartburn is well controlled with medications. He is sleeping through the night. No change in his regimen was needed. 08/20/2024 History of pulmonary embolism (ICD-10 - Z86.711) There is no sign of venous thromboembolism on examination today. 08/20/2024 Cholelithiasis (ICD-10 - K80.20) 08/20/2024 Chronic insomnia (ICD-10 - F51.04) He is still sleeping poorly but appears to be well rested. 08/20/2024 BPH (benign prostatic hyperplasia) (ICD-10 - N40.0) He rises from sleep once or twice a night to urinate. We discussed lifestyle modification as a way to reduce nocturia. Plan Of Treatment Medication Medication Name Sig Start Date Stop Date Notes Simvastatin 10 MG 1 tablet in the evening Orally Once a day Lisinopril 5 MG TAKE 1 TABLET BY MOUTH EVERY DAY valACYclovir HCl 500 MG 1 tablet Orally Once a day risperiDONE 0.5 MG 1 tablet on the tongue and allow to dissolve Orally Twice a day clonazePAM 2 MG 1 tablet Orally Tree times a day Vitamin D (Ergocalciferol) 1.25 MG (44772 UT) TAKE 1 CAPSULE BY MOUTH ONE TIME PER WEEK Mirtazapine 45 MG TAKE 1 TABLET BY MOUTH EVERYDAY AT BEDTIME Accu-Chek FastClix Lancets - USE TO TEST BLOOD SUGAR ONCE DAILY E11.9 Type 2 diabetes FLUoxetine HCl 40 MG 1 capsule Orally Once a day Accu-Chek Laura Plus - as directed In Vi tro test blood sugars once a day E11.9 Diabetes Myrbetriq 25 MG TAKE 1 TABLET BY MOUTH DAILY Oral Pending Test Test Name Order Date PROFILE, FASTING (COMPREHENSIVE METABOLI C) 08/20/2024 PSA, TOTAL 08/20/2024 CBC w DIFF 08/20/2024 Lipid Panel 08/20/2024 Vitamin D 25-OH Total 08/20/2024 Microalbumin, Random 08/20/2024 Hemoglobin A1c 08/20/2024 Next Appt Details Follow Up: 4 Months, Reason: ov Provider Name:Hector Padron , 04/23/2025 10:30:00 AM, [address] [place] [address] [address], [place], [phone], Provider Name:Hector Padron , 12/23/2025 02:00:00 PM, [address] [place] [address] [address], [place], [address], Progress Notes * Antoni KENT MDOB:1940 (84 yo M)Acc No.[id number]:08/20/2024 Progress Notes Patient: Antoni GROSS Provider: Liv Padron MD :1940 A ge:84 Y S ex:Male Date:08/20/2024 Address:[address] [place] [address], [phone] Subjective: * Chief Complaints: * D epressionDiabetesPulmonary embolismChronic insomniaBenign prostatic hypertrophyHyperlipidemia * HPI: C OVID-19 Screening: He returns for medical management. Comprehensive blood work is available. His diabetes is extremely well controlled. His depression is stable and he sees a psychiatrist regularly. He denies any suicidal thinking. He is sleeping better than usual. He rises from sleep once or twice a night to urinate. He has no new complaints and feels generally well. His hearing and vision are unchanged. On July 21, 2024 he had left cataract surgery. The right cataract will be extracted on September 03, 2024. No contraindication to surgery today was found and he was given medical clearance for the procedure. Questions H ave you had any new [...] enies. D iarrhea d enies. H eartburn c ontrolled with medications. N ausea d enies. R ectal bleeding [...] No history * Hospitalization/Major Diagno stic Procedure: H [facility], rhabdomyolysis, fell at home 08/10/2022No [...] ggressive non-smoker Nevaeh angeles was born in [place], [place]. He has a son. He is retired from [employer]. He has a son, Lawrence Hardingjr. [facility] in [place]. [facility]. * Medications: T akingVitamin D (Ergocalciferol) 1.25 MG (48629 UT) Capsule TAKE 1 CAPSULE BY MOUTH ONE TIME PER WEEK Accu-Chek FastClix Lancets - Miscellaneous USE TO [...] TAKE 1 TABLET BY MOUTH EVERY DAY Myrbetriq 25 MG Tablet Extended Release 24 Hour TAKE 1 TABLET BY MOUTH DAILY Oral Medication List reviewed and reconciled with the patientTaking Vitamin D (Ergocalciferol) 1.25 MG (23657 UT) Capsule TAKE 1 CAPSULE BY MOUTH ONE TIME PER WEEK Taking Accu-Chek FastClix Lancets - Miscellaneous USE [...] 1 TABLET BY MOUTH EVERY DAY Taking Myrbetriq 25 MG Tablet Extended Release 24 Hour TAKE 1 TABLET BY MOUTH DAILY Oral Medication List reviewed and reconciled with the patient * Allergies: N o Known Drug Allergyno[Allergies Verified] Objective: * Vitals: H t: 72, Wt:206, BMI:27.94, BP:128/55, HR:82, Temp:97.7, Wt-k.44. * P ast Orders: Imaging:Diabetic Eye Exam * Performed Date 06/11/2024 Order Date 06/11/2024 03/21/2023 10/17/2016 Result: undefined undefined No diabetic ret inopathy * Lab:Complete Blood Count Aut o Diff * Collection Date 08/12/2024 04/14/2024 12/10/2023 Collection Time 07:10 AM 09:38 AM 09:45 AM Order Date 08/12/2024 04/14/2024 12/10/2023 White Blood Count 6.3 (Ref Range: 4.8-10.8 X10*3/uL) 5.6 (Ref Range: 4.8-10.8 X10*3/uL) 6.3 (Ref Range: 4.8-10.8 X10*3/uL) Red Blood Count 4.24 L (Ref Range: 4.60-5.80 X10*6/uL) 3.93 L (Ref Range: 4.60-5.80 X10*6/uL) 4.51 L (Ref Range: 4.60-5.80 X10*6/uL) Hemoglobin 13.5 L (Ref Range: 14.0-18.0 g/dl) 12.6 L (Ref Range: 14.0-18.0 g/dl) 14.4 (Ref Range: 14.0-18.0 g/dl) Hematocrit 38.7 L (Ref Range: 42.0-52.0 %) 37.3 L (Ref Range: 42.0-52.0 %) 42.2 (Ref Range: 42.0-52.0 %) Mean Corpuscular Volume 91.3 (Ref Range: 80.0-98.0 fL) 94.9 (Ref Range: 80.0-98.0 fL) 93.6 (Ref Range: 80.0-98.0 fL) Mean Corpuscular Hemoglobin 31.8 (Ref Range: 27.0-33.0 pg) 32.1 (Ref Range: 27.0-33.0 pg) 31.9 (Ref Range: 27.0-33.0 pg) Mean Corpuscular HGB Conc 34.9 (Ref Range: 31.0-36.0 g/dl) 33.8 (Ref Range: 31.0-36.0 g/dl) 34.1 (Ref Range: 31.0-36.0 g/dl) Red Cell Distribution Width 12.8 (Ref Range: 11.0-16.0 %) 12.0 (Ref Range: 11.0-16.0 %) 12.7 (Ref Range: 11.0-16.0 %) Platelet Count 163 (Ref Range: 160-400 X10*3/uL) 201 (Ref Range: 160-400 X10*3/uL) 183 (Ref Range: 160-400 X10*3/uL) Mean Platelet Volume 9.1 L (Ref Range: 9.4-12.4 fL) 8.9 L (Ref Range: 9.4-12.4 fL) 9.2 L (Ref Range: 9.4-12.4 fL) Neutrophils Percent Auto 41.6 L (Ref Range: 45-73 %) 52.6 (Ref Range: 45-73 %) 54.0 (Ref Range: 45-73 %) Imm Gran Pct Auto 0.5 H (Ref Range: 0.0-0.4 %) 0.5 H (Ref Range: 0.0-0.4 %) 0.3 (Ref Range: 0.0-0.4 %) Lymphocytes Percent Auto 46.5 H (Ref Range: 20-40 %) 35.3 (Ref Range: 20-40 %) 35.9 (Ref Range: 20-40 %) Monocytes Percent Auto 9.7 (Ref Range: 2-11 %) 9.9 (Ref Range: 2-11 %) 7.7 (Ref Range: 2-11 %) Eosinophils Percent Auto 1.4 (Ref Range: 0-4 %) 1.3 (Ref Range: 0-4 %) 1.6 (Ref Range: 0-4 %) Basophils Percent Auto 0.3 (Ref Range: 0-2 %) 0.4 (Ref Range: 0-2 %) 0.5 (Ref Range: 0-2 %) NRBC Pct Auto 0.0 (Ref Range: 0.0-0.2 /100WBC) 0.0 (Ref Range: 0.0-0.2 /100WBC) 0.0 (Ref Range: 0.0-0.2 /100WBC) Neutrophils Absolute Auto 2.6 (Ref Range: 2.0-8.3 x10*3/uL) 2.9 (Ref Range: 2.0-8.3 x10*3/uL) 3.4 (Ref Range: 2.0-8.3 x10*3/uL) Imm Gran Abs Auto 0.03 (Ref Range: 0.00-0.03 X10*3/uL) 0.03 (Ref Range: 0.00-0.03 X10*3/uL) 0.02 (Ref Range: 0.00-0.03 X10*3/uL) Lymphocytes Absolute Auto 2.9 (Ref Range: 1.2-4.9 X10*3/uL) 2.0 (Ref Range: 1.2-4.9 X10*3/uL) 2.3 (Ref Range: 1.2-4.9 X10*3/uL) Monocytes Absolute Auto 0.6 (Ref Range: 0.1-1.2 X10*3/uL) 0.6 (Ref Range: 0.1-1.2 X10*3/uL) 0.5 (Ref Range: 0.1-1.2 X10*3/uL) Eosinophils Absolute Auto 0.1 (Ref Range: 0.0-0.4 X10*3/uL) 0.1 (Ref Range: 0.0-0.4 X10*3/uL) 0.1 (Ref Range: 0.0-0.4 X10*3/uL) Basophils Absolute Auto 0.0 (Ref Range: 0.0-0.2 X10*3/uL) 0.0 (Ref Range: 0.0-0.2 X10*3/uL) 0.0 (Ref Range: 0.0-0.2 X10*3/uL) NRBC Abs Auto 0.000 (Ref Range: 0.0-0.012 X10*3/uL) 0.000 (Ref Range: 0.0-0.012 X10*3/uL) 0.000 (Ref Range: 0.0-0.012 X10*3/uL) * Lab:Hemoglobin A1c * Collection Date 08/12/2024 04/14/2024 12/10/2023 Collection Time 07:10 AM 09:38 AM 09:45 AM Order Date 08/12/2024 04/14/2024 12/10/2023 Hemoglobin A1c % 5.6 (Ref Range: <6.0 %) 5.4 (Ref Range: <6.0 %) 5.5 (Ref Range: <6.0 %) Estimated Average Glucose 114 (Ref Range: mg/dL) 108 (Ref Range: mg/dL) 111 (Ref Range: mg/dL) * Lab:Microalbumin, Random * Collection Date 08/12/2024 04/14/2024 12/10/2023 Collection Time 07:23 AM 11:15 AM 09:45 AM Order Date 08/12/2024 04/14/2024 12/10/2023 Creatinine Urine 76.27 (Ref Range: mg/dL) 167.26 (Ref Range: mg/dL) 78.10 (Ref Range: mg/dL) Microalbumin Urine < 5.0 (Ref Range: mg/L) 10.0 (Ref Range: mg/L) 5.0 (Ref Range: mg/L) Microalbum Creatinine Ratio Ur TNP (Ref Range: <30 ug/mg cr) 5.9 (Ref Range: <30 ug/mg cr) 6.4 (Ref Range: <30 ug/mg cr) * Lab:Prostate Specific Antige n * Collection Date 08/12/2024 04/14/2024 12/10/2023 Collection Time 07:10 AM 09:38 AM 09:45 AM Order Date 08/12/2024 04/14/2024 12/10/2023 Prostate Specific Antigen 1.75 (Ref Range: <0.05-4.0 ng/mL) 2.12 (Ref Range: <0.05-4.0 ng/mL) 1.70 (Ref Range: <0.05-4.0 ng/mL) * Lab:Lipid Panel * Collection Date 08/12/2024 04/14/2024 12/10/2023 Collection Time 07:10 AM 09:38 AM 09:45 AM Order Date 08/12/2024 04/14/2024 12/10/2023 Triglycerides 85 (Ref Range: <150 mg/dL) 92 (Ref Range: <150 mg/dL) 142 (Ref Range: <150 mg/dL) Cholesterol 124 (Ref Range: <200 mg/dL) 130 (Ref Range: <200 mg/dL) 149 (Ref Range: <200 mg/dL) LDL Cholesterol Calculated 64 (Ref Range: <100 mg/dL) 68 (Ref Range: <100 mg/dL) 78 (Ref Range: <100 mg/dL) HDL Cholesterol 43 (Ref Range: >40 mg/dL) 44 (Ref Range: >40 mg/dL) 43 (Ref Range: >40 mg/dL) * Lab:Comprehensive [place]. Pane l Fast * Collection Date 08/12/2024 04/14/2024 12/10/2023 Collection Time 07:10 AM 09:38 AM 09:45 AM Order Date 08/12/2024 04/14/2024 12/10/2023 Sodium 142 (Ref Range: 135-145 mmol/L) 138 (Ref Range: 135-145 mmol/L) 142 (Ref Range: 135-145 mmol/L) Bilirubin Total 0.4 (Ref Range: 0.0-1.0 mg/dL) 0.5 (Ref Range: 0.0-1.0 mg/dL) 0.5 (Ref Range: 0.0-1.0 mg/dL) Aspartate Amino Transferase 21 (Ref Range: 5-37 U/L) 19 (Ref Range: 5-37 U/L) 17 (Ref Range: 5-37 U/L) Alanine Aminotransferase 18 (Ref Range: 0-40 U/L) 18 (Ref Range: 0-40 U/L) 17 (Ref Range: 0-40 U/L) Total Protein 6.5 (Ref Range: 6.5-8.0 g/dL) 6.6 (Ref Range: 6.5-8.0 g/dL) 7.0 (Ref Range: 6.5-8.0 g/dL) Albumin Level 4.2 (Ref Range: 3.5-5.0 g/dL) 3.9 (Ref Range: 3.5-5.0 g/dL) 4.3 (Ref Range: 3.5-5.0 g/dL) Alkaline Phosphatase 127 H (Ref Range: 39-117 U/L) 127 H (Ref Range: 39-117 U/L) 113 (Ref Range: 39-117 U/L) Potassium 3.9 (Ref Range: 3.3-5.1 mmol/L) 3.9 (Ref Range: 3.3-5.1 mmol/L) 4.2 (Ref Range: 3.3-5.1 mmol/L) Chloride 110 H (Ref Range: 96-108 mmol/L) 110 H (Ref Range: 96-108 mmol/L) 105 (Ref Range: 96-108 mmol/L) Carbon Dioxide 24 (Ref Range: 22-29 mmol/L) 24 (Ref Range: 22-29 mmol/L) 25 (Ref Range: 22-29 mmol/L) Anion Gap 12 (Ref Range: 12-20) 8 L (Ref Range: 12-20) 16 (Ref Range: 12-20) Blood Urea Nitrogen 17 H (Ref Range: 9-16 mg/dL) 15 (Ref Range: 9-16 mg/dL) 16 (Ref Range: 9-16 mg/dL) Creatinine 0.99 (Ref Range: 0.5-1.4 mg/dL) 0.85 (Ref Range: 0.5-1.4 mg/dL) 1.07 (Ref Range: 0.5-1.4 mg/dL) Estimated Glomerular Filt Rate > 60 > 60 > 60 Glucose Fasting 86 (Ref Range: 60-99 mg/dL) 113 H (Ref Range: 60-99 mg/dL) 107 H (Ref Range: 60-99 mg/dL) Calcium 9.1 (Ref Range: 8.4-10.2 mg/dL) 8.6 (Ref Range: 8.4-10.2 mg/dL) 9.5 (Ref Range: 8.4-10.2 mg/dL) * Examination: G eneral Examination: GENERAL [...] sounds normal, no ascites, no organomegaly, no mass. RECTAL EXAM: n ot examined. MUSCULOSKELETAL: e [...] verweight - E66.3 N otes :He remains overweight but his weight is stable. We discussed diet and nutrition today. 4 . G ERD (gastroesophageal reflux disease) - K21.9 N otes :His heartburn is well controlled with medications. He is sleeping through the night. No change in his regimen was needed. 5 . H istory of pulmonary embolism - Z86.711 N otes :There is no sign of venous thromboembolism on examination today. 6 . C holelithiasis - K80.20 7 . C hronic insomnia - F51.04 N otes :He is still sleeping poorly but appears to be well rested. 8 . B PH (benign prostatic hyperplasia) - N40.0 N otes :He rises from sleep once or twice a night to urinate. We discussed lifestyle modification as a way to reduce nocturia. Plan: * Treatment: 2. D epression Continue Vitamin D (Ergocalciferol) Capsule, 1.25 MG (96809 UT), TAKE 1 CAPSULE BY MOUTH ONE TIME PER WEEK; C ontinue Accu-Chek FastClix Lancets Miscellaneous, -, USE TO TEST BLOOD SUGAR ONCE DAILY, Notes to Pharmacist: E11.9 Type 2 diabetes; C ontinue Mirtazapine Tablet, 45 MG, TAKE 1 TABLET BY MOUTH EVERYDAY AT BEDTIME; C ontinue Accu-Chek Laura Plus Strip, -, as directed, In Vitro, test blood sugars once a day, Notes to Pharmacist: E11.9 Diabetes; C ontinue FLUoxetine HCl Capsule, 40 MG, [...] L AB: PSA, TOTAL L AB: CBC w DIFF L AB: Lipid Panel L AB: Vitamin D 25-OH Total L AB: Microalbumin, Random L AB: Hemoglobin A1c 3. O verweight L AB: PROFILE, FASTING (COMPREHENSIVE METABOLIC) L AB: PSA, TOTAL L AB: CBC w DIFF L AB: Lipid Panel L AB: Vitamin D 25-OH Total L AB: Microalbumin, Random L AB: Hemoglobin A1c 4. G ERD (gastroesophageal reflux disease) L AB: PROFILE, FASTING (COMPREHENSIVE METABOLIC) L AB: PSA, TOTAL L AB: CBC w DIFF L AB: Lipid Panel L AB: Vitamin D 25-OH Total L AB: Microalbumin, Random L AB: Hemoglobin A1c 5. B PH (benign prostatic hyperplasia) L AB: PROFILE, FASTING (COMPREHENSIVE METABOLIC) L AB: PSA, TOTAL L AB: CBC w DIFF L AB: Lipid Panel L AB: Vitamin D 25-OH Total L AB: Microalbumin, Random L AB: Hemoglobin [...] Goals B lood Sugars less than < 115.? B arriers n o barriers. S elf-Managment Goals W ork on weight loss, with a goal of losing 1 lb per week. * Follow Up: 4 Months (Reason: ov) * Images: * Sign off status: Completed true * Provider: Liv Padron MD Date: 0 08/20/2024 Generated for Daylin helm/Meghana/Kentonitting on: 1 05/17/2024 06:33 PM EST History [...] normal, no ascites, no organomegaly, no mass NEUROLOGIC: alert and oriented, cranial nerves 2-12 [...]
--- OUTSIDE RECORDS SUMMARY | 2024-10-10 07:00 | XMS_ITS ---
Author Organization [facility] Address [address] [place] [address] Care Team Providers Care Education Reporter Name Role Phone Hector Padron MD Primary Care Provider Unavailab Suzette Calvillo Unavailable [phone] Medications Medication SIG (Take, Route, Frequency, Duration) Notes Start Date End Date Status Metformin & Diet Manage Prod 500 MG as directed Orally Not-Takin g Dicyclomine HCl 10 MG 1 capsule Orally F our times a day; Duration: 30 day(s) Not-Taking Promethazine HCl 25 MG 1 tablet at bedti me Orally Once a day; Duration: 30 day(s) Not-Taking Ondansetron 4 MG as directed Orally Not-Taking Extra-Depth Diabetic Shoes with 3 Pair Custom heat-molded multi-density innersoles . 1pair shoes/3sets inserts . .; Duration: 1 year Not-Taking valACYclovir HCl 500 MG 1 tablet Orally every 12 hrs; Duration: 10 day(s) Not-Taking Simvastatin 10 MG 1 tablet every eveni ng Orally Once a day; Duration: 30 day(s) Not-Taking Lisinopril 5 MG 0.5 tablet Orally On ce a day; Duration: 30 day(s) Not-Taking Keflex 500 MG 1 capsule Orally alejandra ry 12 hrs; Duration: 5 days 10/20/2022 Not-Taking clonazePAM 2 MG 1 tablet at bedtime Orally Once a day Not-Taking Vitamin D2 Active Jublia 10 % as directed External ly Daily; Duration: 30 days 10/20/2022 Not-Taking risperiDONE 0.5 MG 1 tablet Orally Once a day; Duration: 30 day(s) Not-Taking FLUoxetine HCl 60 MG as directed Orally Once a day Not-Taking Mirtazapine 45 MG 1 tablet before bedt tomas every evening Orally Once a day; Duration: 30 day(s) Not-Taking Encounters Encounter Location Date Provider Diagnosis [facility] [address] [address] 10/10/2024 Suzette Schmitz Plan Of Treatment Next Appt Details Provider Name:Suzette saini, 04/03/2025 02:00:00 PM, [address] [place] [address], [phone], Progress Notes * Antoni KENT MDOB:1940 (84 yo M)Acc No.[id number]:10/10/2024 Progress Note Patient: Antoni GROSS Provider: Gayla Schmitz DPM :1940 A ge:84 Y S ex:Male Date:10/10/2024 Address:[address] [place] [address] [id number] Pcp:Hector Padron MD Subjective: * Chief Complaints: * * HPI: A t Risk footcare: Pt States Last PCP Visit: D ate: 0 03/26/2024 * Medical History: A nxiety, Back, hip, knee pain, Depression, type I diabetes, Neuropathy, Reflux, Stomach ulcer, Chicken pox, High blood pressure. * Medications: T aking Vitamin D2 , Not-Taking/PRN Jublia 10 % Solution as directed Externally Daily , Not-Taking/PRN risperiDONE 0.5 MG Tablet 1 tablet Orally Once a day , Not- Taking/PRN FLUoxetine HCl 60 MG Tablet as directed Orally Once a day , Not-Taking/PRN Mirtazapine 45 MG Tablet 1 tablet before bedtime every evening Orally Once a day , Not-Taking/PRN clonazePAM 2 MG Tablet 1 tablet at bedtime Orally Once a day , Not-Taking/PRN valACYclovir HCl 500 MG Tablet 1 tablet Orally every 12 hrs , Not-Taking/PRN Simvastatin 10 MG Tablet 1 tablet every evening Orally Once a day , Not-Taking/PRN Lisinopril 5 MG Tablet 0.5 tablet Orally Once a day , Not- Taking/PRN Keflex 500 MG Capsule 1 capsule Orally every 12 hrs , Not-Taking/PRN Metformin & Diet Manage Prod 500 MG Miscellaneous as directed Orally , Not-Taking/PRN Dicyclomine HCl 10 MG Capsule 1 capsule Orally Four times a day , Not-Taking/PRN Promethazine HCl 25 MG Tablet 1 tablet at bedtime Orally Once a day , Not-Taking/PRN Ondansetron 4 MG Tablet Dispersible as directed Orally , Not-Taking/PRN Extra-Depth Diabetic Shoes with 3 Pair Custom heat-molded multi-density innersoles . . 1pair shoes/3sets inserts . . Objective: * Vitals: Assessment: Plan: * Treatment: * Images: * The named appointment provid er may or may not be the originator of this progress note, and it is not deemed complete until electronically signed by the appointment provider. Sign off status: Pending * Provider: Gayla Schmitz DPM Date: 0 10/10/2024 Generated for Daylin helm/Meghana/Vanessa on: 1 05/17/2024 06:32 PM EST History and Physical Notes * HPI (History of Present Illness) Category Sub-Category Detail Notes Category Not es At Risk footcare Pt States Last PCP Visit: Date:: 03/26/19 25
--- OUTSIDE RECORDS SUMMARY | 2024-12-17 09:00 | XMS_ITS ---
Author Organization Hector Padron III, MD Address [address] [place] [address] DR SAM Shreya DINESH [place]BL[place] [address] Care Team Providers Care Options Advisor Name Role Phone Dr. Hector Padron III Primary Care Provider [phone] Allergies Allergen (clinical drug ingredient) Drug/Non Drug [...] DAILY Active Vitamin D (Ergocalciferol) 1.25 MG (18708 UT) TAKE 1 CAPSULE BY MOUTH ONE [...] Provider Diagnosis Hector Padron III, MD [address] [place] [address] [place] [address] 12/17/2024 Hector Padron Type 2 diabetes mellitus [...] DAILY Vitamin D (Ergocalciferol) 1 .25 MG (97298 UT) TAKE 1 CAPSULE BY MOUTH ONE [...] Provider Name:Hector Padron , 04/23/2025 10:30:00 AM, [address] [place] [address] [place], [address], Provider Name:Hector Padron , 12/23/2025 02:00:00 PM, [address] [place] [address] [place], [address], Progress Notes * Antoni KENT MDOB:1940 (84 yo M)Acc No.[id number]:12/17/2024 Progress Notes Patient: Antoni GROSS Provider: Liv Padron MD :1940 A ge:84 Y S ex:Male Date:12/17/2024 Address:[address] [place] [address] [place], [id number] Subjective: * Chief Complaints: * A nnual [...] make to avoid this. 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 He has a son. He is retired from [employer]. He has a son, Lawrence Hardingjr. [facility] in [place]. [facility] * Medications: T akingVitamin D (Ergocalciferol) 1.25 MG (02272 UT) Capsule TAKE 1 CAPSULE BY MOUTH [...] the patientTaking Vitamin D (Ergocalciferol) 1.25 MG (15278 UT) Capsule TAKE 1 CAPSULE BY MOUTH [...] 60.1 (Ref Range: >30 ng/mL) * Lab:Comprehensive Sod. Pane l Fast * Collection Date 12/01/2024 [...] ontinue Vitamin D (Ergocalciferol) Capsule, 1.25 MG (10799 UT), TAKE 1 CAPSULE BY MOUTH ONE [...] 12/17/2024 Generated for Daylin helm/Meghana/Adrianaransmitting on: 1 05/17/2024 [...]
--- OUTSIDE RECORDS SUMMARY | 2025-01-19 11:14 | XMS_ITS ---
Author Organization Hector Padron III, MD Address [address] [place] [address] [place] [address] Care Team Providers Care Hospital Supervisor Name Role Phone Dr. Hector Padron III Primary Care Provider [phone] REASON FOR VISIT Rx Refill Social History Sex Assigned At : Social History Observation Description Sex Assigned At Male Encounters Encounter Location Date Provider Diagnosis Hector Padron III, MD [address] [place] [address] [place] [address] 01/19/2025 Hector Padron Plan Of Treatment Next Appt Details Provider Name:Hector Padron , 04/23/2025 10:30:00 AM, [address] [place] [address] [place], [address], Provider Name:Hector Padron , 12/23/2025 02:00:00 PM, [address] [place] [address] [place], [address], Progress Notes * Antoni KENT MDOB:1940 (84 yo M)Acc No.[id number]:01/19/2025 Patient: Antoni GROSS :1940 A ge:84 Y S ex:Male Address:[address] [facility], [place] [address] * true * Date: Generated for Daylin helm/Meghana/Vanessa on: 05/17/2024 06:32 PM EST
--- OUTSIDE RECORDS SUMMARY | 2025-01-19 11:57 | XMS_ITS ---
Author Organization Hector Padron III, MD Address [address] [place] [address] [place] [address] Care Team Providers Care Head Girls Golf Coach Name Role Phone Dr. Hector Padron III Primary Care Provider [phone] Medications Medication SIG (Take, Route, Frequency, Duration) Notes Start Date End Date Status valACYclovir HCl 500 MG 1 tablet Orally Once a day for 90 days 01/19/2025 01/14/2026 Active Social History Sex Assigned At : Social History Observation Description Sex Assigned At Male Encounters Encounter Location Date Provider Diagnosis Hector Padron III, MD [address] [place] [address] [place] [address] 01/19/2025 Hector Padron Plan Of Treatment Medication Medication Name Sig Start Date Stop Date Notes valACYclovir HCl 500 MG 1 tablet Orally Once a day for 90 days 01/19/2025 01/14/2026 Next Appt Details Provider Name:Hector Padron , 04/23/2025 10:30:00 AM, [address] [place] [address] [place], [address], Provider Name:Hector Padron , 12/23/2025 02:00:00 PM, [address] [place] [address] [place], [address], Progress Notes * Antoni KENT MDOB:1940 (84 yo M)Acc No.[id number]:01/19/2025 Patient: Antoni GROSS :1940 A ge:84 Y S ex:Male Address:[address] [place] [address], [place] [address] * Refills Start valACYclovir HCl Tablet, 500 MG, Orally, 90 Tablet, 1 tablet, Once a day, 90 days, Refills=3 * true * Date: Generated for Daylin helm/Meghana/Kentonitting on: 1 05/17/2024 06:33 PM EST
--- OUTSIDE RECORDS SUMMARY | 2025-03-16 18:32 | XMS_ITS | Patient Health Record ---
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 Vital Signs Blood pressure diastolic 80 mm Hg 12/30/2024 Height 6 ft in 12/30/2024 Blood pressure systolic 135 mm Hg 12/30/2024 Weight 201 lbs 12/30/2024 BMI 27.26 kg/m2 12/30/2024 Encounters Encounter Location Date Provider Diagnosis [facility] [place] [address] [place] [address] 05/02/2024 Suzette Schmitz Type 2 diabetes mellitus with polyneuropathy E11.42 ; Contusion of right lesser toe(s) with damage to nail, initial encounter S90.221A ; Tinea unguium B35.1 ; Neuropathic ulcer of right foot with fat layer exposed L97.512 and Contusion of left lesser toe(s) without damage to nail, initial encounter S90.122A [facility] [place] [address] [place] [address] 12/30/2024 Suzette Schmitz Type 2 diabetes mellitus with polyneuropathy E11.42 ; Other hammer toe(s) (acquired), right foot M20.41 ; Tinea unguium B35.1 and Other hammer toe(s) (acquired), left foot M20.42 [facility] [address] [address] 10/10/2024 Suzette Schmitz Assessments Encounter Date Diagnosis [...] X ray : Foot, right 2V 08/03/2011 [id number] SKIN LESIONS, 2 TO 4 08/03/19 12 Next Appt Details Provider Name:Suzette Saini Svitlana saini, 04/03/2025 02:00:00 PM, [address] [facility], [place], [address], Insurance Providers Payer Name Payer Address Payer Phone Subscriber Number Group Number Insured Name Patient Relationship to Insured Coverage Start Date Coverage End Date Medicare National [employer]t S[employer] [address] [facility] [place] [address] [id number] Antoni Kent Self - patient is the insured [employer] [facility] [address] [place] [address] [id number] Antoni Kent Self - patient is the insured Medical (General) History Medical History History ICD Code anxiety back, hip, knee pain depression type I diabetes neuropathy reflux stomach ulcer chicken pox High blood pressure Surgical History Surgery Date(Month/Year) gall bladder 07/08/2000 appendectomy 5th lumbar 08/10/2000 cataract surgery 10/17
--- OUTSIDE RECORDS SUMMARY | 2025-03-16 18:33 | XMS_ITS | Patient Health Record ---
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 Hector Padron III Primary Care Provider Allergies Allergen (clinical drug ingredient) Drug/Non Drug Allergy documented on EMR Reaction Allergy Type Onset Date Status No Known Drug Allergy Unknown Drug Allergy Active No Known Food Allergy Unknown Drug Allergy Active Results Component Value Reference Range Notes Complete Blood Count Auto Di ff Reviewed date:04/21/2024 04:23:26 AM Interpretation: Performing Lab:[facility], [address] [place] [phone] Notes/Report: White Blood Count 5.6 4.8-10.8 X10*3/uL [...] NRBC Abs Auto 0.000 0.0-0.012 X10*3/uL Comprehensive [place]. Panel Fa st Reviewed date:04/21/2024 04:23:26 AM Interpretation: Performing Lab:[facility], [address] [place] [phone] Notes/Report: Sodium 138 135-145 mmol/L Potassium 3.9 [...] Panel Reviewed date:04/21/2024 04:23:26 AM Interpretation: Performing Lab:[facility], [address] [place] [phone] Notes/Report: Triglycerides 92 <150 mg/dL Desirable Triglyceride: [...] Antigen Reviewed date:04/21/2024 04:23:26 AM Interpretation: Performing Lab:[facility], [address] [place] [phone] Notes/Report: Prostate Specific Antigen 2.12 <0.05-4.0 ng/mL PSA methodology: Patterson Alinity i Chemiluminescent Microparticle Immunoassay (CMIA) Microalbumin, Random Reviewed date:04/21/2024 04:23:26 AM Interpretation: Performing Lab:[facility], [address] [place] [phone] Notes/Report: Creatinine Urine 167.26 Microalbumin Urine 10.0 Microalbum/Creatinine Ratio Ur 5.9 <30 ug/mg cr Albumin/Creatinine Ratio Reference Ranges: Normal: < 30 ug/mg creatinine Microalbuminuria: 30 - 300 ug/mg creatinine Clinical Albuminuria: > 300 ug/mg creatinine Hemoglobin A1c Reviewed date:04/21/2024 04:23:26 AM Interpretation: Performing Lab:[facility], [address] [place] [phone] Notes/Report: Hemoglobin A1c % 5.4 <6.0 % [...] average glucose, using the formula of the M6T-Uuxpljl Average Glucose study (ADAG), Diabetes Care, Vol.31,#8, Oct. 2007 Diabetic Eye Exam Reviewed date:06/12/2024 09:19:55 AM Interpretation:undefined Performing Lab: Notes/Report: undefined Complete Blood Count Auto Di ff Reviewed date:08/12/2024 11:52:59 AM Interpretation: Performing Lab:[facility], [address] [place] [phone] Notes/Report: White Blood Count 6.3 4.8-10.8 X10*3/uL [...] NRBC Abs Auto 0.000 0.0-0.012 X10*3/uL Comprehensive [place]. Panel Fa Reviewed date:08/12/2024 11:52:59 AM Interpretation: Performing Lab:[facility], [address] [place] [phone] Notes/Report: Sodium 142 135-145 mmol/L Potassium 3.9 [...] Panel Reviewed date:08/12/2024 11:52:59 AM Interpretation: Performing Lab:[facility], [address] [place] [phone] Notes/Report: Triglycerides 85 <150 mg/dL Desirable Triglyceride: [...] Antigen Reviewed date:08/12/2024 11:52:59 AM Interpretation: Performing Lab:[facility], [address] [place] [phone] Notes/Report: Prostate Specific Antigen 1.75 <0.05-4.0 ng/mL PSA methodology: Patterson Alinity i Chemiluminescent Microparticle Immunoassay (CMIA) Microalbumin, Random Reviewed date:08/12/2024 11:52:59 AM Interpretation: Performing Lab:[facility], [address] [place] [phone] Notes/Report: Creatinine Urine 76.27 Microalbumin Urine < 5.0 Microalbum/Creatinine Ratio Ur TNP <30 ug/mg cr Unable to calculate albumin/creatinine ratio due to low microalbumin or creatinine result. Hemoglobin A1c Reviewed date:08/12/2024 11:52:59 AM Interpretation: Performing Lab:[address] [address] Notes/Report: Hemoglobin A1c % 5.6 <6.0 % [...] average glucose, using the formula of the P7A-Ebszdfa Average Glucose study (ADAG), Diabetes Care, Vol.31,#8, Oct. 2007 Complete Blood Count Auto Di ff Reviewed date:12/02/2024 03:10:37 PM Interpretation: Performing Lab:[address] [address] Notes/Report: White Blood Count 6.5 4.8-10.8 X10*3/uL [...] NRBC Abs Auto 0.000 0.0-0.012 X10*3/uL Comprehensive [place]. Panel Fa st Reviewed date:12/02/2024 03:10:37 PM Interpretation: Performing Lab:[facility], [address] [place] [phone] Notes/Report: Sodium 142 135-145 mmol/L Potassium 4.0 [...] Panel Reviewed date:12/02/2024 03:10:37 PM Interpretation: Performing Lab:[address] [address] Notes/Report: Triglycerides 92 <150 mg/dL Desirable Triglyceride: [...] Antigen Reviewed date:12/02/2024 03:10:37 PM Interpretation: Performing Lab:[address] [phone] Notes/Report: Prostate Specific Antigen 1.58 <0.05-4.0 ng/mL PSA methodology: Patterson Alinity i Chemiluminescent Microparticle Immunoassay (CMIA) Vitamin D 25-OH Total Reviewed date:12/02/2024 03:10:37 PM Interpretation: Performing Lab:[address] [phone] Notes/Report: Vitamin D 25-OH Total 55.7 >30 [...] Random Reviewed date:12/02/2024 03:10:38 PM Interpretation: Performing Lab:[facility], [address] [place] [phone] Notes/Report: Creatinine Urine 92.23 Microalbumin Urine < 5.0 Microalbum/Creatinine Ratio Ur TNP <30 ug/mg cr Unable to calculate albumin/creatinine ratio due to low microalbumin or creatinine result. Hemoglobin A1c Reviewed date:12/02/2024 03:10:37 PM Interpretation: Performing Lab:[facility], [address] [place] [phone] Notes/Report: Hemoglobin A1c % 5.5 <6.0 % [...] average glucose, using the formula of the W1R-Ohfblic Average Glucose study (ADAG), Diabetes Care, Vol.31,#8, 2007 Reason For Referral No Information Medications Medication [...] 01/14/2026 Active Vitamin D (Ergocalciferol) 1.25 MG (58858 UT) TAKE 1 CAPSULE BY MOUTH ONE [...] ed Fluzone High-Dose (HD-IIV3) Unknown 11/22/2015 Administ eremita Fluzone High-Dose (HD-IIV3) Unknown 11/20/2017 Administ dianna COVID-19 Moderna SPIKEVAX Unknown 12/29/2022 Administer ed Fluzone High-Dose (HD-IIV3) Unknown 01/28/2024 Administ dianna COVID-19 Moderna SPIKEVAX Unknown 04/29/2024 Administer ed [...] Problem Status W/U Status Risk Notes Problem 062855927 Overweight (E66.3) Active confirmed His body mass index is 27. We reviewed his weight loss strategy and diabetic diet. We made a plan to increase physical activity and to lose weight at a rate of one half of a pound per week. Problem 19762873 Depression (F32.9) Active confirmed He has mild chronic depression. He is compliant with his psychiatric medications and up-to-date with his psychiatrist. This problem is stable. Problem 707092626 GERD (gastroesophage al reflux disease) (K21.9) Active confirmed His heartburn i s well controlled with medications. He is sleeping through the night. No change in his regimen was needed. Problem 01295965 Type 2 diabetes mellitus without complications (E11.9) Active confirmed His hemoglobin A1c is 5.4. No change in his regimen was necessary today.He is doing well. The recent available. Blood work shows good control of the diabetes. Problem 51213862 Irritable bowel syndrome (K58.9) Active confirmed Visit irritable bowel syndrome is minor and well controlled. Problem 204566352 BPH (benign prostatic hyperplasia) (N40.0) Active confirmed He rises from sleep once or twice a night to urinate. We discussed lifestyle modification as a way to reduce nocturia. Problem 544028421 Hyperlipidemia type II (E78.0) Active confirmed His fasting lipid profile shows his lipids to be in the normal range. No change in his regimen was necessary today. Problem 805864686 Cholelithiasis (K80.20) Active confirmed Problem 220477195 Chronic insomnia (F51.04) Active confirmed He is still sleeping poorly but appears to be well rested. Problem 443002201653402 History of herpes zoster (Z86.19) Active confirmed Problem 926080159 History of pulmonary embolism (Z86.711) Active confirmed There is no sig n of venous thromboembolism on examination today. Problem 39683280 Age-related cataract of both eyes, unspecified age-related [...] Date Provider Diagnosis Hector Padron III, MD [address] [place] [address] [place] [address] 04/21/2024 Hector Padron Depression F32.9 ; T ype 2 diabetes mellitus without complications E11.9 ; Overweight E66.3 ; GERD (gastroesophageal reflux disease) K21.9 ; Chronic insomnia F51.04 ; BPH (benign prostatic hyperplasia) N40.0 ; Hyperlipidemia type II E78.0 ; Diabetic neuropathy E11.40 and History of pulmonary embolism Z86.711 Hector Padron III, MD [address] [place] [address] [place] [address] 07/08/2024 Hector Padron Depression F32.9 ; T ype 2 diabetes mellitus without complications E11.9 ; Overweight E66.3 ; GERD (gastroesophageal reflux disease) K21.9 ; Chronic insomnia F51.04 ; BPH (benign prostatic hyperplasia) N40.0 ; Hyperlipidemia type II E78.0 ; SOB (shortness of breath) R06.02 and Age-related cataract of both eyes, unspecified age-related cataract type H25.9 Hector Padron III, MD [address] [place] [address] [place] [address] 08/20/2024 Hector Padron Depression F32.9 ; T ype 2 diabetes mellitus without complications E11.9 ; Overweight E66.3 ; GERD (gastroesophageal reflux disease) K21.9 ; History of pulmonary embolism Z86.711 ; Cholelithiasis K80.20 ; Chronic insomnia F51.04 and BPH (benign prostatic hyperplasia) N40.0 Hector Padron III, MD [address] [place] [address] [place] [address] 12/17/2024 Hector Padron Type 2 diabetes eduardo itus without complications E11.9 ; Overweight E66.3 ; Depression F32.9 ; GERD (gastroesophageal reflux disease) K21.9 ; History of pulmonary embolism Z86.711 ; Chronic insomnia F51.04 ; BPH (benign prostatic hyperplasia) N40.0 and Irritable bowel syndrome K58.9 Hector Padron III, MD [address] [place] [address] [place] [address] 01/19/2025 Hector Padron III, MD [address] [place] [address] [place] [address] 01/19/2025 Hector Padron Assessments Encounter Date Diagnosis [...] with his psychiatrist. This problem is stable. 04/21/2024 GERD (gastroesophageal reflux disease) [...] of venous thromboembolism on examination today. 04/21/2024 BPH (benign prostatic hyperplasia) (ICD-10 [...] but appears to be well rested. 04/21/2024 Hyperlipidemia type II (ICD-10 - E78.0) [...] as a way to reduce nocturia. 04/21/2024 Diabetic neuropathy (ICD-10 - E11.40) Symptoms [...] bowel syndrome is minor and well controlled. 04/21/2024 History of pulmonary embolism (ICD-10 - [...] A1c 04/21/2024 Next Appt Details Provider Name:Hector Padron , 04/23/2025 10:30:00 AM, [address] [place] [address] [place], [place], [address], Provider Name:Hector Padron , 12/23/2025 02:00:00 PM, [address] [place] [address] [place], [place], [address], Insurance Providers Payer Name Payer Address Payer Phone Subscriber Number Group Number Insured Name Patient Relationship to Insured Coverage Start Date Coverage End Date MEDICARE NGS [address] [place] [phone] [id number] Antoni Kent Self - patient is the insured [facility] [address] [place], [place] [id number] [phone] [id number] Antoni Kent Self - patient is the insured Medical (General) History Medical History History ICD Code depression insomnia cholelithiasis hemorrhoids GERD acne BPH irritable bowel syndrome shingles left shouder chronic diarrhea diabetes mellitus hyperlipidemia pulmonary embolism neuropathy Surgical History Surgery Date(Month/Year) No history cholecystectomy Hospitalization History Reason Date(Month/Year) No history [facility], rhabdomyolysis, fell at home 08/10/2022
--- OUTSIDE RECORDS SUMMARY | 2025-03-16 18:34 | XMS_ITS | Patient Health Record ---
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 Name Role Phone Hector Padron MD Primary Care Provider Unavailab Hector Wisdom Unavailable [phone] Reason For Referral No Information Medications Medication [...] Problem Screening for malignant neoplasm of colon (522026164) Encounter for screening for malignant neoplasm of colon (Z12.11) Active confirmed Problem History of adenomatous polyp of colon (254707272) History of adenomatous polyp of colon (Z86.010) Active confirmed Problem Screening for malignant neoplasm of rectum (597541971) Encounter for screening for malignant neoplasm of rectum (Z12.12) Active confirmed Problem Family History of Cancer of Colon (Situation) (219370452) Family history of colon cancer (Z80.0) Active confirmed Problem Irritable bowel syndrome (68983174) Irritable bowel syndrome with both constipation and diarrhea (K58.2) Active confirmed Plan Of Treatment Future Test Test Name Order Date COLONOSCOPY 02/10/2011 COLONOSCOPY 06/28/2016 Insurance Providers Payer Name Payer Address Payer Phone Subscriber Number Group Number Insured Name Patient Relationship to Insured Coverage Start Date Coverage End Date MEDICARE OF [place] [address] [place] [address] [id number] ERI HODGE Self - patient is the insured [employer] CLAIMS [address] [place] [address] [id number] ERI HODGE Self - patient is the insured Medical (General) History Medical History History ICD Code Colonoscopy 03/29/2011--small tubular josette nomas removed EGD 01/20/2010--biopsies wer e negative for celiac disease and H. pylori--no esophagitis nor Mckeon's esophagus IBS GERD--EGD as above PUD He has been treated for Helicobacter in the past Depression/anxiety--he sees Dr. Micah samuel at [facility] Pulmonary embolus and pneumonia in 2010 Denies NH, stroke, asthma, nor kidney di sease NIDDM Surgical History Surgery Date(Month/Year) back surgery cholecystectomy
== END 2025-03-16 15:33 | disposition home or self-care (01) ==
LOC: HO.HMGAL 15:32
PROVIDERS: PCP Internal Medicine Medical Oncology; Visit Provider Registered Nurse Emergency
DX: J30.89 Other allergic rhinitis (principal)
CPT/HCPCS: 95117; 95165